=== PATIENT | female | born 1935 | race Caucasian/White ===

== ENCOUNTER 2017-01-07 20:46 | Inpatient (IN) | payer OTHER, MEDICARE ==
[2017-01-07] MEDS ORDERED: SODIUM CHLORIDE 0.9% 1000 ML INFUS.BAG IV ONE (21:14)
--- NOTE | 2017-01-07 21:14 | PDOC ---
History of Present Illness - General History Source: Patient Exam Limitations: No Limitations - History of Present Illness Initial Comments: 01/07/17 22:07 The patient is a 81 year old female, with a significant past medical history of Atrial fibrillation(on coumadin), hypertension hyperlipidemia, and TIA, who presents to the emergency department complaining of shortness of breath for approximately 4 days. The patient reports her SOB is exacerbated on exertion. The patient reports her symptoms today are similar to when her pacemaker was dysfunctional in the past. She reports recent travel history to [facility] for 4 weeks. The patients last INR was 2.1 several days before traveling. Prior to her onset of SOB, the patient states she developed travelers diarrhea approximately 2 weeks ago during her trip to [facility]. The patient reports taking imodium, with relief of symptoms, and no recurrent diarrheal symptoms. The patient reports no history of clots, DVTs, painful swelling of legs, or MIs. The patient denies any associated chest pain, diaphoresis, or palpitations. The patient denies nausea, vomiting, or constipation. The patient denies any fever, chills, cough, headache, dizziness, or paresthesias. The patient denies any dysuria, frequency, urgency, or hematuria. Allergies: None reported. Past Surgical History: Pacemaker Social History: Non-smoker. Denies alcohol or drug use. PCP: Dr. Avani Salas Digital Business Analyst: Cooper Hickey <Zeke Pryor - Last Filed: 01/08/17 01:10> - General History Source: Patient <GuprreetGerman leal - Last Filed: 01/08/17 01:17> - General Chief Complaint: Respiratory Stated Complaint: CHEST PAIN Time Seen by Provider: 01/07/17 21:14 Past History <Zeke Pryor - Last Filed: 01/08/17 01:10> - Past Medical History Cardiac Disorders: Yes (a-fib (on coumadin)) HTN: Yes Hypercholesterolemia: Yes Thyroid Disease: Yes - Surgical History Cardiac Surgery: Yes (PM) - Psycho/Social/Smoking Cessation Hx Suicidal Ideation: No Smoking History: Unknown if ever smoked Hx Alcohol Use: No Drug/Substance Use Hx: No <German Manuel - Last Filed: 01/08/17 01:17> - Past Medical History Allergies/Adverse Reactions: Allergies Allergy/AdvReac Type Severity Reaction Status Date / Time No Known Allergies Allergy Verified 01/07/17 20:54 Review of Systems - Review of Systems Able to Perform ROS?: Yes Comments:: 01/07/17 22:07 CONSTITUTIONAL: Absent: fever, no chills, no fatigue EYES: Absent: visual changes ENT: Absent: ear pain, no sore throat CARDIOVASCULAR: Absent: chest pain, no palpitations RESPIRATORY: Present: +dyspnea on exertion, +SOB Absent: cough GI: Present: +diarrhea Absent: abdominal pain, no nausea, no vomiting, no constipation GENITOURINARY: Absent: dysuria, no frequency, no hematuria MUSKULOSKELETAL: Absent: back pain, no arthralgia, no myalgia SKIN: Absent: rash NEURO: Absent: headache <Pryor,Giomilsy - Last Filed: 01/08/17 01:10> *Physical Exam - Vital Signs Last Vital Signs Temp Pulse Resp BP Pulse Ox 96.6 F L 78 18 101/74 100 01/07/17 21:23 01/07/17 21:22 01/07/17 21:22 01/07/17 21:22 01/07/17 21:22 - Physical Exam Comments: 01/07/17 22:08 GENERAL: Well developed, well nourished. Awake and alert. No acute distress. HEENT: Normocephalic, atraumatic. PERRLA, EOMI. No conjunctival pallor. Sclera are non- icteric. Moist mucous membranes. Oropharynx is clear. NECK: Supple. Full ROM. No JVD. Carotid pulses 2+ and symmetric, without bruits. No thyromegaly. No lymphadenopathy. CARDIOVASCULAR: Distant heart sounds. No murmurs, rubs, or gallops. Distal pulses are 2+ and symmetric. PULMONARY: No evidence of respiratory distress. Lungs clear to auscultation bilaterally. No wheezing, rales or rhonchi. ABDOMINAL: Soft. Non-tender. Non-distended. No rebound or guarding. No organomegaly. Normoactive bowel sounds. MUSCULOSKELETAL Normal range of motion at all joints. No bony deformities or tenderness. No CVA tenderness. EXTREMITIES: No cyanosis. No clubbing. No edema. No calf tenderness. SKIN: Warm and dry. Normal capillary refill. No rashes. No jaundice. NEUROLOGICAL: Alert, awake, appropriate. Cranial nerves 2-12 intact. No deficits to light touch and temperature in face, upper extremities and lower extremities. No motor deficits in the in face, upper extremities and lower extremities. Normoreflexic in the upper and lower extremities. Normal speech. Toes are down- going bilaterally. Gait is normal without ataxia. PSYCHIATRIC: Cooperative. Good eye contact. Appropriate mood and affect. <Zeke Pryor - Last Filed: 01/08/17 01:10> - Vital Signs Last Vital Signs Temp Pulse Resp BP Pulse Ox 73 18 88/54 96 01/07/17 20:54 01/07/17 20:54 01/07/17 20:54 01/07/17 20:54 <German Manuel - Last Filed: 01/08/17 01:17> Heart Score/ECG Review - ECG Impressions Comment:: 01/07/17 21:30 Vent. Rate: 78 bpm IMPRESSION: Atrial fibrillation with premature ventricular or aberrantly conducted complexes. Left axis deviation. Left bundle branch block. <Zeke Pryor - Last Filed: 01/08/17 01:10> ED Treatment Course - LABORATORY CBC & Chemistry Diagram: 01/07/17 21:16 01/07/17 21:16 - RADIOLOGY Radiograph Interpretation: 01/08/17 01:11 EXAM: Chest CT INTERPRETED BY: Dr. Nuno REVIEWED BY: Dr. Manuel IMPRESSION: Moderate to large pericardial effusion demonstrates soft tissue attenuation consistent with hemopericardium. Periportal lucency in the liver and gallbladder wall edema. These findings can be the result of central venous congestion. Consider evaluation for cardiac tamponade. <Zeke Pryor - Last Filed: 01/08/17 01:10> - LABORATORY CBC & Chemistry Diagram: 01/07/17 21:16 01/07/17 21:16 <German Manuel - Last Filed: 01/08/17 01:17> Medical Decision Making - Medical Decision Making 01/07/17 22:03 First call placed to Dr. Salas at 22:03. Dr. Gama is workers compensation coordinator. Awaiting call back. Case discussed with Dr. Gama at 22:30. First call placed to Dr. Hickey at 00:58. Awaiting call back. Spoke to patient's vinyl dipper Dr. Cooper Hickey at 01:02, he was made aware of the CT findings of a large pericardial effusion. He suggests stat echocardiogram in the morning and he will also see the patient in the morning. <Zeke Pryor - Last Filed: 01/08/17 01:10> - Medical Decision Making 01/08/17 00:59 Dr. Manuel: The scribe's documentation has been prepared under my direction and personally reviewed by me in its entirery. I confirm that the note above accurately reflects all work, treatment, procedures, and medical decision making performed by me. Pt found to have a large pericardial effusion as per radiology workers compensation coordinator. Radiologist concerned for pericardial tamponade. Spoke to pcp and pt vinyl dipper. Both eill see pt in the morning and pt will have a stat echocardiogram <German Manuel - Last Filed: 01/08/17 01:17> *DC/Admit/Observation/Transfer - Attestations Scribe Attestion: 01/07/17 22:09 Documentation prepared by Zeke Pryor, acting as medical engineer for German Manuel DO. <Zeke Pryor - Last Filed: 01/08/17 01:10> - Discharge Dispostion Admit: Yes <German Manuel - Last Filed: 01/08/17 01:17> Diagnosis at time of Disposition: Renal failure Sepsis Qualifiers: Sepsis type: sepsis during labor Qualified Code(s): O75.3 - Other infection during labor - Discharge Dispostion Condition at time of disposition: Stable
[2017-01-07 21:32] LABS: BASOPHIL 1.2 % (0-2.0); EOSINOPHIL 0.5 % (0-4.5); MCH 31.3 pg (25.7-33.7); MCHC 32.8 g/dl (32.0-36.0); MEAN CELL VOLUME 95.4 fl (80-96); NEUTROPHILS 70.4 % (42.8-82.8); PLATELET COUNT 376 K/MM3 (134-434); RDW 13.9 % (11.6-15.6); WHITE BLOOD COUNT 11.8 K/mm3 (4.0-10.0)
[2017-01-07 21:42] LABS: PROTHROMBIN TIME (PATIENT) 99.6 SEC (9.98-11.88)
[2017-01-07 21:44] LABS: ACTIVATED PTT 49.1 SECONDS (26.9-34.4)
[2017-01-07 21:52] LABS: INR 8.66 (0.82-1.09)
[2017-01-07 21:55] LABS: ALBUMIN 3.2 g/dl (3.4-5.0); ANION GAP 14 (8-16); BILIRUBIN,TOTAL 0.3 mg/dL (0.2-1.0); CALCIUM 7.8 mg/dL (8.5-10.1); CO2 16 mmol/L (21-32); CREATININE 4.9 mg/dL (0.55-1.02); GLUCOSE,RANDOM 151 mg/dL (74-106); SGOT/AST 26 U/L (15-37); SGPT/ALT 53 U/L (12-78); TOT PROT 6.2 g/dl (6.4-8.2)
[2017-01-07 21:57] LABS: ALK PHOS 124 U/L (45-117); TROPONIN I < 0.02 ng/ml (0.00-0.05)
[2017-01-07] MEDS ORDERED: SODIUM CHLORIDE 1,000 ML IV STA (22:06)
[2017-01-07 22:24] LABS: VENOUS BLOOD GAS HCO3 15.8 meq/L (22-29); VENOUS PH 7.17 (7.31-7.41)
[2017-01-07] MEDS ORDERED: PIPERACILLIN/TAZOB 3.375 GM 3.375 GM in DEXTROSE 5%-WATER - 50 ML IVPB ONE (22:29)
[2017-01-07] MEDS ORDERED: PIPERACILLIN/TAZOB 3.375 GM 50 ML IVPB ONE (22:44)
[2017-01-08] MEDS ORDERED: PHYTONADIONE 10 MG/1 ML AMP IVPB ONE ×3 (00:55→07:27)
[2017-01-08] MEDS ORDERED: PHYTONADIONE 10 MG/1 ML AMP ONE (01:31)
[2017-01-08 02:35] LABS: URINE APPEARANCE TURBID; URINE BILIRUBIN NEGATIVE (NEGATIVE); URINE COLOR YELLOW; URINE GLUCOSE (UA) 1+ (NEGATIVE); URINE KETONE TRACE (NEGATIVE); URINE LEUK ESTERASE NEGATIVE (NEGATIVE); URINE NITRITE NEGATIVE (NEGATIVE); URINE UROBILINOGEN NEGATIVE E.U./dl (0.2-1.0)
[2017-01-08 02:37] LABS: URINE BLOOD 2+ (NEGATIVE); URINE PROTEIN 3+ (NEGATIVE)
[2017-01-08 02:45] LABS: URINE BACTERIA MANY /hpf (NONE SEEN); URINE RBC 90 /hpf (0-3); URINE WBC 36 /hpf (3-5)
--- NOTE | 2017-01-08 03:33 | CONSULT ---
Consult Consult Specialty:: Pulm/CCM Reason for Consultation:: Pericardial Effusion - History of Present Illness Chief Complaint: Dyspnea History of Present Illness: 81 year old woman with PMHx Atrial fibrillation(on coumadin), hypertension hyperlipidemia, and TIA, who presents to the emergency department complaining of shortness of breath for approximately 4 days. On imaging she is noted to have a large pericardial effusion. She is transferred to ICU for monitoring In the ED her VS T 96, HR 73, irreg, BP 88/54, O2 sat 95% on 4L NC. She reported that her symptoms are similar to when her pacemaker was dysfunctional in the past. She reported recent travel history to [facility] for 4 weeks where she developed travelers diarrhea. After the diarrhea she developed the SOB that worsened with exertion. She denied chest pain , palpitaiton , syncope, lightheadedness, fever cough or any sick contacts. Her labs were notable for WBC 11, BUN/Creat 73/4.9, lact 3.3, INR 8.6( previously 2.1), VBG ph 7.17. Her CXR unremarkable. CT chest showed large pericaridial effusion with possible tamponade physiology. She was given NS 2L, Vit K 5mg, and Zosyn x1. Her fisheries inspector Dr Hickey was notified. Plan for ECHO in am. She was transferred to ICU for further management In ICU she was received A+O x3, HR 74, BP 103/83, O2 sat 99% on 4L NC. HR very irregular. ECG showed pacemaker failure with no capture. BP dropped to 60/40's . Dopamine drip started. Dr Hickey notified. Requested CXR read to assess for pacemaker lead placement and possible penetration. NS 500cc fluid bolus x2 given. Plan for transfer. - History Source History Provided By: Patient Limitations to Obtaining History: No Limitations - Past Medical History C++ PROFESSOR: Yes: TIA Cardio/Vascular: Yes: AFIB, HTN, Hyperlipdemia - Past Surgical History Past Surgical History: Yes: Cataract Removal, Permanent Pacemaker Additional Surgical History: Basal cell resection - Alcohol/Substance Use Hx Alcohol Use: No History of Substance Use: reports: None - Smoking History Smoking history: Unknown if ever smoked Home Medications - Allergies Allergies/Adverse Reactions: Allergies Allergy/AdvReac Type Severity Reaction Status Date / Time No Known Allergies Allergy Verified 01/07/17 20:54 - Home Medications Home Medications: Ambulatory Orders Amlodipine Bes/Olmesartan Med [Amlodipine-Olmesartan 10-20 mg] 1 each PO DAILY 01/08/17 Atorvastatin Ca [Lipitor] 10 mg PO HS 01/08/17 Levothyroxine [Synthroid -] 25 mcg PO DAILY 01/08/17 Metoprolol Tartrate [Lopressor -] 50 mg PO DAILY 01/08/17 Propafenone HCl [Propafenone HCl ER] 425 mg PO BID 01/08/17 Warfarin Na [Coumadin] 3 mg PO DAILY 01/08/17 Review of Systems - Review of Systems Constitutional: reports: Loss of Appetite, Other (Fatigue) Eyes: reports: No Symptoms HENT: reports: No Symptoms Neck: reports: No Symptoms Cardiovascular: reports: Shortness of Breath Respiratory: reports: No Symptoms Gastrointestinal: reports: Diarrhea Genitourinary: reports: No Symptoms Breasts: reports: No Symptoms Reported Musculoskeletal: reports: No Symptoms Integumentary: reports: No Symptoms Neurological: reports: No Symptoms Endocrine: reports: No Symptoms Hematology/Lymphatic: reports: No Symptoms Psychiatric: reports: No Symptoms Physical Exam Vital Signs: Vital Signs Temperature 97.1 F L 01/08/17 02:30 Pulse Rate 78 01/08/17 02:30 Respiratory Rate 22 01/08/17 02:30 Blood Pressure 83/54 01/08/17 02:30 O2 Sat by Pulse Oximetry (%) 96 01/08/17 02:30 Constitutional: Yes: Well Nourished, No Distress, Calm Eyes: Yes: WNL HENT: Yes: WNL Neck: Yes: WNL Cardiovascular: Yes: Pulse Irregular, Other (A-fib with pacemaker failure No JVD , no rub, murmur) Respiratory: Yes: WNL, On Nasal O2 Gastrointestinal: Yes: Normal Bowel Sounds, Soft, Abdomen, Obese, Hypoactive Bowel Sounds Extremities: Yes: Cool, Pallor Edema: No Integumentary: Yes: Other (dry flaky) Neurological: Yes: Alert, Oriented ...Motor Strength: WNL Psychiatric: Yes: WNL Labs: CBC,CMP WBC 11.8 K/mm3 (4.0-10.0) H 01/07/17 21:16 RBC 3.15 M/mm3 (3.60-5.2) L 01/07/17 21:16 Hgb 9.8 GM/dL (10.7-15.3) L 01/07/17 21:16 Hct 30.0 % (32.4-45.2) L 01/07/17 21:16 MCV 95.4 fl (80-96) 01/07/17 21:16 MCHC 32.8 g/dl (32.0-36.0) 01/07/17 21:16 RDW 13.9 % (11.6-15.6) 01/07/17 21:16 Plt Count 376 K/MM3 (134-434) 01/07/17 21:16 MPV 8.0 fl (7.5-11.1) 01/07/17 21:16 Neutrophils % 70.4 % (42.8-82.8) 01/07/17 21:16 Lymphocytes % 18.0 % (8-40) 01/07/17 21:16 Monocytes % 9.9 % (3.8-10.2) 01/07/17 21:16 Eosinophils % 0.5 % (0-4.5) 01/07/17 21:16 Basophils % 1.2 % (0-2.0) 01/07/17 21:16 Sodium 136 mmol/L (136-145) 01/07/17 21:16 Potassium 5.4 mmol/L (3.5-5.1) H 01/07/17 21:16 Chloride 106 mmol/L (98-107) 01/07/17 21:16 Carbon Dioxide 16 mmol/L (21-32) L 01/07/17 21:16 Anion Gap 14 (8-16) 01/07/17 21:16 BUN 73 mg/dL (7-18) H 01/07/17 21:16 Creatinine 4.9 mg/dL (0.55-1.02) H 01/07/17 21:16 Creat Clearance w eGFR 8.46 (>60) 01/07/17 21:16 Random Glucose 151 mg/dL (74-106) H 01/07/17 21:16 Lactic Acid 1.342 mmol/L (0.4-2.0) 01/07/17 23:55 Calcium 7.8 mg/dL (8.5-10.1) L 01/07/17 21:16 Total Bilirubin 0.3 mg/dL (0.2-1.0) 01/07/17 21:16 AST 26 U/L (15-37) 01/07/17 21:16 ALT 53 U/L (12-78) 01/07/17 21:16 Alkaline Phosphatase 124 U/L (45-117) H 01/07/17 21:16 Creatine Kinase 75 IU/L (26-192) 01/07/17 21:16 Troponin I < 0.02 ng/ml (0.00-0.05) 01/07/17 21:16 B-Natriuretic Peptide 1061.06 pg/ml (5-450) H 01/07/17 22:04 Total Protein 6.2 g/dl (6.4-8.2) L 01/07/17 21:16 Albumin 3.2 g/dl (3.4-5.0) L 01/07/17 21:16 Imaging - Results Chest X-ray: Report Reviewed (No consolidations or effusions) Cat Scan: Report Reviewed (CT Chest shows small right pleural effusion. A moderate to large complex pericardial effusion likely hemorrhagic. Venous congestion. Possible cardiac tamponade) Assessment/Plan 81yo woman with PMHx HTN, HLD, A-fib on coumadin s/p Pacemaker from 2006 with recent battery change last june presents with c/o 4 days of dyspnea after a bout of traveler diarrhea. Found to have a large pericardial effusion most likely hemorrhagic with tamponade physiology in the setting of supratherapeutic INR of 8.6. C/f inappropriate pacemaker lead placement resulting in hemorrhage. Course also complicated by acute renal failure and lactic acidosis m/l from poor forward flow +/- dehydration from diarrhea and decreased po intake. Also with leukocytosis c/f sepsis CV/Pulm: Hypotension m/l cardiogengic shock 2/2 pericardial tamponade +/- pacemaker failure requiring inotrope support -Gentle fluid bolus-- -Dopamine drip for inotropy -TTE -Cardiothoracic consult -Plan for pericardiocentesis or window -Interrogate pacemaker -NC O2 support -Monitor lactate -Keep NPO Heme: Supratherapeutic INR -FFP as needed -Cont Vit K -Monitor CBC and coags Renal: Acute renal failure -Monitor BMP and UOP -Fluid bolus as needed -Renal dose meds ID: Leukocytosis possible UTI -f/u cultures and flu swab -Cont zosyn -Monitor CBC and temps
[2017-01-08 03:36] VITALS: BMI 27.9
[2017-01-08] MEDS: DOPAMINE 400 MG/D5W - 250 ML IVPB SCH (04:20)
[2017-01-08] MEDS ORDERED: DEXTROSE 5%-NORMAL SALINE 1,000 ML IV SCH (04:30)
[2017-01-08] MEDS ORDERED: SODIUM CHLORIDE 500 ML IV STA (04:47)
[2017-01-08] MEDS ORDERED: SODIUM CHLORIDE 500 ML IV ONE (05:50)
[2017-01-08 05:58] LABS: BASOPHIL 0.6 % (0-2.0); EOSINOPHIL 0.1 % (0-4.5); MCH 31.1 pg (25.7-33.7); MCHC 32.8 g/dl (32.0-36.0); MEAN CELL VOLUME 94.8 fl (80-96); MEAN PLT VOLUME 7.8 fl (7.5-11.1); NEUTROPHILS 82.9 % (42.8-82.8); PLATELET COUNT 354 K/MM3 (134-434); RDW 13.8 % (11.6-15.6)
[2017-01-08 06:14] LABS: PROTHROMBIN TIME (PATIENT) 67.7 SEC (9.98-11.88)
[2017-01-08 06:39] LABS: CALCIUM 7.1 mg/dL (8.5-10.1)
[2017-01-08 06:40] LABS: BILIRUBIN,TOTAL 0.4 mg/dL (0.2-1.0); TOT PROT 5.7 g/dl (6.4-8.2)
--- NOTE | 2017-01-08 06:49 | CON.CARD ---
Consult Consult Specialty:: Cardiology Referred by:: Dr. 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 She was sick with diarrhea (likely travelers diarrhea) and then developed shortness of breath which cut her trip short. [place] and came into the hospital last night. Patient was found to have INR 8.6 with lactic acid level of 3.3 and BUN/Cr of 73/4.9 (she has not had any renal failure in the past). CXR showed possible enlarged heart, but without any infiltrates. CT of chest revealed possible moderate to large pericardial effusion and was reported possible tamponade. Also CT chest suggested possible hemopericardium. O2 saturation was 95% on 4L NC. She also has history of sick sinus syndrome with Medtronic pacemaker. Currently not clear whether it is appropriately capturing, but also it may be due to hyperkalemia as well as pericardial effusion. She became hypotensive and has been supported by fluids and also was started on Dopamine being titrated. She was given Vitamin K and was given empiric antibiotic. INR is being repeated with type and cross done and in addition to FFP on hold. Echocardiography is being done. She is awake and alert early this am. She denies chest pain or palpitation. She is breathing comfortable with oxygen. Denies headache of dizziness. She felt nausea early this am and no fever or chills. CT surgery has been contacted. 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 Cardio/Vascular: Yes: AFIB, HTN, Hyperlipdemia ...: No - Past Surgical History Past Surgical History: Yes: Cataract Removal, Permanent Pacemaker Additional Surgical History: Basal cell resection - Alcohol/Substance Use Hx Alcohol Use: No History of Substance Use: reports: None - Smoking History Smoking history: Unknown if ever smoked Have you smoked in the past 12 months: No Home Medications - Allergies Allergies/Adverse Reactions: Allergies Allergy/AdvReac Type Severity Reaction Status Date / Time No Known Allergies Allergy Verified 01/07/17 20:54 - Home Medications Home Medications: Ambulatory Orders Amlodipine Bes/Olmesartan Med [Amlodipine-Olmesartan 10-20 mg] 1 each PO DAILY 01/08/17 Atorvastatin Ca [Lipitor] 10 mg PO HS 01/08/17 Levothyroxine [Synthroid -] 25 mcg PO DAILY 01/08/17 Metoprolol Tartrate [Lopressor -] 50 mg PO DAILY 01/08/17 Propafenone HCl [Propafenone HCl ER] 425 mg PO BID 01/08/17 Warfarin Na [Coumadin] 3 mg PO DAILY 01/08/17 Review of Systems - Review of Systems Constitutional: denies: Chills, Fever Cardiovascular: reports: Shortness of Breath. denies: Chest Pain, Palpitations Respiratory: reports: SOB. denies: Cough, Hemoptysis, Orthopnea, PND Gastrointestinal: reports: Nausea. denies: Abdominal Pain, Constipation, Diarrhea, Melena, Rectal Bleeding, Vomiting Neurological: denies: Dizziness, Headache, Seizure, Syncope Vital Signs: Vital Signs Temperature 97.8 F 01/08/17 06:00 Pulse Rate 73 01/08/17 06:00 Respiratory Rate 22 01/08/17 06:00 Blood Pressure 87/41 01/08/17 06:00 O2 Sat by Pulse Oximetry (%) 100 01/08/17 03:30 Neck: Yes: Supple Respiratory: Yes: Diminished Gastrointestinal: Yes: Normal Bowel Sounds, Soft. No: Tenderness Cardiovascular: Yes: Regular Rate and Rhythm, Other (Distant heart sound) JVD: No Carotid Bruit: No Heart Sounds: Yes: S1, S2 Edema: No - Other Data Labs, Other Data: CBC, BMP 01/08/17 05:00 INR, PTT INR 8.66 (0.82-1.09) H* 01/07/17 21:16 Laboratory Results - last 24 hr 01/07/17 01/07/17 01/07/17 21:15 21:16 21:16 WBC 11.8 H RBC 3.15 L Hgb 9.8 L Hct 30.0 L MCV 95.4 MCHC 32.8 RDW 13.9 Plt Count 376 MPV 8.0 Neutrophils % 70.4 Lymphocytes % 18.0 Monocytes % 9.9 Eosinophils % 0.5 Basophils % 1.2 INR 8.66 H* PTT (Actin FS) 49.1 H D-Dimer VBG pH POC VBG pCO2 POC VBG pO2 Sodium Potassium Chloride Carbon Dioxide Anion Gap BUN Creatinine Creat Clearance w eGFR Random Glucose Lactic Acid Calcium Total Bilirubin AST ALT Alkaline Phosphatase Creatine Kinase Troponin I B-Natriuretic Peptide Total Protein Albumin Urine Color Urine Appearance Urine pH Ur Specific [place] Urine Protein Urine Glucose (UA) Urine Ketones Urine Blood Urine Nitrite Urine Bilirubin Urine Urobilinogen Ur Leukocyte Esterase Urine RBC Urine WBC Ur Epithelial Cells Urine Bacteria Blood Type O POSITIVE Antibody Screen Negative 01/07/17 01/07/17 01/07/17 21:16 21:16 22:04 WBC RBC Hgb Hct MCV MCHC RDW Plt Count MPV Neutrophils % Lymphocytes % Monocytes % Eosinophils % Basophils % INR PTT (Actin FS) D-Dimer 450 H VBG pH POC VBG pCO2 POC VBG pO2 Sodium 136 Potassium 5.4 H Chloride 106 Carbon Dioxide 16 L Anion Gap 14 BUN 73 H Creatinine 4.9 H Creat Clearance w eGFR 8.46 Random Glucose 151 H Lactic Acid 3.313 H* Calcium 7.8 L Total Bilirubin 0.3 AST 26 ALT 53 Alkaline Phosphatase 124 H Creatine Kinase 75 Troponin I < 0.02 B-Natriuretic Peptide Total Protein 6.2 L Albumin 3.2 L Urine Color Urine Appearance Urine pH Ur Specific [place] Urine Protein Urine Glucose (UA) Urine Ketones Urine Blood Urine Nitrite Urine Bilirubin Urine Urobilinogen Ur Leukocyte Esterase Urine RBC Urine WBC Ur Epithelial Cells Urine Bacteria Blood Type Antibody Screen 01/07/17 01/07/17 01/07/17 22:04 22:20 23:55 WBC RBC Hgb Hct MCV MCHC RDW Plt Count MPV Neutrophils % Lymphocytes % Monocytes % Eosinophils % Basophils % INR PTT (Actin FS) D-Dimer VBG pH 7.17 L* POC VBG pCO2 45.3 POC VBG pO2 34.5 Sodium Potassium Chloride Carbon Dioxide Anion Gap BUN Creatinine Creat Clearance w eGFR Random Glucose Lactic Acid 1.342 Calcium Total Bilirubin AST ALT Alkaline Phosphatase Creatine Kinase Troponin I B-Natriuretic Peptide 1061.06 H Total Protein Albumin Urine Color Urine Appearance Urine pH Ur Specific [place] Urine Protein Urine Glucose (UA) Urine Ketones Urine Blood Urine Nitrite Urine Bilirubin Urine Urobilinogen Ur Leukocyte Esterase Urine RBC Urine WBC Ur Epithelial Cells Urine Bacteria Blood Type Antibody Screen 01/08/17 01/08/17 01/08/17 02:20 05:00 05:00 WBC 12.0 H RBC 3.14 L Hgb 9.8 L Hct 29.8 L MCV 94.8 MCHC 32.8 RDW 13.8 Plt Count 354 MPV 7.8 Neutrophils % 82.9 H Lymphocytes % 9.0 D Monocytes % 7.4 Eosinophils % 0.1 Basophils % 0.6 INR PTT (Actin FS) D-Dimer VBG pH POC VBG pCO2 POC VBG pO2 Sodium 138 Potassium 5.6 H Chloride 110 H Carbon Dioxide 16 L Anion Gap 12 BUN 78 H Creatinine 5.0 H Creat Clearance w eGFR 8.27 Random Glucose 155 H Lactic Acid Calcium 7.1 L Total Bilirubin 0.4 D AST 39 H D ALT 64 D Alkaline Phosphatase 115 Creatine Kinase Troponin I B-Natriuretic Peptide Total Protein 5.7 L Albumin 3.0 L Urine Color Yellow Urine Appearance Turbid Urine pH 5.0 Ur Specific [place] 1.019 Urine Protein 3+ H Urine Glucose (UA) 1+ H Urine Ketones Trace H Urine Blood 2+ H Urine Nitrite Negative Urine Bilirubin Negative Urine Urobilinogen Negative Ur Leukocyte Esterase Negative Urine RBC 90 Urine WBC 36 Ur Epithelial Cells Rare Urine Bacteria Many Blood Type Antibody Screen 01/08/17 01/08/17 05:00 05:00 WBC RBC Hgb Hct MCV MCHC RDW Plt Count MPV Neutrophils % Lymphocytes % Monocytes % Eosinophils % Basophils % INR 5.93 H* D PTT (Actin FS) 39.0 H D-Dimer VBG pH POC VBG pCO2 POC VBG pO2 Sodium Potassium Chloride Carbon Dioxide Anion Gap BUN Creatinine Creat Clearance w eGFR Random Glucose Lactic Acid 1.245 Calcium Total Bilirubin AST ALT Alkaline Phosphatase Creatine Kinase Troponin I B-Natriuretic Peptide Total Protein Albumin Urine Color Urine Appearance Urine pH Ur Specific [place] Urine Protein Urine Glucose (UA) Urine Ketones Urine Blood Urine Nitrite Urine Bilirubin Urine Urobilinogen Ur Leukocyte Esterase Urine RBC Urine WBC Ur Epithelial Cells Urine Bacteria Blood Type Antibody Screen Underlying atrial fibrillation, presence of dual chamber pacemaker, underlying wide complex QRS with left bundle pattern Echo: Pending Imaging - Results Chest X-ray: Image Reviewed Cat Scan: Image Reviewed (Official report to follow - moderate to large eusebio) EKG: Report Reviewed Problem List - Problems (1) Renal failure Code(s): N19 - UNSPECIFIED KIDNEY FAILURE (2) Pericardial effusion with cardiac tamponade Code(s): I31.3 - PERICARDIAL EFFUSION (NONINFLAMMATORY) I31.4 - CARDIAC TAMPONADE (3) Atrial fibrillation Code(s): I48.91 - UNSPECIFIED ATRIAL FIBRILLATION Qualifiers: Atrial fibrillation type: paroxysmal Qualified Code(s): I48.0 - Paroxysmal atrial fibrillation (4) Hypertension Code(s): I10 - ESSENTIAL (PRIMARY) HYPERTENSION Qualifiers: Hypertension type: essential hypertension Qualified Code(s): I10 - Essential (primary) hypertension (5) Hypotension Code(s): I95.9 - HYPOTENSION, UNSPECIFIED Qualifiers: Hypotension type: other hypotension type Qualified Code(s): I95.89 - Other hypotension (6) Sick sinus syndrome Code(s): I49.5 - SICK SINUS SYNDROME (7) Presence of permanent cardiac pacemaker Code(s): Z95.0 - PRESENCE OF CARDIAC PACEMAKER (8) TIA (transient ischemic attack) Code(s): G45.9 - TRANSIENT CEREBRAL ISCHEMIC ATTACK, UNSPECIFIED Qualifiers: Transient cerebral ischemia type: unspecified Qualified Code(s): G45.9 - Transient cerebral ischemic attack, unspecified Assessment/Plan 1. Large pericardial effusion possibly hemopericardium with tamponade physiology 2. Acute renal failure with initial lactic acidosis and hyperkalemia 2. History of sick sinus syndrome S/P PPM 3. History of paroxysmal atrial fibrillation on Coumadin ([id number] score of 6 -7) 4. History of hypertension, but now hypotensive due to #1 5. History of TIA/stroke 6. Recent travelers diarrhea - resolved PLAN: 1. Transthoracic echocardiography revealed large pericardial effusion with component of diastolic collapse suggestive of cardiac tamponade physiology. LV function appears preserved. 2. Discussed case with Thoracic surgery (Dr. Yefri Cowna) for pericardial window vs. pericardial drain today. INR will need to be reversed with further Vitamin K and FFP. PPM lead probably is in position, but with intermittent capture due to above tamponade physiology. Lead does not appear to have perforated. Keep NPO 3. Correct hyperkalemia - may give D50, Insulin and Calcium and follow K level and renal function. Renal consultation to follow regarding BUN/cr and metabolic acidosis 4. Empiric antibiotic 5. Agree with Dopamine drip and fluid resuscitation and hold cardiac medications until further instruction. Critical Patient explained of current status and plan Cooper Hickey MD
[2017-01-08 06:50] LABS: INR 5.93 (0.82-1.09)
[2017-01-08] MEDS ORDERED: SODIUM CHLORIDE 1,000 ML IV ONE (06:55)
[2017-01-08] MEDS ORDERED: SODIUM CHLORIDE 1,000 ML IV SCH (08:30)
--- NOTE | 2017-01-08 09:26 | HP ---
Admitting History and Physical - Admission History of Present Illness: 81 year old female with underlying history of PAF (on Coumadin), HTN , hypercholesterolemia and TIA/stroke without residual deficit now presents after returning from [facility] on her routine trip with increase in shortness of breath. She was sick with diarrhea (likely travelers diarrhea) and then developed shortness of breath which cut her trip short. [place] on [place] and came into the hospital last night. Patient was found to have INR 8.6 with lactic acid level of 3.3 and BUN/Cr of 73/4.9 (she has not had any renal failure in the past). CXR showed possible enlarged heart, but without any infiltrates. CT of chest revealed possible moderate to large pericardial effusion and was reported possible tamponade. Also CT chest suggested possible hemopericardium. O2 saturation was 95% on 4L NC. She also has history of sick sinus syndrome with Medtronic pacemaker. She became hypotensive and has been supported by fluids and also was started on Dopamine being titrated. She was given Vitamin K and was given empiric antibiotic. INR is being repeated with type and cross done and in addition to FFP on hold. Echocardiography is being done. She is awake and alert early this am. She denies chest pain or palpitation. She is breathing comfortable with oxygen. Denies headache of dizziness. She felt nausea early this am and no fever or chills. 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 Cardiovascular: Yes: AFIB, HTN, Hyperlipdemia ...: No - Past Surgical History Past Surgical History: Yes: Cataract Removal, Permanent Pacemaker - Smoking History Smoking history: Unknown if ever smoked Have you smoked in the past 12 months: No - Alcohol/Substance Use Hx Alcohol Use: No History of Substance Use: reports: None Home Medications - Allergies Allergies/Adverse Reactions: Allergies Allergy/AdvReac Type Severity Reaction Status Date / Time No Known Allergies Allergy Verified 01/07/17 20:54 - Home Medications Home Medications: Ambulatory Orders Amlodipine Bes/Olmesartan Med [Amlodipine-Olmesartan 10-20 mg] 1 each PO DAILY 01/08/17 Atorvastatin Ca [Lipitor] 10 mg PO HS 01/08/17 Levothyroxine [Synthroid -] 25 mcg PO DAILY 01/08/17 Metoprolol Tartrate [Lopressor -] 50 mg PO DAILY 01/08/17 Propafenone HCl [Propafenone HCl ER] 425 mg PO BID 01/08/17 Warfarin Na [Coumadin] 3 mg PO DAILY 01/08/17 Physical Examination Vital Signs: Vital Signs Temperature 97.6 F 01/08/17 08:30 Pulse Rate 73 01/08/17 08:46 Respiratory Rate 22 01/08/17 08:30 Blood Pressure 128/69 01/08/17 08:46 O2 Sat by Pulse Oximetry (%) 100 01/08/17 03:30 Cardiovascular: Yes: S1, S2 Respiratory: Yes: Regular, CTA Bilaterally Gastrointestinal: Yes: Normal Bowel Sounds, Soft. No: Tenderness Neurological: Yes: Alert, Oriented Labs: CBC, BMP 01/08/17 05:00 01/08/17 05:00 Imaging - Results Chest X-ray: Report Reviewed Cat Scan: Report Reviewed Assessment/Plan Problems (1) Renal failure MONITOR RENAL FUNCTION MAYBE DUE TO HYPOTENSION OR INFECTION RENAL CONSULT IVF Code(s): N19 - UNSPECIFIED KIDNEY FAILURE (2) Pericardial effusion with cardiac tamponade D/W TS--WILL CORRECT INR THEN IR OR TS WILL DRAIN EFFUSION MONITOR BP AND FO SIGN OF TAMPONADE MAY BE FROM BLEEDING--HIGH INR Code(s): I31.3 - PERICARDIAL EFFUSION (NONINFLAMMATORY) I31.4 - CARDIAC TAMPONADE (3) Atrial fibrillation REVERSE INR MONITOR RATE Code(s): I48.91 - UNSPECIFIED ATRIAL FIBRILLATION Qualifiers: Atrial fibrillation type: paroxysmal Qualified Code(s): I48.0 - Paroxysmal atrial fibrillation (4) Hypertension Code(s): I10 - ESSENTIAL (PRIMARY) HYPERTENSION Qualifiers: Hypertension type: essential hypertension Qualified Code(s): I10 - Essential (primary) hypertension (5) Hypotension IVF DOPAMINE Code(s): I95.9 - HYPOTENSION, UNSPECIFIED Qualifiers: Hypotension type: other hypotension type Qualified Code(s): I95.89 - Other hypotension (6) Sick sinus syndrome Code(s): I49.5 - SICK SINUS SYNDROME (7) Presence of permanent cardiac pacemaker CARDIAC MONITORING Code(s): Z95.0 - PRESENCE OF CARDIAC PACEMAKER (8) TIA (transient ischemic attack) Code(s): G45.9 - TRANSIENT CEREBRAL ISCHEMIC ATTACK, UNSPECIFIED Qualifiers: Transient cerebral ischemia type: unspecified Qualified Code(s): G45.9 - Transient cerebral ischemic attack, unspecified (9) AGE--R/O E COLI HIGH LACTIC ACID ID CONSULT--D/W ID--WILL HOLD OFF ON ABX
--- NOTE | 2017-01-08 09:51 | CONSULT ---
Consult Consult Specialty:: Thoracic Surgery Referred by:: Dr. Cooper Hickey Reason for Consultation:: Pericardial effusion - History of Present Illness Chief Complaint: Weakness History of Present Illness: An 81-year-old female with history of PAF (on Coumadin), s/p pacemaker, HTN, and TIA/stroke, who presented to [facility] with complaints of worsening weakness. She reports that she was sick with diarrhea for few days in [facility] and developed mild SOB. Her workup including chest x-ray and CT chest showed pericardial effusion. Subsequently her echocardiogram confirmed above findings but no official reports available. She was also found to have elevated INR, lactic acidosis, hyperkalemia and acute renal insufficiency. She is breathing comfortably on supine position currently. She denies fever, chills, headache, dizziness, cough, sputum production and chest pain. 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 Cardio/Vascular: Yes: AFIB, HTN, Hyperlipdemia ...: No - Past Surgical History Past Surgical History: Yes: Cataract Removal, Permanent Pacemaker Additional Surgical History: Basal cell resection - Alcohol/Substance Use Hx Alcohol Use: No History of Substance Use: reports: None - Smoking History Smoking history: Unknown if ever smoked Have you smoked in the past 12 months: No Home Medications - Allergies Allergies/Adverse Reactions: Allergies Allergy/AdvReac Type Severity Reaction Status Date / Time No Known Allergies Allergy Verified 01/07/17 20:54 - Home Medications Home Medications: Ambulatory Orders Amlodipine Bes/Olmesartan Med [Amlodipine-Olmesartan 10-20 mg] 1 each PO DAILY 01/08/17 Atorvastatin Ca [Lipitor] 10 mg PO HS 01/08/17 Levothyroxine [Synthroid -] 25 mcg PO DAILY 01/08/17 Metoprolol Tartrate [Lopressor -] 50 mg PO DAILY 01/08/17 Propafenone HCl [Propafenone HCl ER] 425 mg PO BID 01/08/17 Warfarin Na [Coumadin] 3 mg PO DAILY 01/08/17 Review of Systems - Review of Systems Constitutional: reports: Malaise, Weakness Eyes: reports: No Symptoms HENT: reports: No Symptoms Neck: reports: No Symptoms Cardiovascular: reports: Shortness of Breath Respiratory: reports: SOB Gastrointestinal: reports: Diarrhea, Nausea Genitourinary: reports: No Symptoms Breasts: reports: No Symptoms Reported Musculoskeletal: reports: No Symptoms Integumentary: reports: No Symptoms Neurological: reports: No Symptoms Endocrine: reports: No Symptoms Hematology/Lymphatic: reports: No Symptoms Psychiatric: reports: No Symptoms Physical Exam Vital Signs: Vital Signs Temperature 97.6 F 01/08/17 08:30 Pulse Rate 73 01/08/17 08:46 Respiratory Rate 22 01/08/17 08:30 Blood Pressure 128/69 01/08/17 08:46 O2 Sat by Pulse Oximetry (%) 100 01/08/17 03:30 Constitutional: Yes: Well Nourished, Calm Eyes: Yes: WNL HENT: Yes: WNL Neck: Yes: WNL, Supple, Other (No JVD) Cardiovascular: Yes: Regular Rate and Rhythm Respiratory: Yes: WNL Gastrointestinal: Yes: WNL, Soft ...Rectal Exam: Yes: Deferred Renal/: Yes: WNL Breast(s): Yes: Other (deferred) Musculoskeletal: Yes: WNL Extremities: Yes: WNL Edema: No Peripheral Pulses WNL: Yes Integumentary: Yes: WNL Neurological: Yes: WNL, Oriented, Cran Nerves II-XII Intact ...Motor Strength: WNL Psychiatric: Yes: WNL Labs: CBC, BMP 01/08/17 05:00 01/08/17 05:00 Imaging - Results Chest X-ray: Report Reviewed, Image Reviewed Cat Scan: Report Reviewed, Image Reviewed Problem List - Problems (1) Pericardial effusion Code(s): I31.3 - PERICARDIAL EFFUSION (NONINFLAMMATORY) Assessment/Plan An 81-year-old female with history of PAF, on Coumadin, s/p pacemaker, HTN, who presented to [facility] with complaints of malaise for few days. Her radiographic studies and laboratory results were reviewed and discussed with the patient in extensive detail. She appears to have moderate pericardial effusion secondary to supratherapeutic INR level in the setting of anticoagulation regimen. She was given multiple options including percutaneous pericardial drain and surgical pericardial window. The risks, benefits, alternative plans and potential complications including but not limited to infection, bleeding, recurrence of disease, injury to other organs, reintervention, CVA/stroke, renal failure requiring hemodialysis, respiratory failure requiring ventilatory support, cardiogenic shock requiring vasopressors, and were discussed thoroughly and answered her questions in satisfactory manner. Considering her co-morbidities and currently issues with hyperkalemia, lactic acidosis, acute renal insufficiency, possible anesthetic and intraop/perioperative surgical complications, she wished to proceed with percutaneous pericardial drain per interventional radiology. I personally spoke with Dr. Abdirizak Mireles (IR) regarding patient's condition and management. She is aware and understood her medical issues and potential surgical treatment if her medical condition deteriorates. 1. Continue ICU supportive care 2. NPO, IVF, FFP, and vitamin K for goal of INR <1.5 3. Pericardial drain per IR 4. Repeat labs and PT/PTT 5. Follow up cardiology consult 6. Discussed with Drs. Cooper Hickey and Avani Salas 7. Thank you for the interesting consult. Will follow with you.
--- NOTE | 2017-01-08 10:34 | PN ---
Progress Note (short form) - Note Progress Note: ID consult dictated imp/reccd 81 year old female with PMH PAF on coumadin, afib, HPL, HTN, PPM went to [facility] mid November for a one month stay at their time share - last Wednesday she developed loose stools- nonbloody twice a day, small volume,no fevers or chills, on Wednesday she took Immodium and her diarrhea stopped she noted less urine output over the last several days also SOB and weak used a wheelchair to get to the airport, went home on Wednesday and came to ED last PM with continued SOB no fevers or chills no nausea or vomiting, has a dry cough and postnasal drip no further diarrhea 4 liters of fluid no recent hospitalizations PPM battery changed in the fall at [facility] hypotensive- on dopamine coagulopathy secondary to coumadin has a large pericardial effusion - cardiac tamponade suspected, hemopericardium suspected pyuria noted as well recent diarrhea- now resolved given zosyn in ed no thrombocytopenia noted suggest rocephin for UTI given hypotension, cultures pending for drainage of pericardial effusion once INR is corrected renal eval of J[facility]- may improve once pericardial fluid is drained influenza screen given cough- suspect cardiac as well renal/bladder sonogram d/w Dr Salas
[2017-01-08] MEDS ORDERED: cefTRIAXone 1 GM/50 ML BAG (PRE-DOCKED) IVPB SCH (11:00)
--- NOTE | 2017-01-08 11:00 | EKG ---
Test Reason : Blood Pressure : / mmHG Vent. Rate : 065 BPM Atrial Rate : 065 BPM P-R Int : 000 ms QRS Dur : 160 ms QT Int : 450 ms P-R-T Axes : 000 -49 109 degrees QTc Int : 468 ms Suspect unspecified pacemaker failure WIDE QRS RHYTHM LEFT AXIS DEVIATION LEFT BUNDLE BRANCH BLOCK ABNORMAL ECG WHEN COMPARED WITH ECG OF 08-JAN-2017 03:22, PREVIOUS ECG HAS UNDETERMINED RHYTHM, NEEDS REVIEW Confirmed by GARRETT PIERSON MD ([id number]) on 01/08/2017 11:00:29 AM Referred By: Confirmed By:GARRETT PIERSON MD
--- NOTE | 2017-01-08 11:02 | EKG ---
Test Reason : Blood Pressure : / mmHG Vent. Rate : 087 BPM Atrial Rate : 000 BPM P-R Int : 000 ms QRS Dur : 042 ms QT Int : 268 ms P-R-T Axes : 000 000 087 degrees QTc Int : 322 ms Suspect unspecified pacemaker failure UNDETERMINED RHYTHM INDETERMINATE AXIS PULMONARY DISEASE PATTERN ST ELEVATION CONSIDER ANTEROLATERAL INJURY OR ACUTE INFARCT ST ELEVATION CONSIDER INFERIOR INJURY OR ACUTE INFARCT Confirmed by GARRETT PIERSON MD ([id number]) on 01/08/2017 11:01:44 AM Referred By: Confirmed By:GARRETT PIERSON MD
--- NOTE | 2017-01-08 11:07 | EKG ---
Test Reason : Blood Pressure : / mmHG Vent. Rate : 078 BPM Atrial Rate : 028 BPM P-R Int : 000 ms QRS Dur : 150 ms QT Int : 420 ms P-R-T Axes : 000 -49 134 degrees QTc Int : 478 ms ATRIAL FIBRILLATION WITH PREMATURE VENTRICULAR OR ABERRANTLY CONDUCTED COMPLEXES DEMAND PACEMAKER; INTERPRETATION IS BASED ON INTRINSIC RHYTHM LEFT AXIS DEVIATION LEFT BUNDLE BRANCH BLOCK ABNORMAL ECG Confirmed by GARRETT PIERSON MD ([id number]) on 01/08/2017 11:06:42 AM Referred By: Confirmed By:GARRETT PIERSON MD
--- NOTE | 2017-01-08 11:15 | CONSULT ---
Consult - text type - Consultation Consultation Note: Renal Consult for JASVIR/Metabolic acidosis This is a 81 year old woman with PMhx of Hypertension, Afib on Coumadin who presented to the ED with complaints of SOB and Hx of diarrhea and found to be hypotensive, elevated INR, large pericardial effusion with JASVIR with BUN/Cr of 78 /5. Pt was recently in [place] and developed non-bloody diarrhea there that she had 2-3x daily. No Abd pain. No fever or chills. No Rash on the skin. No N/V. When she returned home she started to feel sob that prompted her ED visit. No flank pain, no kidney stones. Denies any NSAID use. No contrast exposure. In the ED pt received IVF. ECHO showed large pericardial effusion. Currently in the ICU. awake and alert. PMhx: as above Allergies: NKDA FAmily hx: NC Social Hx: No T/A/D ROS: as per HPI, all other pertinent ros negative Home Meds: Home Medications Medication Instructions Recorded Amlodipine Bes/Olmesartan Med 1 each PO DAILY 01/08/17 [Amlodipine-Olmesartan 10-20 mg] Atorvastatin Ca [Lipitor] 10 mg PO HS 01/08/17 Levothyroxine [Synthroid -] 25 mcg PO DAILY 01/08/17 Metoprolol Tartrate [Lopressor -] 50 mg PO DAILY 01/08/17 Propafenone HCl [Propafenone HCl 425 mg PO BID 01/08/17 ER] Warfarin Na [Coumadin] 3 mg PO DAILY 01/08/17 Vital Signs Temperature 97.6 F 01/08/17 08:30 Pulse Rate 85 01/08/17 10:02 Respiratory Rate 22 01/08/17 08:30 Blood Pressure 77/50 01/08/17 10:02 O2 Sat by Pulse Oximetry (%) 100 01/08/17 03:30 Intake & Output 01/05/17 01/06/17 01/07/17 01/08/17 23:59 23:59 23:59 23:59 Intake Total 3021 Output Total 0 Balance 3021 Weight 140 lb 148 lb Gen: NAD, awake and alert HEENT: NC/AT, Dry MM, No JVD CVS: RRR, NO M/R Lungs: CTA DEc BS at lung bases Abd: soft NT/ND Ext: No edema, clubing or cyanosis : NO Bladder distension Neuro: AAOX3, NO focal defects CBC, BMP 01/08/17 05:00 01/08/17 05:00 Laboratory Tests 01/07/17 01/07/17 01/08/17 22:04 22:20 02:20 MCV Neutrophils % INR PTT (Actin FS) VBG pH 7.17 L* POC VBG pCO2 45.3 POC VBG pO2 34.5 Calcium AST ALT Alkaline Phosphatase B-Natriuretic Peptide 1061.06 H Albumin Urine Protein 3+ H Urine Glucose (UA) 1+ H Urine Ketones Trace H Urine Blood 2+ H 01/08/17 01/08/17 01/08/17 05:00 05:00 05:00 MCV 94.8 Neutrophils % 82.9 H INR 5.93 H* D PTT (Actin FS) 39.0 H VBG pH POC VBG pCO2 POC VBG pO2 Calcium 7.1 L AST 39 H D ALT 64 D Alkaline Phosphatase 115 B-Natriuretic Peptide Albumin 3.0 L Urine Protein Urine Glucose (UA) Urine Ketones Urine Blood Current Medications Ceftriaxone Sodium (Rocephin 1gm Ivpb (Pre-Docked)) 1 gm IVPB DAILY MCKAYLA Dopamine HCl/Dextrose (Dopamine 400 Mg/D5w -) 250 mls @ 12.587 mls/hr IVPB TITR MCKAYLA; 5 MCG/KG/MIN PRN Reason: Protocol Last Titration: 01/08/17 10:02 Dose: 15 mcg/kg/min Sodium Chloride (Normal Saline -) 1,000 mls @ 150 mls/hr IV ASDIR MCKAYLA Last Admin: 01/08/17 08:31 Dose: 150 mls/hr A/P 81 year old woman with PMhx of Hypertension, Afib on Coumadin who presented to the ED with complaints of SOB and Hx of diarrhea and found to be hypotensive, elevated INR, large pericardial effusion with JASVIR with BUN/Cr of 78/5. #Oliguric Acute Renal Failure Differential includes HUS(diarrhea/Anemia/Acute Renal failure), ATN from hypotension, Pre-renal Azotemia, Obstruction Check FeNA, FeUrea (on diuretics), UPCR Renal US -> r/o obstruction, access kidney size and texture Check C3, C4, CH50, LDH, Haptoglobin Repeat BMP this evening Dose all meds for CrCl less then 10 No acute indication for dialysis at this time but may need HD this admission if renal function does not improve #Metabolic acidosis VBG done on admission showed ph of 7.17 (converted to abg equals 7.19-7.21) Check ABG today If ph < 7.2 start bicarb gtt #Hyperkalemia Continue IVF hydration Repeat BMP in the evening Low K diet #Pericardial effusion Cardiology following Window vs. Drain as per ICU/Cardiology #Sepsis/Hypotension IVF Hydration Keep MAP > 65 Empiric Abx ICU monitoring Thank you Will follow Calvin Noble DO
[2017-01-08 11:42] LABS: ARTERIAL BLD GAS O2 SATURATION 94.8 % (90-98.9); ARTERIAL BLOOD GAS BASE EXCESS -14.5 meq/l (-2-2); ARTERIAL BLOOD GAS HCO3 13.5 meq/L (22-26); ARTERIAL BLOOD GAS PO2 97.1 mmHg (68-100)
[2017-01-08 11:43] LABS: ALLENS TEST POSITIVE; ART PUNCT SITE RIGHT RADIAL; LPM/O2% 3L NASAL O2; PT. ON O2? YES
[2017-01-08 11:43] LABS: INR 1.93 (0.82-1.09); PROTHROMBIN TIME (PATIENT) 21.5 SEC (9.98-11.88)
[2017-01-08 11:44] LABS: ARTERIAL BLOOD GAS pH 7.14 (7.35-7.45)
--- NOTE | 2017-01-08 12:24 | CONS ---
DATE OF CONSULTATION: REQUESTING PHYSICIAN: Avani Salas MD HISTORY: This is an 81-year-old woman with a history of paroxysmal atrial fibrillation. She is on Coumadin. She has a history of hypertension, hypercholesterolemia, permanent pacemaker who presented from recent trip to [facility] with shortness of breath. She and her go every year. They have been going for 38 years to [facility] to their timeshare. They went mid-November, and last Wednesday she developed small volume diarrhea, 2 episodes a day, nonbloody. No abdominal cramping. No fever or chills. The loose stools persisted through the weekend. By Wednesday or Wednesday she treated noticing she was short of breath and feeling very weak. She was able to ambulate, but she was just exhausted. She also noted decreased urine output. They decided to cut their trip short and come back so she took some Imodium so she could get on the airplane. She went to the airport. She needed a wheelchair but she got to the airport and took the flight back [place] the [place] which time she promptly went home. They had a car drop them off at their house, and she went home. This was on Wednesday night. On night, she presented to the emergency room complaining of progressive shortness of breath. She also noted an intermittent dry cough and a postnasal drip. There have been no fever or chills at all. She did not take nylon antibiotics. There has been no nausea, vomiting, diarrhea, or dysuria. She is up to date on her vaccines. PAST MEDICAL HISTORY: Notable for TIA in the past without any residual deficit, atrial fibrillation paroxysmal, hypertension, hyperlipidemia, cataract removal. She has a permanent pacemaker. PAST SURGICAL HISTORY: She has had a basal cell carcinoma removed in the past. She recently had her pacemaker batteries changed at [facility] in the fall. She has the pacemaker for sick sinus syndrome. HOSPITAL COURSE: In the emergency room, she was noted to have no fever. She became hypotensive and was supported with fluids and started on dopamine. She had an INR of 8 and was given vitamin K and FFP. She had a chest x-ray that showed an enlarged cardiac silhouette. She subsequently had a CAT scan that revealed a moderate pericardial effusion that was felt to be blood. She was also noted to be in acute renal failure. She voided about 50 mL of urine and then had a straight catheter done that only revealed 10 mL of urine. She is currently awake and alert. She appears to be moderately dyspneic. She is on nasal oxygen. She was given a dose of Zosyn in the emergency room due to her hypotension and leukocytosis. White count was 12, 000. She has been seen by Thoracic Surgery this morning and Cardiology with plans to reverse her INR and for possible drainage versus window. ALLERGIES: She has no known drug allergies. MEDICATIONS: At home include warfarin, propafenone, metoprolol, levothyroxine, atorvastatin, amlodipine SOCIAL HISTORY: She is . She lives with her . There is no history of any cigarette or substance use. REVIEW OF SYSTEMS: There is no chest pain or abdominal pain. She had some mild nausea this morning, but she has not had any vomiting. She denies any further diarrhea, so she has not had any diarrhea now for 48 hours since Wednesday. She has no abdominal pain. PHYSICAL EXAMINATION: General: She is awake and alert. Vital Signs: Her temperature is 97.6, blood pressure 77/50, pulse 85, respiratory rate 22. HEENT: She is normocephalic. Her eyes are anicteric. Neck: Supple. Heart: She has distant heart sounds. Lungs: Clear. Abdomen: Soft and nontender. Extremities: Without edema. Skin: She has no rash. LABORATORY DATA: Her white count is 12, hemoglobin 9.8, platelets 354, INR 5.9 this morning. Her BUN 78, creatinine 5. Her urinalysis has 2+ blood with 36 white cells and 90 red cells and many bacteria. Blood cultures and urine cultures have been sent. Influenza screen is pending. Chest x-ray revealed an increased cardiac silhouette. CAT scan of the chest revealed moderate pericardial effusion that may represent hemopericardium. There is no evidence of pulmonary masses or acute consolidation. In summary, this is an 81-year-old woman with acute kidney injury, hypotension currently on dopamine, coagulopathy most likely secondary to Coumadin, large pericardial effusion, pyuria, recent diarrhea. She was given Zosyn in the emergency room, and her coagulopathy is being corrected. No thrombocytopenia is noted. I would suggest Rocephin for UTI given this degree of hypotension with the cultures pending. She is for drainage of pericardial effusion once the INR is corrected. Renal evaluation of JASVIR. Hopefully this will improve once her pericardial fluid is drained. Hopefully her blood pressure will improve as well. Influenza screen given her cough, but I suspect her cough is cardiac as well with renal bladder sonogram and LVH, which have all been ordered. This was all discussed with Dr. Salas. CARMELA DUVALL M.D. [id number] MTDD
[2017-01-08] MEDS ORDERED: DEXTROSE IV SCH (12:45)
[2017-01-08] MEDS ORDERED: SODIUM BICARBONATE IV SCH (12:45)
[2017-01-08] MEDS ORDERED: NORMAL SALINE IV SCH (12:45)
[2017-01-08] MEDS ORDERED: SODIUM BICARBONATE 8.4% - 150 MEQ in DEXTROSE 5%-NORMAL SALINE 1,000 ML IV SCH (13:15)
[2017-01-08] MEDS ORDERED: SODIUM BICARBONATE 8.4% 50 MEQ/50 ML VIAL ONE ×2 (13:23→20:29)
--- NOTE | 2017-01-08 13:47 | PN ---
Progress Note (short form) - Note Progress Note: Patient seen and examined in the ICU. Awake and alert. Breathing feels a little better. Discussed with IR and CTS. Plan is to further correct her INR and then place an IR directed drain due to multiple acute co-morbid conditions. Intake & Output 01/05/17 01/06/17 01/07/17 01/08/17 23:59 23:59 23:59 23:59 Intake Total 3081 Output Total 0 Balance 3081 Weight 140 lb 148 lb Last Vital Signs Temp Pulse Resp BP Pulse Ox 97.3 F L 83 29 H 97/65 100 01/08/17 10:00 01/08/17 11:00 01/08/17 11:00 01/08/17 11:00 01/08/17 09:00 Active Medications Ceftriaxone Sodium (Rocephin 1gm Ivpb (Pre-Docked)) 1 gm IVPB DAILY MCKAYLA Last Admin: 01/08/17 11:40 Dose: 1 gm Dopamine HCl/Dextrose (Dopamine 400 Mg/D5w -) 250 mls @ 12.587 mls/hr IVPB TITR MCKAYLA; 5 MCG/KG/MIN PRN Reason: Protocol Last Titration: 01/08/17 10:02 Dose: 15 mcg/kg/min Sodium Bicarbonate 150 meq/ (Dextrose) 1,150 mls @ 150 mls/hr IV Q7H MCKAYLA Constitutional: Yes: No Distress, Calm Eyes: Yes: WNL HENT: Yes: WNL Neck: Yes: WNL Cardiovascular: Yes: Pulse Irregular, Other (A-fib with pacemaker failure No JVD , no rub, murmur) Respiratory: Yes: WNL, On Nasal O2 Gastrointestinal: Yes: Normal Bowel Sounds, Soft, Abdomen, Obese, Hypoactive Bowel Sounds Extremities: Yes: Cool, Pallor Edema: No Integumentary: Yes: Other (dry flaky) Neurological: Yes: Alert, Oriented ...Motor Strength: WNL Psychiatric: Yes: WNL Labs: CBC,CMP Laboratory Results - last 24 hr 01/07/17 01/07/17 01/07/17 21:15 21:16 21:16 WBC 11.8 H RBC 3.15 L Hgb 9.8 L Hct 30.0 L MCV 95.4 MCHC 32.8 RDW 13.9 Plt Count 376 MPV 8.0 Neutrophils % 70.4 Lymphocytes % 18.0 Monocytes % 9.9 Eosinophils % 0.5 Basophils % 1.2 INR 8.66 H* PTT (Actin FS) 49.1 H D-Dimer Puncture Site ABG pH ABG pCO2 at Pt Temp ABG pO2 at Pt Temp ABG HCO3 ABG O2 Sat (Measured) ABG O2 Content ABG Base Excess Pedro Test VBG pH POC VBG pCO2 POC VBG pO2 Oxygen Flow Rate Sodium Potassium Chloride Carbon Dioxide Anion Gap BUN Creatinine Creat Clearance w eGFR Random Glucose Lactic Acid Calcium Total Bilirubin AST ALT Alkaline Phosphatase LD Total Creatine Kinase Troponin I B-Natriuretic Peptide Total Protein Albumin Urine Color Urine Appearance Urine pH Ur Specific [place] Urine Protein Urine Glucose (UA) Urine Ketones Urine Blood Urine Nitrite Urine Bilirubin Urine Urobilinogen Ur Leukocyte Esterase Urine RBC Urine WBC Ur Epithelial Cells Urine Bacteria Blood Type O POSITIVE Antibody Screen Negative 01/07/17 01/07/17 01/07/17 21:16 21:16 22:04 WBC RBC Hgb Hct MCV MCHC RDW Plt Count MPV Neutrophils % Lymphocytes % Monocytes % Eosinophils % Basophils % INR PTT (Actin FS) D-Dimer 450 H Puncture Site ABG pH ABG pCO2 at Pt Temp ABG pO2 at Pt Temp ABG HCO3 ABG O2 Sat (Measured) ABG O2 Content ABG Base Excess Pedro Test VBG pH POC VBG pCO2 POC VBG pO2 Oxygen Flow Rate Sodium 136 Potassium 5.4 H Chloride 106 Carbon Dioxide 16 L Anion Gap 14 BUN 73 H Creatinine 4.9 H Creat Clearance w eGFR 8.46 Random Glucose 151 H Lactic Acid 3.313 H* Calcium 7.8 L Total Bilirubin 0.3 AST 26 ALT 53 Alkaline Phosphatase 124 H LD Total Creatine Kinase 75 Troponin I < 0.02 B-Natriuretic Peptide Total Protein 6.2 L Albumin 3.2 L Urine Color Urine Appearance Urine pH Ur Specific [place] Urine Protein Urine Glucose (UA) Urine Ketones Urine Blood Urine Nitrite Urine Bilirubin Urine Urobilinogen Ur Leukocyte Esterase Urine RBC Urine WBC Ur Epithelial Cells Urine Bacteria Blood Type Antibody Screen 01/07/17 01/07/17 01/07/17 22:04 22:20 23:55 WBC RBC Hgb Hct MCV MCHC RDW Plt Count MPV Neutrophils % Lymphocytes % Monocytes % Eosinophils % Basophils % INR PTT (Actin FS) D-Dimer Puncture Site ABG pH ABG pCO2 at Pt Temp ABG pO2 at Pt Temp ABG HCO3 ABG O2 Sat (Measured) ABG O2 Content ABG Base Excess Pedro Test VBG pH 7.17 L* POC VBG pCO2 45.3 POC VBG pO2 34.5 Oxygen Flow Rate Sodium Potassium Chloride Carbon Dioxide Anion Gap BUN Creatinine Creat Clearance w eGFR Random Glucose Lactic Acid 1.342 Calcium Total Bilirubin AST ALT Alkaline Phosphatase LD Total Creatine Kinase Troponin I B-Natriuretic Peptide 1061.06 H Total Protein Albumin Urine Color Urine Appearance Urine pH Ur Specific [place] Urine Protein Urine Glucose (UA) Urine Ketones Urine Blood Urine Nitrite Urine Bilirubin Urine Urobilinogen Ur Leukocyte Esterase Urine RBC Urine WBC Ur Epithelial Cells Urine Bacteria Blood Type Antibody Screen 01/08/17 01/08/17 01/08/17 02:20 05:00 05:00 WBC 12.0 H RBC 3.14 L Hgb 9.8 L Hct 29.8 L MCV 94.8 MCHC 32.8 RDW 13.8 Plt Count 354 MPV 7.8 Neutrophils % 82.9 H Lymphocytes % 9.0 D Monocytes % 7.4 Eosinophils % 0.1 Basophils % 0.6 INR PTT (Actin FS) D-Dimer Puncture Site ABG pH ABG pCO2 at Pt Temp ABG pO2 at Pt Temp ABG HCO3 ABG O2 Sat (Measured) ABG O2 Content ABG Base Excess Pedro Test VBG pH POC VBG pCO2 POC VBG pO2 Oxygen Flow Rate Sodium 138 Potassium 5.6 H Chloride 110 H Carbon Dioxide 16 L Anion Gap 12 BUN 78 H Creatinine 5.0 H Creat Clearance w eGFR 8.27 Random Glucose 155 H Lactic Acid Calcium 7.1 L Total Bilirubin 0.4 D AST 39 H D ALT 64 D Alkaline Phosphatase 115 LD Total Creatine Kinase Troponin I B-Natriuretic Peptide Total Protein 5.7 L Albumin 3.0 L Urine Color Yellow Urine Appearance Turbid Urine pH 5.0 Ur Specific [place] 1.019 Urine Protein 3+ H Urine Glucose (UA) 1+ H Urine Ketones Trace H Urine Blood 2+ H Urine Nitrite Negative Urine Bilirubin Negative Urine Urobilinogen Negative Ur Leukocyte Esterase Negative Urine RBC 90 Urine WBC 36 Ur Epithelial Cells Rare Urine Bacteria Many Blood Type Antibody Screen 01/08/17 01/08/17 01/08/17 05:00 05:00 11:00 WBC RBC Hgb Hct MCV MCHC RDW Plt Count MPV Neutrophils % Lymphocytes % Monocytes % Eosinophils % Basophils % INR 5.93 H* D 1.93 H D PTT (Actin FS) 39.0 H D-Dimer Puncture Site ABG pH ABG pCO2 at Pt Temp ABG pO2 at Pt Temp ABG HCO3 ABG O2 Sat (Measured) ABG O2 Content ABG Base Excess Pedro Test VBG pH POC VBG pCO2 POC VBG pO2 Oxygen Flow Rate Sodium Potassium Chloride Carbon Dioxide Anion Gap BUN Creatinine Creat Clearance w eGFR Random Glucose Lactic Acid 1.245 Calcium Total Bilirubin AST ALT Alkaline Phosphatase LD Total Creatine Kinase Troponin I B-Natriuretic Peptide Total Protein Albumin Urine Color Urine Appearance Urine pH Ur Specific [place] Urine Protein Urine Glucose (UA) Urine Ketones Urine Blood Urine Nitrite Urine Bilirubin Urine Urobilinogen Ur Leukocyte Esterase Urine RBC Urine WBC Ur Epithelial Cells Urine Bacteria Blood Type Antibody Screen 01/08/17 01/08/17 11:00 11:35 WBC RBC Hgb Hct MCV MCHC RDW Plt Count MPV Neutrophils % Lymphocytes % Monocytes % Eosinophils % Basophils % INR PTT (Actin FS) D-Dimer Puncture Site Right radial ABG pH 7.14 L* ABG pCO2 at Pt Temp 41.5 ABG pO2 at Pt Temp 97.1 ABG HCO3 13.5 L* ABG O2 Sat (Measured) 94.8 ABG O2 Content 12.8 L ABG Base Excess -14.5 L* Pedro Test Positive VBG pH POC VBG pCO2 POC VBG pO2 Oxygen Flow Rate 3l nasal o2 Sodium Potassium Chloride Carbon Dioxide Anion Gap BUN Creatinine Creat Clearance w eGFR Random Glucose Lactic Acid Calcium Total Bilirubin AST ALT Alkaline Phosphatase LD Total 233 Creatine Kinase Troponin I B-Natriuretic Peptide Total Protein Albumin Urine Color Urine Appearance Urine pH Ur Specific [place] Urine Protein Urine Glucose (UA) Urine Ketones Urine Blood Urine Nitrite Urine Bilirubin Urine Urobilinogen Ur Leukocyte Esterase Urine RBC Urine WBC Ur Epithelial Cells Urine Bacteria Blood Type Antibody Screen Assessment/Plan Cardiac Tamponade due to hemopericardium (?) Pericarditis Resolving Viral Illness R/O Cardiogenic shock HTN HPL PPM AFib on Coumadin R/O Sepsis Hypotension FFP Follow INR IVF Bicarb drip Wean Dopamine CTS consult noted Strict I&O ABX per ID Dr Isaac CCTime 35"
[2017-01-08] MEDS: SODIUM BICARBONATE 8.4% - 150 MEQ in DEXTROSE 5%-WATER - 1,000 ML IV SCH ×2 (14:02→20:00)
[2017-01-08 16:35] LABS: INR 1.73 (0.82-1.09); PROTHROMBIN TIME (PATIENT) 19.2 SEC (9.98-11.88)
[2017-01-08] MEDS ORDERED: ONDANSETRON 4 MG/2 ML VIAL IVPUSH ONE (16:36)
[2017-01-08] MEDS ORDERED: guaiFENesin 200 MG/10 ML 10 ML UNIT-DOSE CUPS PO PRN (18:01)
--- NOTE | 2017-01-08 19:06 | CONSULT ---
Consult Consult Specialty:: Oncology-hematology Referred by:: Dr. Salas - History of Present Illness Chief Complaint: Hemopericardium. coagulopathy on coumadin. JASVIR with BUN-78 and Creatinine 5.0. Recent 4-5 days of diarrhea, non bloodywhile in [place] History of Present Illness: 4-5 days of diarrhi in [facility]. Presented to [facility] with hypotension, JASVIR, coagulopathy with INR > 8 , and hemopericardium with tamponade. 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 Cardio/Vascular: Yes: AFIB, HTN, Hyperlipdemia Gastrointestinal: Yes: Other (Diarrhea ) ...: No - Past Surgical History Past Surgical History: Yes: Cataract Removal, Permanent Pacemaker Additional Surgical History: Basal cell resection - Alcohol/Substance Use Hx Alcohol Use: No History of Substance Use: reports: None - Smoking History Smoking history: Unknown if ever smoked Have you smoked in the past 12 months: No - Social History Usual Living Arrangement: With Spouse Home Medications - Allergies Allergies/Adverse Reactions: Allergies Allergy/AdvReac Type Severity Reaction Status Date / Time No Known Allergies Allergy Verified 01/07/17 20:54 - Home Medications Home Medications: Ambulatory Orders Amlodipine Bes/Olmesartan Med [Amlodipine-Olmesartan 10-20 mg] 1 each PO DAILY 01/08/17 Atorvastatin Ca [Lipitor] 10 mg PO HS 01/08/17 Levothyroxine [Synthroid -] 25 mcg PO DAILY 01/08/17 Metoprolol Tartrate [Lopressor -] 50 mg PO DAILY 01/08/17 Propafenone HCl [Propafenone HCl ER] 425 mg PO BID 01/08/17 Warfarin Na [Coumadin] 3 mg PO DAILY 01/08/17 Family Disease History - Family Disease History Other Family History: No family history of bleeding diathesis Review of Systems - Review of Systems Constitutional: reports: Loss of Appetite, Weakness Eyes: denies: Blurred Vision, Double Vision HENT: reports: Epistaxis, Throat Pain Neck: reports: Lumps, Swollen Glands, Tenderness Cardiovascular: reports: Chest Pain, Shortness of Breath Respiratory: reports: Cough, SOB, SOB on Exertion Gastrointestinal: reports: Diarrhea Genitourinary: reports: Other (decrease output) Breasts: reports: No Symptoms Reported Musculoskeletal: denies: Back Pain, Extremity Pain Integumentary: denies: Erythema Neurological: denies: Confusion, Dizziness Endocrine: reports: No Symptoms Hematology/Lymphatic: denies: Excessive Bleeding, Swollen Glands Psychiatric: reports: No Symptoms Physical Exam Vital Signs: Vital Signs Temperature 97.4 F L 01/08/17 14:00 Pulse Rate 86 01/08/17 18:43 Respiratory Rate 25 H 01/08/17 18:30 Blood Pressure 77/43 01/08/17 18:43 O2 Sat by Pulse Oximetry (%) 99 01/08/17 17:38 Constitutional: Yes: Moderate Distress Eyes: Yes: PERRL. No: Diplopia, Ptosis HENT: Yes: Atraumatic, Normocephalic. No: Hoarseness, Tonsillar Exudate Neck: Yes: Trachea Midline. No: Lymphadenopathy, Thyromegaly Cardiovascular: Yes: Pulse Irregular Respiratory: Yes: Rales, Wheezes Gastrointestinal: Yes: Soft. No: Hepatomegaly, Splenomegaly Renal/: Yes: CVA Tenderness - Left, CVA Tenderness - Right Breast(s): Yes: WNL, Left, Right Musculoskeletal: Yes: Muscle Weakness Extremities: No: Calf Tenderness, Cold, Cyanosis Wound/Incision: Yes: Unapproximated ...Motor Strength: WNL Psychiatric: Yes: WNL Labs: CBC, BMP 01/08/17 05:00 01/08/17 05:00 Problem List - Problems (1) Pericardial effusion with cardiac tamponade Assessment/Plan: S/P pericardial drainage--> 500 cc removed Hemorrhagic pericardial fluid. Elevated INR > 8- on coumadin, and abnormal LFT's secondary to hypotension , and or sepsis Abnormal kidney function may be contributing to bleeding diathesis with creatinine 5.0 and BUN-78 Code(s): I31.3 - PERICARDIAL EFFUSION (NONINFLAMMATORY) I31.4 - CARDIAC TAMPONADE (2) Hypotension Assessment/Plan: Abnormal LFT's note on initial screening which may be secondary to hypotension associated with volume depletion and which may be contributing to coagulopathy. Code(s): I95.9 - HYPOTENSION, UNSPECIFIED Qualifiers: Hypotension type: other hypotension type Qualified Code(s): I95.89 - Other hypotension (3) Renal failure Assessment/Plan: JASVIR- ?? etiology ?? volume depletion,?? ATN from sepsis, BUN-78 and creatinine 5.0 . May have thrombocytopathy contributing to bleeding diathesis Code(s): N19 - UNSPECIFIED KIDNEY FAILURE (4) Coagulopathy Assessment/Plan: On Coumadin for A.F. INR> 8.0 Liver dysfunction may be contributing. Dysfunction may be secondary to sepsis, hypotension. Has received 3 units of FFP and 10 mg of Vitamin K x 2. INR still at 1.73. Will plan for 2 additional units of FFP, 1 unit of platelets_( possible thrombocytopathy of JASVIR) and 6 units of Cryoppt. Code(s): D68.9 - COAGULATION DEFECT, UNSPECIFIED
[2017-01-08] MEDS ORDERED: LIDOCAINE HCL 1%, 10 MG/ML (20ML VIAL) ONE (20:26)
--- NOTE | 2017-01-08 21:09 | PROC ---
Central Line Insertion Indication: Poor Venous Access, Vasopressor Risks and Benefits Explained: Yes Consent on Chart: Yes Central Line: Triple Lumen Catheter Anesthesia: 1% Lidocaine Sterile Technique: Yes Ultrasound Guided Assistance: Yes Position: Left Internal Jugular Post Insertion: Yes: Bilateral Breath Sounds, Bilateral Chest Expansion, Chest X-Ray Ordered Sterile Dressing Applied: Yes
[2017-01-08 21:18] LABS: URINE APPEARANCE TURBID; URINE BILIRUBIN NEGATIVE (NEGATIVE); URINE BLOOD 3+ (NEGATIVE); URINE COLOR AMBER; URINE GLUCOSE (UA) NEGATIVE (NEGATIVE); URINE KETONE NEGATIVE (NEGATIVE); URINE LEUK ESTERASE TRACE (NEGATIVE); URINE NITRITE NEGATIVE (NEGATIVE); URINE PROTEIN 2+ (NEGATIVE); URINE UROBILINOGEN NEGATIVE E.U./dl (0.2-1.0)
[2017-01-08 21:23] LABS: URINE BACTERIA FEW /hpf (NONE SEEN); URINE MUCUS RARE; URINE RBC 298 /hpf (0-3); URINE WBC 37 /hpf (3-5)
[2017-01-08 21:43] LABS: CALCIUM 7.1 mg/dL (8.5-10.1)
[2017-01-09] MEDS: DOPAMINE 400 MG/D5W - 250 ML IVPB SCH (03:55)
[2017-01-09 04:31] LABS: INR 1.43 (0.82-1.09); PROTHROMBIN TIME (PATIENT) 15.9 SEC (9.98-11.88)
[2017-01-09] MEDS ORDERED: FUROSEMIDE 100 MG/10 ML INJECTABLE VIAL ONE (05:10)
[2017-01-09] MEDS ORDERED: LIDOCAINE HCL 1%, 10 MG/ML (20ML VIAL) ONE (05:23)
--- NOTE | 2017-01-09 05:44 | PROC ---
Central Line Insertion Indication: Other (Hemodialysis) Risks and Benefits Explained: Yes Consent on Chart: Yes Central Line: Dialysis Cath, Dual Lumen Anesthesia: 1% Lidocaine Sterile Technique: Yes Ultrasound Guided Assistance: Yes Position: Right Femoral Sterile Dressing Applied: Yes (Biopatch applied) Remarks: R fem hemodialysis cath placed with incident, easy return of dark venous blood from both ports. OK TO USE FOR HD
[2017-01-09] MEDS ORDERED: FUROSEMIDE 100 MG/10 ML INJECTABLE VIAL IVPUSH ONE (05:45)
[2017-01-09 06:31] LABS: BASOPHIL 0.1 % (0-2.0); EOSINOPHIL 0.7 % (0-4.5); MCH 30.9 pg (25.7-33.7); MCHC 33.1 g/dl (32.0-36.0); MEAN CELL VOLUME 93.5 fl (80-96); MEAN PLT VOLUME 7.8 fl (7.5-11.1); NEUTROPHILS 85.3 % (42.8-82.8); PLATELET COUNT 326 K/MM3 (134-434); RDW 13.7 % (11.6-15.6); WHITE BLOOD COUNT 12.4 K/mm3 (4.0-10.0)
[2017-01-09 06:34] LABS: ALBUMIN 3.1 g/dl (3.4-5.0); ALK PHOS 105 U/L (45-117); ANION GAP 14 (8-16); BILIRUBIN,TOTAL 0.6 mg/dL (0.2-1.0); CO2 21 mmol/L (21-32); CREATININE 4.6 mg/dL (0.55-1.02); GLUCOSE,RANDOM 144 mg/dL (74-106); MAGNESIUM 1.6 mg/dL (1.8-2.4); SGOT/AST 27 U/L (15-37); SGPT/ALT 53 U/L (12-78); TOT PROT 6.1 g/dl (6.4-8.2)
--- NOTE | 2017-01-09 07:51 | PN ---
Progress Note, Physician Chief Complaint: ID 50 ml hemmoragic fluid aspirated per Dr Baron. Remains afebrile Notably dyspneic though still sats well 97% Ceftriaxone was given initially pending cultures No fevers chills couph - Current Medication List Current Medications: Active Medications Ceftriaxone Sodium (Rocephin 1gm Ivpb (Pre-Docked)) 1 gm IVPB DAILY MCKAYLA Last Admin: 01/08/17 11:40 Dose: 1 gm Guaifenesin (Robitussin -) 10 ml PO Q6H PRN PRN Reason: COUGH Dopamine HCl/Dextrose (Dopamine 400 Mg/D5w -) 250 mls @ 12.587 mls/hr IVPB TITR MCKAYLA; 5 MCG/KG/MIN PRN Reason: Protocol Last Titration: 01/09/17 07:05 Dose: 10 mcg/kg/min - Objective Vital Signs: Vital Signs Temperature 97.4 F L 01/09/17 06:00 Pulse Rate 101 H 01/09/17 07:05 Respiratory Rate 20 01/09/17 07:00 Blood Pressure 120/61 01/09/17 07:05 O2 Sat by Pulse Oximetry (%) 98 01/08/17 21:00 Constitutional: Yes: Mild Distress HENT: Yes: WNL, Atraumatic Cardiovascular: Yes: Regular Rate and Rhythm, S1, S2. No: Rub Respiratory: Yes: WNL, Regular, Rhonchi. No: Rales Gastrointestinal: Yes: WNL, Normal Bowel Sounds, Soft. No: Tenderness, Tenderness, Rebound Edema: No Labs: CBC, BMP 01/09/17 05:20 01/09/17 05:20 INR, PTT INR 1.43 (0.82-1.09) H 01/09/17 04:00 Problem List - Problems (1) Atrial fibrillation Code(s): I48.91 - UNSPECIFIED ATRIAL FIBRILLATION Qualifiers: Atrial fibrillation type: paroxysmal Qualified Code(s): I48.0 - Paroxysmal atrial fibrillation (2) Coagulopathy Code(s): D68.9 - COAGULATION DEFECT, UNSPECIFIED (3) Pericardial effusion Code(s): I31.3 - PERICARDIAL EFFUSION (NONINFLAMMATORY) (4) Pericardial effusion with cardiac tamponade Code(s): I31.3 - PERICARDIAL EFFUSION (NONINFLAMMATORY) I31.4 - CARDIAC TAMPONADE (5) Renal failure Code(s): N19 - UNSPECIFIED KIDNEY FAILURE Assessment/Plan Laboratory Tests 01/08/17 01/08/17 01/08/17 05:00 11:00 13:40 WBC Hgb Hct Plt Count INR 5.93 H* D BUN Creatinine Urine WBC 37 Complement C3 Pending 01/09/17 01/09/17 01/09/17 04:00 05:20 05:20 WBC 12.4 H Hgb 9.1 L Hct 27.6 L Plt Count 326 INR 1.43 H BUN 69 H Creatinine 4.6 H Urine WBC Complement C3 Assessment Pericardial effusion hemmoragic ? what might have precipitated this pericardial inflammation (pericarditis CA) Pacemaker Atrial fibrillation Coagulopathy Acute renal failure Plan Discussed with Dr Severino Will stop antibiotics Fluid culture sent Quant gold ESR and CRP Complement levels ? Cytology of pericardial fluid Marisa DELAROSA
[2017-01-09 08:06] LABS: HAPTOGLOBIN 215 mg/dL (34-200)
--- NOTE | 2017-01-09 08:07 | PN ---
Progress Note (short form) - Note Progress Note: Chief Complaint: Events noted, notes reviewed, dyspnea persists, denies orthopnea or PND, denies any chest pain History of Present Illness: Seen and examined in the ICU. Events noted, notes reviewed, dyspnea persists, denies orthopnea or PND, denies any chest pain Pericardial drain in situ. Remains on Dopamine drip for hypotension management Echocardiography revealed normal LV size and function mild MR, mild to moderate TR, mild to moderate degree of pulmonary HTN RVSP 40-50 mmHg, and large pericardial effusion Medications: Current Medications Guaifenesin (Robitussin -) 10 ml PO Q6H PRN PRN Reason: COUGH Dopamine HCl/Dextrose (Dopamine 400 Mg/D5w -) 250 mls @ 12.587 mls/hr IVPB TITR MCKAYLA; 5 MCG/KG/MIN PRN Reason: Protocol Last Titration: 01/09/17 07:05 Dose: 10 mcg/kg/min Review of Systems - Review of Systems Constitutional: denies: Chills, Fever Cardiovascular: as noted above Respiratory: reports: Persistent Dyspnea Gastrointestinal: denies: Nausea, Vomiting, Diarrhea, Constipation or Abdominal Pain Neurological: No symptoms reported Vital Signs: Last Vital Signs Temp Pulse Resp BP Pulse Ox 97.4 F L 101 H 20 120/61 98 01/09/17 06:00 01/09/17 07:05 01/09/17 07:00 01/09/17 07:05 01/08/17 21:00 Neck: Supple Negative JVD No Bruit Respiratory: Diminished Breath Sounds at the Bases Cardiovascular: S1 S2 Regular Rate and Rhythm Gastrointestinal: Soft Benign Normal Bowel Sounds Ext: Trace Edema Labs: ABG Results ABG pH 7.14 (7.35-7.45) L* 01/08/17 11:35 ABG pCO2 at Pt Temp 41.5 mmHg (35-45) 01/08/17 11:35 ABG pO2 at Pt Temp 97.1 mmHg (68-100) 01/08/17 11:35 ABG HCO3 13.5 meq/L (22-26) L* 01/08/17 11:35 ABG O2 Sat (Measured) 94.8 % (90-98.9) 01/08/17 11:35 ABG O2 Content 12.8 % vol (15-22) L 01/08/17 11:35 ABG Base Excess -14.5 meq/l (-2-2) L* 01/08/17 11:35 CBC, BMP 01/09/17 05:20 01/09/17 05:20 Hepatic Panel Total Bilirubin 0.6 mg/dL (0.2-1.0) D 01/09/17 05:20 AST 27 U/L (15-37) D 01/09/17 05:20 ALT 53 U/L (12-78) 01/09/17 05:20 Alkaline Phosphatase 105 U/L (45-117) 01/09/17 05:20 Albumin 3.1 g/dl (3.4-5.0) L 01/09/17 05:20 INR, PTT INR 1.43 (0.82-1.09) H 01/09/17 04:00 Assessment/Plan ASSESSMENT: 1. Large pericardial effusion with tamponade physiology, post drain insertion 2. History of paroxysmal atrial fibrillation on Coumadin ([id number] score of 6 ) 3. History of sick sinus syndrome post PPM 4. Acute renal failure 5. History of hypertension, hypotensive due to cardiac tamponade on pressors 6. History of TIA/stroke 7. Anemia PLAN: 1. Repeat Transthoracic echocardiography on Wednesday to assess residual pericardial effusion 2. Attempt to taper off Dopamine maintaining MAPs > 65 3. Resume A/C once hemostasis is achieved, Heparin/Coumadin 4. Monitor renal function and Hg closely 5. Await fluid cytology Edinson Duque MD
--- NOTE | 2017-01-09 09:17 | PN ---
Progress Note (short form) - Note Progress Note: Thoracic Surgery States she feels better than before drain placed HR 100s Afib, SBP 110-120 RR20 Minimal serosang drainage overnight. >200cc drained total Agree with need for repeat TTE Wednesday Hopefully avoid operative window Keep drain to gravity drainage over weekend.
--- NOTE | 2017-01-09 09:32 | PN ---
Progress Note, Physician Chief Complaint: Patient continues to be short of breath. BP in better range than before, on Dopamine. No chest pain, Received IV Lasix over night. Starting to diurese. Oral food intake suboptimal. Off Bicarb infusion - Current Medication List Current Medications: Active Medications Guaifenesin (Robitussin -) 10 ml PO Q6H PRN PRN Reason: COUGH Dopamine HCl/Dextrose (Dopamine 400 Mg/D5w -) 250 mls @ 12.587 mls/hr IVPB TITR MCKAYLA; 5 MCG/KG/MIN PRN Reason: Protocol Last Titration: 01/09/17 07:05 Dose: 10 mcg/kg/min - Objective Vital Signs: Vital Signs Temperature 97.4 F L 01/09/17 06:00 Pulse Rate 106 H 01/09/17 08:00 Respiratory Rate 25 H 01/09/17 08:00 Blood Pressure 113/61 01/09/17 08:00 O2 Sat by Pulse Oximetry (%) 94 L 01/09/17 08:00 Constitutional: Yes: Anxious, Mild Distress Eyes: Yes: Conjunctiva Clear Neck: Yes: Supple, Trachea Midline Cardiovascular: Yes: Tachycardia, S1, S2 Respiratory: Yes: Diminished, Dullness, Rhonchi, SOB Gastrointestinal: Yes: Normal Bowel Sounds, Soft Musculoskeletal: Yes: WNL Edema: Yes Edema: LLE: 1+, RLE: 1+ Integumentary: Yes: WNL Neurological: Yes: Alert, Oriented Psychiatric: Yes: Alert, Oriented Labs: CBC, BMP 01/09/17 05:20 01/09/17 05:20 INR, PTT INR 1.43 (0.82-1.09) H 01/09/17 04:00 Problem List - Problems (1) Atrial fibrillation Code(s): I48.91 - UNSPECIFIED ATRIAL FIBRILLATION Qualifiers: Atrial fibrillation type: paroxysmal Qualified Code(s): I48.0 - Paroxysmal atrial fibrillation (2) Hypertension Code(s): I10 - ESSENTIAL (PRIMARY) HYPERTENSION Qualifiers: Hypertension type: essential hypertension Qualified Code(s): I10 - Essential (primary) hypertension (3) Hypotension Code(s): I95.9 - HYPOTENSION, UNSPECIFIED Qualifiers: Hypotension type: other hypotension type Qualified Code(s): I95.89 - Other hypotension (4) Pericardial effusion Code(s): I31.3 - PERICARDIAL EFFUSION (NONINFLAMMATORY) (5) Pericardial effusion with cardiac tamponade Code(s): I31.3 - PERICARDIAL EFFUSION (NONINFLAMMATORY) I31.4 - CARDIAC TAMPONADE (6) Presence of permanent cardiac pacemaker Code(s): Z95.0 - PRESENCE OF CARDIAC PACEMAKER (7) Renal failure Code(s): N19 - UNSPECIFIED KIDNEY FAILURE (8) Sepsis Code(s): A41.9 - SEPSIS, UNSPECIFIED ORGANISM Qualifiers: Sepsis type: sepsis during labor Qualified Code(s): O75.3 - Other infection during labor (9) TIA (transient ischemic attack) Code(s): G45.9 - TRANSIENT CEREBRAL ISCHEMIC ATTACK, UNSPECIFIED Qualifiers: Transient cerebral ischemia type: unspecified Qualified Code(s): G45.9 - Transient cerebral ischemic attack, unspecified (10) Acute kidney failure Code(s): N17.9 - ACUTE KIDNEY FAILURE, UNSPECIFIED Assessment/Plan 81 y/o female in the ICU : 1. Acute Kidney failure, Oliguric. Received IV Lasix with minimal response. The patient remains short of breath, and with signs of fluid overload. Azotemia persists. A Femoral dialysis catheter was placed last night. Will give a slow dialysis to day, and attempt to remove 1-2 Kg fluid as tolerated. 2. Taper the Dopamine after dialysis, if Hemodynamic status remains stable. 3. Pericardia effusion, was drained last evening. F/u notes from CT surgeon noted. 4. Will monitor the Renal functions after today's dialysis. Florinda Barr MD
[2017-01-09 10:11] LABS: COMPLEMENT C3 110 mg/dL (82-167); COMPLEMENT C4 18 mg/dL (14-44)
--- NOTE | 2017-01-09 10:34 | PN ---
Progress Note, Physician Chief Complaint: THIS IS MY FIRST MEDICAL ENCOUNTER WITH THIS PATIENT EVENTS AND CHART REVIEWED AWAKE ALERT APPETITE IMPROVING + URINARY OUTPUT NO BM X 3 DAYS - Current Medication List Current Medications: Active Medications Guaifenesin (Robitussin -) 10 ml PO Q6H PRN PRN Reason: COUGH Dopamine HCl/Dextrose (Dopamine 400 Mg/D5w -) 250 mls @ 12.587 mls/hr IVPB TITR MCKAYLA; 5 MCG/KG/MIN PRN Reason: Protocol Last Titration: 01/09/17 09:40 Dose: 7 mcg/kg/min - Objective Vital Signs: Vital Signs Temperature 98.7 F 01/09/17 09:56 Pulse Rate 98 H 01/09/17 09:56 Respiratory Rate 26 H 01/09/17 09:56 Blood Pressure 90/57 01/09/17 09:56 O2 Sat by Pulse Oximetry (%) 94 L 01/09/17 09:55 Constitutional: Yes: No Distress, Mild Distress Eyes: Yes: WNL HENT: Yes: WNL Neck: Yes: WNL Cardiovascular: Yes: WNL Respiratory: Yes: On Nasal O2, SOB Gastrointestinal: Yes: WNL Genitourinary: Yes: WNL Musculoskeletal: Yes: Muscle Weakness Extremities: Yes: WNL Edema: Yes Edema: LLE: 2+, RLE: 2+ Peripheral Pulses WNL: Yes Integumentary: Yes: WNL Wound/Incision: Yes: Clean/Dry Neurological: Yes: WNL ...Motor Strength: WNL Psychiatric: Yes: WNL Labs: CBC, BMP 01/09/17 05:20 01/09/17 05:20 INR, PTT INR 1.43 (0.82-1.09) H 01/09/17 04:00 Problem List - Problems (1) Acute kidney failure Code(s): N17.9 - ACUTE KIDNEY FAILURE, UNSPECIFIED (2) Atrial fibrillation Code(s): I48.91 - UNSPECIFIED ATRIAL FIBRILLATION Qualifiers: Atrial fibrillation type: paroxysmal Qualified Code(s): I48.0 - Paroxysmal atrial fibrillation (3) Coagulopathy Code(s): D68.9 - COAGULATION DEFECT, UNSPECIFIED (4) Hypertension Code(s): I10 - ESSENTIAL (PRIMARY) HYPERTENSION Qualifiers: Hypertension type: essential hypertension Qualified Code(s): I10 - Essential (primary) hypertension (5) Pericardial effusion Code(s): I31.3 - PERICARDIAL EFFUSION (NONINFLAMMATORY) Assessment/Plan CTS FOLLOW UP, S/P CHEST TUBE DRAINAGE OF EFFUSION RENAL FAILURE , FOLLOW LEVELS IVF FFP FOR INR ELEVATION/BLEED DVT PROPHYLAXIS AFIB WILL NEED AC WHEN STABLE
--- NOTE | 2017-01-09 12:26 | PN ---
Progress Note (short form) - Note Progress Note: Doing better today Overnight as per CT surgery report minimal sero sanguineous fluid drained INR down to 1.43 After thsi correction may be difficult and hence would recommend for now to hold off FFP continue daily vitamin K though Review of Systems - Review of Systems Constitutional: reports: Loss of Appetite, Weakness Eyes: denies: Blurred Vision, Double Vision HENT: reports: Epistaxis, Throat Pain Neck: reports: Lumps, Swollen Glands, Tenderness Cardiovascular: reports: Chest Pain, Shortness of Breath Respiratory: reports: Cough, SOB, SOB on Exertion Gastrointestinal: reports: Diarrhea Genitourinary: reports: Other (decrease output) Breasts: reports: No Symptoms Reported Musculoskeletal: denies: Back Pain, Extremity Pain Integumentary: denies: Erythema Neurological: denies: Confusion, Dizziness Endocrine: reports: No Symptoms Hematology/Lymphatic: denies: Excessive Bleeding, Swollen Glands Psychiatric: reports: No Symptoms Physical Exam Vital Signs: Vital Signs Period Temp Pulse Resp BP Sys/Higgins Pulse Ox Last 24 Hr 97.3 F-98.8 F 79-106 19-26 77-120/43-77 23-99 Constitutional: Yes: Moderate Distress Eyes: Yes: PERRL. No: Diplopia, Ptosis HENT: Yes: Atraumatic, Normocephalic. No: Hoarseness, Tonsillar Exudate Neck: Yes: Trachea Midline. No: Lymphadenopathy, Thyromegaly Cardiovascular: Yes: Pulse Irregular Respiratory: Yes: Rales, Wheezes Gastrointestinal: Yes: Soft. No: Hepatomegaly, Splenomegaly Renal/: Yes: CVA Tenderness - Left, CVA Tenderness - Right Breast(s): Yes: WNL, Left, Right Musculoskeletal: Yes: Muscle Weakness Extremities: No: Calf Tenderness, Cold, Cyanosis Wound/Incision: Yes: Unapproximated ...Motor Strength: WNL Psychiatric: Yes: WNL Labs: CBC, BMP 01/09/17 05:20 01/09/17 05:20 Active Medications Generic Name Dose Route Start Last Admin Trade Name Freq PRN Reason Stop Dose Admin Guaifenesin 10 ml 01/08/17 18:01 Robitussin - PO Q6H PRN COUGH Dopamine HCl/Dextrose 250 mls @ 12.587 mls/hr 01/08/17 04:15 01/09/17 09:40 Dopamine 400 Mg/D5w - IVPB 7 mcg/kg/min TITR MCKAYLA Titration Protocol 5 MCG/KG/MIN Lactobacillus Acidophilus 1 tab 01/09/17 10:45 Bacid - PO DAILY MCKAYLA Assessment : Monitor PT/PTT twice a day If INR increasing or >1.75 then woudl transfuse 1 unit of FFP Closer the INR to normal more difficult it is to correct with FFP continue Vitamin K 10 mg po q day prn platelets if bleeding Problem List - Problems (1) Pericardial effusion with cardiac tamponade Code(s): I31.3 - PERICARDIAL EFFUSION (NONINFLAMMATORY) I31.4 - CARDIAC TAMPONADE (2) Hypotension Code(s): I95.9 - HYPOTENSION, UNSPECIFIED Qualifiers: Hypotension type: other hypotension type Qualified Code(s): I95.89 - Other hypotension (3) Renal failure Assessment/Plan: Code(s): N19 - UNSPECIFIED KIDNEY FAILURE (4) Coagulopathy Assessment/Plan: Code(s): D68.9 - COAGULATION DEFECT, UNSPECIFIED
--- NOTE | 2017-01-09 13:31 | PN ---
Progress Note (short form) - Note Progress Note: Addendum: The patient seen on Dialysis. ABF maintained at 250 ml/min. BP stable. UF goal set for 2000 ml. Orders for HD reviewed with the RN. Will get post dialysis labs. Will monitor closely to decide on the next dialysis. Florinda Barr MD Problem List - Problems (1) Atrial fibrillation Code(s): I48.91 - UNSPECIFIED ATRIAL FIBRILLATION Qualifiers: Atrial fibrillation type: paroxysmal Qualified Code(s): I48.0 - Paroxysmal atrial fibrillation (2) Hypertension Code(s): I10 - ESSENTIAL (PRIMARY) HYPERTENSION Qualifiers: Hypertension type: essential hypertension Qualified Code(s): I10 - Essential (primary) hypertension (3) Hypotension Code(s): I95.9 - HYPOTENSION, UNSPECIFIED Qualifiers: Hypotension type: other hypotension type Qualified Code(s): I95.89 - Other hypotension (4) Pericardial effusion Code(s): I31.3 - PERICARDIAL EFFUSION (NONINFLAMMATORY) (5) Pericardial effusion with cardiac tamponade Code(s): I31.3 - PERICARDIAL EFFUSION (NONINFLAMMATORY) I31.4 - CARDIAC TAMPONADE (6) Presence of permanent cardiac pacemaker Code(s): Z95.0 - PRESENCE OF CARDIAC PACEMAKER (7) Renal failure Code(s): N19 - UNSPECIFIED KIDNEY FAILURE (8) Sepsis Code(s): A41.9 - SEPSIS, UNSPECIFIED ORGANISM Qualifiers: Sepsis type: sepsis during labor Qualified Code(s): O75.3 - Other infection during labor (9) TIA (transient ischemic attack) Code(s): G45.9 - TRANSIENT CEREBRAL ISCHEMIC ATTACK, UNSPECIFIED Qualifiers: Transient cerebral ischemia type: unspecified Qualified Code(s): G45.9 - Transient cerebral ischemic attack, unspecified (10) Acute kidney failure Code(s): N17.9 - ACUTE KIDNEY FAILURE, UNSPECIFIED
--- NOTE | 2017-01-09 13:45 | PN ---
Progress Note (short form) - Note Progress Note: PULMONARY/CCM Pt seen and examined in the ICU. Feels better today. Currently being dialyzed, remains on dopamine gtt. No fevers recorded. Last Vital Signs Temp Pulse Resp BP Pulse Ox 98.8 F 104 H 24 107/52 94 L 01/09/17 11:00 01/09/17 12:00 01/09/17 12:00 01/09/17 12:00 01/09/17 09:55 Intake & Output 01/06/17 01/07/17 01/08/17 01/09/17 23:59 23:59 23:59 23:59 Intake Total 5649 853 Output Total 610 700 Balance 5039 153 Weight 140 lb 148 lb 158 lb 3 oz Gen: weak appearing, NAD Heart: tachycardic, regular Lung: decreased breath sounds at the bases Abd: soft, nontender Ext: no edema Chest tube: +serosanguinous drainage CBC, BMP 01/09/17 05:20 01/09/17 05:20 Active Medications Guaifenesin (Robitussin -) 10 ml PO Q6H PRN PRN Reason: COUGH Dopamine HCl/Dextrose (Dopamine 400 Mg/D5w -) 250 mls @ 12.587 mls/hr IVPB TITR MCKAYLA; 5 MCG/KG/MIN PRN Reason: Protocol Last Titration: 01/09/17 09:40 Dose: 7 mcg/kg/min Lactobacillus Acidophilus (Bacid -) 1 tab PO DAILY MCKAYLA A/P Pericardial Effusion with Cardiac Tamponade s/p chest tube placement Cardiogenic Shock Acute Kidney Injury requiring HD h/o TIA Anemia SSS s/p PPM - HD per renal - monitor chest tube output - f/u cytology - monitor urine output, creatinine - continue dopamine gtt - PO as tolerated - repeat echocardiogram 01/11 - DVT prophylaxis - ICU monitoring
[2017-01-09 13:51] LABS: BASOPHIL 0.5 % (0-2.0); MCH 31.5 pg (25.7-33.7); MCHC 33.8 g/dl (32.0-36.0); MEAN CELL VOLUME 93.2 fl (80-96); MEAN PLT VOLUME 7.4 fl (7.5-11.1); NEUTROPHILS 85.3 % (42.8-82.8); PLATELET COUNT 272 K/MM3 (134-434); RDW 13.1 % (11.6-15.6)
[2017-01-09 16:31] LABS: INR 1.42 (0.82-1.09); PROTHROMBIN TIME (PATIENT) 15.7 SEC (9.98-11.88)
[2017-01-09 16:32] LABS: CALCIUM 7.7 mg/dL (8.5-10.1); CREATININE 1.9 mg/dL (0.55-1.02)
[2017-01-09] MEDS: LACTOBACILLUS ACIDOPHILUS 1 EACH TAB (FP) PO SCH (16:37)
[2017-01-09] MEDS ORDERED: NOREPINEPHRINE BITARTRATE 4 MG/4 ML ML IV ONE (19:09)
[2017-01-09] MEDS ORDERED: POTASSIUM CHLORIDE TABS 20 MEQ TABLET.ER (FP) PO ONE (19:42)
[2017-01-09] MEDS ORDERED: ACETAMINOPHEN 325 MG TABLET (FP) PO PRN (20:12)
[2017-01-09] MEDS: NOREPINEPHRINE BITARTRATE 8,000 MCG in DEXTROSE 5%-WATER - 492 ML IV SCH (23:55)
[2017-01-10 06:46] LABS: BASOPHIL 0.3 % (0-2.0); EOSINOPHIL 1.2 % (0-4.5); MCH 31.5 pg (25.7-33.7); MCHC 33.6 g/dl (32.0-36.0); MEAN CELL VOLUME 93.9 fl (80-96); MEAN PLT VOLUME 7.7 fl (7.5-11.1); NEUTROPHILS 71.4 % (42.8-82.8); PLATELET COUNT 297 K/MM3 (134-434); RDW 13.4 % (11.6-15.6); WHITE BLOOD COUNT 7.9 K/mm3 (4.0-10.0)
[2017-01-10 07:08] LABS: ALBUMIN 2.7 g/dl (3.4-5.0); MAGNESIUM 1.4 mg/dL (1.8-2.4); PHOSPHOROUS 3.7 mg/dL (2.5-4.9)
[2017-01-10 07:10] LABS: BILIRUBIN,TOTAL 0.7 mg/dL (0.2-1.0); CREATININE 2.3 mg/dL (0.55-1.02); TOT PROT 5.5 g/dl (6.4-8.2)
[2017-01-10 07:14] LABS: INR 1.58 (0.82-1.09); PROTHROMBIN TIME (PATIENT) 17.5 SEC (9.98-11.88)
[2017-01-10 07:21] LABS: CALCIUM 6.9 mg/dL (8.5-10.1)
--- NOTE | 2017-01-10 08:07 | PN ---
Progress Note (short form) - Note Progress Note: Chief Complaint: Events noted, notes reviewed, dyspnea improved, denies orthopnea or PND, denies any chest pain, atrial fibrillation is noted History of Present Illness: Seen and examined in the ICU. Events noted, notes reviewed, dyspnea improved, denies orthopnea or PND, denies any chest pain, atrial fibrillation is noted Pericardial drain in situ. Remains on Norepinephrine drip for hypotension management (initiated in substitution for Dopamine) Patient had a HD session yesterday Echocardiography revealed normal LV size and function mild MR, mild to moderate TR, mild to moderate degree of pulmonary HTN RVSP 40-50 mmHg, and large pericardial effusion Medications: Current Medications Acetaminophen (Tylenol -) 650 mg PO Q6H PRN PRN Reason: FEVER OR PAIN Guaifenesin (Robitussin -) 10 ml PO Q6H PRN PRN Reason: COUGH Norepinephrine Bitartrate 8, (000 mcg/ Dextrose) 500 mls @ 18.75 mls/hr IV TITR MCKAYLA; 5 MCG/MIN PRN Reason: Protocol Lactobacillus Acidophilus (Bacid -) 1 tab PO DAILY MCKAYLA Last Admin: 01/09/17 16:37 Dose: 1 tab Review of Systems - Review of Systems Constitutional: denies: Chills, Fever Cardiovascular: as noted above Respiratory: reports: Persistent Dyspnea but improved Gastrointestinal: denies: Nausea, Vomiting, Diarrhea, Constipation or Abdominal Pain Neurological: No symptoms reported Vital Signs: Last Vital Signs Temp Pulse Resp BP Pulse Ox 98.0 F 105 H 22 92/64 96 01/10/17 06:00 01/10/17 07:00 01/10/17 07:00 01/10/17 07:00 01/09/17 21:00 Intake & Output 01/07/17 01/08/17 01/09/17 01/10/17 23:59 23:59 23:59 23:59 Intake Total 5649 1991 126 Output Total 610 6062 700 Balance 0169 -619 -574 Weight 140 lb 148 lb 158 lb 3 oz Neck: Supple Negative JVD No Bruit Respiratory: Diminished Breath Sounds at the Bases Cardiovascular: S1 S2 Irregularly Irregular Gastrointestinal: Soft Benign Normal Bowel Sounds Ext: Trace Edema Labs: CBC, BMP 01/10/17 05:20 01/10/17 05:20 Assessment/Plan ASSESSMENT: 1. Large pericardial effusion with tamponade physiology, post drain insertion 2. History of paroxysmal atrial fibrillation on Coumadin ([id number] score of 6 ), recurrent arrhythmia 3. History of sick sinus syndrome post PPM 4. Acute renal failure 5. History of hypertension, hypotensive due to cardiac tamponade on pressors 6. History of TIA/stroke 7. Anemia PLAN: 1. Repeat Transthoracic echocardiography on Wednesday to assess residual pericardial effusion 2. Attempt to taper off Norepinephrine maintaining MAPs > 65 3. Resume A/C once hemostasis is achieved, Heparin/Coumadin, to be discussed with thoracic surgery today 4. Resume Propafenone ER today 5. Monitor renal function and urine output, probably defer any additional HD at this point 6. Monitor Hg and may need to transfuse maintaining Hg > 8.0 7. Await fluid cytology Above management was reviewed in detail with patient Edinson Duque MD
[2017-01-10] MEDS: LACTOBACILLUS ACIDOPHILUS 1 EACH TAB (FP) PO SCH (09:31)
--- NOTE | 2017-01-10 09:44 | PN ---
Progress Note (short form) - Note Progress Note: Yesterday's events reviewed Pericardial drain > 600cc total since insertion AM CXR seen Agree with repeat TTE for tomorrow Rec holding off on on systemic AC until after ECHO given hemorrhagic nature of pericardial effusion, unless deemed necessary for Afib
[2017-01-10] MEDS ORDERED: PROPAFENONE HCL 150 MG TABLET PO SCH (10:00)
--- NOTE | 2017-01-10 10:50 | PN ---
Progress Note, Physician Chief Complaint: AWAKE ALERT FEELS GOOD BEDSIDE - Current Medication List Current Medications: Active Medications Acetaminophen (Tylenol -) 650 mg PO Q6H PRN PRN Reason: FEVER OR PAIN Guaifenesin (Robitussin -) 10 ml PO Q6H PRN PRN Reason: COUGH Norepinephrine Bitartrate 8, (000 mcg/ Dextrose) 500 mls @ 18.75 mls/hr IV TITR MCKAYLA; 5 MCG/MIN PRN Reason: Protocol Lactobacillus Acidophilus (Bacid -) 1 tab PO DAILY MCKAYLA Last Admin: 01/10/17 09:31 Dose: 1 tab Propafenone *Er* 425 (Mg Capsule) 1 each PO BID MCKAYLA - Objective Vital Signs: Vital Signs Temperature 98.0 F 01/10/17 06:00 Pulse Rate 91 H 01/10/17 08:49 Respiratory Rate 27 H 01/10/17 09:00 Blood Pressure 112/68 01/10/17 08:49 O2 Sat by Pulse Oximetry (%) 96 01/09/17 21:00 Constitutional: Yes: No Distress Eyes: Yes: WNL HENT: Yes: WNL Neck: Yes: WNL Cardiovascular: Yes: Pulse Irregular, Other Respiratory: Yes: WNL Gastrointestinal: Yes: WNL Genitourinary: Yes: WNL Musculoskeletal: Yes: WNL Extremities: Yes: WNL Edema: No Peripheral Pulses WNL: Yes Integumentary: Yes: WNL Wound/Incision: Yes: Clean/Dry Neurological: Yes: WNL ...Motor Strength: WNL Psychiatric: Yes: WNL Labs: CBC, BMP 01/10/17 05:20 01/10/17 05:20 INR, PTT INR 1.58 (0.82-1.09) H 01/10/17 05:20 Problem List - Problems (1) Acute kidney failure Code(s): N17.9 - ACUTE KIDNEY FAILURE, UNSPECIFIED (2) Atrial fibrillation Code(s): I48.91 - UNSPECIFIED ATRIAL FIBRILLATION Qualifiers: Atrial fibrillation type: paroxysmal Qualified Code(s): I48.0 - Paroxysmal atrial fibrillation (3) Coagulopathy Code(s): D68.9 - COAGULATION DEFECT, UNSPECIFIED (4) Hypertension Code(s): I10 - ESSENTIAL (PRIMARY) HYPERTENSION Qualifiers: Hypertension type: essential hypertension Qualified Code(s): I10 - Essential (primary) hypertension (5) Pericardial effusion Code(s): I31.3 - PERICARDIAL EFFUSION (NONINFLAMMATORY) Assessment/Plan CTS FOLLOW UP, S/P CHEST TUBE DRAINAGE OF EFFUSION RENAL FAILURE , FOLLOW LEVELS IVF FFP FOR INR ELEVATION/BLEED DVT PROPHYLAXIS AFIB WILL NEED AC WHEN STABLE ANEMIA START FERROUS SULFATE BID OOB TO CHAIR JOSIAH TOMORROW WITH CARDIOLOGY
[2017-01-10] MEDS: FERROUS SO4 325 MG TABLET (FP) PO SCH ×2 (11:36→21:48)
--- NOTE | 2017-01-10 12:03 | PN ---
Progress Note (short form) - Note Progress Note: PULMONARY/CCM Pt seen and examined in the ICU. Feels better today. Dopamine gtt changed to levophed gtt. No fevers recorded. Good urine output. Last Vital Signs Temp Pulse Resp BP Pulse Ox 97.9 F 97 H 24 94/57 96 01/10/17 10:00 01/10/17 10:00 01/10/17 10:00 01/10/17 10:00 01/09/17 21:00 Intake & Output 01/07/17 01/08/17 01/09/17 01/10/17 23:59 23:59 23:59 23:59 Intake Total 5649 1990 126 Output Total 610 2610 700 Balance 5039 -619 -574 Weight 140 lb 148 lb 158 lb 3 oz 151 lb 11.2 oz Gen: more alert, awake Heart: tachycardic, regular Lung: decreased breath sounds at the bases Abd: soft, nontender Ext: no edema Chest tube: +serosanguinous drainage CBC, BMP 01/10/17 05:20 01/10/17 05:20 Active Medications Acetaminophen (Tylenol -) 650 mg PO Q6H PRN PRN Reason: FEVER OR PAIN Ferrous Sulfate (Feosol -) 325 mg PO BID [facility] Last Admin: 01/10/17 11:36 Dose: 325 mg Guaifenesin (Robitussin -) 10 ml PO Q6H PRN PRN Reason: COUGH Norepinephrine Bitartrate 8, (000 mcg/ Dextrose) 500 mls @ 18.75 mls/hr IV TITR [facility]; 5 MCG/MIN PRN Reason: Protocol Lactobacillus Acidophilus (Bacid -) 1 tab PO DAILY [facility] Last Admin: 01/10/17 09:31 Dose: 1 tab Propafenone *Er* 425 (Mg Capsule) 1 each PO BID [facility] Polyethylene Glycol (Miralax (For Daily Use) -) 17 gm PO DAILY [facility] A/P Pericardial Effusion with Cardiac Tamponade s/p chest tube placement Cardiogenic Shock Acute Kidney Injury requiring HD h/o TIA Anemia SSS s/p PPM - HD per renal, d/c femoral catheter if no further dialysis planned - monitor chest tube output - f/u cytology - monitor urine output, creatinine - continue levophed support - PO as tolerated - repeat echocardiogram 01/11 - DVT prophylaxis - continue ICU monitoring
--- NOTE | 2017-01-10 12:21 | PN ---
Progress Note, Physician Chief Complaint: Patient feeling much better. The respiratory status has improved. Received HD yesterday. Removed 2 Kg. Maintains excellent urine output. BP >110 systolic...on 2 Mcg o0f Levophed. Appetite improved, eating better. - Current Medication List Current Medications: Active Medications Acetaminophen (Tylenol -) 650 mg PO Q6H PRN PRN Reason: FEVER OR PAIN Ferrous Sulfate (Feosol -) 325 mg PO BID [facility] Last Admin: 01/10/17 11:36 Dose: 325 mg Guaifenesin (Robitussin -) 10 ml PO Q6H PRN PRN Reason: COUGH Norepinephrine Bitartrate 8, (000 mcg/ Dextrose) 500 mls @ 18.75 mls/hr IV TITR [facility]; 5 MCG/MIN PRN Reason: Protocol Lactobacillus Acidophilus (Bacid -) 1 tab PO DAILY [facility] Last Admin: 01/10/17 09:31 Dose: 1 tab Propafenone *Er* 425 (Mg Capsule) 1 each PO BID [facility] Polyethylene Glycol (Miralax (For Daily Use) -) 17 gm PO DAILY [facility] - Objective Vital Signs: Vital Signs Temperature 97.9 F 01/10/17 10:00 Pulse Rate 97 H 01/10/17 10:00 Respiratory Rate 24 01/10/17 10:00 Blood Pressure 94/57 01/10/17 10:00 O2 Sat by Pulse Oximetry (%) 96 01/09/17 21:00 Constitutional: Yes: No Distress, Calm Eyes: Yes: WNL HENT: Yes: WNL, Atraumatic Neck: Yes: Supple Cardiovascular: Yes: Regular Rate and Rhythm, Tachycardia, S1, S2 Respiratory: Yes: Regular, Poor Air Entry Gastrointestinal: Yes: Normal Bowel Sounds, Soft Edema: No Neurological: Yes: Alert, Oriented Labs: CBC, BMP 01/10/17 05:20 01/10/17 05:20 INR, PTT INR 1.58 (0.82-1.09) H 01/10/17 05:20 Problem List - Problems (1) Atrial fibrillation Code(s): I48.91 - UNSPECIFIED ATRIAL FIBRILLATION Qualifiers: Atrial fibrillation type: paroxysmal Qualified Code(s): I48.0 - Paroxysmal atrial fibrillation (2) Hypertension Code(s): I10 - ESSENTIAL (PRIMARY) HYPERTENSION Qualifiers: Hypertension type: essential hypertension Qualified Code(s): I10 - Essential (primary) hypertension (3) Hypotension Code(s): I95.9 - HYPOTENSION, UNSPECIFIED Qualifiers: Hypotension type: other hypotension type Qualified Code(s): I95.89 - Other hypotension (4) Pericardial effusion Code(s): I31.3 - PERICARDIAL EFFUSION (NONINFLAMMATORY) (5) Pericardial effusion with cardiac tamponade Code(s): I31.3 - PERICARDIAL EFFUSION (NONINFLAMMATORY) I31.4 - CARDIAC TAMPONADE (6) Presence of permanent cardiac pacemaker Code(s): Z95.0 - PRESENCE OF CARDIAC PACEMAKER (7) Renal failure Code(s): N19 - UNSPECIFIED KIDNEY FAILURE (8) Sepsis Code(s): A41.9 - SEPSIS, UNSPECIFIED ORGANISM Qualifiers: Sepsis type: sepsis during labor Qualified Code(s): O75.3 - Other infection during labor (9) TIA (transient ischemic attack) Code(s): G45.9 - TRANSIENT CEREBRAL ISCHEMIC ATTACK, UNSPECIFIED Qualifiers: Transient cerebral ischemia type: unspecified Qualified Code(s): G45.9 - Transient cerebral ischemic attack, unspecified (10) Acute kidney failure Code(s): N17.9 - ACUTE KIDNEY FAILURE, UNSPECIFIED Assessment/Plan 81 y/o female in the ICU : 1. Acute Kidney failure. Urine out put has started to improved. 2. Respiratory symptoms have improved. 3. hemodynamci status improving. Should be able to taper off Levophed. Discussed with the RN. 4. Id the azotemia continues to improve, will remove the femoral catheter tomorrow. Will keep on bed rest till the catheter is removed. 5. Will monitor the renal functions with you. Florinda Barr MD
--- NOTE | 2017-01-10 13:50 | PN ---
Progress Note (short form) - Note Progress Note: Doing better today - wanting to go home INR at 1.58 continue daily vitamin K Review of Systems - Review of Systems Constitutional: reports: Loss of Appetite, Weakness Eyes: denies: Blurred Vision, Double Vision HENT: reports: Epistaxis, Throat Pain Neck: reports: Lumps, Swollen Glands, Tenderness Cardiovascular: reports: Chest Pain, Shortness of Breath Respiratory: reports: Cough, SOB, SOB on Exertion Gastrointestinal: reports: Diarrhea Genitourinary: reports: Other (decrease output) Breasts: reports: No Symptoms Reported Musculoskeletal: denies: Back Pain, Extremity Pain Integumentary: denies: Erythema Neurological: denies: Confusion, Dizziness Endocrine: reports: No Symptoms Hematology/Lymphatic: denies: Excessive Bleeding, Swollen Glands Psychiatric: reports: No Symptoms Physical Exam Vital Signs: Vital Signs Period Temp Pulse Resp BP Sys/Higgins Pulse Ox Last 24 Hr 97.9 F-98.5 F 91-124 18-27 69-121/42-80 96-97 Constitutional: Yes: Moderate Distress Eyes: Yes: PERRL. No: Diplopia, Ptosis HENT: Yes: Atraumatic, Normocephalic. No: Hoarseness, Tonsillar Exudate Neck: Yes: Trachea Midline. No: Lymphadenopathy, Thyromegaly Cardiovascular: Yes: Pulse Irregular Respiratory: Yes: Rales, Wheezes Gastrointestinal: Yes: Soft. No: Hepatomegaly, Splenomegaly Renal/: Yes: CVA Tenderness - Left, CVA Tenderness - Right Breast(s): Yes: WNL, Left, Right Musculoskeletal: Yes: Muscle Weakness Extremities: No: Calf Tenderness, Cold, Cyanosis Wound/Incision: Yes: Unapproximated ...Motor Strength: WNL Psychiatric: Yes: WNL Labs: Active Medications Generic Name Dose Route Start Last Admin Trade Name Freq PRN Reason Stop Dose Admin Acetaminophen 650 mg 01/09/17 20:12 Tylenol - PO Q6H PRN FEVER OR PAIN Ferrous Sulfate 325 mg 01/10/17 11:00 01/10/17 11:36 Feosol - PO 325 mg BID [facility] Administration Guaifenesin 10 ml 01/08/17 18:01 Robitussin - PO Q6H PRN COUGH Norepinephrine Bitartrate 8, 500 mls @ 18.75 mls/hr 01/09/17 20:15 000 mcg/ Dextrose IV TITR [facility] Protocol 5 MCG/MIN Lactobacillus Acidophilus 1 tab 01/09/17 10:45 01/10/17 09:31 Bacid - PO 1 tab DAILY [facility] Administration Propafenone *Er* 425 1 each 01/10/17 10:00 Mg Capsule PO BID [facility] Polyethylene Glycol 17 gm 01/11/17 10:00 Miralax (For Daily Use) - PO DAILY [facility] Assessment : Monitor PT/PTT twice a day If INR increasing or >1.75 then would transfuse 1 unit of FFP Closer the INR to normal more difficult it is to correct with FFP continue Vitamin K 10 mg po q day for today prn platelets if bleeding Problem List - Problems (1) Pericardial effusion with cardiac tamponade Code(s): I31.3 - PERICARDIAL EFFUSION (NONINFLAMMATORY) I31.4 - CARDIAC TAMPONADE (2) Hypotension Code(s): I95.9 - HYPOTENSION, UNSPECIFIED Qualifiers: Hypotension type: other hypotension type Qualified Code(s): I95.89 - Other hypotension (3) Renal failure Assessment/Plan: Code(s): N19 - UNSPECIFIED KIDNEY FAILURE (4) Coagulopathy Assessment/Plan: Code(s): D68.9 - COAGULATION DEFECT, UNSPECIFIED
[2017-01-10] MEDS ORDERED: PHYTONADIONE 5 MG TABLET PO ONE (13:53)
[2017-01-10] MEDS ORDERED: PHYTONADIONE 10 MG/1 ML AMP ONE (14:54)
[2017-01-11] MEDS: NOREPINEPHRINE BITARTRATE 8,000 MCG in DEXTROSE 5%-WATER - 492 ML IV SCH ×2 (01:02→20:53)
[2017-01-11] MEDS: CALCIUM GLUCONATE 10% - 1,000 MG/10 ML VIAL IVPB ONE ×2 (01:31→04:27)
[2017-01-11] MEDS ORDERED: MAGNESIUM SULF 50% (8.12 MEQ/2 ML-1 GM VIAL) IVPB ONE ×2 (02:31→13:06)
[2017-01-11 06:14] LABS: BASOPHIL 0.5 % (0-2.0); EOSINOPHIL 1.8 % (0-4.5); MCH 30.8 pg (25.7-33.7); MCHC 32.5 g/dl (32.0-36.0); MEAN CELL VOLUME 94.9 fl (80-96); MEAN PLT VOLUME 7.4 fl (7.5-11.1); NEUTROPHILS 72.7 % (42.8-82.8); PLATELET COUNT 279 K/MM3 (134-434); RDW 13.6 % (11.6-15.6); WHITE BLOOD COUNT 8.8 K/mm3 (4.0-10.0)
[2017-01-11 06:37] LABS: INR 1.43 (0.82-1.09); PROTHROMBIN TIME (PATIENT) 15.8 SEC (9.98-11.88)
[2017-01-11 06:41] LABS: CALCIUM 7.3 mg/dL (8.5-10.1); CREATININE 1.7 mg/dL (0.55-1.02); MAGNESIUM 1.5 mg/dL (1.8-2.4); PHOSPHOROUS 2.8 mg/dL (2.5-4.9)
[2017-01-11] MEDS ORDERED: PT OWN MED DRAWER 7, Y5N ONE (07:44)
--- NOTE | 2017-01-11 07:54 | PN ---
Progress Note, Physician - Current Medication List Current Medications: Active Medications Acetaminophen (Tylenol -) 650 mg PO Q6H PRN PRN Reason: FEVER OR PAIN Ferrous Sulfate (Feosol -) 325 mg PO BID [facility] Last Admin: 01/10/17 21:48 Dose: 325 mg Guaifenesin (Robitussin -) 10 ml PO Q6H PRN PRN Reason: COUGH Norepinephrine Bitartrate 8, (000 mcg/ Dextrose) 500 mls @ 18.75 mls/hr IV TITR [facility]; 5 MCG/MIN PRN Reason: Protocol Last Admin: 01/11/17 01:02 Dose: Not Given Lactobacillus Acidophilus (Bacid -) 1 tab PO DAILY [facility] Last Admin: 01/10/17 09:31 Dose: 1 tab Propafenone *Er* 425 (Mg Capsule) 1 each PO BID [facility] Polyethylene Glycol (Miralax (For Daily Use) -) 17 gm PO DAILY [facility] - Objective Vital Signs: Vital Signs Temperature 98.9 F 01/11/17 06:00 Pulse Rate 100 H 01/11/17 07:00 Respiratory Rate 17 01/11/17 07:00 Blood Pressure 97/67 01/11/17 07:00 O2 Sat by Pulse Oximetry (%) 99 01/10/17 21:00 Cardiovascular: Yes: Tachycardia, S1, S2 Respiratory: Yes: Rales (at the bases) Gastrointestinal: Yes: Normal Bowel Sounds, Soft Labs: CBC, BMP 01/11/17 05:40 01/11/17 05:40 INR, PTT INR 1.43 (0.82-1.09) H 01/11/17 05:40 Problem List - Problems (1) Acute kidney failure Assessment/Plan: S/P HD CR IMPROVING MONITOR RENAL ON BOARD Code(s): N17.9 - ACUTE KIDNEY FAILURE, UNSPECIFIED (2) Atrial fibrillation Assessment/Plan: HOLD OFF ON AC MEDS PER CARDIO Code(s): I48.91 - UNSPECIFIED ATRIAL FIBRILLATION Qualifiers: Atrial fibrillation type: paroxysmal Qualified Code(s): I48.0 - Paroxysmal atrial fibrillation (3) Coagulopathy Assessment/Plan: INR 1.4 Code(s): D68.9 - COAGULATION DEFECT, UNSPECIFIED (4) Hypotension Assessment/Plan: ON LEVO MONITOR--TAPER TOLERATED Code(s): I95.9 - HYPOTENSION, UNSPECIFIED Qualifiers: Hypotension type: other hypotension type Qualified Code(s): I95.89 - Other hypotension (5) Pericardial effusion with cardiac tamponade Assessment/Plan: S/P DRAINAGE--APROX 600 ECHO TODAY Code(s): I31.3 - PERICARDIAL EFFUSION (NONINFLAMMATORY) I31.4 - CARDIAC TAMPONADE (6) Anemia Assessment/Plan: MONITOR MAY NEED PRBC IF FURTHER DROP Code(s): D64.9 - ANEMIA, UNSPECIFIED
--- NOTE | 2017-01-11 08:32 | PN ---
Progress Note, Physician Chief Complaint: ID Feeling better Had dialysis over the weekend No fever and I stopped antibiotic previously Less dyspneic - Current Medication List Current Medications: Active Medications Acetaminophen (Tylenol -) 650 mg PO Q6H PRN PRN Reason: FEVER OR PAIN Ferrous Sulfate (Feosol -) 325 mg PO BID [facility] Last Admin: 01/10/17 21:48 Dose: 325 mg Guaifenesin (Robitussin -) 10 ml PO Q6H PRN PRN Reason: COUGH Norepinephrine Bitartrate 8, (000 mcg/ Dextrose) 500 mls @ 18.75 mls/hr IV TITR [facility]; 5 MCG/MIN PRN Reason: Protocol Last Admin: 01/11/17 01:02 Dose: Not Given Lactobacillus Acidophilus (Bacid -) 1 tab PO DAILY [facility] Last Admin: 01/10/17 09:31 Dose: 1 tab Propafenone *Er* 425 (Mg Capsule) 1 each PO BID [facility] Polyethylene Glycol (Miralax (For Daily Use) -) 17 gm PO DAILY [facility] - Objective Vital Signs: Vital Signs Temperature 98.9 F 01/11/17 06:00 Pulse Rate 100 H 01/11/17 07:00 Respiratory Rate 17 01/11/17 07:00 Blood Pressure 97/67 01/11/17 07:00 O2 Sat by Pulse Oximetry (%) 99 01/10/17 21:00 HENT: Yes: WNL, Atraumatic Neck: Yes: WNL, Supple Cardiovascular: Yes: S1, S2 Respiratory: Yes: Rales Gastrointestinal: Yes: WNL, Normal Bowel Sounds, Soft. No: Tenderness, Tenderness, Rebound Edema: No Labs: CBC, BMP 01/11/17 05:40 01/11/17 05:40 INR, PTT INR 1.43 (0.82-1.09) H 01/11/17 05:40 Problem List - Problems (1) Atrial fibrillation Code(s): I48.91 - UNSPECIFIED ATRIAL FIBRILLATION Qualifiers: Atrial fibrillation type: paroxysmal Qualified Code(s): I48.0 - Paroxysmal atrial fibrillation (2) Coagulopathy Code(s): D68.9 - COAGULATION DEFECT, UNSPECIFIED (3) Pericardial effusion Code(s): I31.3 - PERICARDIAL EFFUSION (NONINFLAMMATORY) (4) Pericardial effusion with cardiac tamponade Code(s): I31.3 - PERICARDIAL EFFUSION (NONINFLAMMATORY) I31.4 - CARDIAC TAMPONADE (5) Renal failure Code(s): N19 - UNSPECIFIED KIDNEY FAILURE Assessment/Plan Microbiology 01/08/17 17:35 Pericardial Fluid Gram Stain - Final 01/08/17 00:30 Urine - Urine Clean Catch Urine Culture - Final NO GROWTH OBTAINED 01/07/17 22:45 Nasopharyngeal Swab Influenza Types A,B Antigen ([place]) - Final 01/07/17 22:45 Nasopharyngeal Swab - Final 01/09/17 09:00 Serum Mycoplasma Antibody - Preliminary 01/09/17 09:00 Serum Mycoplasma Antibody - Preliminary 01/09/17 09:00 Blood - Peripheral Venous TB Test (QFT) ([place]) - Preliminary 01/09/17 08:55 Pericardial Fluid CHRISTIE Preparation - Preliminary 01/08/17 17:35 Pericardial Fluid Body Fluid Culture - Preliminary NO AEROBIC GROWTH, 24 HRS 01/07/17 21:16 Blood - Peripheral Venous Blood Culture - Preliminary NO GROWTH OBTAINED AFTER 72 HOURS, INCUBATION TO CONTINUE FOR 2 DAYS. 01/07/17 21:16 Blood - Peripheral Venous Blood Culture - Preliminary NO GROWTH OBTAINED AFTER 72 HOURS, INCUBATION TO CONTINUE FOR 2 DAYS. Laboratory Tests 01/10/17 01/11/17 01/11/17 05:20 05:40 05:40 WBC 8.8 Hgb 8.1 L Hct 24.9 L Plt Count 279 ESR 55 H BUN 29 H Creatinine 1.7 H D Assessment Pericardial effusion hemmoragic Acute renal failure better with dialysis Original diarrheal illness ? Underlyng viral disease with original diarrhea and ? pericarditis Coagulaopathy on coumadin Atrial fibrillation Plan Off antibiotics Will likely not identifying cause of what may have been viral infection precipitating all of that occured Marisa DELAROSA
[2017-01-11] MEDS: LACTOBACILLUS ACIDOPHILUS 1 EACH TAB (FP) PO SCH (09:09)
[2017-01-11] MEDS: FERROUS SO4 325 MG TABLET (FP) PO SCH ×2 (09:09→21:05)
[2017-01-11] MEDS: POLYETHYLENE GLYCOL 3350 119 GM BTL PO SCH (09:11)
--- NOTE | 2017-01-11 10:29 | PN ---
Progress Note, Physician Chief Complaint: Events noted Currently in AF with periods of rapid ventricular response Pericardial drain in place and one trial of HD on Wednesday Feels better History of Present Illness: Patient was seen and examined. Awake and alert. Chart was reviewed Denies chest pain. Breathing better and feels comfortable. AF with periods of rapid ventricular response Norepinephrine stopped - Current Medication List Current Medications: Active Medications Acetaminophen (Tylenol -) 650 mg PO Q6H PRN PRN Reason: FEVER OR PAIN Ferrous Sulfate (Feosol -) 325 mg PO BID [facility] Last Admin: 01/11/17 09:09 Dose: 325 mg Guaifenesin (Robitussin -) 10 ml PO Q6H PRN PRN Reason: COUGH Norepinephrine Bitartrate 8, (000 mcg/ Dextrose) 500 mls @ 18.75 mls/hr IV TITR [facility]; 5 MCG/MIN PRN Reason: Protocol Last Admin: 01/11/17 01:02 Dose: Not Given Lactobacillus Acidophilus (Bacid -) 1 tab PO DAILY [facility] Last Admin: 01/11/17 09:09 Dose: 1 tab Propafenone *Er* 425 (Mg Capsule) 1 each PO BID [facility] Polyethylene Glycol (Miralax (For Daily Use) -) 17 gm PO DAILY [facility] Last Admin: 01/11/17 09:11 Dose: 17 grams - Objective Vital Signs: Vital Signs Temperature 98.9 F 01/11/17 06:00 Pulse Rate 100 H 01/11/17 07:00 Respiratory Rate 17 01/11/17 07:00 Blood Pressure 97/67 01/11/17 07:00 O2 Sat by Pulse Oximetry (%) 99 01/10/17 21:00 Neck: Yes: Supple Cardiovascular: Yes: Tachycardia, Pulse Irregular, S1, S2 Respiratory: Yes: Diminished Gastrointestinal: Yes: Normal Bowel Sounds, Soft. No: Tenderness Edema: No Additional Findings/Remarks: - Review of Systems Constitutional: denies: Chills, Fever Cardiovascular: (+) Shortness of Breath - improved. denies: Chest Pain, Palpitations Respiratory: (+) SOB. denies: Cough, Hemoptysis, Orthopnea, PND Gastrointestinal: denies: Nausea. denies: Abdominal Pain, Constipation, (+) Diarrhea, denies: Melena, Rectal Bleeding, Vomiting Neurological: denies: Dizziness, Headache, Seizure, Syncope Labs: CBC, BMP 01/11/17 05:40 01/11/17 05:40 INR, PTT INR 1.43 (0.82-1.09) H 01/11/17 05:40 Problem List - Problems (1) Renal failure Code(s): N19 - UNSPECIFIED KIDNEY FAILURE (2) Pericardial effusion with cardiac tamponade Code(s): I31.3 - PERICARDIAL EFFUSION (NONINFLAMMATORY) I31.4 - CARDIAC TAMPONADE (3) Atrial fibrillation Code(s): I48.91 - UNSPECIFIED ATRIAL FIBRILLATION Qualifiers: Atrial fibrillation type: paroxysmal Qualified Code(s): I48.0 - Paroxysmal atrial fibrillation (4) Hypertension Code(s): I10 - ESSENTIAL (PRIMARY) HYPERTENSION Qualifiers: Hypertension type: essential hypertension Qualified Code(s): I10 - Essential (primary) hypertension (5) Hypotension Code(s): I95.9 - HYPOTENSION, UNSPECIFIED Qualifiers: Hypotension type: other hypotension type Qualified Code(s): I95.89 - Other hypotension (6) Sick sinus syndrome Code(s): I49.5 - SICK SINUS SYNDROME (7) Presence of permanent cardiac pacemaker Code(s): Z95.0 - PRESENCE OF CARDIAC PACEMAKER (8) TIA (transient ischemic attack) Code(s): G45.9 - TRANSIENT CEREBRAL ISCHEMIC ATTACK, UNSPECIFIED Qualifiers: Transient cerebral ischemia type: unspecified Qualified Code(s): G45.9 - Transient cerebral ischemic attack, unspecified Assessment/Plan 1. Large pericardial effusion - hemopericardium post tamponade s/p pericardial drain 2. Acute renal failure with initial lactic acidosis s/p HD over the weekend - improved creatinine 2. History of sick sinus syndrome S/P PPM 3. History of paroxysmal atrial fibrillation on Coumadin ([id number] score of 6 -7) - persistent AF with rapid ventricular response 4. History of hypertension 5. History of TIA/stroke 6. Recent diarrheal disease - resolved - resulting in possible pericarditis with supratherpeutic INR PLAN: 1. Repeat transthoracic echocardiography to assess pericardial effusion today 2. Monitor urine output and renal function and electrolytes 3. Add beta perla as tolerated for rate control. Continue Propafanone as tolerated. 4. Thoracic surgical input noted and follow drain output. 5. Resume anticoagulation once hemostasis is achieved and cleared Guarded Clinically improved Cooper Hickey MD
--- NOTE | 2017-01-11 10:57 | PN ---
Progress Note (short form) - Note Progress Note: seen and examined. no major complaints this am. jax po diet. denies f/c, n/v, sob, herrera, cough. chest pain. afeb. a.fib. min decreased breath sound b/l. no wheezing, rhonchi, rales. pericard drain intact (serosang). +bs, soft, nt, nd. no c/c/e. a&o x3. CBC, BMP 01/11/17 05:40 01/11/17 05:40 Vital Signs (72 hours) 01/08/17 01/08/17 01/08/17 11:00 12:00 13:00 Temperature 97.4 F L Pulse Rate 83 79 79 Pulse Rate [ Left Upper Arm] Respiratory 29 H 24 21 Rate Respiratory Rate [Left Upper Arm] Blood Pressure 97/65 98/67 102/60 Blood Pressure [Left Upper Arm ] O2 Sat by Pulse Oximetry (%) O2 Sat by Pulse Oximetry (%) [ Left Upper Arm] 01/08/17 01/08/17 01/08/17 14:00 15:00 16:00 Temperature 97.4 F L Pulse Rate 82 93 H 97 H Pulse Rate [ Left Upper Arm] Respiratory 19 25 H 24 Rate Respiratory Rate [Left Upper Arm] Blood Pressure 96/65 82/61 88/57 Blood Pressure [Left Upper Arm ] O2 Sat by Pulse Oximetry (%) O2 Sat by Pulse Oximetry (%) [ Left Upper Arm] 01/08/17 01/08/17 01/08/17 17:00 17:10 17:23 Temperature Pulse Rate 99 H 105 H Pulse Rate [ 101 H Left Upper Arm] Respiratory 19 23 Rate Respiratory 23 Rate [Left Upper Arm] Blood Pressure 109/74 109/74 Blood Pressure 103/71 [Left Upper Arm ] O2 Sat by Pulse 97 Oximetry (%) O2 Sat by Pulse 23 L Oximetry (%) [ Left Upper Arm] 01/08/17 01/08/17 01/08/17 17:28 17:38 17:45 Temperature Pulse Rate 87 88 Pulse Rate [ 96 H Left Upper Arm] Respiratory 21 22 Rate Respiratory 24 Rate [Left Upper Arm] Blood Pressure 108/65 97/52 Blood Pressure 102/77 [Left Upper Arm ] O2 Sat by Pulse 99 Oximetry (%) O2 Sat by Pulse 24 L Oximetry (%) [ Left Upper Arm] 01/08/17 01/08/17 01/08/17 18:00 18:15 18:30 Temperature 97.3 F L Pulse Rate 89 89 86 Pulse Rate [ Left Upper Arm] Respiratory 20 24 25 H Rate Respiratory Rate [Left Upper Arm] Blood Pressure 89/56 95/49 77/43 Blood Pressure [Left Upper Arm ] O2 Sat by Pulse Oximetry (%) O2 Sat by Pulse Oximetry (%) [ Left Upper Arm] 01/08/17 01/08/17 01/08/17 18:43 19:00 19:26 Temperature Pulse Rate 86 87 92 H Pulse Rate [ Left Upper Arm] Respiratory 22 22 Rate Respiratory Rate [Left Upper Arm] Blood Pressure 77/43 90/77 107/60 Blood Pressure [Left Upper Arm ] O2 Sat by Pulse Oximetry (%) O2 Sat by Pulse Oximetry (%) [ Left Upper Arm] 01/08/17 01/08/17 01/08/17 20:00 21:00 22:00 Temperature 97.9 F Pulse Rate 87 92 H 91 H Pulse Rate [ Left Upper Arm] Respiratory 22 24 22 Rate Respiratory Rate [Left Upper Arm] Blood Pressure 115/59 113/57 92/60 Blood Pressure [Left Upper Arm ] O2 Sat by Pulse 98 Oximetry (%) O2 Sat by Pulse Oximetry (%) [ Left Upper Arm] 01/08/17 01/09/17 01/09/17 23:00 00:00 01:00 Temperature 97.6 F Pulse Rate 99 H 100 H 98 H Pulse Rate [ Left Upper Arm] Respiratory 24 22 22 Rate Respiratory Rate [Left Upper Arm] Blood Pressure 100/54 96/56 94/44 Blood Pressure [Left Upper Arm ] O2 Sat by Pulse Oximetry (%) O2 Sat by Pulse Oximetry (%) [ Left Upper Arm] 01/09/17 01/09/17 01/09/17 02:00 03:00 04:00 Temperature Pulse Rate 104 H 104 H 99 H Pulse Rate [ Left Upper Arm] Respiratory 22 24 24 Rate Respiratory Rate [Left Upper Arm] Blood Pressure 118/70 112/66 101/62 Blood Pressure [Left Upper Arm ] O2 Sat by Pulse Oximetry (%) O2 Sat by Pulse Oximetry (%) [ Left Upper Arm] 01/09/17 01/09/17 01/09/17 05:00 06:00 07:00 Temperature 97.4 F L Pulse Rate 95 H 100 H 101 H Pulse Rate [ Left Upper Arm] Respiratory 26 H 24 20 Rate Respiratory Rate [Left Upper Arm] Blood Pressure 108/64 112/63 120/61 Blood Pressure [Left Upper Arm ] O2 Sat by Pulse Oximetry (%) O2 Sat by Pulse Oximetry (%) [ Left Upper Arm] 01/09/17 01/09/17 01/09/17 07:05 08:00 09:00 Temperature Pulse Rate 101 H 106 H 97 H Pulse Rate [ Left Upper Arm] Respiratory 25 H 26 H Rate Respiratory Rate [Left Upper Arm] Blood Pressure 120/61 113/61 107/55 Blood Pressure [Left Upper Arm ] O2 Sat by Pulse 94 L 95 Oximetry (%) O2 Sat by Pulse Oximetry (%) [ Left Upper Arm] 01/09/17 01/09/17 01/09/17 09:40 09:55 09:56 Temperature 98.7 F Pulse Rate 104 H 97 H 98 H Pulse Rate [ Left Upper Arm] Respiratory 26 H Rate Respiratory Rate [Left Upper Arm] Blood Pressure 107/55 90/57 Blood Pressure [Left Upper Arm ] O2 Sat by Pulse 94 L Oximetry (%) O2 Sat by Pulse Oximetry (%) [ Left Upper Arm] 01/09/17 01/09/17 01/09/17 11:00 12:00 12:05 Temperature 98.8 F 97.7 F Pulse Rate 104 H 104 H 109 H Pulse Rate [ Left Upper Arm] Respiratory 24 24 20 Rate Respiratory Rate [Left Upper Arm] Blood Pressure 94/58 107/52 103/58 Blood Pressure [Left Upper Arm ] O2 Sat by Pulse Oximetry (%) O2 Sat by Pulse Oximetry (%) [ Left Upper Arm] 01/09/17 01/09/17 01/09/17 12:10 12:40 13:00 Temperature Pulse Rate 106 H 111 H 120 H Pulse Rate [ Left Upper Arm] Respiratory 25 H 28 H 24 Rate Respiratory Rate [Left Upper Arm] Blood Pressure 107/63 109/63 105/61 Blood Pressure [Left Upper Arm ] O2 Sat by Pulse Oximetry (%) O2 Sat by Pulse Oximetry (%) [ Left Upper Arm] 01/09/17 01/09/17 01/09/17 13:10 13:40 13:51 Temperature Pulse Rate 118 H 110 H 123 H Pulse Rate [ Left Upper Arm] Respiratory 16 20 24 Rate Respiratory Rate [Left Upper Arm] Blood Pressure 100/63 105/61 105/61 Blood Pressure [Left Upper Arm ] O2 Sat by Pulse Oximetry (%) O2 Sat by Pulse Oximetry (%) [ Left Upper Arm] 01/09/17 01/09/17 01/09/17 14:10 14:32 14:40 Temperature 98.3 F Pulse Rate 116 H 115 H 118 H Pulse Rate [ Left Upper Arm] Respiratory 24 18 20 Rate Respiratory Rate [Left Upper Arm] Blood Pressure 111/69 111/59 121/78 Blood Pressure [Left Upper Arm ] O2 Sat by Pulse Oximetry (%) O2 Sat by Pulse Oximetry (%) [ Left Upper Arm] 01/09/17 01/09/17 01/09/17 15:00 15:10 15:20 Temperature 98.5 F Pulse Rate 124 H 114 H 106 H Pulse Rate [ Left Upper Arm] Respiratory 20 22 Rate Respiratory Rate [Left Upper Arm] Blood Pressure 121/78 90/52 103/54 Blood Pressure [Left Upper Arm ] O2 Sat by Pulse Oximetry (%) O2 Sat by Pulse Oximetry (%) [ Left Upper Arm] 01/09/17 01/09/17 01/09/17 15:35 15:52 16:31 Temperature 98.5 F Pulse Rate 112 H 104 H Pulse Rate [ Left Upper Arm] Respiratory 23 24 Rate Respiratory Rate [Left Upper Arm] Blood Pressure 97/65 104/80 Blood Pressure [Left Upper Arm ] O2 Sat by Pulse 97 Oximetry (%) O2 Sat by Pulse Oximetry (%) [ Left Upper Arm] 01/09/17 01/09/17 01/09/17 16:32 17:13 18:00 Temperature Pulse Rate 104 H 103 H 106 H Pulse Rate [ Left Upper Arm] Respiratory 25 H 24 Rate Respiratory Rate [Left Upper Arm] Blood Pressure 104/80 84/56 97/68 Blood Pressure [Left Upper Arm ] O2 Sat by Pulse Oximetry (%) O2 Sat by Pulse Oximetry (%) [ Left Upper Arm] 01/09/17 01/09/17 01/09/17 19:00 20:00 21:00 Temperature Pulse Rate 104 H 100 H 106 H Pulse Rate [ Left Upper Arm] Respiratory 22 22 22 Rate Respiratory Rate [Left Upper Arm] Blood Pressure 69/56 86/42 112/59 Blood Pressure [Left Upper Arm ] O2 Sat by Pulse 96 Oximetry (%) O2 Sat by Pulse Oximetry (%) [ Left Upper Arm] 01/09/17 01/09/17 01/09/17 22:00 23:00 23:55 Temperature 98.0 F Pulse Rate 106 H 107 H 113 H Pulse Rate [ Left Upper Arm] Respiratory 22 20 Rate Respiratory Rate [Left Upper Arm] Blood Pressure 110/69 106/67 86/42 Blood Pressure [Left Upper Arm ] O2 Sat by Pulse Oximetry (%) O2 Sat by Pulse Oximetry (%) [ Left Upper Arm] 01/10/17 01/10/17 01/10/17 00:00 01:00 02:00 Temperature 98.4 F Pulse Rate 107 H 106 H 101 H Pulse Rate [ Left Upper Arm] Respiratory 22 22 22 Rate Respiratory Rate [Left Upper Arm] Blood Pressure 96/62 95/62 97/64 Blood Pressure [Left Upper Arm ] O2 Sat by Pulse Oximetry (%) O2 Sat by Pulse Oximetry (%) [ Left Upper Arm] 01/10/17 01/10/17 01/10/17 03:00 04:00 05:00 Temperature Pulse Rate 100 H 106 H 111 H Pulse Rate [ Left Upper Arm] Respiratory 22 20 20 Rate Respiratory Rate [Left Upper Arm] Blood Pressure 103/65 87/62 100/71 Blood Pressure [Left Upper Arm ] O2 Sat by Pulse Oximetry (%) O2 Sat by Pulse Oximetry (%) [ Left Upper Arm] 01/10/17 01/10/17 01/10/17 06:00 07:00 08:00 Temperature 98.0 F Pulse Rate 104 H 105 H 91 H Pulse Rate [ Left Upper Arm] Respiratory 20 22 27 H Rate Respiratory Rate [Left Upper Arm] Blood Pressure 97/61 92/64 112/68 Blood Pressure [Left Upper Arm ] O2 Sat by Pulse Oximetry (%) O2 Sat by Pulse Oximetry (%) [ Left Upper Arm] 01/10/17 01/10/17 01/10/17 09:00 10:00 11:00 Temperature 97.9 F Pulse Rate 97 H 98 H Pulse Rate [ Left Upper Arm] Respiratory 27 H 24 Rate Respiratory Rate [Left Upper Arm] Blood Pressure 94/57 94/57 Blood Pressure [Left Upper Arm ] O2 Sat by Pulse Oximetry (%) O2 Sat by Pulse Oximetry (%) [ Left Upper Arm] 01/10/17 01/10/17 01/10/17 12:00 14:00 15:10 Temperature 98.5 F Pulse Rate 98 H 93 H 97 H Pulse Rate [ Left Upper Arm] Respiratory 26 H 26 H Rate Respiratory Rate [Left Upper Arm] Blood Pressure 103/66 85/58 92/58 Blood Pressure [Left Upper Arm ] O2 Sat by Pulse Oximetry (%) O2 Sat by Pulse Oximetry (%) [ Left Upper Arm] 01/10/17 01/10/17 01/10/17 16:00 17:42 18:00 Temperature Pulse Rate 103 H 101 H 105 H Pulse Rate [ Left Upper Arm] Respiratory 30 H 28 H Rate Respiratory Rate [Left Upper Arm] Blood Pressure 97/70 94/62 98/62 Blood Pressure [Left Upper Arm ] O2 Sat by Pulse Oximetry (%) O2 Sat by Pulse Oximetry (%) [ Left Upper Arm] 01/10/17 01/10/17 01/10/17 19:00 20:00 21:00 Temperature Pulse Rate 101 H 102 H 99 H Pulse Rate [ Left Upper Arm] Respiratory 17 25 H 18 Rate Respiratory Rate [Left Upper Arm] Blood Pressure 96/64 110/73 100/66 Blood Pressure [Left Upper Arm ] O2 Sat by Pulse 99 Oximetry (%) O2 Sat by Pulse Oximetry (%) [ Left Upper Arm] 01/10/17 01/11/17 01/11/17 22:00 00:00 01:00 Temperature 99.7 F H Pulse Rate 100 H 107 H 103 H Pulse Rate [ Left Upper Arm] Respiratory 23 18 21 Rate Respiratory Rate [Left Upper Arm] Blood Pressure 102/64 95/57 101/66 Blood Pressure [Left Upper Arm ] O2 Sat by Pulse Oximetry (%) O2 Sat by Pulse Oximetry (%) [ Left Upper Arm] 01/11/17 01/11/17 01/11/17 02:00 03:00 04:00 Temperature 99.2 F Pulse Rate 101 H 104 H 110 H Pulse Rate [ Left Upper Arm] Respiratory 20 23 18 Rate Respiratory Rate [Left Upper Arm] Blood Pressure 100/63 101/65 98/58 Blood Pressure [Left Upper Arm ] O2 Sat by Pulse Oximetry (%) O2 Sat by Pulse Oximetry (%) [ Left Upper Arm] 01/11/17 01/11/17 01/11/17 05:00 06:00 07:00 Temperature 98.9 F Pulse Rate 102 H 104 H 100 H Pulse Rate [ Left Upper Arm] Respiratory 18 17 17 Rate Respiratory Rate [Left Upper Arm] Blood Pressure 97/63 105/69 97/67 Blood Pressure [Left Upper Arm ] O2 Sat by Pulse Oximetry (%) O2 Sat by Pulse Oximetry (%) [ Left Upper Arm] 01/11/17 01/11/17 01/11/17 08:00 09:00 10:00 Temperature 98.7 F Pulse Rate 104 H 103 H Pulse Rate [ Left Upper Arm] Respiratory 19 22 22 Rate Respiratory Rate [Left Upper Arm] Blood Pressure 114/68 104/66 Blood Pressure [Left Upper Arm ] O2 Sat by Pulse 99 Oximetry (%) O2 Sat by Pulse Oximetry (%) [ Left Upper Arm] a/p 81 yo, f, a.fib, peircard eff, s/p pericard drain, arf, s/p hd x1. improving clinically. min drainage from pericard. 1. cont icu supp care 2. tte today 3. f/u card and renal consult 4. will follow with you Problem List - Problems (1) Pericardial effusion Code(s): I31.3 - PERICARDIAL EFFUSION (NONINFLAMMATORY)
[2017-01-11] MEDS: METOPROLOL TARTRATE 25 MG TABLET (FP) PO SCH ×2 (11:04→21:05)
--- NOTE | 2017-01-11 11:19 | PN ---
Progress Note (short form) - Note Progress Note: Renal Follow up for Acute Renal Failure Pt seen and examined at the bedside no acute complaints good urine output BP still marginal off presers s/p dialysis on Wednesday Vital Signs Temperature 98.7 F 01/11/17 08:00 Pulse Rate 103 H 01/11/17 10:00 Respiratory Rate 22 01/11/17 10:00 Blood Pressure 104/66 01/11/17 10:00 O2 Sat by Pulse Oximetry (%) 99 01/11/17 09:00 Intake & Output 01/08/17 01/09/17 01/10/17 01/11/17 23:59 23:59 23:59 23:59 Intake Total 5649 1991 657 300 Output Total 610 2610 1700 335 Balance 5039 -619 -1043 -35 Weight 148 lb 158 lb 3 oz 151 lb 11.2 oz 153 lb 8 oz Gen: NAD, awake and alert on NC CVS: RRR, No M/R Lungs: Dec BS at b/l lung bases Abd: Soft NT/ND Ext: No edema, clubbing or cyanosis : No bladder distension CBC, BMP 01/11/17 05:40 01/11/17 05:40 Laboratory Tests 01/11/17 05:40 Calcium 7.3 L Phosphorus 2.8 D Magnesium 1.5 L Current Medications Acetaminophen (Tylenol -) 650 mg PO Q6H PRN PRN Reason: FEVER OR PAIN Ferrous Sulfate (Feosol -) 325 mg PO BID [facility] Last Admin: 01/11/17 09:09 Dose: 325 mg Guaifenesin (Robitussin -) 10 ml PO Q6H PRN PRN Reason: COUGH Norepinephrine Bitartrate 8, (000 mcg/ Dextrose) 500 mls @ 18.75 mls/hr IV TITR MCKAYLA; 5 MCG/MIN PRN Reason: Protocol Last Admin: 01/11/17 01:02 Dose: Not Given Lactobacillus Acidophilus (Bacid -) 1 tab PO DAILY [facility] Last Admin: 01/11/17 09:09 Dose: 1 tab Metoprolol Tartrate (Lopressor -) 25 mg PO BID [facility] Last Admin: 01/11/17 11:04 Dose: 25 mg Propafenone *Er* 425 (Mg Capsule) 1 each PO BID [facility] Polyethylene Glycol (Miralax (For Daily Use) -) 17 gm PO DAILY [facility] Last Admin: 01/11/17 09:11 Dose: 17 grams A/P 81 year old woman with PMhx of Hypertension, Afib on Coumadin who presented to the ED with complaints of SOB and Hx of diarrhea and found to be hypotensive, elevated INR, large pericardial effusion with JASVIR with BUN/Cr of 78/5. #Oliguric Acute Renal Failure JASVIR secondary to volume depletion No evidence of TMA (LDH/Hapto ok) Renal function improving s/p HD x 1 no further dialysis is indicated keep MAP> 65, PRN IVF can d/c HD catheter avoid nephrotoxins, contrast for now Dose all meds for Cr cl less then 30 Calvin Noble DO
[2017-01-11] MEDS ORDERED: MAGNESIUM OXIDE 400 MG TABLET (FP) PO ONE ×2 (13:06→14:45)
--- NOTE | 2017-01-11 13:19 | PN ---
Physical Exam: SUBJECTIVE: Patient seen and examined at bedside in ICU. States breathing is much better than on admission. Minimal output from chest tube, serosanguinous. Appetite has been good, afebrile overnight. OBJECTIVE: Vital Signs Period Temp Pulse Resp BP Sys/Higgins Pulse Ox Last 24 Hr 98.5 F-99.7 F 93-110 17-30 85-114/57-73 99-99 GENERAL: The patient is awake, alert, and fully oriented, in no acute distress. HEENT: Atraumatic, EOMI, PERRLA, No lymphadenopathy LUNGS: CTA bilaterally except mildly diminished breath sounds at LLL base HEART: Irregular, S1S2, no chest pain ABDOMEN: Soft, nontender, nondistended NEUROLOGICAL: Cranial nerves II through XII grossly intact. Normal speech, gait not observed. PSYCH: Normal mood, normal affect. SKIN: Warm, dry, normal turgor, no rashes or lesions noted Laboratory Results - last 24 hr 01/11/17 01/11/17 01/11/17 05:40 05:40 05:40 WBC 8.8 RBC 2.63 L Hgb 8.1 L Hct 24.9 L MCV 94.9 MCHC 32.5 RDW 13.6 Plt Count 279 MPV 7.4 L Neutrophils % 72.7 Lymphocytes % 13.1 Monocytes % 11.9 H Eosinophils % 1.8 Basophils % 0.5 INR 1.43 H Sodium 140 Potassium 3.9 Chloride 101 Carbon Dioxide 31 Anion Gap 8 BUN 29 H Creatinine 1.7 H D Random Glucose 102 Calcium 7.3 L Phosphorus 2.8 D Magnesium 1.5 L Active Medications Generic Name Dose Route Start Last Admin Trade Name Freq PRN Reason Stop Dose Admin Acetaminophen 650 mg 01/09/17 20:12 Tylenol - PO Q6H PRN FEVER OR PAIN Ferrous Sulfate 325 mg 01/10/17 11:00 01/11/17 09:09 Feosol - PO 325 mg BID [facility] Administration Guaifenesin 10 ml 01/08/17 18:01 Robitussin - PO Q6H PRN COUGH Norepinephrine Bitartrate 8, 500 mls @ 18.75 mls/hr 01/09/17 20:15 01/11/17 01: 02 000 mcg/ Dextrose IV Not Given TITR MCKAYLA Protocol 5 MCG/MIN Lactobacillus Acidophilus 1 tab 01/09/17 10:45 01/11/17 09:09 Bacid - PO 1 tab DAILY [facility] Administration Magnesium Oxide 800 mg 01/11/17 13:06 Mag-Ox - PO 01/11/17 13:07 ONCE ONE Magnesium Sulfate 2 gm 01/11/17 13:06 Magnesium Sulfate IVPB 01/11/17 13:07 ONCE ONE Metoprolol Tartrate 25 mg 01/11/17 10:45 01/11/17 11:04 Lopressor - PO 25 mg BID [facility] Administration Propafenone *Er* 425 1 each 01/10/17 10:00 Mg Capsule PO BID [facility] Polyethylene Glycol 17 gm 01/11/17 10:00 01/11/17 09:11 Miralax (For Daily Use) - PO 17 grams DAILY [facility] Administration ASSESSMENT/PLAN: 81 year old female with PMH of AF (on Coumadin), HTN/HLD, CVA who presents after 2 weeks in [facility]. Had GI symptoms 2 weeks ago, likely viral with subsequent development of viral pericarditis. Presnted to ED with SOB & found to have pericardial effusion w/ cardiac tamponade. S/p IR-guided drainage and chest tube placement on Monday 01/08. #Pericardial Effusion with Cardiac Tamponade, POD #3 s/p IR drainage and chest tube placement -ECHO pending to reassess cxardiac function and effusion status -chest tube draining minimal amount of serosanguinous fluid, unsure if blockage in tubing of if output is minimal -awaiting cytology results #Cardiogenic shock -Levophed drip discontinued today -cardiology & CT surgery following #JASVIR -renal function improving -will not require further hemodialysis -avoid nephrotoxic meds -Nephrology following #A-fib -holding anticoagulation at present -continue Lopressor 25mg BID #Normocytic Anemia -Feosol ongoing -does not require transfusion at present Prophylaxis/FEN -SCD's -PO intake, no IVF, repleted Magnesium, Lactobacillus Visit type - Emergency Visit Emergency Visit: Yes ED Registration Date: 01/07/17 Care time: The patient presented to the Emergency Department on the above date and was hospitalized for further evaluation of their emergent condition. - New Patient This patient is new to me today: Yes Date on this admission: 01/11/17 - Critical Care Critical Care patient: Yes Total Critical Care Time (in minutes): 45 Critical Care Statement: The care of this patient involved high complexity decision making to prevent further life threatening deterioration of the patient 's condition and/or to evalute & treat vital organ system(s) failure or risk of failure.
[2017-01-11] MEDS ORDERED: ALBUTEROL SO4 2.5/IPRATROPIUM 0.5 INH SOL 3 ML VIAL.NEB. NEB PRN (13:58)
--- NOTE | 2017-01-11 14:02 | PN ---
Teaching Attending Note Name of Resident: Carlos Mcconnell ATTENDING PHYSICIAN STATEMENT I saw and evaluated the patient. I reviewed the resident's note and discussed the case with the resident. I agree with the resident's findings and plan as documented. SUBJECTIVE: Pt seen and examined in the ICU. Breathing continues to improve. No chest discomfort. No fevers or chills. Levophed gtt stopped this AM. OBJECTIVE: Last Vital Signs Temp Pulse Resp BP Pulse Ox 98.7 F 104 H 20 97/63 99 01/11/17 08:00 01/11/17 12:00 01/11/17 12:00 01/11/17 12:00 01/11/17 09:00 Intake & Output 01/08/17 01/09/17 01/10/17 01/11/17 23:59 23:59 23:59 23:59 Intake Total 5649 1991 657 300 Output Total 610 2610 1700 335 Balance 5039 -619 -1043 -35 Weight 148 lb 158 lb 3 oz 151 lb 11.2 oz 153 lb 8 oz Gen: NAD at rest Heart: tachycardic, regular Lung: decreased breath sounds at the bases Abd: soft, nontender Ext: no edema CBC, BMP 01/11/17 05:40 01/11/17 05:40 Active Medications Acetaminophen (Tylenol -) 650 mg PO Q6H PRN PRN Reason: FEVER OR PAIN Albuterol/Ipratropium (Duoneb -) 1 amp NEB Q6H PRN PRN Reason: SHORTNESS OF BREATH Ferrous Sulfate (Feosol -) 325 mg PO BID [facility] Last Admin: 01/11/17 09:09 Dose: 325 mg Guaifenesin (Robitussin -) 10 ml PO Q6H PRN PRN Reason: COUGH Norepinephrine Bitartrate 8, (000 mcg/ Dextrose) 500 mls @ 18.75 mls/hr IV TITR MCKAYLA; 5 MCG/MIN PRN Reason: Protocol Last Admin: 01/11/17 01:02 Dose: Not Given Lactobacillus Acidophilus (Bacid -) 1 tab PO DAILY [facility] Last Admin: 01/11/17 09:09 Dose: 1 tab Metoprolol Tartrate (Lopressor -) 25 mg PO BID [facility] Last Admin: 01/11/17 11:04 Dose: 25 mg Propafenone *Er* 425 (Mg Capsule) 1 each PO BID [facility] Polyethylene Glycol (Miralax (For Daily Use) -) 17 gm PO DAILY [facility] Last Admin: 01/11/17 09:11 Dose: 17 grams ASSESSMENT AND PLAN: Pericardial Effusion with Cardiac Tamponade s/p chest tube placement Cardiogenic Shock Acute Kidney Injury requiring HD h/o TIA Anemia SSS s/p PPM - d/c femoral catheter as no further dialysis planned - monitor chest tube output - f/u cytology - for repeat echocardiogram today - monitor urine output, creatinine - PO as tolerated - OOB to chair - DVT prophylaxis - continue ICU monitoring
--- NOTE | 2017-01-11 17:03 | PN ---
Progress Note (short form) - Note Progress Note: Patient seen and examined feels well Last Vital Signs Temp Pulse Resp BP Pulse Ox 98.9 F 99 H 26 H 95/64 99 01/11/17 14:00 01/11/17 14:00 01/11/17 14:00 01/11/17 14:00 01/11/17 09:00 HEENT: COREEN, EOM Intact Oropharynx: No thrush, No mucositis Cor: RSR, No murmurs, No gallops Lungs: Clear to P&A Abd: Soft, Normal bowel sounds, No organomegaly Ext:No significant edema pericardial drain + Abnormal Lab Results 01/11/17 01/11/17 01/11/17 05:40 05:40 05:40 RBC 2.63 L Hgb 8.1 L Hct 24.9 L MPV 7.4 L Monocytes % 11.9 H INR 1.43 H BUN 29 H Creatinine 1.7 H D Calcium 7.3 L Magnesium 1.5 L Current Medications Acetaminophen (Tylenol -) 650 mg PO Q6H PRN PRN Reason: FEVER OR PAIN Albuterol/Ipratropium (Duoneb -) 1 amp NEB Q6H PRN PRN Reason: SHORTNESS OF BREATH Ferrous Sulfate (Feosol -) 325 mg PO BID [facility] Last Admin: 01/11/17 09:09 Dose: 325 mg Guaifenesin (Robitussin -) 10 ml PO Q6H PRN PRN Reason: COUGH Norepinephrine Bitartrate 8, (000 mcg/ Dextrose) 500 mls @ 18.75 mls/hr IV TITR MCKAYLA; 5 MCG/MIN PRN Reason: Protocol Last Admin: 01/11/17 01:02 Dose: Not Given Lactobacillus Acidophilus (Bacid -) 1 tab PO DAILY [facility] Last Admin: 01/11/17 09:09 Dose: 1 tab Metoprolol Tartrate (Lopressor -) 25 mg PO BID [facility] Last Admin: 01/11/17 11:04 Dose: 25 mg Propafenone *Er* 425 (Mg Capsule) 1 each PO BID [facility] Polyethylene Glycol (Miralax (For Daily Use) -) 17 gm PO DAILY [facility] Last Admin: 01/11/17 09:11 Dose: 17 grams A/P Pericardial Effusion with Cardiac Tamponade s/p chest tube placement Cardiogenic Shock Acute Kidney Injury requiring HD h/o TIA Anemia SSS s/p PPM s/p Vit. K 01/08 and 01/10 Monitor CBC/PT/PTT f/u fluid studies
[2017-01-12 06:10] LABS: BASOPHIL 0.5 % (0-2.0); EOSINOPHIL 2.9 % (0-4.5); MCH 31.2 pg (25.7-33.7); MCHC 32.8 g/dl (32.0-36.0); MEAN CELL VOLUME 94.9 fl (80-96); MEAN PLT VOLUME 7.3 fl (7.5-11.1); NEUTROPHILS 70.7 % (42.8-82.8); PLATELET COUNT 263 K/MM3 (134-434); RDW 13.5 % (11.6-15.6); WHITE BLOOD COUNT 7.6 K/mm3 (4.0-10.0)
[2017-01-12 06:24] LABS: INR 1.37 (0.82-1.09); PROTHROMBIN TIME (PATIENT) 15.2 SEC (9.98-11.88)
--- NOTE | 2017-01-12 06:40 | PN ---
Progress Note (short form) - Note Progress Note: Chief Complaint: Events noted, notes reviewed, dyspnea continues to improve, denies orthopnea or PND, denies any chest pain, atrial fibrillation is persistent History of Present Illness: Seen and examined in the ICU. Events noted, notes reviewed, dyspnea continues to improve, denies orthopnea or PND, denies any chest pain, atrial fibrillation is persistent Pericardial drain in situ, off of pressors Echocardiography repeat from yesterday revealed small amount of residual pericardial effusion, normal LV size and function Echocardiography revealed normal LV size and function mild MR, mild to moderate TR, mild to moderate degree of pulmonary HTN RVSP 40-50 mmHg, and large pericardial effusion Medications: Current Medications Acetaminophen (Tylenol -) 650 mg PO Q6H PRN PRN Reason: FEVER OR PAIN Albuterol/Ipratropium (Duoneb -) 1 amp NEB Q6H PRN PRN Reason: SHORTNESS OF BREATH Ferrous Sulfate (Feosol -) 325 mg PO BID [facility] Last Admin: 01/11/17 21:05 Dose: 325 mg Guaifenesin (Robitussin -) 10 ml PO Q6H PRN PRN Reason: COUGH Norepinephrine Bitartrate 8, (000 mcg/ Dextrose) 500 mls @ 18.75 mls/hr IV TITR MCKAYLA; 5 MCG/MIN PRN Reason: Protocol Last Admin: 01/11/17 20:53 Dose: Not Given Lactobacillus Acidophilus (Bacid -) 1 tab PO DAILY [facility] Last Admin: 01/11/17 09:09 Dose: 1 tab Metoprolol Tartrate (Lopressor -) 25 mg PO BID [facility] Last Admin: 01/11/17 21:05 Dose: 25 mg Propafenone *Er* 425 (Mg Capsule) 1 each PO BID [facility] Polyethylene Glycol (Miralax (For Daily Use) -) 17 gm PO DAILY [facility] Last Admin: 01/11/17 09:11 Dose: 17 grams Review of Systems - Review of Systems Constitutional: denies: Chills, Fever Cardiovascular: as noted above Respiratory: reports: Persistent Dyspnea but improving Gastrointestinal: denies: Nausea, Vomiting, Diarrhea, Constipation or Abdominal Pain Neurological: No symptoms reported Vital Signs: Last Vital Signs Temp Pulse Resp BP Pulse Ox 99.2 F 100 H 22 123/67 99 01/12/17 06:00 01/12/17 06:00 01/12/17 06:00 01/12/17 06:00 01/11/17 20:19 Intake & Output 01/09/17 01/10/17 01/11/17 01/12/17 23:59 23:59 23:59 23:59 Intake Total 6000 783 4054 150 Output Total 2609 1700 1145 400 Balance -619 -2499 595 -250 Weight 158 lb 3 oz 151 lb 11.2 oz 153 lb 8 oz 154 lb Neck: Supple Negative JVD No Bruit Respiratory: Diminished Breath Sounds at the Bases Cardiovascular: S1 S2 Irregularly Irregular Gastrointestinal: Soft Benign Normal Bowel Sounds Ext: Trace Edema Labs: CBC, BMP 01/12/17 05:00 BMP from this AM pending Assessment/Plan ASSESSMENT: 1. Large pericardial effusion with tamponade physiology, post drain insertion, resolved 2. History of paroxysmal atrial fibrillation on Coumadin ([id number] score of 6 ), persistent arrhythmia 3. History of sick sinus syndrome post PPM 4. Acute renal failure, resolved 5. History of hypertension, hypotension due to cardiac tamponade resolved 6. History of TIA/stroke 7. Anemia PLAN: 1. Recommend resumption of A/C unless it is contraindicated, Heparin/Coumadin, to be discussed with thoracic surgery 2. Continue Propafenone ER 3. Continue Lopressor and titrate dosage 4. Follow BMP from this AM 5. Monitor Hg and may need to transfuse maintaining Hg > 8.0 6. Await fluid cytology Edinson Duque MD
[2017-01-12] MEDS ORDERED: HEPARIN NA (PORCINE) 5,000 UNITS/ML 1ML VIAL IVPUSH PRN ×2 (06:46)
[2017-01-12 06:47] LABS: ACTIVATED PTT 28.7 SECONDS (26.9-34.4)
[2017-01-12 06:52] LABS: ALBUMIN 2.7 g/dl (3.4-5.0); BILIRUBIN,TOTAL 0.5 mg/dL (0.2-1.0); CALCIUM 7.4 mg/dL (8.5-10.1); CREATININE 1.2 mg/dL (0.55-1.02); MAGNESIUM 1.9 mg/dL (1.8-2.4); PHOSPHOROUS 2.1 mg/dL (2.5-4.9); TOT PROT 5.6 g/dl (6.4-8.2)
[2017-01-12] MEDS ORDERED: HEPARIN INFUSION - 500 ML IVPB SCH (07:00)
--- NOTE | 2017-01-12 07:54 | PN ---
Progress Note, Physician History of Present Illness: FEELS BETTER CARDIO F/U NOTED--TO RESUME AC - Current Medication List Current Medications: Active Medications Acetaminophen (Tylenol -) 650 mg PO Q6H PRN PRN Reason: FEVER OR PAIN Albuterol/Ipratropium (Duoneb -) 1 amp NEB Q6H PRN PRN Reason: SHORTNESS OF BREATH Ferrous Sulfate (Feosol -) 325 mg PO BID [facility] Last Admin: 01/11/17 21:05 Dose: 325 mg Guaifenesin (Robitussin -) 10 ml PO Q6H PRN PRN Reason: COUGH Heparin Sodium (Porcine) (Heparin -) 1,000 unit IVPUSH PRN PRN PRN Reason: Heparin Heparin Sodium (Porcine) (Heparin -) 5,000 unit IVPUSH PRN PRN PRN Reason: Heparin Heparin Sodium/Dextrose (Heparin Infusion -) 500 mls @ 16 mls/hr IVPB TITR MCKAYLA ; 800 UNITS/HR PRN Reason: Protocol Lactobacillus Acidophilus (Bacid -) 1 tab PO DAILY [facility] Last Admin: 01/11/17 09:09 Dose: 1 tab Metoprolol Tartrate (Lopressor -) 50 mg PO BID [facility] Propafenone *Er* 425 (Mg Capsule) 1 each PO BID [facility] Polyethylene Glycol (Miralax (For Daily Use) -) 17 gm PO DAILY [facility] Last Admin: 01/11/17 09:11 Dose: 17 grams Warfarin Sodium (Coumadin -) 3 mg PO DAILY@1800 [facility] - Objective Vital Signs: Vital Signs Temperature 99.2 F 01/12/17 06:00 Pulse Rate 100 H 01/12/17 06:00 Respiratory Rate 22 01/12/17 06:00 Blood Pressure 123/67 01/12/17 06:00 O2 Sat by Pulse Oximetry (%) 99 01/11/17 20:19 Cardiovascular: Yes: Tachycardia, S1, S2 Respiratory: Yes: Regular, CTA Bilaterally Gastrointestinal: Yes: Normal Bowel Sounds, Soft Edema: No Neurological: Yes: Alert, Oriented Labs: CBC, BMP 01/12/17 05:00 01/12/17 05:00 INR, PTT INR 1.37 (0.82-1.09) H 01/12/17 05:00 Fibrinogen 462.0 mg/dL (238-498) 01/12/17 05:00 Problem List - Problems (1) Acute kidney failure Assessment/Plan: S/P HD CR IMPROVING MONITOR RENAL ON BOARD Code(s): N17.9 - ACUTE KIDNEY FAILURE, UNSPECIFIED (2) Atrial fibrillation Assessment/Plan: RESUME AC--HEPARIN AND COUMADIN MEDS PER CARDIO Code(s): I48.91 - UNSPECIFIED ATRIAL FIBRILLATION Qualifiers: Atrial fibrillation type: paroxysmal Qualified Code(s): I48.0 - Paroxysmal atrial fibrillation (3) Coagulopathy Code(s): D68.9 - COAGULATION DEFECT, UNSPECIFIED (4) Hypotension Assessment/Plan: OFF LEVO MONITOR-- Code(s): I95.9 - HYPOTENSION, UNSPECIFIED Qualifiers: Hypotension type: other hypotension type Qualified Code(s): I95.89 - Other hypotension (5) Pericardial effusion with cardiac tamponade Assessment/Plan: S/P DRAINAGE--APROX 600 ECHO SMALL EFFUSION DRAIN REMOVAL PER T/S Code(s): I31.3 - PERICARDIAL EFFUSION (NONINFLAMMATORY) I31.4 - CARDIAC TAMPONADE (6) Anemia Assessment/Plan: MONITOR MAY NEED PRBC IF FURTHER DROP Code(s): D64.9 - ANEMIA, UNSPECIFIED (7) JR positive Assessment/Plan: RHEUMOTOLOGY CONSULT Code(s): R76.8 - OTHER SPECIFIED ABNORMAL IMMUNOLOGICAL FINDINGS IN SERUM
--- NOTE | 2017-01-12 09:43 | PN ---
Progress Note (short form) - Note Progress Note: seen and examined. no major issues overnight. feels better this am. no f/c/n/ v, cough, chest pain. afeb. CBC, BMP 01/12/17 05:00 01/12/17 05:00 Vital Signs (72 hours) 01/09/17 01/09/17 01/09/17 09:55 09:56 11:00 Temperature 98.7 F 98.8 F Pulse Rate 97 H 98 H 104 H Respiratory 26 H 24 Rate Blood Pressure 90/57 94/58 O2 Sat by Pulse 94 L Oximetry (%) 01/09/17 01/09/17 01/09/17 12:00 12:05 12:10 Temperature 97.7 F Pulse Rate 104 H 109 H 106 H Respiratory 24 20 25 H Rate Blood Pressure 107/52 103/58 107/63 O2 Sat by Pulse Oximetry (%) 01/09/17 01/09/17 01/09/17 12:40 13:00 13:10 Temperature Pulse Rate 111 H 120 H 118 H Respiratory 28 H 24 16 Rate Blood Pressure 109/63 105/61 100/63 O2 Sat by Pulse Oximetry (%) 01/09/17 01/09/17 01/09/17 13:40 13:51 14:10 Temperature Pulse Rate 110 H 123 H 116 H Respiratory 20 24 24 Rate Blood Pressure 105/61 105/61 111/69 O2 Sat by Pulse Oximetry (%) 01/09/17 01/09/17 01/09/17 14:32 14:40 15:00 Temperature 98.3 F Pulse Rate 115 H 118 H 124 H Respiratory 18 20 Rate Blood Pressure 111/59 121/78 121/78 O2 Sat by Pulse Oximetry (%) 01/09/17 01/09/17 01/09/17 15:10 15:20 15:35 Temperature 98.5 F Pulse Rate 114 H 106 H 112 H Respiratory 20 22 23 Rate Blood Pressure 90/52 103/54 97/65 O2 Sat by Pulse Oximetry (%) 01/09/17 01/09/17 01/09/17 15:52 16:31 16:32 Temperature 98.5 F Pulse Rate 104 H 104 H Respiratory 24 Rate Blood Pressure 104/80 104/80 O2 Sat by Pulse 97 Oximetry (%) 01/09/17 01/09/17 01/09/17 17:13 18:00 19:00 Temperature Pulse Rate 103 H 106 H 104 H Respiratory 25 H 24 22 Rate Blood Pressure 84/56 97/68 69/56 O2 Sat by Pulse Oximetry (%) 01/09/17 01/09/17 01/09/17 20:00 21:00 22:00 Temperature 98.0 F Pulse Rate 100 H 106 H 106 H Respiratory 22 22 22 Rate Blood Pressure 86/42 112/59 110/69 O2 Sat by Pulse 96 Oximetry (%) 01/09/17 01/09/17 01/10/17 23:00 23:55 00:00 Temperature Pulse Rate 107 H 113 H 107 H Respiratory 20 22 Rate Blood Pressure 106/67 86/42 96/62 O2 Sat by Pulse Oximetry (%) 01/10/17 01/10/17 01/10/17 01:00 02:00 03:00 Temperature 98.4 F Pulse Rate 106 H 101 H 100 H Respiratory 22 22 22 Rate Blood Pressure 95/62 97/64 103/65 O2 Sat by Pulse Oximetry (%) 01/10/17 01/10/17 01/10/17 04:00 05:00 06:00 Temperature 98.0 F Pulse Rate 106 H 111 H 104 H Respiratory 20 20 20 Rate Blood Pressure 87/62 100/71 97/61 O2 Sat by Pulse Oximetry (%) 01/10/17 01/10/17 01/10/17 07:00 08:00 09:00 Temperature Pulse Rate 105 H 91 H Respiratory 22 27 H 27 H Rate Blood Pressure 92/64 112/68 O2 Sat by Pulse Oximetry (%) 01/10/17 01/10/17 01/10/17 10:00 11:00 12:00 Temperature 97.9 F Pulse Rate 97 H 98 H 98 H Respiratory 24 26 H Rate Blood Pressure 94/57 94/57 103/66 O2 Sat by Pulse Oximetry (%) 01/10/17 01/10/17 01/10/17 14:00 15:10 16:00 Temperature 98.5 F Pulse Rate 93 H 97 H 103 H Respiratory 26 H 30 H Rate Blood Pressure 85/58 92/58 97/70 O2 Sat by Pulse Oximetry (%) 01/10/17 01/10/17 01/10/17 17:42 18:00 19:00 Temperature Pulse Rate 101 H 105 H 101 H Respiratory 28 H 17 Rate Blood Pressure 94/62 98/62 96/64 O2 Sat by Pulse Oximetry (%) 01/10/17 01/10/17 01/10/17 20:00 21:00 22:00 Temperature 99.7 F H Pulse Rate 102 H 99 H 100 H Respiratory 25 H 18 23 Rate Blood Pressure 110/73 100/66 102/64 O2 Sat by Pulse 99 Oximetry (%) 01/11/17 01/11/17 01/11/17 00:00 01:00 02:00 Temperature 99.2 F Pulse Rate 107 H 103 H 101 H Respiratory 18 21 20 Rate Blood Pressure 95/57 101/66 100/63 O2 Sat by Pulse Oximetry (%) 01/11/17 01/11/17 01/11/17 03:00 04:00 05:00 Temperature Pulse Rate 104 H 110 H 102 H Respiratory 23 18 18 Rate Blood Pressure 101/65 98/58 97/63 O2 Sat by Pulse Oximetry (%) 01/11/17 01/11/17 01/11/17 06:00 07:00 08:00 Temperature 98.9 F 98.7 F Pulse Rate 104 H 100 H 104 H Respiratory 17 17 19 Rate Blood Pressure 105/69 97/67 114/68 O2 Sat by Pulse Oximetry (%) 01/11/17 01/11/17 01/11/17 09:00 10:00 12:00 Temperature Pulse Rate 103 H 104 H Respiratory 22 22 20 Rate Blood Pressure 104/66 97/63 O2 Sat by Pulse 99 Oximetry (%) 01/11/17 01/11/17 01/11/17 14:00 18:00 20:00 Temperature 98.9 F 98.1 F Pulse Rate 99 H 83 101 H Respiratory 26 H 24 22 Rate Blood Pressure 95/64 100/74 103/63 O2 Sat by Pulse Oximetry (%) 01/11/17 01/11/17 01/12/17 20:19 22:00 00:00 Temperature 98 F Pulse Rate 85 91 H Respiratory 22 19 14 Rate Blood Pressure 107/76 106/67 O2 Sat by Pulse 99 Oximetry (%) 01/12/17 01/12/17 01/12/17 02:00 04:00 06:00 Temperature 99.2 F Pulse Rate 80 93 H 100 H Respiratory 13 20 22 Rate Blood Pressure 101/75 126/75 123/67 O2 Sat by Pulse Oximetry (%) a/p 81 yo, f, a.fib, pericard eff, s/p pericard drain. reviewed echocard. clinically stable. 1. cont icu supp care 2. may dc pericard drain 3. f/u renal and card 4. will follow Problem List - Problems (1) Pericardial effusion Code(s): I31.3 - PERICARDIAL EFFUSION (NONINFLAMMATORY)
--- NOTE | 2017-01-12 09:53 | PN ---
Progress Note (short form) - Note Progress Note: Renal Follow up for Acute Renal Failure Pt seen and examined in the ICU awake and alert no acute complaints Femoral HD catheter removed denies any sob, chest pain, abd pain appetite is improved Vital Signs Temperature 99.2 F 01/12/17 06:00 Pulse Rate 100 H 01/12/17 06:00 Respiratory Rate 22 01/12/17 06:00 Blood Pressure 123/67 01/12/17 06:00 O2 Sat by Pulse Oximetry (%) 99 01/11/17 20:19 Intake & Output 01/09/17 01/10/17 01/11/17 01/12/17 23:59 23:59 23:59 23:59 Intake Total 1878 345 4429 150 Output Total 2609 1700 1145 400 Balance -619 -1043 595 -250 Weight 158 lb 3 oz 151 lb 11.2 oz 153 lb 8 oz 154 lb Gen: NAD, awake and alert on NC CVS: RRR, No M/R Lungs: Dec BS at b/l lung bases Abd: Soft NT/ND Ext: No edema, clubbing or cyanosis : No bladder distension CBC, BMP 01/12/17 05:00 01/12/17 05:00 Current Medications Acetaminophen (Tylenol -) 650 mg PO Q6H PRN PRN Reason: FEVER OR PAIN Albuterol/Ipratropium (Duoneb -) 1 amp NEB Q6H PRN PRN Reason: SHORTNESS OF BREATH Ferrous Sulfate (Feosol -) 325 mg PO BID [facility] Last Admin: 01/11/17 21:05 Dose: 325 mg Guaifenesin (Robitussin -) 10 ml PO Q6H PRN PRN Reason: COUGH Lactobacillus Acidophilus (Bacid -) 1 tab PO DAILY [facility] Last Admin: 01/11/17 09:09 Dose: 1 tab Metoprolol Tartrate (Lopressor -) 50 mg PO BID [facility] Propafenone *Er* 425 (Mg Capsule) 1 each PO BID [facility] Polyethylene Glycol (Miralax (For Daily Use) -) 17 gm PO DAILY [facility] Last Admin: 01/11/17 09:11 Dose: 17 grams Warfarin Sodium (Coumadin -) 3 mg PO DAILY@1800 [facility] A/P 81 year old woman with PMhx of Hypertension, Afib on Coumadin who presented to the ED with complaints of SOB and Hx of diarrhea and found to be hypotensive, elevated INR, large pericardial effusion with JASVIR with BUN/Cr of 78/5. #Oliguric Acute Renal Failure JASVIR secondary to volume depletion No evidence of TMA (LDH/Hapto ok) Renal function continues to improve and pt with good urine output no indication for any further dialysis can remove greenwood catheter continue to trend BUN/Cr continue to hold DANA/ARB for now avoid NSAIDs, Nephrotoxins Calvin Noble DO
[2017-01-12] MEDS: POLYETHYLENE GLYCOL 3350 119 GM BTL PO SCH (09:56)
[2017-01-12] MEDS: LACTOBACILLUS ACIDOPHILUS 1 EACH TAB (FP) PO SCH (09:56)
[2017-01-12] MEDS: FERROUS SO4 325 MG TABLET (FP) PO SCH ×2 (09:56→21:14)
[2017-01-12] MEDS: METOPROLOL TARTRATE 25 MG TABLET (FP) PO SCH ×2 (09:56→21:14)
--- NOTE | 2017-01-12 11:41 | PN ---
Progress Note, Physician History of Present Illness: Awake, alert No complaints Denies chest pain/ dyspnea/ cough No fever/ chills WBC WNL Blood, pericardial fluid c/s no growth - Current Medication List Current Medications: Active Medications Acetaminophen (Tylenol -) 650 mg PO Q6H PRN PRN Reason: FEVER OR PAIN Albuterol/Ipratropium (Duoneb -) 1 amp NEB Q6H PRN PRN Reason: SHORTNESS OF BREATH Ferrous Sulfate (Feosol -) 325 mg PO BID [facility] Last Admin: 01/12/17 09:56 Dose: 325 mg Guaifenesin (Robitussin -) 10 ml PO Q6H PRN PRN Reason: COUGH Lactobacillus Acidophilus (Bacid -) 1 tab PO DAILY [facility] Last Admin: 01/12/17 09:56 Dose: 1 tab Metoprolol Tartrate (Lopressor -) 50 mg PO BID [facility] Last Admin: 01/12/17 09:56 Dose: 50 mg Propafenone *Er* 425 (Mg Capsule) 1 each PO BID [facility] Polyethylene Glycol (Miralax (For Daily Use) -) 17 gm PO DAILY [facility] Last Admin: 01/12/17 09:56 Dose: 17 grams Potassium Phos/Sodium Phos (Phos-Nak Packet -) 1 packet PO TID [facility] Stop: 01/12/17 22:01 Warfarin Sodium (Coumadin -) 3 mg PO DAILY@1800 [facility] - Objective Vital Signs: Vital Signs Temperature 98.1 F 01/12/17 10:00 Pulse Rate 98 H 01/12/17 10:00 Respiratory Rate 20 01/12/17 10:00 Blood Pressure 111/67 01/12/17 10:00 O2 Sat by Pulse Oximetry (%) 99 01/11/17 20:19 Constitutional: Yes: No Distress Eyes: Yes: Conjunctiva Clear Cardiovascular: Yes: Regular Rate and Rhythm, S1, S2, Other (NAILA drain serosanguinous fluid) Respiratory: Yes: Diminished Gastrointestinal: Yes: Normal Bowel Sounds, Soft. No: Tenderness Edema: No Labs: CBC, BMP 01/12/17 05:00 01/12/17 05:00 INR, PTT INR 1.37 (0.82-1.09) H 01/12/17 05:00 Fibrinogen 462.0 mg/dL (238-498) 01/12/17 05:00 Assessment/Plan Pericardial effusion s/p drainage Renal failure- improved Coagulopathy- improved Cultures negative Observe off antibiotics
--- NOTE | 2017-01-12 14:16 | PN ---
Teaching Attending Note Name of Resident: Carlos Mcconnell ATTENDING PHYSICIAN STATEMENT I saw and evaluated the patient. I reviewed the resident's note and discussed the case with the resident. I agree with the resident's findings and plan as documented. SUBJECTIVE: Pt seen and examined in the ICU. Denies shortness of breath or chest pain. Repeat echocardiogram showing minimal effusion. No fevers. OBJECTIVE: Last Vital Signs Temp Pulse Resp BP Pulse Ox 98.1 F 98 H 20 111/67 99 01/12/17 10:00 01/12/17 10:00 01/12/17 10:00 01/12/17 10:00 01/11/17 20:19 Intake & Output 01/09/17 01/10/17 01/11/17 01/12/17 23:59 23:59 23:59 23:59 Intake Total 4178 005 1232 350 Output Total 2609 1700 1145 800 Balance -619 -4095 595 -450 Weight 158 lb 3 oz 151 lb 11.2 oz 153 lb 8 oz 154 lb Gen: more comfortable Heart: RRR Lung: scattered basilar rales Abd: soft, nontender Ext: no edema Chest tube: minimal drainage CBC, BMP 01/12/17 05:00 01/12/17 05:00 Active Medications Acetaminophen (Tylenol -) 650 mg PO Q6H PRN PRN Reason: FEVER OR PAIN Albuterol/Ipratropium (Duoneb -) 1 amp NEB Q6H PRN PRN Reason: SHORTNESS OF BREATH Ferrous Sulfate (Feosol -) 325 mg PO BID [facility] Last Admin: 01/12/17 09:56 Dose: 325 mg Guaifenesin (Robitussin -) 10 ml PO Q6H PRN PRN Reason: COUGH Lactobacillus Acidophilus (Bacid -) 1 tab PO DAILY [facility] Last Admin: 01/12/17 09:56 Dose: 1 tab Metoprolol Tartrate (Lopressor -) 50 mg PO BID [facility] Last Admin: 01/12/17 09:56 Dose: 50 mg Propafenone *Er* 425 (Mg Capsule) 1 each PO BID [facility] Polyethylene Glycol (Miralax (For Daily Use) -) 17 gm PO DAILY [facility] Last Admin: 01/12/17 09:56 Dose: 17 grams Potassium Phos/Sodium Phos (Phos-Nak Packet -) 1 packet PO TID [facility] Stop: 01/12/17 22:01 Warfarin Sodium (Coumadin -) 3 mg PO DAILY@1800 [facility] ASSESSMENT AND PLAN: Pericardial Effusion with Cardiac Tamponade s/p chest tube placement Cardiogenic Shock Acute Kidney Injury requiring HD h/o TIA Anemia SSS s/p PPM - IR to d/c chest tube - f/u cytology - monitor urine output, creatinine - PO as tolerated - OOB to chair - establish peripheral access and d/c central line - resume anticoagulation when ok with surgery - DVT prophylaxis - continue ICU monitoring
[2017-01-12] MEDS: NAPH,MB-DB/K PH,MBDB POWDER PACKET PO SCH ×3 (14:18→21:14)
--- NOTE | 2017-01-12 14:49 | PN ---
Physical Exam: SUBJECTIVE: Patient seen and examined at bedside this AM. AAO and in a pleasant mood. States breathing is comfortable and denies any chest pain. Afebrile overnight with good blood pressure not on pressors. Pericardial drain to be removed later today and anticoagulation to be restarted. Coumadin with heparin bridge, as per cardiology. OBJECTIVE: Vital Signs Period Temp Pulse Resp BP Sys/Higgins Pulse Ox Last 24 Hr 98 F-99.2 F 80-101 13-24 100-126/63-78 99 GENERAL: The patient is awake, alert, and fully oriented, in no acute distress. HEENT: Atraumatic, EOMI, PERRLA, No lymphadenopathy LUNGS: CTA bilaterally, mildly diminished breath soudns at bilateral lung bases HEART: Irregular, S1S2, no chest pain ABDOMEN: Soft, nontender, nondistended NEUROLOGICAL: Cranial nerves II through XII grossly intact. Normal speech, gait not observed. PSYCH: Normal mood, normal affect. SKIN: Warm, dry, normal turgor, no rashes or lesions noted Laboratory Results - last 24 hr 01/08/17 01/09/17 01/10/17 11:00 09:00 05:20 WBC RBC Hgb Hct MCV MCHC RDW Plt Count MPV Neutrophils % Lymphocytes % Monocytes % Eosinophils % Basophils % INR PTT (Actin FS) Fibrinogen Sodium Potassium Chloride Carbon Dioxide Anion Gap BUN Creatinine Creat Clearance w eGFR Random Glucose Calcium Phosphorus Magnesium Total Bilirubin AST ALT Alkaline Phosphatase Total Protein Albumin Cold Agglutinins Negative JR Screen Positive H JR Homogeneous Pattern 1:320 H JR Nucleolar Pattern TNP JR Speckled Pattern TNP JR Centromere Pattern TNP Tot Complement (CH50) > 63 H 01/12/17 01/12/17 01/12/17 05:00 05:00 05:00 WBC 7.6 RBC 2.62 L Hgb 8.2 L Hct 24.9 L MCV 94.9 MCHC 32.8 RDW 13.5 Plt Count 263 MPV 7.3 L Neutrophils % 70.7 Lymphocytes % 13.9 Monocytes % 12.0 H Eosinophils % 2.9 Basophils % 0.5 INR 1.37 H PTT (Actin FS) Fibrinogen Sodium 140 Potassium 4.2 Chloride 100 Carbon Dioxide 34 H Anion Gap 6 L BUN 28 H Creatinine 1.2 H D Creat Clearance w eGFR 42.90 Random Glucose 99 Calcium 7.4 L Phosphorus 2.1 L D Magnesium 1.9 D Total Bilirubin 0.5 D AST 15 D ALT 33 D Alkaline Phosphatase 85 Total Protein 5.6 L Albumin 2.7 L Cold Agglutinins JR Screen JR Homogeneous Pattern JR Nucleolar Pattern JR Speckled Pattern JR Centromere Pattern Tot Complement (CH50) 01/12/17 05:00 WBC RBC Hgb Hct MCV MCHC RDW Plt Count MPV Neutrophils % Lymphocytes % Monocytes % Eosinophils % Basophils % INR PTT (Actin FS) 28.7 Fibrinogen 462.0 Sodium Potassium Chloride Carbon Dioxide Anion Gap BUN Creatinine Creat Clearance w eGFR Random Glucose Calcium Phosphorus Magnesium Total Bilirubin AST ALT Alkaline Phosphatase Total Protein Albumin Cold Agglutinins JR Screen JR Homogeneous Pattern JR Nucleolar Pattern JR Speckled Pattern JR Centromere Pattern Tot Complement (CH50) Active Medications Generic Name Dose Route Start Last Admin Trade Name Freq PRN Reason Stop Dose Admin Acetaminophen 650 mg 01/09/17 20:12 Tylenol - PO Q6H PRN FEVER OR PAIN Albuterol/Ipratropium 1 amp 01/11/17 13:58 Duoneb - NEB Q6H PRN SHORTNESS OF BREATH Ferrous Sulfate 325 mg 01/10/17 11:00 01/12/17 09:56 Feosol - PO 325 mg BID [facility] Administration Guaifenesin 10 ml 01/08/17 18:01 Robitussin - PO Q6H PRN COUGH Lactobacillus Acidophilus 1 tab 01/09/17 10:45 01/12/17 09:56 Bacid - PO 1 tab DAILY [facility] Administration Metoprolol Tartrate 50 mg 01/12/17 06:48 01/12/17 09:56 Lopressor - PO 50 mg BID [facility] Administration Propafenone *Er* 425 1 each 01/10/17 10:00 Mg Capsule PO BID [facility] Polyethylene Glycol 17 gm 01/11/17 10:00 01/12/17 09:56 Miralax (For Daily Use) - PO 17 grams DAILY [facility] Administration Potassium Phos/Sodium Phos 1 packet 01/12/17 12:00 01/12/17 14:20 Phos-Nak Packet - PO 01/12/17 22:01 Not Given TID [facility] Warfarin Sodium 3 mg 01/12/17 18:00 Coumadin - PO DAILY@1800 [facility] ASSESSMENT/PLAN: 81 year old female with PMH of AF (on Coumadin), HTN/HLD, CVA who presents after 2 weeks in [place]. Had GI symptoms 2 weeks ago, likely viral with subsequent development of viral pericarditis. Presnted to ED with SOB & found to have pericardial effusion w/ cardiac tamponade. S/p IR-guided drainage and chest tube placement on Monday 01/08. #Pericardial Effusion with Cardiac Tamponade, POD #3 s/p IR drainage and chest tube placement -ECHO confirms resolution of large pericardial effusion -chest tube draining minimal amount of serosanguinous fluid, will be removed later today by IR -awaiting cytology results -given incentive spirometer to help increase lung function #Cardiogenic shock -stable BP without pressors -cardiology & CT surgery following, discussed case with both today #JASVIR -renal function improving -will not require further hemodialysis -avoid nephrotoxic meds -Nephrology following #A-fib -restarting Coumadin tonight, will restart heparin tomorrow 24 hours after removal of pericardial drain (as per Thoracic surgery's recommendation) -continue Lopressor 50mg BID #Normocytic Anemia -Feosol ongoing -does not require transfusion at present Prophylaxis/FEN -SCD's, Warfarin to be restarted tonight -PO intake, no IVF, repleted phosphorus today, Lactobacillus Visit type - Emergency Visit Emergency Visit: Yes ED Registration Date: 01/07/17 Care time: The patient presented to the Emergency Department on the above date and was hospitalized for further evaluation of their emergent condition. - New Patient This patient is new to me today: No - Critical Care Critical Care patient: Yes Total Critical Care Time (in minutes): 40 Critical Care Statement: The care of this patient involved high complexity decision making to prevent further life threatening deterioration of the patient 's condition and/or to evalute & treat vital organ system(s) failure or risk of failure.
--- NOTE | 2017-01-12 14:53 | PN ---
Progress Note (short form) - Note Progress Note: Patient seen and examined Clinically improved. Generalized weakness Last Vital Signs Temp Pulse Resp BP Pulse Ox 98.4 F 95 H 20 93/70 99 01/12/17 14:00 01/12/17 14:00 01/12/17 14:00 01/12/17 14:00 01/11/17 20:19 HEENT: COREEN, EOM Intact Oropharynx: No thrush, No mucositis Neck: Supple Cor: RSR, systolic murmur Lungs: diminished brath sounds bilaterally Abd: Soft, Normal bowel sounds, No organomegaly Ext:No significant edema, negative Homans Skin: No rashes, Integument intact CBC, BMP 01/12/17 05:00 01/12/17 05:00 Current Medications Generic Name Dose Route Start Last Admin Trade Name Freq PRN Reason Stop Dose Admin Acetaminophen 650 mg 01/09/17 20:12 Tylenol - PO Q6H PRN FEVER OR PAIN Albuterol/Ipratropium 1 amp 01/11/17 13:58 Duoneb - NEB Q6H PRN SHORTNESS OF BREATH Ferrous Sulfate 325 mg 01/10/17 11:00 01/12/17 09:56 Feosol - PO 325 mg BID MCKAYLA Administration Guaifenesin 10 ml 01/08/17 18:01 Robitussin - PO Q6H PRN COUGH Lactobacillus Acidophilus 1 tab 01/09/17 10:45 01/12/17 09:56 Bacid - PO 1 tab DAILY MCKAYLA Administration Metoprolol Tartrate 50 mg 01/12/17 06:48 01/12/17 09:56 Lopressor - PO 50 mg BID MCKAYLA Administration Propafenone *Er* 425 1 each 01/10/17 10:00 Mg Capsule PO BID MCKAYLA Polyethylene Glycol 17 gm 01/11/17 10:00 01/12/17 09:56 Miralax (For Daily Use) - PO 17 grams DAILY MCKAYLA Administration Potassium Phos/Sodium Phos 1 packet 01/12/17 12:00 01/12/17 14:20 Phos-Nak Packet - PO 01/12/17 22:01 Not Given TID MCKAYLA Warfarin Sodium 3 mg 01/12/17 18:00 Coumadin - PO DAILY@1800 [facility] Impression: Hemopericardium- s/p pericardial drain Resumption of a/c post removal of drain per cardiology and I.R. Problem List - Problems (1) Pericardial effusion with cardiac tamponade Code(s): I31.3 - PERICARDIAL EFFUSION (NONINFLAMMATORY) I31.4 - CARDIAC TAMPONADE (2) Hypotension Code(s): I95.9 - HYPOTENSION, UNSPECIFIED Qualifiers: Qualified Code(s): I95.89 - Other hypotension (3) Renal failure Code(s): N19 - UNSPECIFIED KIDNEY FAILURE (4) Coagulopathy Code(s): D68.9 - COAGULATION DEFECT, UNSPECIFIED
--- NOTE | 2017-01-12 15:06 | CONSULT ---
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 Cardio/Vascular: Yes: AFIB, HTN, Hyperlipdemia Gastrointestinal: Yes: Other (Diarrhea ) ...: No - Past Surgical History Past Surgical History: Yes: Cataract Removal, Permanent Pacemaker Additional Surgical History: Basal cell resection - Alcohol/Substance Use Hx Alcohol Use: No History of Substance Use: reports: None - Smoking History Smoking history: Unknown if ever smoked Have you smoked in the past 12 months: No - Social History Usual Living Arrangement: With Spouse Home Medications - Allergies Allergies/Adverse Reactions: Allergies Allergy/AdvReac Type Severity Reaction Status Date / Time No Known Allergies Allergy Verified 01/07/17 20:54 - Home Medications Home Medications: Ambulatory Orders Amlodipine Bes/Olmesartan Med [Amlodipine-Olmesartan 10-20 mg] 1 each PO DAILY 01/08/17 Atorvastatin Ca [Lipitor] 10 mg PO HS 01/08/17 Levothyroxine [Synthroid -] 25 mcg PO DAILY 01/08/17 Metoprolol Tartrate [Lopressor -] 50 mg PO DAILY 01/08/17 Propafenone HCl [Propafenone HCl ER] 425 mg PO BID 01/08/17 Warfarin Na [Coumadin] 3 mg PO DAILY 01/08/17 Family Disease History - Family Disease History Other Family History: No family history of bleeding diathesis Physical Exam Vital Signs: Vital Signs Temperature 98.4 F 01/12/17 14:00 Pulse Rate 95 H 01/12/17 14:00 Respiratory Rate 20 01/12/17 14:00 Blood Pressure 93/70 01/12/17 14:00 O2 Sat by Pulse Oximetry (%) 99 01/11/17 20:19 Labs: CBC, BMP 01/12/17 05:00 01/12/17 05:00 Problem List - Problems (1) Pericardial effusion Code(s): I31.3 - PERICARDIAL EFFUSION (NONINFLAMMATORY)
--- NOTE | 2017-01-12 16:14 | PATH ---
Cytology Non-Gynecological Report Patient Name: BRIA CARRILLO Med. Rec. 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 Specimen(s) Received PERICARDIAL FLUID Clinical History Bloody pericardial fluid Final Diagnosis PERICARDIAL FLUID: SATISFACTORY FOR EVALUATION. FEW AYPICAL CELLS PRESENT, FAVOR REACTIVE MESOTHELIAL CELLS. BACKGROUND REACTIVE MESOTHELIAL CELLS, HISTIOCYTES, LYMPHOCYTES AND ABUNDANT RED BLOOD CELLS. Electronically Signed Maximo Howell M.D. Gross Description Received is 50cc of bloody fluid fresh. One cytofunnel slide and one cell block are made.
[2017-01-12] MEDS ORDERED: WARFARIN NA 3 MG TABLET PO SCH (18:00)
--- NOTE | 2017-01-12 20:36 | CONS ---
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 The patient, per Dr. Salas's admitting note, likely had traveler's diarrhea but developed shortness of breath and returned to the [facility] where she presented to the emergency room was found to have elevation of BUN 73, creatinine 4.9, as well as an INR of 8.66. Her WBCs were slightly elevated at 11.8, hemoglobin 9.8, platelet count 376, CO2 low at 16. Her BNP was over 1,000. Albumin 3.2. Patient underwent a CT of the chest, which showed moderate to large pericardial effusion, possible tamponade. She also has a history of sick sinus syndrome with a pacemaker. She became hypotensive and was given IV fluid as well as well as Dopamine, vitamin K for reversal of elevated INR and her INR has resolved. Her BUN has fallen to 28, creatinine 1.2 as of today's blood work. Her INR of 1.7. WBC is improved to 7.6. Hemoglobin slightly decreased to 8.2 and platelet count 263. The patient states that her Polk catheter was just removed but she is yet to urinate. She did move her bowels slightly yesterday. No further diarrhea. Overall, the patient is feeling much improved. She has a little bit of residual swelling in her hands but has no complaints of dizziness, lightheadedness, shortness of breath at rest, or chest pain. No joint arthralgias. PAST MEDICAL AND SURGICAL HISTORY: Atrial fibrillation, hypertension , hyperlipidemia, cataract removal, sick sinus syndrome, status post permanent pacemaker. SOCIAL HISTORY: Lives with her in a private house. There were are 3 large steps that enter with a rail and she does have a bedroom on the first level, although her bedroom is located on the second level. Usually she ambulates without assistive device. Current function: She has been at bedrest. REVIEW OF SYSTEMS: No headache, no blurry vision, double vision. No nausea and vomiting, difficulty swallowing, difficulty chewing. No chest pain or shortness of breath at rest. No abdominal discomfort. Again, she moved her bowels yesterday, just had a Polk catheter removed, and again, some residual swelling in the upper extremities but no joint arthralgias. No swelling in the lower extremities. No numbness or tingling. No weight loss, weight gain, fever, or chills. PHYSICAL EXAMINATION: General: Petite elderly woman. She is lying in bed. She is awake, alert, cooperative, seems to have good insight into her medical conditions. Neurologic: Cranial nerves II-XII appear grossly intact. Musculoskeletal: She has some mild arthritic changes in the hands, which are not limiting. There is some mild swelling also noted. Good range of motion in both her shoulders and elbows with at least 4+/5 upper extremity strength. In lower extremities, mild hip girdle weakness, 3+/5 in a supine position, but good knee flexion/extension, good dorsiflexion and plantar flexion, all 5/5. She has some arthritic changes in the knees but no significant medial or lateral joint line tenderness. Normal sensation to pin in the upper and lower extremities. Symmetric reflexes, downgoing toes. OVERALL IMPRESSION: 1. Deficits: Mobility, Activities of daily living. 2. Probable deconditioning. 3. Acute kidney injury, resolving. 4. Supratherapeutic INR. 5. Pericardial effusion. 6. Status post diarrhea. 7. Anemia. 8. History of atrial fibrillation. 9. Transient ischemic attack/cerebrovascular accident without any hemiparesis or residual deficit. 10. Elevated risk for deep venous thrombosis due to immobility. PLAN/SUGGESTION: 1. The patient will be seen beside for physical therapy including bed mobility, transfers, gait once out of the ICU. 2. Patient is anticoagulated on Coumadin, which has been restarted. No further DVT prophylaxis needed. 3. Patient currently has SCDs. 4. Skin precaution. 5. The patient is moving her bowels. 6. Polk just removed. Monitor urine. 7. Monitor BUN and creatinine. 8. Monitor INR. 9. Probable home with home care once medically stable, but this will depend on how she responds to getting out of bed to therapy, whether she develops any further hypotension and her length of hospitalization. Will follow. Thank you for this referral. LOLY LUO M.D. [id number]
[2017-01-12] MEDS ORDERED: PT OWN MED DRAWER 7, Y5N ONE (21:11)
[2017-01-12] MEDS: PROPAFENONE 425 MG PO SCH (21:14)
[2017-01-13 00:15] LABS: HEP B SURFACE AB Reactive (.)
[2017-01-13 05:45] LABS: BASOPHIL 0.8 % (0-2.0); EOSINOPHIL 3.3 % (0-4.5); MCHC 33.6 g/dl (32.0-36.0); MEAN CELL VOLUME 95.1 fl (80-96); MEAN PLT VOLUME 7.3 fl (7.5-11.1); NEUTROPHILS 70.9 % (42.8-82.8); PLATELET COUNT 270 K/MM3 (134-434); RDW 13.6 % (11.6-15.6); WHITE BLOOD COUNT 7.8 K/mm3 (4.0-10.0)
[2017-01-13 05:55] LABS: INR 1.36 (0.82-1.09); PROTHROMBIN TIME (PATIENT) 15.1 SEC (9.98-11.88)
[2017-01-13 05:58] LABS: ACTIVATED PTT 28.5 SECONDS (26.9-34.4)
[2017-01-13 06:09] LABS: ALBUMIN 2.6 g/dl (3.4-5.0); CALCIUM 7.9 mg/dL (8.5-10.1); MAGNESIUM 1.5 mg/dL (1.8-2.4); PHOSPHOROUS 2.3 mg/dL (2.5-4.9)
[2017-01-13 06:12] LABS: BILIRUBIN,TOTAL 0.3 mg/dL (0.2-1.0); CREATININE 1.1 mg/dL (0.55-1.02); TOT PROT 5.6 g/dl (6.4-8.2)
--- NOTE | 2017-01-13 07:08 | PN ---
Progress Note, Physician Chief Complaint: ID Asymptomatic Afebrile NO SOB - Current Medication List Current Medications: Active Medications Acetaminophen (Tylenol -) 650 mg PO Q6H PRN PRN Reason: FEVER OR PAIN Albuterol/Ipratropium (Duoneb -) 1 amp NEB Q6H PRN PRN Reason: SHORTNESS OF BREATH Ferrous Sulfate (Feosol -) 325 mg PO BID [facility] Last Admin: 01/12/17 21:14 Dose: 325 mg Guaifenesin (Robitussin -) 10 ml PO Q6H PRN PRN Reason: COUGH Lactobacillus Acidophilus (Bacid -) 1 tab PO DAILY [facility] Last Admin: 01/12/17 09:56 Dose: 1 tab Metoprolol Tartrate (Lopressor -) 50 mg PO BID [facility] Last Admin: 01/12/17 21:14 Dose: 50 mg Propafenone *Er* 425 (Mg Capsule) 1 each PO BID [facility] Last Admin: 01/12/17 21:14 Dose: 1 each Polyethylene Glycol (Miralax (For Daily Use) -) 17 gm PO DAILY [facility] Last Admin: 01/12/17 09:56 Dose: 17 grams Warfarin Sodium (Coumadin -) 3 mg PO DAILY@1800 [facility] Last Admin: 01/12/17 18:20 Dose: 3 mg - Objective Vital Signs: Vital Signs Temperature 98.2 F 01/13/17 02:00 Pulse Rate 80 01/13/17 02:00 Respiratory Rate 223 H 01/13/17 02:00 Blood Pressure 121/75 01/13/17 02:00 O2 Sat by Pulse Oximetry (%) 98 01/12/17 21:00 Constitutional: Yes: Well Nourished, No Distress HENT: Yes: WNL, Atraumatic Cardiovascular: Yes: Regular Rate and Rhythm, S1, S2 Respiratory: Yes: WNL, Regular, CTA Bilaterally, Other (Few Rhonchi and rales) Gastrointestinal: Yes: WNL, Normal Bowel Sounds, Soft. No: Tenderness, Tenderness, Rebound Edema: No Labs: CBC, BMP 01/13/17 05:15 01/13/17 05:15 INR, PTT INR 1.36 (0.82-1.09) H 01/13/17 05:15 Fibrinogen 462.0 mg/dL (238-498) 01/12/17 05:00 Problem List - Problems (1) Atrial fibrillation Code(s): I48.91 - UNSPECIFIED ATRIAL FIBRILLATION Qualifiers: Atrial fibrillation type: paroxysmal Qualified Code(s): I48.0 - Paroxysmal atrial fibrillation (2) Coagulopathy Code(s): D68.9 - COAGULATION DEFECT, UNSPECIFIED (3) Pericardial effusion Code(s): I31.3 - PERICARDIAL EFFUSION (NONINFLAMMATORY) (4) Pericardial effusion with cardiac tamponade Code(s): I31.3 - PERICARDIAL EFFUSION (NONINFLAMMATORY) I31.4 - CARDIAC TAMPONADE (5) Renal failure Code(s): N19 - UNSPECIFIED KIDNEY FAILURE Assessment/Plan Microbiology 01/09/17 08:56 Pericardial Fluid AFB Smear Concentration - Final 01/08/17 17:35 Pericardial Fluid Gram Stain - Final 01/08/17 17:35 Pericardial Fluid Anaerobic Culture - Final NO GROWTH OF AEROBIC ORGANISMS AFTER 48 HOURS INCUBATION NO ANAEROBES WERE ISOLATED 01/09/17 09:00 Serum Mycoplasma Antibody - Preliminary 01/09/17 09:00 Serum Mycoplasma Antibody - Preliminary 01/09/17 09:00 Blood - Peripheral Venous TB Test (QFT) ([place]) - Preliminary 01/09/17 08:56 Pericardial Fluid Viral Culture - Preliminary 01/09/17 08:56 Pericardial Fluid Mycobacterial Culture - Preliminary 01/09/17 08:55 Pericardial Fluid CHRISTIE Preparation - Preliminary Laboratory Tests 01/08/17 01/10/17 01/10/17 11:00 05:20 05:20 WBC Hgb Plt Count ESR 55 H BUN Creatinine Creat Clearance w eGFR JR Screen Positive H JR Homogeneous Pattern 1:320 H Complement C3 110 Complement C4 18 01/13/17 01/13/17 05:15 05:15 WBC 7.8 Hgb 8.5 L Plt Count 270 ESR BUN 23 H Creatinine 1.1 H Creat Clearance w eGFR 47.43 JR Screen JR Homogeneous Pattern Complement C3 Complement C4 Assessment Hemmoragic pericardial effusion Coagulaopathy Atrial fibrillation Permanent pacemaker SSS Positive JR 1:320 homogenous pattern ? significance in light of pericardial effusion/ renal failure though latter more likely related to volume depletion Plan Fluid sent for viral cultures pending Off antibiotic
[2017-01-13] MEDS: METOPROLOL TARTRATE 25 MG TABLET (FP) PO SCH (09:25)
[2017-01-13] MEDS: FERROUS SO4 325 MG TABLET (FP) PO SCH ×3 (09:25→22:14)
[2017-01-13] MEDS: LACTOBACILLUS ACIDOPHILUS 1 EACH TAB (FP) PO SCH ×2 (09:25→10:52)
[2017-01-13] MEDS: PROPAFENONE 425 MG PO SCH (09:26)
[2017-01-13] MEDS: POLYETHYLENE GLYCOL 3350 119 GM BTL PO SCH (09:26)
--- NOTE | 2017-01-13 09:34 | PN ---
Progress Note, Physician History of Present Illness: FEELS BETTER TUBE REMOVED - Current Medication List Current Medications: Active Medications Acetaminophen (Tylenol -) 650 mg PO Q6H PRN PRN Reason: FEVER OR PAIN Albuterol/Ipratropium (Duoneb -) 1 amp NEB Q6H PRN PRN Reason: SHORTNESS OF BREATH Ferrous Sulfate (Feosol -) 325 mg PO BID [facility] Last Admin: 01/13/17 09:25 Dose: 325 mg Guaifenesin (Robitussin -) 10 ml PO Q6H PRN PRN Reason: COUGH Heparin Sodium (Porcine) (Heparin -) 5,000 unit SQ BID [facility] Lactobacillus Acidophilus (Bacid -) 1 tab PO DAILY [facility] Last Admin: 01/13/17 09:25 Dose: 1 tab Metoprolol Tartrate (Lopressor -) 50 mg PO BID [facility] Last Admin: 01/13/17 09:25 Dose: 50 mg Propafenone *Er* 425 (Mg Capsule) 1 each PO BID [facility] Last Admin: 01/13/17 09:26 Dose: 1 each Polyethylene Glycol (Miralax (For Daily Use) -) 17 gm PO DAILY [facility] Last Admin: 01/13/17 09:26 Dose: 17 grams Warfarin Sodium (Coumadin -) 3 mg PO DAILY@1800 [facility] Last Admin: 01/12/17 18:20 Dose: 3 mg Warfarin Sodium (Coumadin -) 7.5 mg PO ONCE@1800 ONE Stop: 01/13/17 18:01 - Objective Vital Signs: Vital Signs Temperature 98.2 F 01/13/17 02:00 Pulse Rate 102 H 01/13/17 07:00 Respiratory Rate 22 01/13/17 07:00 Blood Pressure 126/85 01/13/17 07:00 O2 Sat by Pulse Oximetry (%) 100 01/13/17 08:00 Neck: Yes: Supple Cardiovascular: Yes: Tachycardia, S1, S2 Respiratory: Yes: Regular, CTA Bilaterally Gastrointestinal: Yes: Normal Bowel Sounds, Soft Labs: CBC, BMP 01/13/17 05:15 01/13/17 05:15 INR, PTT INR 1.36 (0.82-1.09) H 01/13/17 05:15 Fibrinogen 462.0 mg/dL (238-498) 01/12/17 05:00 Problem List - Problems (1) Acute kidney failure Assessment/Plan: RESOLVING S/P HD CR IMPROVING--1.1 MONITOR RENAL ON BOARD Code(s): N17.9 - ACUTE KIDNEY FAILURE, UNSPECIFIED (2) Atrial fibrillation Assessment/Plan: RESUME AC--ON COUMADIN--7.5 TODAY MEDS PER CARDIO Code(s): I48.91 - UNSPECIFIED ATRIAL FIBRILLATION Qualifiers: Atrial fibrillation type: paroxysmal Qualified Code(s): I48.0 - Paroxysmal atrial fibrillation (3) Coagulopathy Assessment/Plan: INR 1.3 Code(s): D68.9 - COAGULATION DEFECT, UNSPECIFIED (4) Hypotension Assessment/Plan: OFF LEVO MONITOR--STABLE NOW Code(s): I95.9 - HYPOTENSION, UNSPECIFIED Qualifiers: Hypotension type: other hypotension type Qualified Code(s): I95.89 - Other hypotension (5) Pericardial effusion with cardiac tamponade Assessment/Plan: S/P DRAINAGE--APROX 600 ECHO SMALL EFFUSION DRAIN REMOVED-- Code(s): I31.3 - PERICARDIAL EFFUSION (NONINFLAMMATORY) I31.4 - CARDIAC TAMPONADE (6) Anemia Assessment/Plan: ON IRON MONITOR Code(s): D64.9 - ANEMIA, UNSPECIFIED (7) JR positive Assessment/Plan: ? SIGNIFICANCE RHEUMOTOLOGY CONSULT Code(s): R76.8 - OTHER SPECIFIED ABNORMAL IMMUNOLOGICAL FINDINGS IN SERUM
[2017-01-13] MEDS ORDERED: ACETAMINOPHEN 325 MG TABLET (FP) PO PRN (09:47)
[2017-01-13] MEDS ORDERED: ALBUTEROL SO4 2.5/IPRATROPIUM 0.5 INH SOL 3 ML VIAL.NEB. NEB PRN (09:47)
[2017-01-13] MEDS ORDERED: guaiFENesin 200 MG/10 ML 10 ML UNIT-DOSE CUPS PO PRN (09:47)
[2017-01-13] MEDS ORDERED: HEPARIN NA (PORCINE) 5,000 UNITS/ML 1ML VIAL SQ SCH (10:00)
--- NOTE | 2017-01-13 10:06 | PN ---
Progress Note, Physician History of Present Illness: Pericardial drain removed, denies chest pain or dyspnea. - Current Medication List Current Medications: Active Medications Acetaminophen (Tylenol -) 650 mg PO Q6H PRN PRN Reason: FEVER OR PAIN Albuterol/Ipratropium (Duoneb -) 1 amp NEB Q6H PRN PRN Reason: SHORTNESS OF BREATH Ferrous Sulfate (Feosol -) 325 mg PO BID [facility] Guaifenesin (Robitussin -) 10 ml PO Q6H PRN PRN Reason: COUGH Heparin Sodium (Porcine) (Heparin -) 5,000 unit SQ BID [facility] Lactobacillus Acidophilus (Bacid -) 1 tab PO DAILY [facility] Metoprolol Tartrate (Lopressor -) 50 mg PO BID [facility] Non-Formulary Medication (Non-Formulary Med) 1 each PO BID [facility] Polyethylene Glycol (Miralax (For Daily Use) -) 17 gm PO DAILY [facility] Warfarin Sodium (Coumadin -) 7.5 mg PO ONCE@1800 ONE Stop: 01/13/17 18:01 Warfarin Sodium (Coumadin -) 3 mg PO DAILY@1800 [facility] - Objective Vital Signs: Vital Signs Temperature 98.2 F 01/13/17 02:00 Pulse Rate 102 H 01/13/17 07:00 Respiratory Rate 22 01/13/17 07:00 Blood Pressure 126/85 01/13/17 07:00 O2 Sat by Pulse Oximetry (%) 100 01/13/17 08:00 Constitutional: Yes: No Distress, Calm Neck: Yes: Supple Cardiovascular: Yes: Regular Rate and Rhythm Respiratory: Yes: Regular, Diminished, On Nasal O2 Gastrointestinal: Yes: Normal Bowel Sounds, Soft Edema: No Labs: CBC, BMP 01/13/17 05:15 01/13/17 05:15 INR, PTT INR 1.36 (0.82-1.09) H 01/13/17 05:15 Fibrinogen 462.0 mg/dL (238-498) 01/12/17 05:00 - ....Imaging Chest X-ray: Report Reviewed (LLL consolidation) Problem List - Problems (1) Atrial fibrillation Code(s): I48.91 - UNSPECIFIED ATRIAL FIBRILLATION Qualifiers: Atrial fibrillation type: paroxysmal Qualified Code(s): I48.0 - Paroxysmal atrial fibrillation (2) Hypertension Code(s): I10 - ESSENTIAL (PRIMARY) HYPERTENSION Qualifiers: Hypertension type: essential hypertension Qualified Code(s): I10 - Essential (primary) hypertension (3) Pericardial effusion Code(s): I31.3 - PERICARDIAL EFFUSION (NONINFLAMMATORY) (4) Presence of permanent cardiac pacemaker Code(s): Z95.0 - PRESENCE OF CARDIAC PACEMAKER (5) Sick sinus syndrome Code(s): I49.5 - SICK SINUS SYNDROME (6) TIA (transient ischemic attack) Code(s): G45.9 - TRANSIENT CEREBRAL ISCHEMIC ATTACK, UNSPECIFIED Qualifiers: Transient cerebral ischemia type: unspecified Qualified Code(s): G45.9 - Transient cerebral ischemic attack, unspecified (7) Anemia Code(s): D64.9 - ANEMIA, UNSPECIFIED Assessment/Plan Echocardiography repeat from yesterday revealed small amount of residual pericardial effusion, normal LV size and function Echocardiography revealed normal LV size and function mild MR, mild to moderate TR, mild to moderate degree of pulmonary HTN RVSP 40-50 mmHg, and large pericardial effusion 1. Large pericardial effusion with tamponade physiology, post drain insertion, resolved 2. History of paroxysmal atrial fibrillation on Coumadin ([id number] score of 6 ) 3. History of sick sinus syndrome post PPM 4. Acute renal failure, resolved 5. History of hypertension, hypotension due to cardiac tamponade resolved 6. History of TIA/stroke 7. Anemia PLAN: 1. Resumption of A/C with Heparin/Coumadin timing per thoracic surgery 2. Continue Propafenone ER 425 bid (home dose) 3. Continue Lopressor 50 bid and titrate dosage 4. Await fluid cytology, transfer to floor
--- NOTE | 2017-01-13 10:48 | PN ---
[id number] well and states she does not have any chest pain. No acute events overnight, afebrile. OBJECTIVE: Vital Signs Period Temp Pulse Resp BP Sys/Higgins Pulse Ox Last 24 Hr 98.2 F-99 F 80-104 18-223 93-126/54-85 98-100 GENERAL: The patient is awake, alert, and fully oriented, in no acute distress. HEENT: Atraumatic, EOMI, PERRLA, No lymphadenopathy LUNGS: CTA bilaterally HEART: Irregular, S1S2, no chest pain ABDOMEN: Soft, nontender, nondistended NEUROLOGICAL: Cranial nerves II through XII grossly intact. Normal speech, gait not observed. PSYCH: Normal mood, normal affect. SKIN: Warm, dry, normal turgor, no rashes or lesions noted Laboratory Results - last 24 hr 01/09/17 01/09/17 01/13/17 09:00 12:30 05:15 WBC 7.8 RBC 2.67 L Hgb 8.5 L Hct 25.4 L MCV 95.1 MCHC 33.6 RDW 13.6 Plt Count 270 MPV 7.3 L Neutrophils % 70.9 Lymphocytes % 12.6 Monocytes % 12.4 H Eosinophils % 3.3 Basophils % 0.8 INR PTT (Actin FS) Sodium Potassium Chloride Carbon Dioxide Anion Gap BUN Creatinine Creat Clearance w eGFR Random Glucose Calcium Phosphorus Magnesium Total Bilirubin AST ALT Alkaline Phosphatase Total Protein Albumin Cold Agglutinins Negative Hep A IgM Ab Confirm Negative Hepatitis A Ab Total Positive H Hep Bs Antigen Negative Hep Bs Antibody Reactive Hep B Core Total Ab Negative 01/13/17 01/13/17 05:15 05:15 WBC RBC Hgb Hct MCV MCHC RDW Plt Count MPV Neutrophils % Lymphocytes % Monocytes % Eosinophils % Basophils % INR 1.36 H PTT (Actin FS) 28.5 Sodium 141 Potassium 4.4 Chloride 101 Carbon Dioxide 35 H Anion Gap 5 L BUN 23 H Creatinine 1.1 H Creat Clearance w eGFR 47.43 Random Glucose 100 Calcium 7.9 L Phosphorus 2.3 L Magnesium 1.5 L D Total Bilirubin 0.3 D AST 13 L ALT 30 Alkaline Phosphatase 91 Total Protein 5.6 L Albumin 2.6 L Cold Agglutinins Hep A IgM Ab Confirm Hepatitis A Ab Total Hep Bs Antigen Hep Bs Antibody Hep B Core Total Ab Active Medications Generic Name Dose Route Start Last Admin Trade Name Freq PRN Reason Stop Dose Admin Acetaminophen 650 mg 02/15/17 09:47 Tylenol - PO Q6H PRN FEVER OR PAIN Albuterol/Ipratropium 1 amp 01/13/17 09:47 Duoneb - NEB Q6H PRN SHORTNESS OF BREATH Ferrous Sulfate 325 mg 01/13/17 10:00 Feosol - PO BID [facility] Guaifenesin 10 ml 01/13/17 09:47 Robitussin - PO Q6H PRN COUGH Heparin Sodium (Porcine) 5,000 unit 01/14/17 10:00 Heparin - SQ BID [facility] Lactobacillus Acidophilus 1 tab 01/13/17 10:00 Bacid - PO DAILY [facility] Magnesium Sulfate 2 gm 01/13/17 10:47 Magnesium Sulfate IVPB 01/13/17 10:48 ONCE ONE Metoprolol Tartrate 50 mg 01/13/17 10:00 Lopressor - PO BID [facility] Non-Formulary Med 1 each 01/13/17 20:00 Rythmol Sr ( PO Propafenone *Er*) Q12H [facility] 425 Mg Capsule Polyethylene Glycol 17 gm 01/13/17 10:00 Miralax (For Daily Use) - PO DAILY [facility] Potassium Phos/Sodium Phos 1 packet 01/13/17 14:00 Phos-Nak Packet - PO 01/14/17 06:01 TID [facility] Warfarin Sodium 7.5 mg 01/13/17 18:00 Coumadin - PO 01/13/17 18:01 ONCE@1800 ONE Warfarin Sodium 3 mg 01/13/17 18:00 Coumadin - PO DAILY@1800 [facility] ASSESSMENT/PLAN: 81 year old female with PMH of AF (on Coumadin), HTN/HLD, CVA who presents after 2 weeks in [facility]. Had GI symptoms 2 weeks ago, likely viral with subsequent development of viral pericarditis. Presnted to ED with SOB & found to have pericardial effusion w/ cardiac tamponade. S/p IR-guided drainage and chest tube placement on Monday 01/08. #Pericardial Effusion with Cardiac Tamponade, POD #3 s/p IR drainage and chest tube placement -ECHO confirmed resolution of pleural effusion -chest tube removed by IR yesterday evening -given incentive spirometer to help increase lung function #Cardiogenic shock -stable BP without pressors -cardiology & CT surgery following, discussed case with both #JASVIR -renal function improving, almost at baseline -will not require further hemodialysis -avoid nephrotoxic meds -Nephrology following #A-fib -restarted Coumadin yesterday -will start Heparin drip tomorrow morning, as per cardiology & CT Surgery advice -continue Lopressor 50mg BID #Normocytic Anemia -Feosol ongoing -does not require transfusion at present Prophylaxis/FEN -SCD's, Warfarin -PO intake, no IVF, repleted phosphorus & magnesium today, Lactobacillus Visit type - Emergency Visit Emergency Visit: Yes ED Registration Date: 01/07/17 Care time: The patient presented to the Emergency Department on the above date and was hospitalized for further evaluation of their emergent condition. - New Patient This patient is new to me today: No - Critical Care Critical Care patient: Yes Total Critical Care Time (in minutes): 45 Critical Care Statement: The care of this patient involved high complexity decision making to prevent further life threatening deterioration of the patient 's condition and/or to evalute & treat vital organ system(s) failure or risk of failure.
[2017-01-13] MEDS ORDERED: MAGNESIUM SULF 50% (8.12 MEQ/2 ML-1 GM VIAL) IVPB ONE (11:00)
--- NOTE | 2017-01-13 11:31 | PN ---
Teaching Attending Note Name of Resident: Carlos Mcconnell ATTENDING PHYSICIAN STATEMENT I saw and evaluated the patient. I reviewed the resident's note and discussed the case with the resident. I agree with the resident's findings and plan as documented. SUBJECTIVE: Pt seen and examined in the ICU. chest tube, central line removed. Denies shortness of breath or chest pain. OBJECTIVE: Last Vital Signs Temp Pulse Resp BP Pulse Ox 98.2 F 102 H 22 126/85 100 01/13/17 02:00 01/13/17 07:00 01/13/17 07:00 01/13/17 07:00 01/13/17 08:00 Intake & Output 01/10/17 01/11/17 01/12/17 01/13/17 23:59 23:59 23:59 23:59 Intake Total 657 1740 850 300 Output Total 1700 1145 1000 900 Balance -1043 595 -150 -600 Weight 151 lb 11.2 oz 153 lb 8 oz 154 lb 156 lb Gen: NAD in chair Heart: tachycardic, regular Lung: decreased breath sounds at the bases Abd: soft, nontender Ext: no edema CBC, BMP 01/13/17 05:15 01/13/17 05:15 Active Medications Acetaminophen (Tylenol -) 650 mg PO Q6H PRN PRN Reason: FEVER OR PAIN Albuterol/Ipratropium (Duoneb -) 1 amp NEB Q6H PRN PRN Reason: SHORTNESS OF BREATH Ferrous Sulfate (Feosol -) 325 mg PO BID [facility] Last Admin: 01/13/17 10:52 Dose: 325 mg Guaifenesin (Robitussin -) 10 ml PO Q6H PRN PRN Reason: COUGH Heparin Sodium (Porcine) (Heparin -) 1,000 unit IVPUSH PRN PRN PRN Reason: Heparin Heparin Sodium (Porcine) (Heparin -) 5,000 unit IVPUSH PRN PRN PRN Reason: Heparin Heparin Sodium (Porcine) 25, (000 unit/ Sodium Chloride) 500 mls @ 16 mls/hr IV TITR [facility]CKAY[facility]; 800 UNIT/HR PRN Reason: Protocol Lactobacillus Acidophilus (Bacid -) 1 tab PO DAILY [facility] Last Admin: 01/13/17 10:52 Dose: 1 tab Metoprolol Tartrate (Lopressor -) 50 mg PO BID [facility] Non-Formulary Med Rythmol Sr ( Propafenone *Er*) 425 Mg Capsule 1 each PO Q12H [facility] Polyethylene Glycol (Miralax (For Daily Use) -) 17 gm PO DAILY [facility] Potassium Phos/Sodium Phos (Phos-Nak Packet -) 1 packet PO TID [facility] Stop: 01/14/17 06:01 Warfarin Sodium (Coumadin -) 7.5 mg PO ONCE@1800 ONE Stop: 01/13/17 18:01 Warfarin Sodium (Coumadin -) 3 mg PO DAILY@1800 [facility] ASSESSMENT AND PLAN: Pericardial Effusion with Cardiac Tamponade s/p chest tube placement Cardiogenic Shock Acute Kidney Injury requiring HD h/o TIA Anemia SSS s/p PPM - resume anticoagulation when ok with surgery - PO as tolerated - OOB to chair - DVT prophylaxis - rehab/PT - can monitor on telemetry
[2017-01-13] MEDS: NAPH,MB-DB/K PH,MBDB POWDER PACKET PO SCH ×2 (11:35→22:15)
--- NOTE | 2017-01-13 13:09 | CONSULT ---
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 HPI. The patient had been asymptomatic and active, and while traveling abroad she developed gastroenteritis followed by shortness of breath. On admission she was found to have a creatinine of 4.9, lactic acid of 3.3 and INR of 8.6. She became hypotensive and required management with Dopamine and fluids. A CT of chest revealed possible moderate to large pericardial effusion (possible hemopericardium) and possible tamponade. On 01/08/17 she had pericardiocentesis - 50 ml of hemorrhagic fluid was obtained. The patient was started on hemodialysis and she improved significantly. Creatinine was 1.1 and she is asymptomatic. Further laboratory work-up revealed JR 1:320 with homogeneous pattern. Complement was normal (C3: 110, C4:18 and CH50 >63 (probably related to the presence of acute phase reactant). Rheumatoid factor and cold agglutinins were negative. Urinlaysis on admission had protein 3+ and blood 2+ and repeat analysis had protein 2+ and blood 3+. The patient denies history of skin rash, oral ulcers, Raynaud's phenomenon, dry eyes, dry mouth or fever. 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 Cardio/Vascular: Yes: AFIB, HTN, Hyperlipdemia Gastrointestinal: Yes: Other (Diarrhea ) ...: No - Past Surgical History Past Surgical History: Yes: Cataract Removal, Permanent Pacemaker Additional Surgical History: Basal cell resection - Alcohol/Substance Use Hx Alcohol Use: No History of Substance Use: reports: None - Smoking History Smoking history: Unknown if ever smoked Have you smoked in the past 12 months: No - Social History Usual Living Arrangement: With Spouse Home Medications - Allergies Allergies/Adverse Reactions: Allergies Allergy/AdvReac Type Severity Reaction Status Date / Time No Known Allergies Allergy Verified 01/07/17 20:54 - Home Medications Home Medications: Ambulatory Orders Amlodipine Bes/Olmesartan Med [Amlodipine-Olmesartan 10-20 mg] 1 each PO DAILY 01/08/17 Atorvastatin Ca [Lipitor] 10 mg PO HS 01/08/17 Levothyroxine [Synthroid -] 25 mcg PO DAILY 01/08/17 Metoprolol Tartrate [Lopressor -] 50 mg PO DAILY 01/08/17 Propafenone HCl [Propafenone HCl ER] 425 mg PO BID 01/08/17 Warfarin Na [Coumadin] 3 mg PO DAILY 01/08/17 Family Disease History - Family Disease History Other Family History: No family history of bleeding diathesis Review of Systems - Review of Systems Constitutional: reports: Malaise Eyes: reports: No Symptoms HENT: reports: No Symptoms Neck: reports: No Symptoms Cardiovascular: reports: No Symptoms Respiratory: reports: No Symptoms Gastrointestinal: reports: No Symptoms Genitourinary: reports: No Symptoms Musculoskeletal: reports: No Symptoms Neurological: reports: No Symptoms Physical Exam Vital Signs: Vital Signs Temperature 98.2 F 01/13/17 02:00 Pulse Rate 102 H 01/13/17 07:00 Respiratory Rate 22 01/13/17 07:00 Blood Pressure 126/85 01/13/17 07:00 O2 Sat by Pulse Oximetry (%) 100 01/13/17 08:00 Constitutional: Yes: No Distress Eyes: Yes: WNL HENT: Yes: WNL Neck: Yes: WNL Cardiovascular: Yes: WNL Respiratory: Yes: WNL Gastrointestinal: Yes: WNL Musculoskeletal: Yes: Other (No active joints.) Labs: CBC, BMP 01/13/17 05:15 01/13/17 05:15 Laboratory Tests 01/08/17 01/08/17 01/08/17 11:00 11:00 13:34 ESR Calcium Phosphorus Magnesium Total Bilirubin AST ALT Alkaline Phosphatase Total Protein Albumin Urine Color Urine Appearance Urine pH Ur Specific Adena Urine Protein Urine Glucose (UA) Urine Ketones Urine Blood Urine Nitrite Urine Bilirubin Urine Urobilinogen Ur Leukocyte Esterase Urine RBC Urine WBC U Random Total Protein 803 H Rheumatoid Factor Cold Agglutinins JR Screen JR Homogeneous Pattern Complement C3 110 Complement C4 18 Tot Complement (CH50) > 63 H Hepatitis C Antibody 01/08/17 01/09/17 01/09/17 13:40 05:20 09:00 ESR Calcium Phosphorus Magnesium Total Bilirubin AST ALT Alkaline Phosphatase Total Protein Albumin Urine Color Luzma Urine Appearance Turbid Urine pH 5.0 Ur Specific Adena 1.017 Urine Protein 2+ H Urine Glucose (UA) Negative Urine Ketones Negative Urine Blood 3+ H Urine Nitrite Negative Urine Bilirubin Negative Urine Urobilinogen Negative Ur Leukocyte Esterase Trace H Urine RBC 298 Urine WBC 37 U Random Total Protein Rheumatoid Factor < 10.0 Cold Agglutinins Negative JR Screen JR Homogeneous Pattern Complement C3 Complement C4 Tot Complement (CH50) Hepatitis C Antibody 01/09/17 01/10/17 01/10/17 12:30 05:20 05:20 ESR 55 H Calcium Phosphorus Magnesium Total Bilirubin AST ALT Alkaline Phosphatase Total Protein Albumin Urine Color Urine Appearance Urine pH Ur Specific Adena Urine Protein Urine Glucose (UA) Urine Ketones Urine Blood Urine Nitrite Urine Bilirubin Urine Urobilinogen Ur Leukocyte Esterase Urine RBC Urine WBC U Random Total Protein Rheumatoid Factor Cold Agglutinins JR Screen Positive H JR Homogeneous Pattern 1:320 H Complement C3 Complement C4 Tot Complement (CH50) Hepatitis C Antibody 0.1 01/13/17 05:15 ESR Calcium 7.9 L Phosphorus 2.3 L Magnesium 1.5 L D Total Bilirubin 0.3 D AST 13 L ALT 30 Alkaline Phosphatase 91 Total Protein 5.6 L Albumin 2.6 L Urine Color Urine Appearance Urine pH Ur Specific Ad[place] Urine Protein Urine Glucose (UA) Urine Ketones Urine Blood Urine Nitrite Urine Bilirubin Urine Urobilinogen Ur Leukocyte Esterase Urine RBC Urine WBC U Random Total Protein Rheumatoid Factor Cold Agglutinins JR Screen JR Homogeneous Pattern Complement C3 Complement C4 Tot Complement (CH50) Hepatitis C Antibody Problem List - Problems (1) JR positive Assessment/Plan: The patient was admitted with elevated PT, hemorragic pericardial effusion, cardiogenic shock and acute renal insufficiency, now improving. She is stable and denies clinical changes suggestive of lupus or other connective tissue disease. She has a positive JR and normal complement. It is likely that she has a false positive test. 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 As she improved significantly I suggest to follow-her up clinically. I requested anti-DNAds and I did not prescribe medications Code(s): R76.8 - OTHER SPECIFIED ABNORMAL IMMUNOLOGICAL FINDINGS IN SERUM
--- NOTE | 2017-01-13 13:46 | PN ---
Progress Note (short form) - Note Progress Note: Renal Follow up for Acute Renal Failure Pt seen and examined in the ICU no acute complaints good urine output w/o greenwood catheter Vital Signs Temperature 98.2 F 01/13/17 02:00 Pulse Rate 102 H 01/13/17 07:00 Respiratory Rate 22 01/13/17 07:00 Blood Pressure 126/85 01/13/17 07:00 O2 Sat by Pulse Oximetry (%) 100 01/13/17 08:00 Intake & Output 01/10/17 01/11/17 01/12/17 01/13/17 23:59 23:59 23:59 23:59 Intake Total 657 1740 850 300 Output Total 1700 1145 1000 900 Balance -1043 595 -150 -600 Weight 151 lb 11.2 oz 153 lb 8 oz 154 lb 156 lb Gen: NAD, awake and alert on NC CVS: RRR, No M/R Lungs: Dec BS at b/l lung bases Abd: Soft NT/ND Ext: No edema, clubbing or cyanosis : No bladder distension CBC, BMP 01/13/17 05:15 01/13/17 05:15 Laboratory Tests 01/13/17 05:15 Calcium 7.9 L Phosphorus 2.3 L Magnesium 1.5 L D Current Medications Acetaminophen (Tylenol -) 650 mg PO Q6H PRN PRN Reason: FEVER OR PAIN Albuterol/Ipratropium (Duoneb -) 1 amp NEB Q6H PRN PRN Reason: SHORTNESS OF BREATH Ferrous Sulfate (Feosol -) 325 mg PO BID [facility] Last Admin: 01/13/17 10:52 Dose: 325 mg Guaifenesin (Robitussin -) 10 ml PO Q6H PRN PRN Reason: COUGH Heparin Sodium (Porcine) (Heparin -) 1,000 unit IVPUSH PRN PRN PRN Reason: Heparin Heparin Sodium (Porcine) (Heparin -) 5,000 unit IVPUSH PRN PRN PRN Reason: Heparin Heparin Sodium (Porcine) 25, (000 unit/ Sodium Chloride) 500 mls @ 16 mls/hr IV TITR [facility]CKAYLA; 800 UNIT/HR PRN Reason: Protocol Lactobacillus Acidophilus (Bacid -) 1 tab PO DAILY [facility] Last Admin: 01/13/17 10:52 Dose: 1 tab Metoprolol Tartrate (Lopressor -) 50 mg PO BID [facility] Non-Formulary Med Rythmol Sr ( Propafenone *Er*) 425 Mg Capsule 1 each PO Q12H [facility] Polyethylene Glycol (Miralax (For Daily Use) -) 17 gm PO DAILY [facility] Potassium Phos/Sodium Phos (Phos-Nak Packet -) 1 packet PO TID [facility] Stop: 01/14/17 06:01 Warfarin Sodium (Coumadin -) 7.5 mg PO ONCE@1800 ONE Stop: 01/13/17 18:01 Warfarin Sodium (Coumadin -) 3 mg PO DAILY@1800 [facility] A/P 81 year old woman with PMhx of Hypertension, Afib on Coumadin who presented to the ED with complaints of SOB and Hx of diarrhea and found to be hypotensive, elevated INR, large pericardial effusion with JASVIR with BUN/Cr of 78/5. #Oliguric Acute Renal Failure JASVIR secondary to volume depletion No evidence of TMA (LDH/Hapto ok) Renal function continues to improve and pt with good urine output #Hypomagnesemia/Hypophosphatemia continue Neutraphos TID s/o IV mag sulfate Trend electrolytes daily Calvin Noble DO
--- NOTE | 2017-01-13 16:33 | PN ---
Progress Note (short form) - Note Progress Note: PULMONARY AWAKE/ALERT/AFEBRILE FAMILY PRESENT WANTS TO GO HOME VSS ANICTERIC DIMINISHED BREATH SOUNDS BASES S1S2 BS+ LESS EDEMA LABS/MEDS/NOTES IMAGING/MICRO REVIEWED Pericardial Effusion with Cardiac Tamponade s/p chest tube placement now removed Cardiogenic Shock resolved Acute Kidney Injury requiring HD now normal h/o TIA Anemia SSS s/p PPM - resume anticoagulation when ok with surgery - PO as tolerated - OOB to chair - DVT prophylaxis - rehab/PT - can monitor on telemetry Gunner RANDHAWA MD
[2017-01-13] MEDS ORDERED: WARFARIN NA 7.5 MG TABLET (FP) PO ONE (18:00)
[2017-01-13] MEDS ORDERED: WARFARIN NA 3 MG TABLET PO SCH (18:00)
[2017-01-13] MEDS: METOPROLOL TARTRATE 50 MG TABLET (FP) PO SCH (22:15)
[2017-01-13] MEDS: RYTHMOL PO SCH (22:19)
[2017-01-14] MEDS: NAPH,MB-DB/K PH,MBDB POWDER PACKET PO SCH (06:38)
[2017-01-14 06:56] LABS: MCH 31.3 pg (25.7-33.7); MEAN CELL VOLUME 94.8 fl (80-96); MEAN PLT VOLUME 7.2 fl (7.5-11.1); PLATELET COUNT 262 K/MM3 (134-434); RDW 13.5 % (11.6-15.6); WHITE BLOOD COUNT 7.3 K/mm3 (4.0-10.0)
[2017-01-14 07:23] LABS: ALBUMIN 2.7 g/dl (3.4-5.0); BILIRUBIN,TOTAL 0.4 mg/dL (0.2-1.0); CALCIUM 7.7 mg/dL (8.5-10.1); CREATININE 1.1 mg/dL (0.55-1.02); TOT PROT 5.7 g/dl (6.4-8.2)
--- NOTE | 2017-01-14 07:52 | DS ---
Physical Examination Vital Signs: Vital Signs Temperature 98.2 F 01/14/17 02:00 Pulse Rate 96 H 01/14/17 06:00 Respiratory Rate 20 01/14/17 06:00 Blood Pressure 120/90 01/14/17 06:00 O2 Sat by Pulse Oximetry (%) 97 01/13/17 21:00 Cardiovascular: Yes: Regular Rate and Rhythm Respiratory: Yes: Regular, CTA Bilaterally Gastrointestinal: Yes: Normal Bowel Sounds, Soft Labs: CBC, BMP 01/14/17 05:35 01/14/17 05:35 Discharge Summary Reason For Visit: SEPSIS Current Active Problems JR positive (Acute) Acute kidney failure (Acute) Anemia (Acute) Atrial fibrillation (Acute) Coagulopathy (Acute) Hypertension (Acute) Hypotension (Acute) Pericardial effusion (Acute) Pericardial effusion with cardiac tamponade (Acute) Presence of permanent cardiac pacemaker (Acute) Renal failure (Acute) Sepsis (Acute) Sick sinus syndrome (Acute) TIA (transient ischemic attack) (Acute) Hospital Course: 81 year old female with underlying history of PAF (on Coumadin), HTN , hypercholesterolemia and TIA/stroke without residual deficit now presents after returning from [facility] on her routine trip with increase in shortness of breath. She was sick with diarrhea (likely travelers diarrhea) and then developed shortness of breath which cut her trip short. [place] returned to [place] on Wednesday and came into the hospital last night. Patient was found to have INR 8.6 with lactic acid level of 3.3 and BUN/Cr of 73/4.9 (she has not had any renal failure in the past). CXR showed possible enlarged heart, but without any infiltrates. CT of chest revealed possible moderate to large pericardial effusion and was reported possible tamponade. Also CT chest suggested possible hemopericardium. O2 saturation was 95% on 4L NC. She also has history of sick sinus syndrome with Medtronic pacemaker. She became hypotensive and has been supported by fluids and also was started on Dopamine being titrated. She was given Vitamin K and was given empiric antibiotic. INR is being repeated with type and cross done and in addition to FFP on hold. Echocardiography is being done. She is awake and alert early this am. She denies chest pain or palpitation. She is breathing comfortable with oxygen. Denies headache of dizziness. She felt nausea early this am and no fever or chills. 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 Cardiovascular: Yes: AFIB, HTN, Hyperlipdemia ...: No - Past Surgical History Past Surgical History: Yes: Cataract Removal, Permanent Pacemaker - Problems (1) Acute kidney failure Assessment/Plan: RESOLVING S/P HD CR IMPROVING--1.1 MONITOR RENAL ON BOARD Code(s): N17.9 - ACUTE KIDNEY FAILURE, UNSPECIFIED (2) Atrial fibrillation Assessment/Plan: RESUME AC--ON COUMADIN--7.5 TODAY MEDS PER CARDIO Code(s): I48.91 - UNSPECIFIED ATRIAL FIBRILLATION Qualifiers: Atrial fibrillation type: paroxysmal Qualified Code(s): I48.0 - Paroxysmal atrial fibrillation (3) Coagulopathy Assessment/Plan: INR 1.3 Code(s): D68.9 - COAGULATION DEFECT, UNSPECIFIED (4) Hypotension Assessment/Plan: OFF LEVO MONITOR--STABLE NOW Code(s): I95.9 - HYPOTENSION, UNSPECIFIED Qualifiers: Hypotension type: other hypotension type Qualified Code(s): I95.89 - Other hypotension (5) Pericardial effusion with cardiac tamponade Assessment/Plan: S/P DRAINAGE--APROX 600 ECHO SMALL EFFUSION DRAIN REMOVED-- Code(s): I31.3 - PERICARDIAL EFFUSION (NONINFLAMMATORY) I31.4 - CARDIAC TAMPONADE (6) Anemia Assessment/Plan: ON IRON MONITOR Code(s): D64.9 - ANEMIA, UNSPECIFIED (7) JR positive Assessment/Plan: ? SIGNIFICANCE RHEUMOTOLOGY CONSULT Code(s): R76.8 - OTHER SPECIFIED ABNORMAL IMMUNOLOGICAL FINDINGS IN SERUM Condition: Stable - Home Medications Comprehensive Discharge Medication List: Ambulatory Orders Amlodipine Bes/Olmesartan Med [Amlodipine-Olmesartan 10-20 mg] 1 each PO DAILY 01/08/17 Atorvastatin Ca [Lipitor] 10 mg PO HS 01/08/17 Levothyroxine [Synthroid -] 25 mcg PO DAILY 01/08/17 Metoprolol Tartrate [Lopressor -] 50 mg PO DAILY 01/08/17 Propafenone HCl [Propafenone HCl ER] 425 mg PO BID 01/08/17 Warfarin Na [Coumadin] 3 mg PO DAILY 01/08/17
[2017-01-14] MEDS: HEPARIN - 25,000 UNIT in SODIUM CHLORIDE 495 ML IV SCH (08:00)
[2017-01-14] MEDS ORDERED: HEPARIN NA (PORCINE) 5,000 UNITS/ML 1ML VIAL IVPUSH PRN ×2 (08:00)
[2017-01-14 08:26] LABS: INR 1.44 (0.82-1.09)
[2017-01-14] MEDS: LACTOBACILLUS ACIDOPHILUS 1 EACH TAB (FP) PO SCH (09:16)
[2017-01-14] MEDS: FERROUS SO4 325 MG TABLET (FP) PO SCH ×2 (09:16→22:31)
[2017-01-14] MEDS: METOPROLOL TARTRATE 50 MG TABLET (FP) PO SCH ×2 (09:16→22:31)
[2017-01-14] MEDS: POLYETHYLENE GLYCOL 3350 119 GM BTL PO SCH (09:21)
[2017-01-14] MEDS: RYTHMOL PO SCH ×2 (09:21→20:00)
[2017-01-14] MEDS ORDERED: HEPARIN NA (PORCINE) 5,000 UNITS/ML 1ML VIAL SQ SCH (10:00)
--- NOTE | 2017-01-14 11:02 | PN ---
Progress Note, Physician History of Present Illness: PULMONARY ALERT,COMFORTABLE, -RESP DISTRESS,-CP. +MONTEMAYOR - Current Medication List Current Medications: Active Medications Acetaminophen (Tylenol -) 650 mg PO Q6H PRN PRN Reason: FEVER OR PAIN Albuterol/Ipratropium (Duoneb -) 1 amp NEB Q6H PRN PRN Reason: SHORTNESS OF BREATH Ferrous Sulfate (Feosol -) 325 mg PO BID [facility] Last Admin: 01/14/17 09:16 Dose: 325 mg Guaifenesin (Robitussin -) 10 ml PO Q6H PRN PRN Reason: COUGH Heparin Sodium (Porcine) (Heparin -) 1,000 unit IVPUSH PRN PRN PRN Reason: Heparin Heparin Sodium (Porcine) (Heparin -) 5,000 unit IVPUSH PRN PRN PRN Reason: Heparin Heparin Sodium (Porcine) 25, (000 unit/ Sodium Chloride) 500 mls @ 16 mls/hr IV TITR MCKAYLA; 800 UNIT/HR PRN Reason: Protocol Last Admin: 01/14/17 08:00 Dose: 16 mls/hr Lactobacillus Acidophilus (Bacid -) 1 tab PO DAILY [facility] Last Admin: 01/14/17 09:16 Dose: 1 tab Metoprolol Tartrate (Lopressor -) 50 mg PO BID [facility] Last Admin: 01/14/17 09:16 Dose: 50 mg Non-Formulary Med Rythmol Sr ( Propafenone *Er*) 425 Mg Capsule 1 each PO Q12H [facility] Last Admin: 01/14/17 09:21 Dose: Not Given Polyethylene Glycol (Miralax (For Daily Use) -) 17 gm PO DAILY [facility] Last Admin: 01/14/17 09:21 Dose: Not Given Warfarin Sodium (Coumadin -) 3 mg PO DAILY@1800 [facility] - Objective Vital Signs: Vital Signs Temperature 98.2 F 01/14/17 02:00 Pulse Rate 96 H 01/14/17 06:00 Respiratory Rate 20 01/14/17 06:00 Blood Pressure 120/90 01/14/17 06:00 O2 Sat by Pulse Oximetry (%) 97 01/13/17 21:00 Constitutional: Yes: Well Nourished, Calm Eyes: Yes: WNL HENT: Yes: WNL Neck: Yes: Supple Cardiovascular: Yes: Pulse Irregular, S1, S2 Respiratory: Yes: CTA Bilaterally Gastrointestinal: Yes: WNL Extremities: Yes: WNL Edema: No Labs: CBC, BMP 01/14/17 05:35 01/14/17 05:35 INR, PTT INR 1.44 (0.82-1.09) H 01/14/17 05:35 Fibrinogen 462.0 mg/dL (238-498) 01/12/17 05:00 Assessment/Plan Problem List - Problems (1) Atrial fibrillation Code(s): I48.91 - UNSPECIFIED ATRIAL FIBRILLATION Qualifiers: Atrial fibrillation type: paroxysmal Qualified Code(s): I48.0 - Paroxysmal atrial fibrillation (2) Hypertension Code(s): I10 - ESSENTIAL (PRIMARY) HYPERTENSION Qualifiers: Hypertension type: essential hypertension Qualified Code(s): I10 - Essential (primary) hypertension (3) Pericardial effusion Code(s): I31.3 - PERICARDIAL EFFUSION (NONINFLAMMATORY) (4) Presence of permanent cardiac pacemaker Code(s): Z95.0 - PRESENCE OF CARDIAC PACEMAKER (5) Sick sinus syndrome Code(s): I49.5 - SICK SINUS SYNDROME (6) TIA (transient ischemic attack) Code(s): G45.9 - TRANSIENT CEREBRAL ISCHEMIC ATTACK, UNSPECIFIED Qualifiers: Transient cerebral ischemia type: unspecified Qualified Code(s): G45.9 - Transient cerebral ischemic attack, unspecified (7) Anemia Code(s): D64.9 - ANEMIA, UNSPECIFIED IMP 1. Large pericardial effusion s/p drainage 2. History of paroxysmal atrial fibrillation 3. History of sick sinus syndrome s/p post PPM 4. Acute renal failure, 5. History of hypertension 6. History of TIA/stroke 7. Anemia PLAN: 1.A/C with Heparin/Coumadin timing per thoracic surgery 2. Check cytology 3 PT 4 O2 prn [address] GREEN
--- NOTE | 2017-01-14 11:59 | PN ---
Progress Note (short form) - Note Progress Note: Renal Follow up for Acute Renal Failure Pt seen and examined at the bedside no acute complaints good urine output good oral intake Vital Signs Temperature 98.2 F 01/14/17 02:00 Pulse Rate 96 H 01/14/17 06:00 Respiratory Rate 20 01/14/17 06:00 Blood Pressure 120/90 01/14/17 06:00 O2 Sat by Pulse Oximetry (%) 97 01/13/17 21:00 Intake & Output 01/11/17 01/12/17 01/13/17 01/14/17 23:59 23:59 23:59 23:59 Intake Total 1740 850 310 240 Output Total 1145 1000 900 Balance 595 -150 -590 240 Weight 153 lb 8 oz 154 lb 156 lb Gen: NAD, awake and alert on NC CVS: RRR, No M/R Lungs: Dec BS at b/l lung bases Abd: Soft NT/ND Ext: No edema, clubbing or cyanosis : No bladder distension CBC, BMP 01/14/17 05:35 01/14/17 05:35 Laboratory Tests 01/14/17 05:35 Calcium 7.7 L Albumin 2.7 L Current Medications Acetaminophen (Tylenol -) 650 mg PO Q6H PRN PRN Reason: FEVER OR PAIN Albuterol/Ipratropium (Duoneb -) 1 amp NEB Q6H PRN PRN Reason: SHORTNESS OF BREATH Ferrous Sulfate (Feosol -) 325 mg PO BID [facility] Last Admin: 01/14/17 09:16 Dose: 325 mg Guaifenesin (Robitussin -) 10 ml PO Q6H PRN PRN Reason: COUGH Heparin Sodium (Porcine) (Heparin -) 1,000 unit IVPUSH PRN PRN PRN Reason: Heparin Heparin Sodium (Porcine) (Heparin -) 5,000 unit IVPUSH PRN PRN PRN Reason: Heparin Heparin Sodium (Porcine) 25, (000 unit/ Sodium Chloride) 500 mls @ 16 mls/hr IV TITR MCKAYLA; 800 UNIT/HR PRN Reason: Protocol Last Admin: 01/14/17 08:00 Dose: 16 mls/hr Lactobacillus Acidophilus (Bacid -) 1 tab PO DAILY [facility] Last Admin: 01/14/17 09:16 Dose: 1 tab Metoprolol Tartrate (Lopressor -) 50 mg PO BID [facility] Last Admin: 02/16/17 09:16 Dose: 50 mg Non-Formulary Med Rythmol Sr ( Propafenone *Er*) 425 Mg Capsule 1 each PO Q12H [facility] Last Admin: 01/14/17 09:21 Dose: Not Given Polyethylene Glycol (Miralax (For Daily Use) -) 17 gm PO DAILY [facility] Last Admin: 01/14/17 09:21 Dose: Not Given Warfarin Sodium (Coumadin -) 3 mg PO DAILY@1800 [facility] A/P 81 year old woman with PMhx of Hypertension, Afib on Coumadin who presented to the ED with complaints of SOB and Hx of diarrhea and found to be hypotensive, elevated INR, large pericardial effusion with JASVIR with BUN/Cr of 78/5. #Oliguric Acute Renal Failure JASVIR secondary to volume depletion No evidence of TMA (LDH/Hapto ok) Renal function improving continue oral intake of fluids as tolerated Repeat labs in 2-3 days as outpatient #Hypomagnesemia/Hypophosphatemia s/p Neutraphos Oral intake as tolerated ok for discharge from Renal POV, will need repeat labs and outpatient follow up Calvin Noble DO
--- NOTE | 2017-01-14 12:37 | PN ---
Progress Note, Physician History of Present Illness: Denies chest pain or dyspnea. - Current Medication List Current Medications: Active Medications Acetaminophen (Tylenol -) 650 mg PO Q6H PRN PRN Reason: FEVER OR PAIN Albuterol/Ipratropium (Duoneb -) 1 amp NEB Q6H PRN PRN Reason: SHORTNESS OF BREATH Ferrous Sulfate (Feosol -) 325 mg PO BID [facility] Last Admin: 01/14/17 09:16 Dose: 325 mg Guaifenesin (Robitussin -) 10 ml PO Q6H PRN PRN Reason: COUGH Heparin Sodium (Porcine) (Heparin -) 1,000 unit IVPUSH PRN PRN PRN Reason: Heparin Heparin Sodium (Porcine) (Heparin -) 5,000 unit IVPUSH PRN PRN PRN Reason: Heparin Heparin Sodium (Porcine) 25, (000 unit/ Sodium Chloride) 500 mls @ 16 mls/hr IV TITR MCKAYLA; 800 UNIT/HR PRN Reason: Protocol Last Admin: 01/14/17 08:00 Dose: 16 mls/hr Lactobacillus Acidophilus (Bacid -) 1 tab PO DAILY [facility] Last Admin: 01/14/17 09:16 Dose: 1 tab Metoprolol Tartrate (Lopressor -) 50 mg PO BID [facility] Last Admin: 01/14/17 09:16 Dose: 50 mg Non-Formulary Med Rythmol Sr ( Propafenone *Er*) 425 Mg Capsule 1 each PO Q12H [facility] Last Admin: 01/14/17 09:21 Dose: Not Given Polyethylene Glycol (Miralax (For Daily Use) -) 17 gm PO DAILY [facility] Last Admin: 01/14/17 09:21 Dose: Not Given Warfarin Sodium (Coumadin -) 3 mg PO DAILY@1800 [facility] - Objective Vital Signs: Vital Signs Temperature 98.2 F 01/14/17 02:00 Pulse Rate 96 H 01/14/17 06:00 Respiratory Rate 20 01/14/17 06:00 Blood Pressure 120/90 01/14/17 06:00 O2 Sat by Pulse Oximetry (%) 97 01/13/17 21:00 Constitutional: Yes: No Distress, Calm Neck: Yes: Supple Cardiovascular: Yes: Regular Rate and Rhythm Respiratory: Yes: Regular, Diminished Gastrointestinal: Yes: Normal Bowel Sounds, Soft Edema: No Labs: CBC, BMP 01/14/17 05:35 01/14/17 05:35 INR, PTT INR 1.44 (0.82-1.09) H 01/14/17 05:35 Fibrinogen 462.0 mg/dL (238-498) 01/12/17 05:00 - ....Imaging EKG: Report Reviewed (Tele: [facility]) Problem List - Problems (1) Atrial fibrillation Code(s): I48.91 - UNSPECIFIED ATRIAL FIBRILLATION Qualifiers: Atrial fibrillation type: paroxysmal Qualified Code(s): I48.0 - Paroxysmal atrial fibrillation (2) Hypertension Code(s): I10 - ESSENTIAL (PRIMARY) HYPERTENSION Qualifiers: Hypertension type: essential hypertension Qualified Code(s): I10 - Essential (primary) hypertension (3) Pericardial effusion Code(s): I31.3 - PERICARDIAL EFFUSION (NONINFLAMMATORY) (4) Presence of permanent cardiac pacemaker Code(s): Z95.0 - PRESENCE OF CARDIAC PACEMAKER (5) Sick sinus syndrome Code(s): I49.5 - SICK SINUS SYNDROME (6) TIA (transient ischemic attack) Code(s): G45.9 - TRANSIENT CEREBRAL ISCHEMIC ATTACK, UNSPECIFIED Qualifiers: Transient cerebral ischemia type: unspecified Qualified Code(s): G45.9 - Transient cerebral ischemic attack, unspecified (7) Anemia Code(s): D64.9 - ANEMIA, UNSPECIFIED Assessment/Plan Echocardiography repeat from yesterday revealed small amount of residual pericardial effusion, normal LV size and function Echocardiography revealed normal LV size and function mild MR, mild to moderate TR, mild to moderate degree of pulmonary HTN RVSP 40-50 mmHg, and large pericardial effusion 1. Large pericardial effusion with tamponade physiology, post drain insertion, resolved 2. History of paroxysmal atrial fibrillation on Coumadin ([id number] score of 6 ) subtherapeutic INR 3. History of sick sinus syndrome post PPM 4. Acute renal failure, resolved 5. History of hypertension, hypotension due to cardiac tamponade resolved 6. History of TIA/stroke 7. Anemia PLAN: 1. A/C with Heparin/Coumadin 2. Continue Propafenone ER 425 bid (home dose) 3. Continue Lopressor 50 bid and titrate dosage 4. Await fluid cytology
[2017-01-14] MEDS: WARFARIN NA 3 MG TABLET PO SCH (17:24)
[2017-01-15 08:21] LABS: MCH 31.6 pg (25.7-33.7); MCHC 33.5 g/dl (32.0-36.0); MEAN CELL VOLUME 94.3 fl (80-96); MEAN PLT VOLUME 7.4 fl (7.5-11.1); PLATELET COUNT 281 K/MM3 (134-434); RDW 13.5 % (11.6-15.6); WHITE BLOOD COUNT 7.5 K/mm3 (4.0-10.0)
[2017-01-15 08:29] LABS: INR 1.69 (0.82-1.09); PROTHROMBIN TIME (PATIENT) 18.8 SEC (9.98-11.88)
--- NOTE | 2017-01-15 08:44 | PN ---
Progress Note, Physician History of Present Illness: SOB TUBE REMOVED - Current Medication List Current Medications: Active Medications Acetaminophen (Tylenol -) 650 mg PO Q6H PRN PRN Reason: FEVER OR PAIN Albuterol/Ipratropium (Duoneb -) 1 amp NEB Q6H PRN PRN Reason: SHORTNESS OF BREATH Ferrous Sulfate (Feosol -) 325 mg PO BID [facility] Last Admin: 01/14/17 22:31 Dose: 325 mg Guaifenesin (Robitussin -) 10 ml PO Q6H PRN PRN Reason: COUGH Heparin Sodium (Porcine) (Heparin -) 1,000 unit IVPUSH PRN PRN PRN Reason: Heparin Heparin Sodium (Porcine) (Heparin -) 5,000 unit IVPUSH PRN PRN PRN Reason: Heparin Heparin Sodium (Porcine) 25, (000 unit/ Sodium Chloride) 500 mls @ 16 mls/hr IV TITR MCKAYLA; 800 UNIT/HR PRN Reason: Protocol Last Titration: 01/15/17 01:00 Dose: 1,050 unit/hr Lactobacillus Acidophilus (Bacid -) 1 tab PO DAILY [facility] Last Admin: 01/14/17 09:16 Dose: 1 tab Metoprolol Tartrate (Lopressor -) 50 mg PO BID [facility] Last Admin: 01/14/17 22:31 Dose: 50 mg Non-Formulary Med Rythmol Sr ( Propafenone *Er*) 425 Mg Capsule 1 each PO Q12H [facility] Last Admin: 01/14/17 20:00 Dose: 1 each Polyethylene Glycol (Miralax (For Daily Use) -) 17 gm PO DAILY [facility] Last Admin: 01/14/17 09:21 Dose: Not Given Warfarin Sodium (Coumadin -) 3 mg PO DAILY@1800 [facility] Last Admin: 01/14/17 17:24 Dose: 3 mg - Objective Vital Signs: Vital Signs Temperature 97.9 F 01/15/17 08:03 Pulse Rate 100 H 01/15/17 08:03 Respiratory Rate 18 01/15/17 08:03 Blood Pressure 123/74 01/15/17 08:03 O2 Sat by Pulse Oximetry (%) 95 01/15/17 06:00 Cardiovascular: Yes: S1, S2 Respiratory: Yes: Diminished, Rhonchi Gastrointestinal: Yes: Normal Bowel Sounds, Soft Labs: CBC, BMP 01/15/17 06:10 01/14/17 05:35 INR, PTT INR 1.69 (0.82-1.09) H 01/15/17 06:10 Fibrinogen 462.0 mg/dL (238-498) 01/12/17 05:00 Problem List - Problems (1) Acute kidney failure Assessment/Plan: RESOLVING S/P HD CR IMPROVING--1.1 MONITOR RENAL ON BOARD Code(s): N17.9 - ACUTE KIDNEY FAILURE, UNSPECIFIED (2) Atrial fibrillation Assessment/Plan: RESUME AC--ON COUMADIN--7.5 TODAY MEDS PER CARDIO Code(s): I48.91 - UNSPECIFIED ATRIAL FIBRILLATION Qualifiers: Atrial fibrillation type: paroxysmal Qualified Code(s): I48.0 - Paroxysmal atrial fibrillation (3) Coagulopathy Assessment/Plan: INR 1.3 Code(s): D68.9 - COAGULATION DEFECT, UNSPECIFIED (4) Hypotension Assessment/Plan: OFF LEVO MONITOR--STABLE NOW Code(s): I95.9 - HYPOTENSION, UNSPECIFIED Qualifiers: Hypotension type: other hypotension type Qualified Code(s): I95.89 - Other hypotension (5) Pericardial effusion with cardiac tamponade Assessment/Plan: S/P DRAINAGE--APROX 600 ECHO SMALL EFFUSION DRAIN REMOVED-- Code(s): I31.3 - PERICARDIAL EFFUSION (NONINFLAMMATORY) I31.4 - CARDIAC TAMPONADE (6) Anemia Assessment/Plan: ON IRON MONITOR Code(s): D64.9 - ANEMIA, UNSPECIFIED (7) JR positive Assessment/Plan: ? SIGNIFICANCE RHEUMOTOLOGY CONSULT Code(s): R76.8 - OTHER SPECIFIED ABNORMAL IMMUNOLOGICAL FINDINGS IN SERUM (8) SOB (shortness of breath) Assessment/Plan: CXR Code(s): R06.02 - SHORTNESS OF BREATH
[2017-01-15 08:50] LABS: URINE APPEARANCE CLEAR; URINE BILIRUBIN NEGATIVE (NEGATIVE); URINE BLOOD NEGATIVE (NEGATIVE); URINE COLOR STRAW; URINE GLUCOSE (UA) NEGATIVE (NEGATIVE); URINE KETONE NEGATIVE (NEGATIVE); URINE LEUK ESTERASE NEGATIVE (NEGATIVE); URINE NITRITE NEGATIVE (NEGATIVE); URINE PROTEIN NEGATIVE (NEGATIVE); URINE UROBILINOGEN NEGATIVE E.U./dl (0.2-1.0)
[2017-01-15] MEDS: HEPARIN - 25,000 UNIT in SODIUM CHLORIDE 495 ML IV SCH (10:04)
[2017-01-15] MEDS: METOPROLOL TARTRATE 50 MG TABLET (FP) PO SCH ×2 (10:04→21:09)
[2017-01-15] MEDS: FERROUS SO4 325 MG TABLET (FP) PO SCH ×2 (10:04→21:09)
[2017-01-15] MEDS: LACTOBACILLUS ACIDOPHILUS 1 EACH TAB (FP) PO SCH (10:04)
[2017-01-15] MEDS: RYTHMOL PO SCH ×2 (10:05→20:05)
[2017-01-15] MEDS: POLYETHYLENE GLYCOL 3350 119 GM BTL PO SCH (10:08)
--- NOTE | 2017-01-15 11:12 | PN ---
Progress Note (short form) - Note Progress Note: PULMONARY AWAKE/ALERT/AFEBRILE WANTS TO GO HOME VSS ANICTERIC DIMINISHED BREATH SOUNDS BASES S1S2 BS+ LESS EDEMA LABS/MEDS/NOTES IMAGING/MICRO REVIEWED INR 1.6 Pericardial Effusion with Cardiac Tamponade s/p chest tube placement now removed Cardiogenic Shock resolved Acute Kidney Injury requiring HD now normal h/o TIA Anemia SSS s/p PPM - anticoagulation/target 2.5 - PO as tolerated - OOB to chair - DVT prophylaxis - rehab/PT - can monitor on telemetry Gunner RANDHAWA MD
--- NOTE | 2017-01-15 12:32 | PN ---
Progress Note (short form) - Note Progress Note: Renal Follow up for Acute Renal Failure Pt seen and examined at the bedside no acute complaints nurse reported some my MONTEMAYOR this am, will check pre and post O2 sat denies any CP or sob. No N/V/D Vital Signs Temperature 97.9 F 01/15/17 08:03 Pulse Rate 89 01/15/17 11:31 Respiratory Rate 18 01/15/17 08:03 Blood Pressure 123/74 01/15/17 08:03 O2 Sat by Pulse Oximetry (%) 93 L 01/15/17 11:31 Intake & Output 01/12/17 01/13/17 01/14/17 01/15/17 23:59 23:59 23:59 23:59 Intake Total 850 310 540 480 Output Total 1000 900 0 Balance -150 -590 540 480 Weight 154 lb 156 lb 148 lb 12.8 oz Gen: NAD, awake and alert on NC CVS: RRR, No M/R Lungs: Dec BS at b/l lung bases Abd: Soft NT/ND Ext: No edema, clubbing or cyanosis : No bladder distension CBC, BMP 01/15/17 06:10 01/14/17 05:35 Current Medications Acetaminophen (Tylenol -) 650 mg PO Q6H PRN PRN Reason: FEVER OR PAIN Albuterol/Ipratropium (Duoneb -) 1 amp NEB Q6H PRN PRN Reason: SHORTNESS OF BREATH Ferrous Sulfate (Feosol -) 325 mg PO BID [facility] Last Admin: 01/15/17 10:04 Dose: 325 mg Guaifenesin (Robitussin -) 10 ml PO Q6H PRN PRN Reason: COUGH Heparin Sodium (Porcine) (Heparin -) 1,000 unit IVPUSH PRN PRN PRN Reason: Heparin Heparin Sodium (Porcine) (Heparin -) 5,000 unit IVPUSH PRN PRN PRN Reason: Heparin Heparin Sodium (Porcine) 25, (000 unit/ Sodium Chloride) 500 mls @ 16 mls/hr IV TITR MCKAYLA; 800 UNIT/HR PRN Reason: Protocol Last Admin: 01/15/17 10:04 Dose: 21 mls/hr Lactobacillus Acidophilus (Bacid -) 1 tab PO DAILY [facility] Last Admin: 01/15/17 10:04 Dose: 1 tab Metoprolol Tartrate (Lopressor -) 50 mg PO BID [facility] Last Admin: 01/15/17 10:04 Dose: 50 mg Non-Formulary Med Rythmol Sr ( Propafenone *Er*) 425 Mg Capsule 1 each PO Q12H [facility] Last Admin: 01/15/17 10:05 Dose: Not Given Polyethylene Glycol (Miralax (For Daily Use) -) 17 gm PO DAILY [facility] Last Admin: 01/15/17 10:08 Dose: Not Given Warfarin Sodium (Coumadin -) 3 mg PO DAILY@1800 [facility] Last Admin: 01/14/17 17:24 Dose: 3 mg A/P 81 year old woman with PMhx of Hypertension, Afib on Coumadin who presented to the ED with complaints of SOB and Hx of diarrhea and found to be hypotensive, elevated INR, large pericardial effusion with JASVIR with BUN/Cr of 78/5. #Oliguric Acute Renal Failure JASVIR secondary to volume depletion Renal function improving and stable Repeat BMP as an outpaient on discharge #Hypomagnesemia/Hypophosphatemia no PHos level recorded today, will add it on #Afib on Heparin A/C while coumadin < 2 ok for discharge from Renal POV, will need repeat labs and outpatient follow up Calvin Noble DO
--- NOTE | 2017-01-15 15:00 | PN ---
Progress Note, Physician History of Present Illness: Denies chest pain or dyspnea. - Current Medication List Current Medications: Active Medications Acetaminophen (Tylenol -) 650 mg PO Q6H PRN PRN Reason: FEVER OR PAIN Albuterol/Ipratropium (Duoneb -) 1 amp NEB Q6H PRN PRN Reason: SHORTNESS OF BREATH Ferrous Sulfate (Feosol -) 325 mg PO BID [facility] Last Admin: 01/15/17 10:04 Dose: 325 mg Guaifenesin (Robitussin -) 10 ml PO Q6H PRN PRN Reason: COUGH Heparin Sodium (Porcine) (Heparin -) 1,000 unit IVPUSH PRN PRN PRN Reason: Heparin Heparin Sodium (Porcine) (Heparin -) 5,000 unit IVPUSH PRN PRN PRN Reason: Heparin Heparin Sodium (Porcine) 25, (000 unit/ Sodium Chloride) 500 mls @ 16 mls/hr IV TITR MCKAYLA; 800 UNIT/HR PRN Reason: Protocol Last Admin: 01/15/17 10:04 Dose: 21 mls/hr Lactobacillus Acidophilus (Bacid -) 1 tab PO DAILY [facility] Last Admin: 01/15/17 10:04 Dose: 1 tab Metoprolol Tartrate (Lopressor -) 50 mg PO BID [facility] Last Admin: 01/15/17 10:04 Dose: 50 mg Non-Formulary Med Rythmol Sr ( Propafenone *Er*) 425 Mg Capsule 1 each PO Q12H [facility] Last Admin: 01/15/17 10:05 Dose: Not Given Polyethylene Glycol (Miralax (For Daily Use) -) 17 gm PO DAILY [facility] Last Admin: 01/15/17 10:08 Dose: Not Given Warfarin Sodium (Coumadin -) 3 mg PO DAILY@1800 [facility] Last Admin: 01/14/17 17:24 Dose: 3 mg - Objective Vital Signs: Vital Signs Temperature 97.9 F 01/15/17 08:03 Pulse Rate 89 01/15/17 11:31 Respiratory Rate 18 01/15/17 08:03 Blood Pressure 123/74 01/15/17 08:03 O2 Sat by Pulse Oximetry (%) 93 L 01/15/17 11:31 Constitutional: Yes: No Distress, Calm Neck: Yes: Supple Cardiovascular: Yes: Pulse Irregular Respiratory: Yes: Regular, Diminished Gastrointestinal: Yes: Normal Bowel Sounds, Soft Edema: No Labs: CBC, BMP 01/15/17 06:10 01/14/17 05:35 INR, PTT INR 1.69 (0.82-1.09) H 01/15/17 06:10 Fibrinogen 462.0 mg/dL (238-498) 01/12/17 05:00 - ....Imaging EKG: Report Reviewed (Afib) Problem List - Problems (1) Atrial fibrillation Code(s): I48.91 - UNSPECIFIED ATRIAL FIBRILLATION Qualifiers: Atrial fibrillation type: paroxysmal Qualified Code(s): I48.0 - Paroxysmal atrial fibrillation (2) Hypertension Code(s): I10 - ESSENTIAL (PRIMARY) HYPERTENSION Qualifiers: Hypertension type: essential hypertension Qualified Code(s): I10 - Essential (primary) hypertension (3) Pericardial effusion Code(s): I31.3 - PERICARDIAL EFFUSION (NONINFLAMMATORY) (4) Presence of permanent cardiac pacemaker Code(s): Z95.0 - PRESENCE OF CARDIAC PACEMAKER (5) Sick sinus syndrome Code(s): I49.5 - SICK SINUS SYNDROME (6) TIA (transient ischemic attack) Code(s): G45.9 - TRANSIENT CEREBRAL ISCHEMIC ATTACK, UNSPECIFIED Qualifiers: Transient cerebral ischemia type: unspecified Qualified Code(s): G45.9 - Transient cerebral ischemic attack, unspecified (7) Anemia Code(s): D64.9 - ANEMIA, UNSPECIFIED Assessment/Plan Echocardiography repeat from yesterday revealed small amount of residual pericardial effusion, normal LV size and function Echocardiography revealed normal LV size and function mild MR, mild to moderate TR, mild to moderate degree of pulmonary HTN RVSP 40-50 mmHg, and large pericardial effusion 1. Large pericardial effusion with tamponade physiology, post drain insertion, resolved 2. History of paroxysmal atrial fibrillation on Coumadin ([id number] score of 6 ) subtherapeutic INR 3. History of sick sinus syndrome post PPM 4. Acute renal failure, resolved 5. History of hypertension, hypotension due to cardiac tamponade resolved 6. History of TIA/stroke 7. Anemia PLAN: 1. A/C with Heparin/Coumadin 2. Continue Propafenone ER 425 bid (home dose) 3. Continue Lopressor 50 bid and titrate dosage 4. Await fluid cytology
[2017-01-15] MEDS: WARFARIN NA 3 MG TABLET PO SCH (17:34)
[2017-01-16 08:09] LABS: MCH 31.5 pg (25.7-33.7); MEAN CELL VOLUME 95.3 fl (80-96); MEAN PLT VOLUME 7.4 fl (7.5-11.1); PLATELET COUNT 270 K/MM3 (134-434); RDW 13.4 % (11.6-15.6); WHITE BLOOD COUNT 7.4 K/mm3 (4.0-10.0)
[2017-01-16 08:31] LABS: INR 1.85 (0.82-1.09); PROTHROMBIN TIME (PATIENT) 20.6 SEC (9.98-11.88)
[2017-01-16] MEDS: LACTOBACILLUS ACIDOPHILUS 1 EACH TAB (FP) PO SCH (09:08)
[2017-01-16] MEDS: FERROUS SO4 325 MG TABLET (FP) PO SCH ×2 (09:08→22:53)
[2017-01-16] MEDS: POLYETHYLENE GLYCOL 3350 119 GM BTL PO SCH (09:08)
[2017-01-16] MEDS: METOPROLOL TARTRATE 50 MG TABLET (FP) PO SCH ×2 (09:08→22:53)
[2017-01-16] MEDS: RYTHMOL PO SCH ×2 (09:09→22:53)
[2017-01-16] MEDS: HEPARIN - 25,000 UNIT in SODIUM CHLORIDE 495 ML IV SCH ×2 (09:36→17:03)
--- NOTE | 2017-01-16 10:43 | PN ---
Progress Note, Physician - Current Medication List Current Medications: Active Medications Acetaminophen (Tylenol -) 650 mg PO Q6H PRN PRN Reason: FEVER OR PAIN Albuterol/Ipratropium (Duoneb -) 1 amp NEB Q6H PRN PRN Reason: SHORTNESS OF BREATH Ferrous Sulfate (Feosol -) 325 mg PO BID [facility] Last Admin: 01/16/17 09:08 Dose: 325 mg Guaifenesin (Robitussin -) 10 ml PO Q6H PRN PRN Reason: COUGH Heparin Sodium (Porcine) (Heparin -) 1,000 unit IVPUSH PRN PRN PRN Reason: Heparin Heparin Sodium (Porcine) (Heparin -) 5,000 unit IVPUSH PRN PRN PRN Reason: Heparin Heparin Sodium (Porcine) 25, (000 unit/ Sodium Chloride) 500 mls @ 16 mls/hr IV TITR MCKAYLA; 800 UNIT/HR PRN Reason: Protocol Last Admin: 01/16/17 09:36 Dose: 21 mls/hr Lactobacillus Acidophilus (Bacid -) 1 tab PO DAILY [facility] Last Admin: 01/16/17 09:08 Dose: 1 tab Metoprolol Tartrate (Lopressor -) 50 mg PO BID [facility] Last Admin: 01/16/17 09:08 Dose: 50 mg Non-Formulary Med Rythmol Sr ( Propafenone *Er*) 425 Mg Capsule 1 each PO Q12H [facility] Last Admin: 01/16/17 09:09 Dose: Not Given Polyethylene Glycol (Miralax (For Daily Use) -) 17 gm PO DAILY [facility] Last Admin: 01/16/17 09:08 Dose: Not Given Warfarin Sodium (Coumadin -) 3 mg PO DAILY@1800 [facility] Last Admin: 01/15/17 17:34 Dose: 3 mg - Objective Vital Signs: Vital Signs Temperature 97.5 F L 01/16/17 06:00 Pulse Rate 104 H 01/16/17 06:00 Respiratory Rate 20 01/16/17 08:00 Blood Pressure 132/89 01/16/17 06:00 O2 Sat by Pulse Oximetry (%) 92 L 01/16/17 08:00 Cardiovascular: Yes: WNL Respiratory: Yes: WNL Gastrointestinal: Yes: WNL Labs: CBC, BMP 01/16/17 05:45 01/14/17 05:35 INR, PTT INR 1.85 (0.82-1.09) H 01/16/17 05:45 Fibrinogen 462.0 mg/dL (238-498) 01/12/17 05:00 Problem List - Problems (1) Acute kidney failure Code(s): N17.9 - ACUTE KIDNEY FAILURE, UNSPECIFIED (2) Atrial fibrillation Code(s): I48.91 - UNSPECIFIED ATRIAL FIBRILLATION Qualifiers: Atrial fibrillation type: paroxysmal Qualified Code(s): I48.0 - Paroxysmal atrial fibrillation (3) Coagulopathy Code(s): D68.9 - COAGULATION DEFECT, UNSPECIFIED (4) Hypertension Code(s): I10 - ESSENTIAL (PRIMARY) HYPERTENSION Qualifiers: Hypertension type: essential hypertension Qualified Code(s): I10 - Essential (primary) hypertension (5) Pericardial effusion Code(s): I31.3 - PERICARDIAL EFFUSION (NONINFLAMMATORY) Assessment/Plan (1) Acute kidney failure Assessment/Plan: RESOLVING S/P HD CR IMPROVING--1.1 MONITOR RENAL ON BOARD Code(s): N17.9 - ACUTE KIDNEY FAILURE, UNSPECIFIED (2) Atrial fibrillation Assessment/Plan: RESUME AC--ON COUMADIN--7.5 TODAY MEDS PER CARDIO Code(s): I48.91 - UNSPECIFIED ATRIAL FIBRILLATION Qualifiers: Atrial fibrillation type: paroxysmal Qualified Code(s): I48.0 - Paroxysmal atrial fibrillation (3) Coagulopathy Assessment/Plan: INR 1.3 Code(s): D68.9 - COAGULATION DEFECT, UNSPECIFIED (4) Hypotension Assessment/Plan: OFF LEVO MONITOR--STABLE NOW Code(s): I95.9 - HYPOTENSION, UNSPECIFIED Qualifiers: Hypotension type: other hypotension type Qualified Code(s): I95.89 - Other hypotension (5) Pericardial effusion with cardiac tamponade Assessment/Plan: S/P DRAINAGE--APROX 600 ECHO SMALL EFFUSION DRAIN REMOVED-- Code(s): I31.3 - PERICARDIAL EFFUSION (NONINFLAMMATORY) I31.4 - CARDIAC TAMPONADE (6) Anemia Assessment/Plan: ON IRON MONITOR Code(s): D64.9 - ANEMIA, UNSPECIFIED (7) JR positive Assessment/Plan: ? SIGNIFICANCE RHEUMOTOLOGY CONSULT Code(s): R76.8 - OTHER SPECIFIED ABNORMAL IMMUNOLOGICAL FINDINGS IN SERUM (8) SOB (shortness of breath) Assessment/Plan: CXR Code(s): R06.02 - SHORTNESS OF BREATH PASTOR BRYAN
--- NOTE | 2017-01-16 11:26 | PN ---
Progress Note (short form) - Note Progress Note: PULMONARY AWAKE/ALERT/AFEBRILE WANTS TO GO HOME VSS ANICTERIC DIMINISHED BREATH SOUNDS BASES S1S2 BS+ LESS EDEMA LABS/MEDS/NOTES IMAGING/MICRO REVIEWED INR 1.8 Pericardial Effusion with Cardiac Tamponade s/p chest tube placement now removed Cardiogenic Shock resolved Acute Kidney Injury requiring HD now normal h/o TIA Anemia SSS s/p PPM - anticoagulation/target 2.5 - PO as tolerated - OOB to chair - DVT prophylaxis - rehab/PT - can monitor on telemetry Gunner RANDHAWA MD
--- NOTE | 2017-01-16 12:28 | PN ---
Progress Note (short form) - Note Progress Note: Renal Follow up for Acute Renal Failure Pt seen and examined at the bedside no acute complaints Vital Signs Temperature 97.5 F L 01/16/17 06:00 Pulse Rate 104 H 01/16/17 06:00 Respiratory Rate 20 01/16/17 08:00 Blood Pressure 132/89 01/16/17 06:00 O2 Sat by Pulse Oximetry (%) 92 L 01/16/17 08:00 Intake & Output 01/13/17 01/14/17 01/15/17 01/16/17 23:59 23:59 23:59 23:59 Intake Total 310 540 720 791 Output Total 900 0 0 Balance -590 540 720 791 Weight 156 lb 148 lb 12.8 oz 158 lb 8 oz Gen: NAD, awake and alert on NC CVS: RRR, No M/R Lungs: Dec BS at b/l lung bases Abd: Soft NT/ND Ext: No edema, clubbing or cyanosis : No bladder distension CBC, BMP 01/16/17 05:45 01/14/17 05:35 Laboratory Tests 01/14/17 05:35 Calcium 7.7 L Albumin 2.7 L Current Medications Acetaminophen (Tylenol -) 650 mg PO Q6H PRN PRN Reason: FEVER OR PAIN Albuterol/Ipratropium (Duoneb -) 1 amp NEB Q6H PRN PRN Reason: SHORTNESS OF BREATH Ferrous Sulfate (Feosol -) 325 mg PO BID [facility] Last Admin: 01/16/17 09:08 Dose: 325 mg Guaifenesin (Robitussin -) 10 ml PO Q6H PRN PRN Reason: COUGH Heparin Sodium (Porcine) (Heparin -) 1,000 unit IVPUSH PRN PRN PRN Reason: Heparin Heparin Sodium (Porcine) (Heparin -) 5,000 unit IVPUSH PRN PRN PRN Reason: Heparin Heparin Sodium (Porcine) 25, (000 unit/ Sodium Chloride) 500 mls @ 16 mls/hr IV TITR MCKAYLA; 800 UNIT/HR PRN Reason: Protocol Last Admin: 01/16/17 09:36 Dose: 21 mls/hr Lactobacillus Acidophilus (Bacid -) 1 tab PO DAILY [facility] Last Admin: 01/16/17 09:08 Dose: 1 tab Metoprolol Tartrate (Lopressor -) 50 mg PO BID [facility] Last Admin: 01/16/17 09:08 Dose: 50 mg Non-Formulary Med Rythmol Sr ( Propafenone *Er*) 425 Mg Capsule 1 each PO Q12H [facility] Last Admin: 01/16/17 09:09 Dose: Not Given Polyethylene Glycol (Miralax (For Daily Use) -) 17 gm PO DAILY [facility] Last Admin: 01/16/17 09:08 Dose: Not Given Warfarin Sodium (Coumadin -) 3 mg PO DAILY@1800 [facility] Last Admin: 01/15/17 17:34 Dose: 3 mg A/P 81 year old woman with PMhx of Hypertension, Afib on Coumadin who presented to the ED with complaints of SOB and Hx of diarrhea and found to be hypotensive, elevated INR, large pericardial effusion with JASVIR with BUN/Cr of 78/5. #Oliguric Acute Renal Failure JASVIR secondary to volume depletion Renal function improving and stable advised to maintain good oral fluid intake and to avoid nsaid and other nephrotoxins on discharge pending repeat blood work #Hypomagnesemia/Hypophosphatemia no PHos level recorded today, will add it on #Afib on Heparin A/C while coumadin < 2 ok for discharge from Renal POV, will need repeat labs and outpatient follow up Calvin Noble DO
--- NOTE | 2017-01-16 14:17 | PN ---
Progress Note, Physician Chief Complaint: Events noted Not in distress History of Present Illness: Patient was seen and examined. Awake and alert. Chart was reviewed Denies chest pain, SOB or papitations and feels comfortable. - Current Medication List Current Medications: Active Medications Acetaminophen (Tylenol -) 650 mg PO Q6H PRN PRN Reason: FEVER OR PAIN Albuterol/Ipratropium (Duoneb -) 1 amp NEB Q6H PRN PRN Reason: SHORTNESS OF BREATH Ferrous Sulfate (Feosol -) 325 mg PO BID [facility] Last Admin: 01/16/17 09:08 Dose: 325 mg Guaifenesin (Robitussin -) 10 ml PO Q6H PRN PRN Reason: COUGH Heparin Sodium (Porcine) (Heparin -) 1,000 unit IVPUSH PRN PRN PRN Reason: Heparin Heparin Sodium (Porcine) (Heparin -) 5,000 unit IVPUSH PRN PRN PRN Reason: Heparin Heparin Sodium (Porcine) 25, (000 unit/ Sodium Chloride) 500 mls @ 16 mls/hr IV TITR MCKAYLA; 800 UNIT/HR PRN Reason: Protocol Last Admin: 01/16/17 09:36 Dose: 21 mls/hr Lactobacillus Acidophilus (Bacid -) 1 tab PO DAILY [facility] Last Admin: 01/16/17 09:08 Dose: 1 tab Metoprolol Tartrate (Lopressor -) 50 mg PO BID [facility] Last Admin: 01/16/17 09:08 Dose: 50 mg Non-Formulary Med Rythmol Sr ( Propafenone *Er*) 425 Mg Capsule 1 each PO Q12H [facility] Last Admin: 01/16/17 09:09 Dose: Not Given Polyethylene Glycol (Miralax (For Daily Use) -) 17 gm PO DAILY [facility] Last Admin: 01/16/17 09:08 Dose: Not Given Warfarin Sodium (Coumadin -) 3 mg PO DAILY@1800 [facility] Last Admin: 01/15/17 17:34 Dose: 3 mg - Objective Vital Signs: Vital Signs Temperature 97.5 F L 01/16/17 06:00 Pulse Rate 104 H 01/16/17 06:00 Respiratory Rate 20 01/16/17 08:00 Blood Pressure 132/89 01/16/17 06:00 O2 Sat by Pulse Oximetry (%) 92 L 01/16/17 08:00 Neck: Yes: Supple Cardiovascular: Yes: Pulse Irregular, S1, S2 Respiratory: Yes: Diminished Gastrointestinal: Yes: Normal Bowel Sounds, Soft. No: Tenderness Edema: No Additional Findings/Remarks: - Review of Systems Constitutional: denies: Chills, Fever Cardiovascular: (+) Shortness of Breath - improved. denies: Chest Pain, Palpitations Respiratory: (+) SOB. denies: Cough, Hemoptysis, Orthopnea, PND Gastrointestinal: denies: Nausea. denies: Abdominal Pain, Constipation, (+) Diarrhea, denies: Melena, Rectal Bleeding, Vomiting Neurological: denies: Dizziness, Headache, Seizure, Syncope Labs: CBC, BMP 01/16/17 05:45 01/14/17 05:35 INR, PTT INR 1.85 (0.82-1.09) H 01/16/17 05:45 Fibrinogen 462.0 mg/dL (238-498) 01/12/17 05:00 Problem List - Problems (1) Renal failure Code(s): N19 - UNSPECIFIED KIDNEY FAILURE (2) Pericardial effusion with cardiac tamponade Code(s): I31.3 - PERICARDIAL EFFUSION (NONINFLAMMATORY) I31.4 - CARDIAC TAMPONADE (3) Atrial fibrillation Code(s): I48.91 - UNSPECIFIED ATRIAL FIBRILLATION Qualifiers: Atrial fibrillation type: paroxysmal Qualified Code(s): I48.0 - Paroxysmal atrial fibrillation (4) Hypertension Code(s): I10 - ESSENTIAL (PRIMARY) HYPERTENSION Qualifiers: Hypertension type: essential hypertension Qualified Code(s): I10 - Essential (primary) hypertension (5) Hypotension Code(s): I95.9 - HYPOTENSION, UNSPECIFIED Qualifiers: Hypotension type: other hypotension type Qualified Code(s): I95.89 - Other hypotension (6) Sick sinus syndrome Code(s): I49.5 - SICK SINUS SYNDROME (7) Presence of permanent cardiac pacemaker Code(s): Z95.0 - PRESENCE OF CARDIAC PACEMAKER (8) TIA (transient ischemic attack) Code(s): G45.9 - TRANSIENT CEREBRAL ISCHEMIC ATTACK, UNSPECIFIED Qualifiers: Transient cerebral ischemia type: unspecified Qualified Code(s): G45.9 - Transient cerebral ischemic attack, unspecified Assessment/Plan 1. Large pericardial effusion - hemopericardium post tamponade s/p pericardial drain now removed - pericardial effusion resolved 2. Post acute renal failure with initial lactic acidosis HD one time - now improved creatinine 2. History of sick sinus syndrome S/P PPM 3. History of paroxysmal atrial fibrillation on Coumadin ([id number] score of 6 -7) - persistent AF with variable ventricular response 4. History of hypertension 5. History of TIA/stroke 6. Recent diarrheal disease - resolved - resulting in possible pericarditis with supratherpeutic INR PLAN: 1. Repeat transthoracic echocardiography to assess pericardial effusion - can be done again as outpatient 2. Continue Metoprolol. Continue Propafanone as tolerated. 3. Heparin protocol. Coumadin as per INR Clinically improved. Further plans are to follow Cooper Hickey MD
[2017-01-16] MEDS: WARFARIN NA 3 MG TABLET PO SCH (17:03)
[2017-01-17 08:34] LABS: MCH 31.6 pg (25.7-33.7); MCHC 33.5 g/dl (32.0-36.0); MEAN CELL VOLUME 94.3 fl (80-96); MEAN PLT VOLUME 7.6 fl (7.5-11.1); PLATELET COUNT 274 K/MM3 (134-434); RDW 13.3 % (11.6-15.6); WHITE BLOOD COUNT 7.6 K/mm3 (4.0-10.0)
[2017-01-17 08:49] LABS: INR 1.88 (0.82-1.09)
[2017-01-17] MEDS ORDERED: WARFARIN NA 3 MG TABLET PO SCH (08:58)
[2017-01-17 08:59] LABS: ALBUMIN 2.9 g/dl (3.4-5.0)
--- NOTE | 2017-01-17 09:00 | PN ---
Progress Note, Physician - Current Medication List Current Medications: Active Medications Acetaminophen (Tylenol -) 650 mg PO Q6H PRN PRN Reason: FEVER OR PAIN Last Admin: 01/16/17 17:02 Dose: 650 mg Albuterol/Ipratropium (Duoneb -) 1 amp NEB Q6H PRN PRN Reason: SHORTNESS OF BREATH Ferrous Sulfate (Feosol -) 325 mg PO BID [facility] Last Admin: 01/16/17 22:53 Dose: 325 mg Guaifenesin (Robitussin -) 10 ml PO Q6H PRN PRN Reason: COUGH Heparin Sodium (Porcine) (Heparin -) 1,000 unit IVPUSH PRN PRN PRN Reason: Heparin Heparin Sodium (Porcine) (Heparin -) 5,000 unit IVPUSH PRN PRN PRN Reason: Heparin Heparin Sodium (Porcine) 25, (000 unit/ Sodium Chloride) 500 mls @ 16 mls/hr IV TITR MCKAYLA; 800 UNIT/HR PRN Reason: Protocol Last Admin: 01/16/17 17:03 Dose: 21 mls/hr Lactobacillus Acidophilus (Bacid -) 1 tab PO DAILY [facility] Last Admin: 01/16/17 09:08 Dose: 1 tab Metoprolol Tartrate (Lopressor -) 50 mg PO BID [facility] Last Admin: 01/16/17 22:53 Dose: 50 mg Non-Formulary Med Rythmol Sr ( Propafenone *Er*) 425 Mg Capsule 1 each PO Q12H [facility] Last Admin: 01/16/17 22:53 Dose: 1 each Polyethylene Glycol (Miralax (For Daily Use) -) 17 gm PO DAILY [facility] Last Admin: 01/16/17 09:08 Dose: Not Given Warfarin Sodium (Coumadin -) 3 mg PO DAILY@1800 [facility] Last Admin: 01/16/17 17:03 Dose: 3 mg - Objective Vital Signs: Vital Signs Temperature 98.1 F 01/17/17 02:01 Pulse Rate 120 H 01/17/17 08:23 Respiratory Rate 20 01/17/17 08:23 Blood Pressure 140/84 01/17/17 08:23 O2 Sat by Pulse Oximetry (%) 96 01/16/17 20:34 Cardiovascular: Yes: WNL Respiratory: Yes: WNL Gastrointestinal: Yes: WNL Edema: No Labs: CBC, BMP 01/17/17 05:45 INR, PTT INR 1.88 (0.82-1.09) H 01/17/17 05:45 Fibrinogen 462.0 mg/dL (238-498) 01/12/17 05:00 Problem List - Problems (1) Acute kidney failure Code(s): N17.9 - ACUTE KIDNEY FAILURE, UNSPECIFIED (2) Atrial fibrillation Code(s): I48.91 - UNSPECIFIED ATRIAL FIBRILLATION Qualifiers: Atrial fibrillation type: paroxysmal Qualified Code(s): I48.0 - Paroxysmal atrial fibrillation (3) Coagulopathy Code(s): D68.9 - COAGULATION DEFECT, UNSPECIFIED (4) Hypertension Code(s): I10 - ESSENTIAL (PRIMARY) HYPERTENSION Qualifiers: Hypertension type: essential hypertension Qualified Code(s): I10 - Essential (primary) hypertension (5) Pericardial effusion Code(s): I31.3 - PERICARDIAL EFFUSION (NONINFLAMMATORY) Assessment/Plan (1) Acute kidney failure Assessment/Plan: RESOLVING S/P HD CR IMPROVING -> F/U MONITOR RENAL ON BOARD Code(s): N17.9 - ACUTE KIDNEY FAILURE, UNSPECIFIED (2) Atrial fibrillation Assessment/Plan: RESUME AC--ON COUMADIN -> INCed TO 3.5mg MEDS PER CARDIO Code(s): I48.91 - UNSPECIFIED ATRIAL FIBRILLATION Qualifiers: Atrial fibrillation type: paroxysmal Qualified Code(s): I48.0 - Paroxysmal atrial fibrillation (3) Coagulopathy Assessment/Plan: INR Code(s): D68.9 - COAGULATION DEFECT, UNSPECIFIED (4) Hypotension Assessment/Plan: OFF LEVO MONITOR--STABLE NOW Code(s): I95.9 - HYPOTENSION, UNSPECIFIED Qualifiers: Hypotension type: other hypotension type Qualified Code(s): I95.89 - Other hypotension (5) Pericardial effusion with cardiac tamponade Assessment/Plan: S/P DRAINAGE--APROX 600 ECHO SMALL EFFUSION DRAIN REMOVED REPEAT ECHO DO BE DONE OUTPT Code(s): I31.3 - PERICARDIAL EFFUSION (NONINFLAMMATORY) I31.4 - CARDIAC TAMPONADE (6) Anemia Assessment/Plan: ON IRON MONITOR Code(s): D64.9 - ANEMIA, UNSPECIFIED (7) JR positive Assessment/Plan: ? 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
[2017-01-17 09:03] LABS: BILIRUBIN,TOTAL 0.3 mg/dL (0.2-1.0); TOT PROT 6.3 g/dl (6.4-8.2)
[2017-01-17] MEDS: LACTOBACILLUS ACIDOPHILUS 1 EACH TAB (FP) PO SCH (09:25)
[2017-01-17] MEDS: FERROUS SO4 325 MG TABLET (FP) PO SCH ×2 (09:26→21:05)
[2017-01-17] MEDS: METOPROLOL TARTRATE 50 MG TABLET (FP) PO SCH ×3 (09:26→21:06)
--- NOTE | 2017-01-17 09:51 | PN ---
Progress Note, Physician Chief Complaint: Events noted Not in distress History of Present Illness: Patient was seen and examined. Awake and alert. Chart was reviewed Denies chest pain, SOB or papitations - Current Medication List Current Medications: Active Medications Acetaminophen (Tylenol -) 650 mg PO Q6H PRN PRN Reason: FEVER OR PAIN Last Admin: 01/16/17 17:02 Dose: 650 mg Albuterol/Ipratropium (Duoneb -) 1 amp NEB Q6H PRN PRN Reason: SHORTNESS OF BREATH Ferrous Sulfate (Feosol -) 325 mg PO BID [facility] Last Admin: 01/17/17 09:26 Dose: 325 mg Guaifenesin (Robitussin -) 10 ml PO Q6H PRN PRN Reason: COUGH Heparin Sodium (Porcine) (Heparin -) 1,000 unit IVPUSH PRN PRN PRN Reason: Heparin Heparin Sodium (Porcine) (Heparin -) 5,000 unit IVPUSH PRN PRN PRN Reason: Heparin Heparin Sodium (Porcine) 25, (000 unit/ Sodium Chloride) 500 mls @ 16 mls/hr IV TITR MCKAYLA; 800 UNIT/HR PRN Reason: Protocol Last Admin: 01/16/17 17:03 Dose: 21 mls/hr Lactobacillus Acidophilus (Bacid -) 1 tab PO DAILY [facility] Last Admin: 01/17/17 09:25 Dose: 1 tab Metoprolol Tartrate (Lopressor -) 50 mg PO BID [facility] Last Admin: 01/17/17 09:26 Dose: 50 mg Non-Formulary Med Rythmol Sr ( Propafenone *Er*) 425 Mg Capsule 1 each PO Q12H [facility] Last Admin: 01/16/17 22:53 Dose: 1 each Polyethylene Glycol (Miralax (For Daily Use) -) 17 gm PO DAILY [facility] Last Admin: 01/16/17 09:08 Dose: Not Given Warfarin Sodium 2.5 mg/ (Warfarin Sodium 1 mg) 3.5 mg PO DAILY@1800 [facility] - Objective Vital Signs: Vital Signs Temperature 98.1 F 01/17/17 02:01 Pulse Rate 120 H 01/17/17 08:23 Respiratory Rate 20 01/17/17 08:23 Blood Pressure 140/84 01/17/17 08:23 O2 Sat by Pulse Oximetry (%) 96 01/16/17 20:34 Neck: Yes: Supple Cardiovascular: Yes: Pulse Irregular, S1, S2 Respiratory: Yes: Diminished Gastrointestinal: Yes: Normal Bowel Sounds, Soft. No: Tenderness Edema: No Additional Findings/Remarks: - Review of Systems Constitutional: denies: Chills, Fever Cardiovascular: (+) Shortness of Breath - improved. denies: Chest Pain, Palpitations Respiratory: (+) SOB - improved. denies: Cough, Hemoptysis, Orthopnea, PND Gastrointestinal: denies: Nausea. denies: Abdominal Pain, Constipation, Diarrhea, denies: Melena, Rectal Bleeding, Vomiting Neurological: denies: Dizziness, Headache, Seizure, Syncope Labs: CBC, BMP 01/17/17 05:45 01/17/17 05:45 INR, PTT INR 1.88 (0.82-1.09) H 01/17/17 05:45 Fibrinogen 462.0 mg/dL (238-498) 01/12/17 05:00 Problem List - Problems (1) Renal failure Code(s): N19 - UNSPECIFIED KIDNEY FAILURE (2) Pericardial effusion with cardiac tamponade Code(s): I31.3 - PERICARDIAL EFFUSION (NONINFLAMMATORY) I31.4 - CARDIAC TAMPONADE (3) Atrial fibrillation Code(s): I48.91 - UNSPECIFIED ATRIAL FIBRILLATION Qualifiers: Atrial fibrillation type: paroxysmal Qualified Code(s): I48.0 - Paroxysmal atrial fibrillation (4) Hypertension Code(s): I10 - ESSENTIAL (PRIMARY) HYPERTENSION Qualifiers: Hypertension type: essential hypertension Qualified Code(s): I10 - Essential (primary) hypertension (5) Hypotension Code(s): I95.9 - HYPOTENSION, UNSPECIFIED Qualifiers: Hypotension type: other hypotension type Qualified Code(s): I95.89 - Other hypotension (6) Sick sinus syndrome Code(s): I49.5 - SICK SINUS SYNDROME (7) Presence of permanent cardiac pacemaker Code(s): Z95.0 - PRESENCE OF CARDIAC PACEMAKER (8) TIA (transient ischemic attack) Code(s): G45.9 - TRANSIENT CEREBRAL ISCHEMIC ATTACK, UNSPECIFIED Qualifiers: Transient cerebral ischemia type: unspecified Qualified Code(s): G45.9 - Transient cerebral ischemic attack, unspecified Assessment/Plan 1. Large pericardial effusion - hemopericardium post tamponade s/p pericardial drain now removed - pericardial effusion resolved 2. Post acute renal failure with initial lactic acidosis HD one time - now improved creatinine 2. History of sick sinus syndrome S/P PPM 3. History of paroxysmal atrial fibrillation on Coumadin ([id number] score of 6 -7) - persistent AF with variable ventricular response 4. History of hypertension 5. History of TIA/stroke 6. Recent diarrheal disease - resolved - resulting in possible pericarditis with supratherpeutic INR PLAN: 1. Repeat transthoracic echocardiography to assess pericardial effusion - can be done again as outpatient 2. Continue Metoprolol - titrated dose. Continue Propafanone as tolerated. 3. Heparin protocol. Coumadin as per INR Clinically improved. Further plans are to follow Cooper Hickey MD
[2017-01-17] MEDS: POLYETHYLENE GLYCOL 3350 119 GM BTL PO SCH (11:25)
[2017-01-17] MEDS: RYTHMOL PO SCH ×2 (12:18→21:06)
[2017-01-17] MEDS ORDERED: WARFARIN NA 2.5 MG, WARFARIN NA 1 MG PO SCH (18:00)
[2017-01-17] MEDS ORDERED: WARFARIN NA 2 MG TABLET (UD) PO ONE (18:00)
[2017-01-17] MEDS ORDERED: PT OWN MED DRAWER 7, Y5N ONE (18:33)
[2017-01-17] MEDS: HEPARIN - 25,000 UNIT in SODIUM CHLORIDE 495 ML IV SCH (18:35)
[2017-01-17] MEDS ORDERED: METOPROLOL TARTRATE 25 MG TABLET (FP) PO SCH (22:47)
[2017-01-18 07:19] LABS: EOSINOPHIL 0.7 % (0-4.5); MCH 31.6 pg (25.7-33.7); MCHC 33.3 g/dl (32.0-36.0); MEAN PLT VOLUME 7.7 fl (7.5-11.1); NEUTROPHILS 74.2 % (42.8-82.8); PLATELET COUNT 274 K/MM3 (134-434); RDW 13.6 % (11.6-15.6); WHITE BLOOD COUNT 9.3 K/mm3 (4.0-10.0)
[2017-01-18 07:27] LABS: INR 2.09 (0.82-1.09); PROTHROMBIN TIME (PATIENT) 23.3 SEC (9.98-11.88)
[2017-01-18 07:41] LABS: ALBUMIN 3.3 g/dl (3.4-5.0); ANION GAP 10 (8-16); CALCIUM 8.2 mg/dL (8.5-10.1); CO2 27 mmol/L (21-32); GLUCOSE,RANDOM 114 mg/dL (74-106)
[2017-01-18 07:45] LABS: ALK PHOS 100 U/L (45-117); BILIRUBIN,TOTAL 0.4 mg/dL (0.2-1.0); SGOT/AST 27 U/L (15-37); SGPT/ALT 40 U/L (12-78); TOT PROT 6.6 g/dl (6.4-8.2)
[2017-01-18] MEDS: RYTHMOL PO SCH (08:26)
--- NOTE | 2017-01-18 08:30 | DS ---
Physical Examination Vital Signs: Vital Signs Temperature 97.8 F 01/18/17 04:57 Pulse Rate 110 H 01/18/17 04:57 Respiratory Rate 18 01/18/17 04:57 Blood Pressure 128/88 01/18/17 04:57 O2 Sat by Pulse Oximetry (%) 97 01/17/17 22:00 Labs: CBC, BMP 01/18/17 05:35 01/18/17 05:35 Discharge Summary Reason For Visit: SEPSIS Current Active Problems JR positive (Acute) Acute kidney failure (Acute) Anemia (Acute) Atrial fibrillation (Acute) Coagulopathy (Acute) Hypertension (Acute) Hypotension (Acute) Pericardial effusion (Acute) Pericardial effusion with cardiac tamponade (Acute) Presence of permanent cardiac pacemaker (Acute) Renal failure (Acute) SOB (shortness of breath) (Acute) Sepsis (Acute) Sick sinus syndrome (Acute) TIA (transient ischemic attack) (Acute) Hospital Course: 81 year old female with underlying history of PAF (on Coumadin), HTN , hypercholesterolemia and TIA/stroke without residual deficit now presents after returning from [facility] on her routine trip with increase in shortness of breath. She was sick with diarrhea (likely travelers diarrhea) and then developed shortness of breath which cut her trip short. She returned to [place] on Wednesday and came into the hospital last night. Patient was found to have INR 8.6 with lactic acid level of 3.3 and BUN/Cr of 73/4.9 (she has not had any renal failure in the past). CXR showed possible enlarged heart, but without any infiltrates. CT of chest revealed possible moderate to large pericardial effusion and was reported possible tamponade. Also CT chest suggested possible hemopericardium. O2 saturation was 95% on 4L NC. She also has history of sick sinus syndrome with [employer] pacemaker. She became hypotensive and has been supported by fluids and also was started on Dopamine being titrated. She was given Vitamin K and was given empiric antibiotic. INR is being repeated with type and cross done and in addition to FFP on hold. Echocardiography is being done. She is awake and alert early this am. She denies chest pain or palpitation. She is breathing comfortable with oxygen. Denies headache of dizziness. She felt nausea early this am and no fever or chills. d/w thoracic surgery--to reverse inr then window vs drainage by ir - Past Medical History BILINGUAL HR GENERALIST: Yes: TIA Cardiovascular: Yes: AFIB, HTN, Hyperlipdemia ...: No - Past Surgical History Past Surgical History: Yes: Cataract Removal, Permanent Pacemaker (1) Acute kidney failure Assessment/Plan: RESOLVED S/P HD CR IMPROVING -> F/U MONITOR RENAL ON BOARD Code(s): N17.9 - ACUTE KIDNEY FAILURE, UNSPECIFIED (2) Atrial fibrillation Assessment/Plan: RESUME AC--ON COUMADIN -> INCed TO 3.5mg--INR 2.09 DC HEPARIN MEDS PER CARDIO Code(s): I48.91 - UNSPECIFIED ATRIAL FIBRILLATION Qualifiers: Atrial fibrillation type: paroxysmal Qualified Code(s): I48.0 - Paroxysmal atrial fibrillation (3) Coagulopathy Assessment/Plan: INR Code(s): D68.9 - COAGULATION DEFECT, UNSPECIFIED (4) Hypotension Assessment/Plan: OFF LEVO MONITOR--STABLE NOW Code(s): I95.9 - HYPOTENSION, UNSPECIFIED Qualifiers: Hypotension type: other hypotension type Qualified Code(s): I95.89 - Other hypotension (5) Pericardial effusion with cardiac tamponade Assessment/Plan: S/P DRAINAGE--APROX 600 ECHO SMALL EFFUSION DRAIN REMOVED REPEAT ECHO DO BE DONE OUTPT Code(s): I31.3 - PERICARDIAL EFFUSION (NONINFLAMMATORY) I31.4 - CARDIAC TAMPONADE (6) Anemia Assessment/Plan: ON IRON MONITOR Code(s): D64.9 - ANEMIA, UNSPECIFIED (7) JR positive Assessment/Plan: ? SIGNIFICANCE RHEUMOTOLOGY CONSULT Code(s): R76.8 - OTHER SPECIFIED ABNORMAL IMMUNOLOGICAL FINDINGS IN SERUM (8) SOB (shortness of breath) Assessment/Plan: CXR -> IF STABLE THEN DC Code(s): R06.02 - SHORTNESS OF BREATH DISCHARGE PLANNING Condition: Stable - Home Medications Comprehensive Discharge Medication List: Ambulatory Orders Amlodipine Bes/Olmesartan Med [Amlodipine-Olmesartan 10-20 mg] 1 each PO DAILY 01/08/17 Atorvastatin Ca [Lipitor] 10 mg PO HS 01/08/17 Levothyroxine [Synthroid -] 25 mcg PO DAILY 01/08/17 Metoprolol Tartrate [Lopressor -] 50 mg PO DAILY 01/08/17 Propafenone HCl [Propafenone HCl ER] 425 mg PO BID 01/08/17 Warfarin Na [Coumadin] 3 mg PO DAILY 01/08/17
[2017-01-18] MEDS: FERROUS SO4 325 MG TABLET (FP) PO SCH (09:15)
[2017-01-18] MEDS: POLYETHYLENE GLYCOL 3350 119 GM BTL PO SCH (09:15)
[2017-01-18] MEDS: LACTOBACILLUS ACIDOPHILUS 1 EACH TAB (FP) PO SCH (09:15)
--- NOTE | 2017-01-18 09:41 | PN ---
Progress Note, Physician Chief Complaint: Events noted Not in distress, but anxious AF with rapid ventricular response History of Present Illness: Patient was seen and examined. Awake and alert. Chart was reviewed Denies chest pain, SOB or palpitations Anxious AF variable HR now tachycardic - Current Medication List Current Medications: Active Medications Acetaminophen (Tylenol -) 650 mg PO Q6H PRN PRN Reason: FEVER OR PAIN Last Admin: 01/16/17 17:02 Dose: 650 mg Albuterol/Ipratropium (Duoneb -) 1 amp NEB Q6H PRN PRN Reason: SHORTNESS OF BREATH Ferrous Sulfate (Feosol -) 325 mg PO BID [facility] Last Admin: 01/18/17 09:15 Dose: 325 mg Guaifenesin (Robitussin -) 10 ml PO Q6H PRN PRN Reason: COUGH Lactobacillus Acidophilus (Bacid -) 1 tab PO DAILY [facility] Last Admin: 01/18/17 09:15 Dose: 1 tab Metoprolol Tartrate (Lopressor -) 75 mg PO BID [facility] Last Admin: 01/18/17 09:15 Dose: 75 mg Non-Formulary Med Rythmol Sr ( Propafenone *Er*) 425 Mg Capsule 1 each PO Q12H [facility] Last Admin: 01/18/17 08:26 Dose: 1 each Polyethylene Glycol (Miralax (For Daily Use) -) 17 gm PO DAILY [facility] Last Admin: 01/18/17 09:15 Dose: 17 g Warfarin Sodium 2.5 mg/ (Warfarin Sodium 1 mg) 3.5 mg PO DAILY@1800 [facility] Last Admin: 01/17/17 18:23 Dose: Not Given - Objective Vital Signs: Vital Signs Temperature 97.8 F 01/18/17 04:57 Pulse Rate 110 H 01/18/17 04:57 Respiratory Rate 18 01/18/17 04:57 Blood Pressure 128/88 01/18/17 04:57 O2 Sat by Pulse Oximetry (%) 97 01/17/17 22:00 Neck: Yes: Supple Cardiovascular: Yes: Pulse Irregular, S1, S2 Respiratory: Yes: Diminished Gastrointestinal: Yes: Normal Bowel Sounds, Soft. No: Tenderness Edema: No Additional Findings/Remarks: - Review of Systems Constitutional: denies: Chills, Fever Cardiovascular: (+) Shortness of Breath - improved. denies: Chest Pain, Palpitations Respiratory: (+) SOB - improved. denies: Cough, Hemoptysis, Orthopnea, PND Gastrointestinal: denies: Nausea. denies: Abdominal Pain, Constipation, Diarrhea, denies: Melena, Rectal Bleeding, Vomiting Neurological: denies: Dizziness, Headache, Seizure, Syncope Labs: CBC, BMP 01/18/17 05:35 01/18/17 05:35 INR, PTT INR 2.09 (0.82-1.09) H 01/18/17 05:35 Fibrinogen 462.0 mg/dL (238-498) 01/12/17 05:00 Problem List - Problems (1) Renal failure Code(s): N19 - UNSPECIFIED KIDNEY FAILURE (2) Pericardial effusion with cardiac tamponade Code(s): I31.3 - PERICARDIAL EFFUSION (NONINFLAMMATORY) I31.4 - CARDIAC TAMPONADE (3) Atrial fibrillation Code(s): I48.91 - UNSPECIFIED ATRIAL FIBRILLATION Qualifiers: Atrial fibrillation type: paroxysmal Qualified Code(s): I48.0 - Paroxysmal atrial fibrillation (4) Hypertension Code(s): I10 - ESSENTIAL (PRIMARY) HYPERTENSION Qualifiers: Hypertension type: essential hypertension Qualified Code(s): I10 - Essential (primary) hypertension (5) Hypotension Code(s): I95.9 - HYPOTENSION, UNSPECIFIED Qualifiers: Hypotension type: other hypotension type Qualified Code(s): I95.89 - Other hypotension (6) Sick sinus syndrome Code(s): I49.5 - SICK SINUS SYNDROME (7) Presence of permanent cardiac pacemaker Code(s): Z95.0 - PRESENCE OF CARDIAC PACEMAKER (8) TIA (transient ischemic attack) Code(s): G45.9 - TRANSIENT CEREBRAL ISCHEMIC ATTACK, UNSPECIFIED Qualifiers: Transient cerebral ischemia type: unspecified Qualified Code(s): G45.9 - Transient cerebral ischemic attack, unspecified Assessment/Plan 1. Large pericardial effusion - hemopericardium post tamponade s/p pericardial drain now removed - pericardial effusion resolved 2. Post acute renal failure with initial lactic acidosis HD one time - now improved creatinine 2. History of sick sinus syndrome S/P PPM 3. History of paroxysmal atrial fibrillation on Coumadin ([id number] score of 6 -7) - persistent AF with rapid ventricular response 4. History of hypertension 5. History of TIA/stroke 6. Recent diarrheal disease - resolved - resulting in possible pericarditis with supratherpeutic INR PLAN: 1. Repeat transthoracic echocardiography to assess pericardial effusion - can be done again as outpatient 2. Continue Metoprolol - consider using extended release regimen (Toprol XL) but at 50 mg BID. Continue Propafanone as tolerated. If HR remains rapid, may consider using Digoxin, but can be initiated as outpatient. 3. Heparin protocol discontinued. Coumadin as per INR (perhaps 3mg-4 mg alternating) INR can be checked this week as outpatient Patient may be discharged home. Cooper Hickey MD
[2017-01-18 10:45] VITALS: BP 145/85; TEMP 98.2
[2017-01-18] MEDS ORDERED: FUROSEMIDE 20 MG TABLET (FP) PO SCH (11:00)
[2017-01-18] MEDS ORDERED: METOPROLOL TARTRATE 50 MG TABLET (FP) PO SCH (11:01)
[2017-01-18 11:26] LABS: TROPONIN I < 0.02 ng/ml (0.00-0.05)
[2017-01-18 12:24] VITALS: PULSE 107
--- NOTE | 2017-01-18 14:55 | PN ---
Progress Note, Physician Chief Complaint: Patient feeling much better. The respiratory status has improved. Renal functions have improved. - Objective Vital Signs: Vital Signs Temperature 98.2 F 01/18/17 08:00 Pulse Rate 107 H 01/18/17 10:25 Respiratory Rate 20 01/18/17 08:00 Blood Pressure 145/85 01/18/17 08:00 O2 Sat by Pulse Oximetry (%) 93 L 01/18/17 10:25 Constitutional: Yes: Well Nourished, No Distress, Calm HENT: Yes: Atraumatic, Normocephalic Cardiovascular: Yes: S1, S2 Respiratory: Yes: CTA Bilaterally, Diminished Edema: No Labs: CBC, BMP 01/18/17 05:35 01/18/17 05:35 INR, PTT INR 2.09 (0.82-1.09) H 01/18/17 05:35 Fibrinogen 462.0 mg/dL (238-498) 01/12/17 05:00 Problem List - Problems (1) Atrial fibrillation Code(s): I48.91 - UNSPECIFIED ATRIAL FIBRILLATION Qualifiers: Atrial fibrillation type: paroxysmal Qualified Code(s): I48.0 - Paroxysmal atrial fibrillation (2) Hypertension Code(s): I10 - ESSENTIAL (PRIMARY) HYPERTENSION Qualifiers: Hypertension type: essential hypertension Qualified Code(s): I10 - Essential (primary) hypertension (3) Hypotension Code(s): I95.9 - HYPOTENSION, UNSPECIFIED Qualifiers: Hypotension type: other hypotension type Qualified Code(s): I95.89 - Other hypotension (4) Pericardial effusion Code(s): I31.3 - PERICARDIAL EFFUSION (NONINFLAMMATORY) (5) Pericardial effusion with cardiac tamponade Code(s): I31.3 - PERICARDIAL EFFUSION (NONINFLAMMATORY) I31.4 - CARDIAC TAMPONADE (6) Presence of permanent cardiac pacemaker Code(s): Z95.0 - PRESENCE OF CARDIAC PACEMAKER (7) Renal failure Code(s): N19 - UNSPECIFIED KIDNEY FAILURE (8) Sepsis Code(s): A41.9 - SEPSIS, UNSPECIFIED ORGANISM Qualifiers: Sepsis type: sepsis during labor Qualified Code(s): O75.3 - Other infection during labor (9) TIA (transient ischemic attack) Code(s): G45.9 - TRANSIENT CEREBRAL ISCHEMIC ATTACK, UNSPECIFIED Qualifiers: Transient cerebral ischemia type: unspecified Qualified Code(s): G45.9 - Transient cerebral ischemic attack, unspecified (10) Acute kidney failure Code(s): N17.9 - ACUTE KIDNEY FAILURE, UNSPECIFIED Assessment/Plan 81 y/o female with S/p Acute kidney failure, requiring Acute HD. Renal functions have improved. Clinical status improved. Agree with D/c plans. Thanks again Florinda Barr MD
--- NOTE | 2017-01-18 16:12 | EKG ---
Test Reason : Blood Pressure : / mmHG Vent. Rate : 103 BPM Atrial Rate : 271 BPM P-R Int : 000 ms QRS Dur : 096 ms QT Int : 306 ms P-R-T Axes : 000 -44 -07 degrees QTc Int : 400 ms PROBABLE ATRIAL FIBRILLATON WITH PREMATURE VENTRICULAR OR ABERRANTLY CONDUCTED COMPLEXES LEFT AXIS DEVIATION NONSPECIFIC T WAVE ABNORMALITY ABNORMAL ECG WHEN COMPARED WITH ECG OF 08-JAN-2017 06:21, VENT. RATE HAS INCREASED BY 38 BPM VENTRICULAR ECTOPIES ARE SEEN Confirmed by ELISA MCPHERSON MD ([id number]) on 01/18/2017 4:12:03 PM Referred By: MICHAELA SAMUEL Confirmed By:ELISA MCPHERSON MD
== END 2017-01-18 14:17 | disposition home health service (06) | DRG 314 ==
LOC: JER 20:46 → JERBED 22:38 → JICU 01-08 03:10 → J4W 01-13 14:10
PROVIDERS: ADMIT Family Medicine; ATTEND Family Medicine
PROC: 05HN33Z Insertion of Infusion Device into Left Internal Jugular Vein, Percutaneous Approach (ICD-10-PCS; principal; 2017-01-08)
PROC: 0W9D30Z Drainage of Pericardial Cavity with Drainage Device, Percutaneous Approach (ICD-10-PCS; 2017-01-08)
PROC: 30233L1 Transfusion of Nonautologous Fresh Plasma into Peripheral Vein, Percutaneous Approach (ICD-10-PCS; 2017-01-08)
PROC: 06HM33Z Insertion of Infusion Device into Right Femoral Vein, Percutaneous Approach (ICD-10-PCS; 2017-01-09)
PROC: 30233R1 Transfusion of Nonautologous Platelets into Peripheral Vein, Percutaneous Approach (ICD-10-PCS; 2017-01-09)
DX: I31.2 Hemopericardium, not elsewhere classified (principal); R57.0 Cardiogenic shock; N17.9 Acute kidney failure, unspecified; E87.2 Acidosis; D68.32 Hemorrhagic disorder due to extrinsic circulating anticoagulants; I31.4 Cardiac tamponade; D68.9 Coagulation defect, unspecified; I48.0 Paroxysmal atrial fibrillation; T45.515A Adverse effect of anticoagulants, initial encounter; E78.5 Hyperlipidemia, unspecified; R76.8 Other specified abnormal immunological findings in serum; I27.2 Other secondary pulmonary hypertension; E87.5 Hyperkalemia; D64.9 Anemia, unspecified; E83.42 Hypomagnesemia; E83.39 Other disorders of phosphorus metabolism; Z95.0 Presence of cardiac pacemaker; Z79.01 Long term (current) use of anticoagulants; Z86.73 Personal history of transient ischemic attack (TIA), and cerebral infarction without residual deficits
CPT/HCPCS: 36415; 36430; 36600; 71010-TC; 71250-TC; 76098-TC; 76775-TC; 76930; 80048; 80053; 81003; 81015; 82436; 82550; 82570; 82803; 83010; 83605; 83615; 83735; 83880; 84100; 84133; 84156; 84300; 84484; 84540; 85025; 85027; 85379; 85384; 85610; 85651; 85730; 86038; 86140; 86157; 86160; 86162; 86225; 86431; 86480; 86704; 86706; 86708; 86738; 86850; 86900; 86901; 87040; 87070; 87075; 87086; 87102; 87116; 87205; 87206; 87210; 87252; 87254; 87340; 87804; 87899; 88108; 88305-TC; 93005; 93010; 93306-TC; 97116-GP; 97161-GP; 99285-25; A4358; C1729; C1769; J1644; P9012; P9017; P9034

== ENCOUNTER 2017-02-15 10:26 | Day surgery (SDC) | payer OTHER, MEDICARE ==
[2017-02-12 13:32] VITALS: BMI 25.1
[2017-02-15] MEDS ORDERED: LIDOCAINE VISCOUS 2% ORAL/TOP 20 ML UNIT-DOSE CUP MM ONE (12:01)
[2017-02-15 12:28] VITALS: TEMP 97.6
[2017-02-15 13:02] VITALS: PULSE 76
[2017-02-15 13:11] VITALS: BP 112/67
--- NOTE | 2017-02-16 17:06 | EKG ---
Test Reason : Blood Pressure : / mmHG Vent. Rate : 075 BPM Atrial Rate : 075 BPM P-R Int : 310 ms QRS Dur : 102 ms QT Int : 404 ms P-R-T Axes : 067 -64 -66 degrees QTc Int : 451 ms SINUS RHYTHM WITH 1ST DEGREE A-V BLOCK LEFT ANTERIOR FASCICULAR BLOCK ABNORMAL ECG WHEN COMPARED WITH ECG OF 18-JAN-2017 08:16, SINUS RHYTHM HAS REPLACED ATRIAL FLUTTER T WAVE INVERSION NOW EVIDENT IN ANTEROLATERAL LEADS Confirmed by ELISA MCPHERSON MD ([id number]) on 02/16/2017 5:05:53 PM Referred By: ELISA MCPHERSON Confirmed By:ELISA MCPHERSON MD
== END 2017-02-15 13:14 | disposition home or self-care (01) ==
LOC: JASU-ENDO 10:26
PROVIDERS: ATTEND Internal Medicine Cardiovascular Disease
PROC: 5A2204Z Restoration of Cardiac Rhythm, Single (ICD-10-PCS; 2017-02-15)
PROC: B246ZZ4 Ultrasonography of Right and Left Heart, Transesophageal (ICD-10-PCS; principal; 2017-02-15 12:00)
DX: I48.91 Unspecified atrial fibrillation (principal)
CPT/HCPCS: 93005; 93010; 93312; 93325

== ENCOUNTER 2017-02-16 10:13 | Emergency (ER) | payer OTHER, MEDICARE ==
[2017-02-16 10:19] VITALS: BP 157/96; PULSE 72; TEMP 98.2; BMI 25.1
--- NOTE | 2017-02-16 10:40 | PDOC ---
History of Present Illness <Ham Brown - Last Filed: 02/16/17 13:29> - General History Source: Patient, Old Records Exam Limitations: No Limitations - History of Present Illness Initial Comments: 02/16/17 10:52 The patient is a 81 year old female presenting with her , with a significant past medical history of AFIB, CVA (2005), CHF, HTN, HLD, PPM and thyroid disease, who presents to the emergency department with a head injury after fall last night. She notes that she is on Coumadin. The patient was in the hospital yesterday for a cardioversion and went she went home she still wasn t feeling herself. She attempted to get up and go to the bathroom when she fell and hit the bookcase with the right side of her head. She denies any loss of consciousness. She denies neck pain or back pain. She notes that she was able to ambulate immediately afterwards. The patient denies any other injuries. She denies chest pain, shortness of breath, headache and dizziness. Allergies: None Past surgical history: [employer] pacemaker Social history: No alcohol, tobacco or drug use reported <German Arthur - Last Filed: 02/16/17 13:34> - General Chief Complaint: Injury Stated Complaint: LACERATION TO RT FOREHEAD Time Seen by Provider: 02/16/17 10:39 Past History - Past Medical History Anemia: No Asthma: No Cancer: No Cardiac Disorders: Yes (a-fib (on coumadin)) CVA: Yes (2005- MILD STROKE. NO RESIDUAL) COPD: No CHF: Yes Dementia: No Diabetes: No GI Disorders: No Disorders: No HTN: Yes Hypercholesterolemia: Yes Liver Disease: No Seizures: No Thyroid Disease: Yes Other medical history: PPM - Surgical History Abdominal Surgery: No Appendectomy: No Cardiac Surgery: Yes ([employer] PACEMAKER-DOUBLE CHAMBER) Cholecystectomy: No Lung Surgery: No Neurologic Surgery: No Orthopedic Surgery: No - Psycho/Social/Smoking Cessation Hx Anxiety: No Suicidal Ideation: No Smoking History: Never smoked Have you smoked in the past 12 months: No Information on smoking cessation initiated: No Hx Alcohol Use: No Drug/Substance Use Hx: No Substance Use Type: None Hx Substance Use Treatment: No <Ham Brown - Last Filed: 02/16/17 13:29> <German Arthur - Last Filed: 02/16/17 13:34> - Past Medical History Allergies/Adverse Reactions: Allergies Allergy/AdvReac Type Severity Reaction Status Date / Time No Known Allergies Allergy Verified 02/16/17 10:15 Home Medications: Ambulatory Orders Atorvastatin Ca [Lipitor] 10 mg PO HS 01/08/17 Levothyroxine [Synthroid -] 25 mcg PO HS 01/08/17 Propafenone HCl [Propafenone HCl ER] 425 mg PO BID 01/08/17 Ferrous Sulfate [Feosol] 325 mg PO BID #60 ud 01/18/17 Furosemide [Lasix -] 20 mg PO DAILY #30 tablet 01/18/17 Lactobacillus Acidophilus [Bacid -] 1 tab PO DAILY tab 01/18/17 Glucosa Zheng 2Kcl/Chondroitin Zheng [Glucosamine & Chondroitin Cap] 1 each PO DAILY 02/12/17 Polyethylene Glycol 3350 [Miralax 119 gm Btl -] 17 gm PO PRN 02/12/17 Warfarin Na [Coumadin -] 2 mg PO ASDIR 02/12/17 Warfarin Na [Coumadin -] 3 mg PO DAILY 02/12/17 Metoprolol Tartrate [Lopressor -] 50 mg PO BID #120 tablet 02/15/17 Review of Systems - Review of Systems Able to Perform ROS?: Yes Comments:: 02/16/17 10:52 GENERAL/CONSTITUTIONAL: No fever or chills. No weakness. HEAD, EYES, EARS, NOSE AND THROAT: +Right eyebrow laceration. No change in vision. No ear pain or discharge. No sore throat. CARDIOVASCULAR: No chest pain or shortness of breath RESPIRATORY: No cough, wheezing, or hemoptysis. GASTROINTESTINAL: No nausea, vomiting, diarrhea or constipation. GENITOURINARY: No dysuria, frequency, or change in urination. MUSCULOSKELETAL: No joint or muscle swelling or pain. No neck or back pain. SKIN: No rash NEUROLOGIC: No headache, vertigo, loss of consciousness, or change in strength/ sensation. ENDOCRINE: No increased thirst. No abnormal weight change HEMATOLOGIC/LYMPHATIC: No anemia, easy bleeding, or history of blood clots. ALLERGIC/IMMUNOLOGIC: No hives or skin allergy. <German Arthur - Last Filed: 02/16/17 13:34> *Physical Exam - Vital Signs Last Vital Signs Temp Pulse Resp BP Pulse Ox 98.2 F 72 18 157/96 100 02/16/17 10:15 02/16/17 10:15 02/16/17 10:15 02/16/17 10:15 02/16/17 10:15 <Ham Brown - Last Filed: 02/16/17 13:29> - Vital Signs Last Vital Signs Temp Pulse Resp BP Pulse Ox 98.2 F 72 18 157/96 100 02/16/17 10:15 02/16/17 10:15 02/16/17 10:15 02/16/17 10:15 02/16/17 10:15 - Physical Exam Comments: 02/16/17 10:52 GENERAL: Awake, alert, and fully oriented, in no acute distress HEAD: +1 cm laceration above the right eyebrow. EYES: PERRLA, EOMI, sclera anicteric, conjunctiva clear ENT: Auricles normal inspection, hearing grossly normal, nares patent, oropharynx clear without exudates. Moist mucosa NECK: Normal ROM, supple, no lymphadenopathy, JVD, or masses LUNGS: No distress, speaks full sentences, clear to auscultation bilaterally HEART: Regular rate and rhythm, normal S1 and S2, no murmurs, rubs or gallops, peripheral pulses normal and equal bilaterally. ABDOMEN: Soft, nontender, normoactive bowel sounds. No guarding, no rebound. No masses EXTREMITIES: Normal inspection, Normal range of motion, no edema. No clubbing or cyanosis. NEUROLOGICAL: Cranial nerves II through XII grossly intact. Normal speech, normal gait, no focal sensorimotor deficits SKIN: Warm, Dry, normal turgor, no rashes or lesions noted. <German Arthur - Last Filed: 02/16/17 13:34> ED Treatment Course - LABORATORY CBC & Chemistry Diagram: 02/16/17 11:15 02/16/17 11:20 <Ham Brown - Last Filed: 02/16/17 13:29> - LABORATORY CBC & Chemistry Diagram: 02/16/17 11:15 02/16/17 11:20 - RADIOLOGY Radiograph Interpretation: 02/16/17 12:[address] Reviewed by: Dr. Hamilton Loyd Impression: Normal noncontrast CT of the brain except for involutional and periventricular white matter changes. <LilyTiffanie felixan Juana - Last Filed: 02/16/17 13:34> Medical Decision Making - Medical Decision Making 02/16/17 13:33 Upon presentation the laceration was more than 12 hours old and we could not suture it under those circumstances. <Tiffanie Arthuran Juana - Last Filed: 02/16/17 13:34> *DC/Admit/Observation/Transfer - Discharge Dispostion Admit: No - Attestations Physician Attestion: 02/16/17 10:40 I, Dr. Ham Brown, attest that this document has been prepared under my direction and personally reviewed by me in its entirety. I further attest, that it accurately reflects all work, treatment, procedures and medical decision -making performed by me. <Ham Brown - Last Filed: 02/16/17 13:29> - Attestations Scribe Attestion: 02/16/17 10:52 Documentation prepared by German Arthur, acting as medical billing representative for Ham Brown MD <MiroslavapreetiTiffanieGerman Juana - Last Filed: 02/16/17 13:34> Diagnosis at time of Disposition: Laceration Forehead contusion Qualifiers: Encounter type: initial encounter Qualified Code(s): S00.83XA - Contusion of other part of head, initial encounter - Discharge Dispostion Disposition: HOME Condition at time of disposition: Good - Referrals Referrals: Avani Salas MD [Primary Care Provider] - - Patient Instructions Printed Discharge Instructions: DI for Avulsion Laceration (Not Requiring Sutures) Additional Instructions: Mrs Alex- I am sorry that you fell. Your CT is fine. Your INR is 3 so hold your coumadin for two days. Follow up with your doctor next week. Return to us if worse or new symptoms occur. Leave this bandage on for 48 hours. Then keep the wound clean and covered with an antibiotic ointment and a bandage. Best- Dr. Ham Brown
[2017-02-16 11:35] LABS: BASOPHIL 0.5 % (0-2.0); EOSINOPHIL 2.3 % (0-4.5); MCH 31.7 pg (25.7-33.7); MCHC 33.3 g/dl (32.0-36.0); MEAN CELL VOLUME 95.2 fl (80-96); MEAN PLT VOLUME 7.2 fl (7.5-11.1); NEUTROPHILS 64.6 % (42.8-82.8); PLATELET COUNT 202 K/MM3 (134-434); RDW 14.5 % (11.6-15.6); WHITE BLOOD COUNT 6.8 K/mm3 (4.0-10.0)
[2017-02-16 11:48] LABS: INR 3.18 (0.82-1.09); PROTHROMBIN TIME (PATIENT) 35.8 SEC (9.98-11.88)
[2017-02-16 12:18] LABS: ALBUMIN 3.8 g/dl (3.4-5.0); BILIRUBIN,TOTAL 0.5 mg/dL (0.2-1.0); CALCIUM 8.5 mg/dL (8.5-10.1); CREATININE 1.1 mg/dL (0.55-1.02); TOT PROT 7.1 g/dl (6.4-8.2)
== END 2017-02-16 13:41 | disposition home or self-care (01) ==
LOC: JER 10:13
DX: S01.81XA Laceration without foreign body of other part of head, initial encounter (principal); W18.09XA Striking against other object with subsequent fall, initial encounter; Y93.01 Activity, walking, marching and hiking; Y92.012 Bathroom of single-family (private) house as the place of occurrence of the external cause; Y99.9 Unspecified external cause status; I25.10 Atherosclerotic heart disease of native coronary artery without angina pectoris; I10 Essential (primary) hypertension; I48.91 Unspecified atrial fibrillation; Z79.01 Long term (current) use of anticoagulants; E78.00 Pure hypercholesterolemia, unspecified; I50.9 Heart failure, unspecified; Z95.0 Presence of cardiac pacemaker; Z86.13 Personal history of malaria
CPT/HCPCS: 36415; 70450-TC; 80053; 85025; 85610; 99283-25

== ENCOUNTER 2018-02-15 13:44 | Emergency (ER) | payer OTHER, MEDICARE ==
[2018-02-15 13:49] VITALS: TEMP 97.7; BMI 29.2
--- NOTE | 2018-02-15 15:44 | PDOC ---
Attending Attestation - HPI HPI: 02/15/18 16:30 82 F with a significant past medical history of CVA (2004), a-fib (on coumadin) , CHF, HTN, HLD, PPM, and hypothyroidism, who presents to the emergency department with back pain s/p mechanical fall today. Pt states she was on a two- step ladder. She stumbled while trying to open the refrigerator door and fell onto her back side. She complains of pain at the middle of her back. She was able to ambulate afterwards. She denies head trauma or LOC. Pt denies CP, SOB, JONES, neck pain, and dizziness. Pt denies F/C, n/v/d. Pt denies dysuria, frequency, urgency and hematuria. <Jhoana Dominguez - Last Filed: 02/15/18 17:45> - Resident Resident Name: Nancy Roldan - ED Attending Attestation I have performed the following: I have examined & evaluated the patient, The case was reviewed & discussed with the resident, I agree w/resident's findings & plan, Exceptions are as noted - Physicial Exam PE: GENERAL: Awake, alert, and fully oriented, in no acute distress HEAD: No signs of trauma EYES: PERRLA, EOMI, sclera anicteric, conjunctiva clear ENT: Auricles normal inspection, hearing grossly normal, nares patent, oropharynx clear without exudates. Moist mucosa NECK: Normal ROM, supple, no lymphadenopathy, JVD, or masses LUNGS: Breath sounds equal, clear to auscultation bilaterally. No wheezes, and no crackles HEART: Regular rate and rhythm, normal S1 and S2, no murmurs, rubs or gallops ABDOMEN: Soft, nontender, normoactive bowel sounds. No guarding, no rebound. No masses EXTREMITIES: Normal range of motion, no edema. No clubbing or cyanosis. No cords, erythema, or tenderness NEUROLOGICAL: Cranial nerves II through XII grossly intact. Normal speech, normal gait SKIN: Warm, Dry, normal turgor, no rashes or lesions noted. SPINE: +Minimal midline tenderness T12. No signs of trauma, no ecchymosis, no step-offs. - Medical Decision Making Pt with no signs of trauma, no ecchymosis. She has minimal midline tenderness to lower thoracic spine. Will obtain XR, likely DC home. <Roxanne Flowers - Last Filed: 02/17/18 09:45>
--- NOTE | 2018-02-15 15:48 | PDOC ---
History of Present Illness - General Chief Complaint: Injury Stated Complaint: FALL/ BACK PAIN/ON COUMADIN Time Seen by Provider: 02/15/18 15:42 - History of Present Illness Initial Comments: 82 year old female with PMH of hypothyroidism, afib (s/p pacemaker, replaced in 2015), and HTN presenting s/p mechanical fall without LOC or head trauma. States that she was on a two step ladder that she slipped off of after a refrigerator door opened on her by accident. Afterward, she stumbled backward down the step ladder and fell onto her back without LOC or head trauma. She was immediately able to get up and ambulate but was concerned about her back aching especially in the setting of Warfarin usage because 02/15/18 16:03 Past History - Past Medical History Allergies/Adverse Reactions: Allergies Allergy/AdvReac Type Severity Reaction Status Date / Time No Known Allergies Allergy Verified 02/15/18 13:49 Home Medications: Ambulatory Orders Atorvastatin Ca [Lipitor] 10 mg PO HS 01/08/17 Levothyroxine [Synthroid -] 25 mcg PO HS 01/08/17 Propafenone HCl [Propafenone HCl ER] 425 mg PO BID 01/08/17 Ferrous Sulfate [Feosol] 325 mg PO BID #60 ud 01/18/17 Furosemide [Lasix -] 20 mg PO DAILY #30 tablet 01/18/17 Lactobacillus Acidophilus [Bacid -] 1 tab PO DAILY tab 01/18/17 Glucosa Zheng 2Kcl/Chondroitin Zheng [Glucosamine & Chondroitin Cap] 1 each PO DAILY 02/12/17 Polyethylene Glycol 3350 [Miralax 119 gm Btl -] 17 gm PO PRN 02/12/17 Warfarin Na [Coumadin -] 2 mg PO ASDIR 02/12/17 Warfarin Na [Coumadin -] 3 mg PO DAILY 02/12/17 Metoprolol Tartrate [Lopressor -] 50 mg PO BID #120 tablet 02/15/17 Anemia: No Asthma: No Cancer: No Cardiac Disorders: Yes (a-fib (on coumadin) PACEMAKER) CVA: Yes (2005- MILD STROKE. NO RESIDUAL) COPD: No CHF: Yes Dementia: No Diabetes: No GI Disorders: No Disorders: No HTN: Yes Hypercholesterolemia: Yes Liver Disease: No Seizures: No Thyroid Disease: Yes - Surgical History Abdominal Surgery: No Appendectomy: No Cardiac Surgery: Yes ([employer] PACEMAKER-DOUBLE CHAMBER) Cholecystectomy: No Lung Surgery: No Neurologic Surgery: No Orthopedic Surgery: No - Suicide/Smoking/Psychosocial Hx Smoking History: Never smoked Have you smoked in the past 12 months: No Information on smoking cessation initiated: No Hx Alcohol Use: No Drug/Substance Use Hx: No Substance Use Type: None Hx Substance Use Treatment: No Review of Systems - Review of Systems Constitutional: No: Chills, Diaphoresis, Fever, Loss of Appetite HEENTM: No: Eye Pain, Blurred Vision, Tearing, Recent change in vision Respiratory: No: Cough, Shortness of Breath Cardiac (ROS): No: Chest Pain, Palpitations ABD/GI: No: Diarrhea, Difficulty Swallowing, Nausea, Vomiting : No: Dysuria, Discharge, Frequency Integumentary: No: Bruising, Lesions, Lumps, Pallor Neurological: No: Headache, Numbness, Paresthesia Psychiatric: No: Change in Appetite Endocrine: No: Flushing *Physical Exam - Vital Signs Last Vital Signs Temp Pulse Resp BP Pulse Ox 97.7 F 70 18 142/70 98 02/15/18 13:47 02/15/18 13:47 02/15/18 13:47 02/15/18 13:47 02/15/18 13:47 - Physical Exam General Appearance: Yes: Nourished, Appropriately Dressed. No: Apparent Distress HEENT: positive: EOMI, YINKA, Normal ENT Inspection, Normal Voice Neck: positive: Trachea midline, Normal Thyroid, Supple. negative: Tender, Rigid Respiratory/Chest: positive: Chest Tender, Lungs Clear, Normal Breath Sounds. negative: Respiratory Distress, Accessory Muscle Use Cardiovascular: positive: Regular Rhythm, Regular Rate Gastrointestinal/Abdominal: positive: Normal Bowel Sounds, Flat, Soft. negative : Tender Musculoskeletal: positive: Normal Inspection. negative: Vertebral Tenderness Extremity: positive: Normal Capillary Refill, Normal Inspection, Normal Range of Motion. negative: Tender Integumentary: positive: Normal Color, Dry, Warm Neurologic: positive: geophysical prospector II-XII NML intact, Fully Oriented, Alert, Normal Mood/ Affect, Normal Response, Motor Strength 5/5, Respond to painful stimul, Responsive, Finger to Nose. negative: Abnormal Cranial NS, EOM Palsy, Facial Droop, Numbness, Confused, Disoriented Medical Decision Making - Medical Decision Making 82 year old Coumadin for afib with fall onto back without LOC or head trauma. Able to ambulate without difficulty and physical exam including detailed neuro exam were completely normal. Throcalumbar plain film without fracture or other concerning pathology. Will discharge with return precautions. 02/15/18 16:47 *DC/Admit/Observation/Transfer Diagnosis at time of Disposition: Fall (on) (from) other stairs and steps, initial encounter - Discharge Dispostion Disposition: HOME Condition at time of disposition: Improved Admit: No - Referrals Referrals: Avani Salas MD [Primary Care Provider] - - Patient Instructions Additional Instructions: You did not break anything in your back. Please use Tylenol and ice for any aches and pains. Please return to the ED if you have any problems with your balance, pain in your abdomen, nausea, vomiting, headaches, or other concerning symptoms. - Post Discharge Activity
[2018-02-15 17:07] VITALS: BP 138/78; PULSE 72
== END 2018-02-15 17:07 | disposition home or self-care (01) ==
LOC: JER 13:44
DX: M54.5 Low back pain (principal); W11.XXXA Fall on and from ladder, initial encounter; Y93.89 Activity, other specified; Y92.010 Kitchen of single-family (private) house as the place of occurrence of the external cause; Y99.8 Other external cause status; I48.91 Unspecified atrial fibrillation; Z79.01 Long term (current) use of anticoagulants; I10 Essential (primary) hypertension; E03.9 Hypothyroidism, unspecified; E78.00 Pure hypercholesterolemia, unspecified; Z95.0 Presence of cardiac pacemaker
CPT/HCPCS: 72070-TC-FY; 99282-25

== ENCOUNTER 2018-02-23 14:40 | Inpatient (IN) | payer OTHER, MEDICARE ==
--- NOTE | 2018-02-23 14:48 | PDOC ---
Rapid Medical Evaluation Chief Complaint: Rectal Bleed Medical Evaluation: Allergies Allergy/AdvReac Type Severity Reaction Status Date / Time No Known Allergies Allergy Verified 02/15/18 13:49 02/23/18 14:48 I have performed a brief in-person evaluation of this patient. The patient presents with a chief complaint of: constipation and rectal bleeding x 3 days. H/o afib on coumadin, HTN. PMD is Dr Salas Pertinent physical exam findings:Stable and well shona I have ordered the following:labs The patient will proceed to the ED for further evaluation. Discharge Disposition - Referrals Referrals: Avani Salas MD [Primary Care Provider] - - Patient Instructions - Post Discharge Activity
[2018-02-23 15:02] LABS: BASO % 1.1 % (0-2.0); EOS % 0.9 % (0-4.5); HEMATOCRIT 39.6 % (32.4-45.2); HEMOGLOBIN 13.4 GM/dL (10.7-15.3); LYMPH % 24.6 % (8-40); MCH 31.6 pg (25.7-33.7); MCHC 33.9 g/dl (32.0-36.0); MEAN CELL VOLUME 93.3 fl (80-96); MEAN PLT VOLUME 7.1 fl (7.5-11.1); MONO % 9.4 % (3.8-10.2); PLATELET COUNT 301 K/MM3 (134-434); RBC 4.24 M/mm3 (3.60-5.2); RDW 13.6 % (11.6-15.6); WHITE BLOOD COUNT 9.4 K/mm3 (4.0-10.0)
[2018-02-23 15:14] LABS: PROTHROMBIN TIME (PATIENT) 22.6 SEC (9.98-11.88)
[2018-02-23 15:34] LABS: ALBUMIN 3.9 g/dl (3.4-5.0); ALK PHOS 143 U/L (45-117); ANION GAP 13 (8-16); BILIRUBIN,TOTAL 0.4 mg/dL (0.2-1.0); BLOOD UREA NITROGEN 27 mg/dL (7-18); CALCIUM 9.1 mg/dL (8.5-10.1); CHLORIDE 103 mmol/L (98-107); CO2 23 mmol/L (21-32); CREATININE 1.3 mg/dL (0.55-1.02); GLUCOSE,RANDOM 151 mg/dL (74-106); POTASSIUM 4.2 mmol/L (3.5-5.1); SGOT/AST 18 U/L (15-37); SGPT/ALT 21 U/L (12-78); SODIUM 139 mmol/L (136-145); TOT PROT 7.5 g/dl (6.4-8.2)
--- NOTE | 2018-02-23 16:03 | PDOC ---
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 She notes that she was been taking Miralax and Prune juice as a remedy, had a bowel movement and saw red blood. She had 3 more bowel movemenrs with no blood seen. She saw her PMD Dr. Salas who referred her to Dr. Huffman, who performed a rectal exam that was positive hemoccult test. She is currently set to have a colonoscopy on 02/25/[address] Gracia. The patient denies chest pain, shortness of breath, headache or dizziness. Denies fever, chills, nausea, vomiting, diarrhea. Denies dysuria, frequency, urgency and hematuria. Allergies: No allergies Past surgical history: MEDTRONIC PACEMAKER-DOUBLE CHAMBER Social History: No alcohol, tobacco or drug reported PMD: Dr. Salas <German Arthur - Last Filed: 02/23/18 17:02> <Zenaida Buchanan - Last Filed: 02/23/18 17:39> - General Chief Complaint: Rectal Bleed Stated Complaint: RECTAL BLEED Time Seen by Provider: 02/23/18 14:51 Past History <German Arthur - Last Filed: 02/23/18 17:02> - Past Medical History Anemia: No Asthma: No Cancer: No Cardiac Disorders: Yes (a-fib (on coumadin) PACEMAKER) CVA: Yes (2005- MILD STROKE. NO RESIDUAL) COPD: No CHF: Yes DVT: No Dementia: No Diabetes: No GI Disorders: No Disorders: No HTN: Yes Hypercholesterolemia: Yes Liver Disease: No Seizures: No Thyroid Disease: Yes - Surgical History Abdominal Surgery: No Appendectomy: No Cardiac Surgery: Yes (MEDTRONIC PACEMAKER-DOUBLE CHAMBER) Cholecystectomy: No Lung Surgery: No Neurologic Surgery: No Orthopedic Surgery: No - Suicide/Smoking/Psychosocial Hx Smoking History: Never smoked Have you smoked in the past 12 months: No Information on smoking cessation initiated: No Hx Alcohol Use: No Drug/Substance Use Hx: No Substance Use Type: None Hx Substance Use Treatment: No <Zenaida Buchanan - Last Filed: 02/23/18 17:39> - Past Medical History Allergies/Adverse Reactions: Allergies Allergy/AdvReac Type Severity Reaction Status Date / Time No Known Allergies Allergy Verified 02/23/18 14:49 Home Medications: Ambulatory Orders Atorvastatin Ca [Lipitor] 10 mg PO HS 01/08/17 Levothyroxine [Synthroid -] 25 mcg PO HS 01/08/17 Propafenone HCl [Propafenone HCl ER] 425 mg PO BID 01/08/17 Ferrous Sulfate [Feosol] 325 mg PO BID #60 ud 01/18/17 Furosemide [Lasix -] 20 mg PO DAILY #30 tablet 01/18/17 Lactobacillus Acidophilus [Bacid -] 1 tab PO DAILY tab 01/18/17 Glucosa Zheng 2Kcl/Chondroitin Zheng [Glucosamine & Chondroitin Cap] 1 each PO DAILY 02/12/17 Polyethylene Glycol 3350 [Miralax 119 gm Btl -] 17 gm PO PRN 02/12/17 Warfarin Na [Coumadin -] 2 mg PO ASDIR 02/12/17 Warfarin Na [Coumadin -] 3 mg PO DAILY 02/12/17 Metoprolol Tartrate [Lopressor -] 50 mg PO BID #120 tablet 02/15/17 Review of Systems - Review of Systems Able to Perform ROS?: Yes Comments:: 02/23/18 17:04 GENERAL/CONSTITUTIONAL: No fever or chills. No weakness. HEAD, EYES, EARS, NOSE AND THROAT: No change in vision. No ear pain or discharge. No sore throat. CARDIOVASCULAR: No chest pain or shortness of breath RESPIRATORY: No cough, wheezing, or hemoptysis. GASTROINTESTINAL: (+) Constipation. No nausea, vomiting, diarrhea. GENITOURINARY: No dysuria, frequency, or change in urination. MUSCULOSKELETAL: No joint or muscle swelling or pain. No neck or back pain. SKIN: No rash NEUROLOGIC: No headache, vertigo, loss of consciousness, or change in strength/ sensation. ENDOCRINE: No increased thirst. No abnormal weight change HEMATOLOGIC/LYMPHATIC: No anemia, easy bleeding, or history of blood clots. ALLERGIC/IMMUNOLOGIC: No hives or skin allergy. <German Arthur - Last Filed: 02/23/18 17:02> *Physical Exam - Vital Signs Last Vital Signs Temp Pulse Resp BP Pulse Ox 97.8 F 91 H 18 128/63 100 02/23/18 14:47 02/23/18 14:47 02/23/18 14:47 02/23/18 14:47 02/23/18 14:47 - Physical Exam Comments: 02/23/18 17:08 GENERAL: Awake, alert, and fully oriented, in no acute distress HEAD: No signs of trauma, normocephalic, atraumatic EYES: PERRLA, EOMI, sclera anicteric, conjunctiva clear ENT: Auricles normal inspection, hearing grossly normal, nares patent, oropharynx clear without exudates. Moist mucosa NECK: Normal ROM, supple, no lymphadenopathy, JVD, or masses LUNGS: No distress, speaks full sentences, clear to auscultation bilaterally HEART: (+) Pacemaker on the right. Regular rate and rhythm, normal S1 and S2, no murmurs, rubs or gallops, peripheral pulses normal and equal bilaterally. ABDOMEN: Soft, nontender, normoactive bowel sounds. No guarding, no rebound. No masses EXTREMITIES: (+) Chronic trace edema bilaterally, Normal range of motion. No clubbing or cyanosis. NEUROLOGICAL: Cranial nerves II through XII grossly intact. Normal speech, normal, no focal sensorimotor deficits SKIN: Warm, Dry, normal turgor, no rashes or lesions noted <German Arthur Juana - Last Filed: 02/23/18 17:02> - Vital Signs Last Vital Signs Temp Pulse Resp BP Pulse Ox 97.8 F 91 H 18 128/63 100 02/23/18 14:47 02/23/18 14:47 02/23/18 14:47 02/23/18 14:47 02/23/18 14:47 <Zenaida Buchanan - Last Filed: 02/23/18 17:39> Heart Score/ECG Review - ECG Intrepretation Comment:: 02/23/18 17:38 paced at 65, no acute changes <Zenaida Buchanan - Last Filed: 02/23/18 17:39> ED Treatment Course - LABORATORY CBC & Chemistry Diagram: 02/23/18 14:56 02/23/18 14:56 - ADDITIONAL ORDERS Additional order review: Laboratory Results 02/23/18 02/23/18 14:56 14:56 PT with INR 22.60 H INR 2.00 H D Sodium 139 Potassium 4.2 Chloride 103 Carbon Dioxide 23 Anion Gap 13 BUN 27 H Creatinine 1.3 H Creat Clearance w eGFR 39.02 Random Glucose 151 H Calcium 9.1 Total Bilirubin 0.4 AST 18 ALT 21 Alkaline Phosphatase 143 H Total Protein 7.5 Albumin 3.9 02/23/18 14:56 RBC 4.24 MCV 93.3 MCHC 33.9 RDW 13.6 MPV 7.1 L Neutrophils % 64.0 Lymphocytes % 24.6 Monocytes % 9.4 Eosinophils % 0.9 Basophils % 1.1 <Geramn Arthur - Last Filed: 02/23/18 17:02> - LABORATORY CBC & Chemistry Diagram: 02/23/18 14:56 02/23/18 14:56 - ADDITIONAL ORDERS Additional order review: Laboratory Results 02/23/18 02/23/18 14:56 14:56 PT with INR 22.60 H INR 2.00 H D Sodium 139 Potassium 4.2 Chloride 103 Carbon Dioxide 23 Anion Gap 13 BUN 27 H Creatinine 1.3 H Creat Clearance w eGFR 39.02 Random Glucose 151 H Calcium 9.1 Total Bilirubin 0.4 AST 18 ALT 21 Alkaline Phosphatase 143 H Total Protein 7.5 Albumin 3.9 02/23/18 14:56 RBC 4.24 MCV 93.3 MCHC 33.9 RDW 13.6 MPV 7.1 L Neutrophils % 64.0 Lymphocytes % 24.6 Monocytes % 9.4 Eosinophils % 0.9 Basophils % 1.1 <Zenaida Buchanan - Last Filed: 02/23/18 17:39> Medical Decision Making - Medical Decision Making 02/23/18 16:15 a/p: 82yo with rectal bleeding over the weekend -sent by Dr. Fowler after having +rectal exam in the office to be admitted for GI bleed on coumadin - plan for colonoscopy on wednesday with Dr. Gracia -labs -ekg -cxr -PMD dr. Salas -GI: Dr. Gracia -will call -Heart: Dr. Hickey -no cp/sob -hx of afib on coumadin -will need coumadin management to perform colonoscopy 02/23/18 16:[address] Salas - accepts pt to service 02/23/18 16:18 hgb stable inr 2 02/23/18 17:[address] Gracia - agrees with plan <Zenaida Buchanan - Last Filed: 02/23/18 17:39> *DC/Admit/Observation/Transfer - Attestations Scribe Attestion: 02/23/18 17:13 Documentation prepared by German Arthur, acting as certified ophthalmic medical technician for Zenaida Buchanan DO, MD <German Arthur - Last Filed: 02/23/18 17:02> - Discharge Dispostion Admit: Yes - Attestations Physician Attestion: 02/23/18 16:19 I, Dr. Zenaida Buchanan DO, attest that this document has been prepared under my direction and personally reviewed by me in its entirety. I further attest, that it accurately reflects all work, treatment, procedures and medical decision -making performed by me. <Zenaida Buchanan - Last Filed: 02/23/18 17:39> Diagnosis at time of Disposition: Rectal bleed - Discharge Dispostion Condition at time of disposition: Fair
--- NOTE | 2018-02-23 21:41 | CON.GI ---
Consult Consult Specialty:: Gastroenterology Referred by:: Dr. Salas Reason for Consultation:: Rectal bleeding - History of Present Illness Chief Complaint: Rectal bleeding History of Present Illness: 82F developed rectal bleeding after suffering a fall from a ladder onto her back last week. She became constipated following the fall and had to resort to Miralax. While straining to defecate she developed hematochezia. She had two spells of hematochezia over two weeks and oozing of blood after urinating. She is on coumadin for atrial fibrillation. She last had a colonoscopy with me in 2008 which revealed universally diverticulosis which was severe in the sigmoid colon causing elizabeth course to be tortuous. She had a rectal polyp removed. She had been moving her bowels normally before the fall. IN 01/15 she presented hypotensive with renal failure and acidotic due to a cardiac tamponade. She required temporary dialysis and responded to pericardiocentesis. She does have a PPM and a JOSIAH suggested a patent foramen ovale. 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) Cardio/Vascular: Yes: AFIB, HTN, Hyperlipdemia, Mitral Insufficiency Gastrointestinal: Yes: Diverticulosis, Other (rectal polyp excised 2008 ) Renal/: Yes: Renal Failure (transient in 01/15 with cardiax tamponade, required dialysis) - Past Surgical History Past Surgical History: Yes: Cataract Removal, Colonoscopy, Permanent Pacemaker Additional Surgical History: Forehead basal cell cancer excision - Alcohol/Substance Use Hx Alcohol Use: No History of Substance Use: reports: None - Smoking History Smoking history: Never smoked Have you smoked in the past 12 months: No - Social History Usual Living Arrangement: With Spouse ADL: Independent 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 Place of : [facility] History of Recent Travel: No Home Medications - Allergies Allergies/Adverse Reactions: Allergies Allergy/AdvReac Type Severity Reaction Status Date / Time No Known Allergies Allergy Verified 02/23/18 14:49 - Home Medications Home Medications: Ambulatory Orders Atorvastatin Ca [Lipitor] 10 mg PO HS 01/08/17 Levothyroxine [Synthroid -] 25 mcg PO HS 01/08/17 Propafenone HCl [Propafenone HCl ER] 425 mg PO BID 01/08/17 Ferrous Sulfate [Feosol] 325 mg PO BID #60 ud 01/18/17 Furosemide [Lasix -] 20 mg PO DAILY #30 tablet 01/18/17 Lactobacillus Acidophilus [Bacid -] 1 tab PO DAILY tab 01/18/17 Glucosa Zheng 2Kcl/Chondroitin Zheng [Glucosamine & Chondroitin Cap] 1 each PO DAILY 02/12/17 Polyethylene Glycol 3350 [Miralax 119 gm Btl -] 17 gm PO PRN 02/12/17 Warfarin Na [Coumadin -] 2 mg PO ASDIR 02/12/17 Warfarin Na [Coumadin -] 3 mg PO DAILY 02/12/17 Metoprolol Tartrate [Lopressor -] 50 mg PO BID #120 tablet 02/15/17 Family Disease History - Family Disease History Family Disease History: Heart Disease: Father ( [place] 77), Brother, Other: Mother ( 88 OMS) Review of Systems - Review of Systems Constitutional: reports: No Symptoms Eyes: reports: No Symptoms HENT: reports: No Symptoms Neck: reports: No Symptoms Cardiovascular: reports: No Symptoms Respiratory: reports: No Symptoms Gastrointestinal: reports: Constipation, Rectal Bleeding Genitourinary: reports: No Symptoms Neurological: reports: No Symptoms Physical Exam-GI Vital Signs: Vital Signs Temperature 97.8 F 02/23/18 14:47 Pulse Rate 91 H 02/23/18 14:47 Respiratory Rate 18 02/23/18 14:47 Blood Pressure 128/63 02/23/18 14:47 O2 Sat by Pulse Oximetry (%) 99 02/23/18 17:53 CBC,CMP WBC 9.4 K/mm3 (4.0-10.0) D 02/23/18 14:56 RBC 4.24 M/mm3 (3.60-5.2) 02/23/18 14:56 Hgb 13.4 GM/dL (10.7-15.3) 02/23/18 14:56 Hct 39.6 % (32.4-45.2) 02/23/18 14:56 MCV 93.3 fl (80-96) 02/23/18 14:56 MCH 31.6 pg (25.7-33.7) 02/23/18 14:56 MCHC 33.9 g/dl (32.0-36.0) 02/23/18 14:56 RDW 13.6 % (11.6-15.6) 02/23/18 14:56 Plt Count 301 K/MM3 (134-434) D 02/23/18 14:56 MPV 7.1 fl (7.5-11.1) L 02/23/18 14:56 Neutrophils % 64.0 % (42.8-82.8) 02/23/18 14:56 Lymphocytes % 24.6 % (8-40) 02/23/18 14:56 Monocytes % 9.4 % (3.8-10.2) 02/23/18 14:56 Eosinophils % 0.9 % (0-4.5) 02/23/18 14:56 Basophils % 1.1 % (0-2.0) 02/23/18 14:56 Sodium 139 mmol/L (136-145) 02/23/18 14:56 Potassium 4.2 mmol/L (3.5-5.1) 02/23/18 14:56 Chloride 103 mmol/L (98-107) 02/23/18 14:56 Carbon Dioxide 23 mmol/L (21-32) 02/23/18 14:56 Anion Gap 13 (8-16) 02/23/18 14:56 BUN 27 mg/dL (7-18) H 02/23/18 14:56 Creatinine 1.3 mg/dL (0.55-1.02) H 02/23/18 14:56 Creat Clearance w eGFR 39.02 (>60) 02/23/18 14:56 Random Glucose 151 mg/dL (74-106) H 02/23/18 14:56 Calcium 9.1 mg/dL (8.5-10.1) 02/23/18 14:56 Total Bilirubin 0.4 mg/dL (0.2-1.0) 02/23/18 14:56 AST 18 U/L (15-37) 02/23/18 14:56 ALT 21 U/L (12-78) 02/23/18 14:56 Alkaline Phosphatase 143 U/L (45-117) H 02/23/18 14:56 Total Protein 7.5 g/dl (6.4-8.2) 02/23/18 14:56 Albumin 3.9 g/dl (3.4-5.0) 02/23/18 14:56 Current Medications Generic Name Dose Route Start Last Admin Trade Name Freq PRN Reason Stop Dose Admin Atorvastatin Calcium 10 mg 02/23/18 22:00 Lipitor - PO HS MCKAYLA Levothyroxine Sodium 25 mcg 02/24/18 07:00 Synthroid - PO DAILY@0700 MCKAYLA Metoprolol Tartrate 50 mg 02/23/18 22:00 Lopressor - PO BID MCKAYLA Constitutional: Yes: No Distress Eyes: Yes: Conjunctiva Clear HENT: Yes: Atraumatic Neck: Yes: Supple Cardiovascular: Yes: Regular Rate and Rhythm, Other (left PPM) Respiratory: Yes: CTA Bilaterally Gastrointestinal Inspection: Yes: Distention (soft) ...Auscultate: Yes: Normoactive Bowel Sounds ...Palpate: Yes: Soft, Other (nontender) ...Percussion: Yes: Tympanitic ...Rectal Exam: Yes: Guaiac Positive (dried blood obtained. no masses) Edema: No Peripheral Pulses WNL: Yes Neurological: Yes: Alert, Oriented Labs: CBC, BMP 02/23/18 14:56 02/23/18 14:56 INR, PTT INR 2.00 (0.82-1.09) H D 02/23/18 14:56 Laboratory Tests 02/23/18 02/23/18 02/23/18 14:56 14:56 14:56 Hgb 13.4 PT with INR 22.60 H INR 2.00 H D BUN 27 H Creatinine 1.3 H Alkaline Phosphatase 143 H Problem List - Problems (1) Rectal bleed Assessment/Plan: The pattern of bleeding is most suggestive of hemorrhoidal origin. Given that her last colonoscopy was remote a repeat has been advised to exclude bleeding from a neoplasm AVMs, stercoral ulcer, diverticuli. Ischemic colitis appears less likely given the lack of pain. I have discussed colonoscopy in detail with Reena including informng her of the potential risks of perforation and hemorrhage. She has granted an infromed consent. She last took coumadin on . Will prep for 02/25 colonoscopy. Code(s): K62.5 - HEMORRHAGE OF ANUS AND RECTUM (2) Hx of colonic polyp Code(s): Z86.010 - PERSONAL HISTORY OF COLONIC POLYPS (3) Diverticula of colon Code(s): K57.30 - DVRTCLOS OF LG INT W/O PERFORATION OR ABSCESS W/O BLEEDING Assessment/Plan Suspect hemorrhoidal bleeding Prep for colonoscopy in 02/25 Avoid coumadin
[2018-02-23 22:50] LABS: HEMOGLOBIN 12.1 GM/dL (10.7-15.3); MCH 32.2 pg (25.7-33.7); MCHC 34.5 g/dl (32.0-36.0); MEAN CELL VOLUME 93.4 fl (80-96); MEAN PLT VOLUME 7.3 fl (7.5-11.1); PLATELET COUNT 289 K/MM3 (134-434); RBC 3.74 M/mm3 (3.60-5.2); RDW 13.5 % (11.6-15.6)
[2018-02-23] MEDS: ATORVASTATIN CA 10 MG TABLET (FP) PO SCH (23:20)
[2018-02-23] MEDS: METOPROLOL TARTRATE 50 MG TABLET (FP) PO SCH (23:20)
[2018-02-24 00:15] VITALS: BMI 28.5
[2018-02-24] MEDS: LEVOTHYROXINE NA 25 MCG TABLET (FP) PO SCH (06:09)
[2018-02-24 08:07] LABS: HEMATOCRIT 39.2 % (32.4-45.2); HEMOGLOBIN 13.1 GM/dL (10.7-15.3); MCH 31.5 pg (25.7-33.7); MCHC 33.4 g/dl (32.0-36.0); MEAN CELL VOLUME 94.1 fl (80-96); MEAN PLT VOLUME 7.7 fl (7.5-11.1); PLATELET COUNT 316 K/MM3 (134-434); RBC 4.16 M/mm3 (3.60-5.2); RDW 13.5 % (11.6-15.6); WHITE BLOOD COUNT 7.6 K/mm3 (4.0-10.0)
--- NOTE | 2018-02-24 08:10 | HP ---
Admitting History and Physical - Admission History of Present Illness: 82F developed rectal bleeding after suffering a fall from a ladder onto her back last week. She became constipated following the fall and had to resort to Miralax. While straining to defecate she developed hematochezia. She had two spells of hematochezia over two weeks and oozing of blood after urinating. She is on coumadin for atrial fibrillation. 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 She required temporary dialysis and responded to pericardiocentesis. 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 History of Recent Travel: No Home Medications - Allergies Allergies/Adverse Reactions: Allergies Allergy/AdvReac Type Severity Reaction Status Date / Time No Known Allergies Allergy Verified 02/23/18 14:49 - Home Medications Home Medications: Ambulatory Orders Atorvastatin Ca [Lipitor] 10 mg PO HS 01/08/17 Levothyroxine [Synthroid -] 25 mcg PO HS 01/08/17 Propafenone HCl [Propafenone HCl ER] 425 mg PO BID 01/08/17 Ferrous Sulfate [Feosol] 325 mg PO BID #60 ud 01/18/17 Furosemide [Lasix -] 20 mg PO DAILY #30 tablet 01/18/17 Lactobacillus Acidophilus [Bacid -] 1 tab PO DAILY tab 01/18/17 Glucosa Zheng 2Kcl/Chondroitin Zheng [Glucosamine & Chondroitin Cap] 1 each PO DAILY 02/12/17 Polyethylene Glycol 3350 [Miralax 119 gm Btl -] 17 gm PO PRN 02/12/17 Warfarin Na [Coumadin -] 2 mg PO ASDIR 02/12/17 Warfarin Na [Coumadin -] 3 mg PO DAILY 02/12/17 Metoprolol Succinate [Toprol Xl] 50 mg PO DAILY 02/24/18 Family Disease History - Family Disease History Family Disease History: Heart Disease: Father ( [place] 77), Brother, Other: Mother ( 88 OMS) Review of Systems - Review of Systems Cardiovascular: denies: Chest Pain, Edema, Palpitations Respiratory: denies: SOB Gastrointestinal: reports: Constipation, Rectal Bleeding. denies: Abdominal Pain Musculoskeletal: reports: Back Pain Physical Examination Vital Signs: Vital Signs Temperature 98.4 F 02/24/18 06:00 Pulse Rate 67 02/24/18 06:00 Respiratory Rate 20 02/24/18 06:00 Blood Pressure 110/71 02/24/18 06:00 O2 Sat by Pulse Oximetry (%) 97 02/24/18 05:00 Cardiovascular: Yes: S1, S2 Respiratory: Yes: Regular, CTA Bilaterally Gastrointestinal: Yes: Normal Bowel Sounds, Soft. No: Tenderness Problem List - Problems (1) Rectal bleed Assessment/Plan: GI CONSULT NOTED FOLLOW LABS HOLD COUMADIN AND BRIDGE WITH HEPARIN Code(s): K62.5 - HEMORRHAGE OF ANUS AND RECTUM (2) Atrial fibrillation Assessment/Plan: HEPARIN UNTIL CLEARED BY GI HOLD 6 HRS PRIOR TO PROCEDURE Code(s): I48.91 - UNSPECIFIED ATRIAL FIBRILLATION Qualifiers: Atrial fibrillation type: paroxysmal Qualified Code(s): I48.0 - Paroxysmal atrial fibrillation (3) Hypertension Assessment/Plan: MONITOR ON CURRENT MEDS Code(s): I10 - ESSENTIAL (PRIMARY) HYPERTENSION Qualifiers: Hypertension type: essential hypertension Qualified Code(s): I10 - Essential (primary) hypertension (4) Back pain Assessment/Plan: TYLENOL REVIEW XRAYS Code(s): M54.9 - DORSALGIA, UNSPECIFIED
[2018-02-24 08:30] LABS: ALBUMIN 3.8 g/dl (3.4-5.0); ANION GAP 6 (8-16); BLOOD UREA NITROGEN 23 mg/dL (7-18); CALCIUM 8.5 mg/dL (8.5-10.1); CHLORIDE 107 mmol/L (98-107); CO2 25 mmol/L (21-32); GLUCOSE,RANDOM 97 mg/dL (74-106); POTASSIUM 4.3 mmol/L (3.5-5.1); SODIUM 138 mmol/L (136-145)
[2018-02-24 08:33] LABS: ALK PHOS 136 U/L (45-117); BILIRUBIN,TOTAL 0.5 mg/dL (0.2-1.0); CREATININE 1.1 mg/dL (0.55-1.02); SGOT/AST 14 U/L (15-37); SGPT/ALT 19 U/L (12-78); TOT PROT 7.4 g/dl (6.4-8.2)
[2018-02-24 08:35] LABS: INR 1.56 (0.82-1.09); PROTHROMBIN TIME (PATIENT) 17.6 SEC (9.98-11.88)
[2018-02-24 08:38] LABS: ACTIVATED PTT 33.7 SECONDS (26.9-34.4)
[2018-02-24] MEDS ORDERED: PEG 3350/NA SULF BICARB CL/KCL 4000 ML SOLN.RECON PO ONE (09:00)
[2018-02-24] MEDS: METOPROLOL TARTRATE 50 MG TABLET (FP) PO SCH ×2 (10:30→22:50)
[2018-02-24] MEDS ORDERED: HEPARIN NA (PORCINE) 5,000 UNITS/ML 1ML VIAL IVPUSH PRN ×2 (11:02)
[2018-02-24] MEDS: ACETAMINOPHEN 325 MG TABLET (FP) PO PRN (11:09)
[2018-02-24] MEDS ORDERED: HEPARIN SOD,PORK IN 0.45% NACL 25,000 UNIT/500 ML INFUS.BAG IVPB SCH (11:15)
--- NOTE | 2018-02-24 11:23 | CON.CARD ---
Consult Consult Specialty:: Cardiology Referred by:: Avani Salas MD Reason for Consultation:: Pre-procedure cardiovascular evaluation - History of Present Illness Chief Complaint: Rectal bleeding History of Present Illness: 82F h/o HTN, CVA without residual, PAF sss s/p PPM, viral pericarditis with pericardial effusion and tamponade post drain, hypothyroidism, hyperlipidemia developed rectal bleeding after suffering a fall from a ladder onto her back last week. She became constipated following the fall and had to resort to Miralax. While straining to defecate she developed hematochezia. She is on coumadin for atrial fibrillation. IN 01/15 she presented hypotensive with renal failure and acidotic due to a cardiac tamponade. She required temporary dialysis and responded to pericardiocentesis. She does have a PPM and a JOSIAH suggested a patent foramen ovale. Regarding CV symptoms, she denies dyspnea, chest pain, near or true syncope, palpitations orthopnea or PND, lower extremity edema or change in exercise capacity. 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 She required temporary dialysis and responded to pericardiocentesis. She does have a PPM and a JOSIAH suggested a patent foramen ovale.) Gastrointestinal: Yes: Diverticulosis, Other (rectal polyp excised 2008 ) Renal/: Yes: Renal Failure (transient in 01/15 with cardiax tamponade, required dialysis) - Past Surgical History Past Surgical History: Yes: Cataract Removal, Colonoscopy, Permanent Pacemaker Additional Surgical History: Forehead basal cell cancer excision - Alcohol/Substance Use Hx Alcohol Use: No History of Substance Use: reports: None - Smoking History Smoking history: Never smoked Have you smoked in the past 12 months: No - Social History Usual Living Arrangement: With Spouse ADL: Independent Occupation: retired retirement [employer] member History of Recent Travel: No Home Medications - Allergies Allergies/Adverse Reactions: Allergies Allergy/AdvReac Type Severity Reaction Status Date / Time No Known Allergies Allergy Verified 02/23/18 14:49 - Home Medications Home Medications: Ambulatory Orders Atorvastatin Ca [Lipitor] 10 mg PO HS 01/08/17 Levothyroxine [Synthroid -] 25 mcg PO HS 01/08/17 Propafenone HCl [Propafenone HCl ER] 425 mg PO BID 01/08/17 Ferrous Sulfate [Feosol] 325 mg PO BID #60 ud 01/18/17 Furosemide [Lasix -] 20 mg PO DAILY #30 tablet 01/18/17 Lactobacillus Acidophilus [Bacid -] 1 tab PO DAILY tab 01/18/17 Glucosa Zheng 2Kcl/Chondroitin Zheng [Glucosamine & Chondroitin Cap] 1 each PO DAILY 02/12/17 Polyethylene Glycol 3350 [Miralax 119 gm Btl -] 17 gm PO PRN 02/12/17 Warfarin Na [Coumadin -] 2 mg PO ASDIR 02/12/17 Warfarin Na [Coumadin -] 3 mg PO DAILY 02/12/17 Metoprolol Succinate [Toprol Xl] 50 mg PO DAILY 02/24/18 Family Disease History - Family Disease History Family Disease History: Heart Disease: Father ( [place] 77), Brother, Other: Mother ( 88 OMS) Review of Systems - Review of Systems Gastrointestinal: reports: Rectal Bleeding Vital Signs: Vital Signs Temperature 98.4 F 02/24/18 06:00 Pulse Rate 67 02/24/18 06:00 Respiratory Rate 20 02/24/18 06:00 Blood Pressure 110/71 02/24/18 06:00 O2 Sat by Pulse Oximetry (%) 97 02/24/18 05:00 Constitutional: Yes: No Distress, Calm Neck: Yes: Supple Respiratory: Yes: Regular, CTA Bilaterally Gastrointestinal: Yes: Normal Bowel Sounds, Soft Cardiovascular: Yes: Regular Rate and Rhythm JVD: No Carotid Bruit: No Heart Sounds: Yes: S1, S2 Edema: No - Other Data Labs, Other Data: CBC, BMP 02/24/18 06:00 02/24/18 06:00 INR, PTT INR 1.56 (0.82-1.09) H 02/24/18 06:00 A-paced @ 66 PRWP similar to previous 12/08/2017 Imaging - Results Chest X-ray: Report Reviewed (NAD) Problem List - Problems (1) Pre-procedural cardiovascular examination Code(s): Z01.810 - ENCOUNTER FOR PREPROCEDURAL CARDIOVASCULAR EXAMINATION (2) Hyperlipidemia Code(s): E78.5 - HYPERLIPIDEMIA, UNSPECIFIED Qualifiers: Hyperlipidemia type: pure hypercholesterolemia Qualified Code(s): E78.00 - Pure hypercholesterolemia, unspecified; E78.0 - Pure hypercholesterolemia (3) Hypothyroidism Code(s): E03.9 - HYPOTHYROIDISM, UNSPECIFIED Qualifiers: Hypothyroidism type: unspecified Qualified Code(s): E03.9 - Hypothyroidism , unspecified (4) Rectal bleed Code(s): K62.5 - HEMORRHAGE OF ANUS AND RECTUM (5) Atrial fibrillation Code(s): I48.91 - UNSPECIFIED ATRIAL FIBRILLATION Qualifiers: Atrial fibrillation type: paroxysmal Qualified Code(s): I48.0 - Paroxysmal atrial fibrillation (6) Coagulopathy Code(s): D68.9 - COAGULATION DEFECT, UNSPECIFIED (7) Hypertension Code(s): I10 - ESSENTIAL (PRIMARY) HYPERTENSION Qualifiers: Hypertension type: essential hypertension Qualified Code(s): I10 - Essential (primary) hypertension (8) Presence of permanent cardiac pacemaker Code(s): Z95.0 - PRESENCE OF CARDIAC PACEMAKER (9) Sick sinus syndrome Code(s): I49.5 - SICK SINUS SYNDROME (10) TIA (transient ischemic attack) Code(s): G45.9 - TRANSIENT CEREBRAL ISCHEMIC ATTACK, UNSPECIFIED Qualifiers: Transient cerebral ischemia type: unspecified Qualified Code(s): G45.9 - Transient cerebral ischemic attack, unspecified (11) Chronic anticoagulation Code(s): Z79.01 - 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 Rectal bleed most likely hemorrhoidal with need to exclude bleeding from a neoplasm AVMs, stercoral ulcer, diverticuli 2. Pre-procedural cardiovascular evaluation 3. Paroxysmal atrial fibrillation [id number] score of 6-7 on coumadin per INR 4. H/o hemopericardium post tamponade s/p pericardial drain likely viral pericarditis 5. Post acute renal failure with initial lactic acidosis HD one time - now improved creatinine 6. History of sick sinus syndrome S/P PPM 7. History of hypertension 8. History of TIA/stroke 9. Hypothyroidism PLAN: 1. Given absence of symptoms of acute coronary syndrome, decompensated CHF or malignant arrhythmia, may proceed with colonoscopy from CV-standpoint without further testing 2. Coumadin held pre-procedure and placed on heparin gtt, resume coumadin per INR once hemostasis achieved 3. Continue Metoprolol 100 mg BID, Propafanone 425 mg bid, Lotrel 10/20 qd. Lipitor 10 qd, hold Lasix for now while undergoing bowel prep 4. Thank you for consultative opportunity, will f/u colonoscopy results.
--- NOTE | 2018-02-24 11:39 | EKG ---
Test Reason : Blood Pressure : / mmHG Vent. Rate : 066 BPM Atrial Rate : 066 BPM P-R Int : 000 ms QRS Dur : 102 ms QT Int : 646 ms P-R-T Axes : 000 -65 -65 degrees QTc Int : 677 ms Atrial-paced rhythm with prolonged AV conduction LEFT ANTERIOR FASCICULAR BLOCK SEPTAL INFARCT , AGE UNDETERMINED PROLONGED QT ABNORMAL ECG WHEN COMPARED WITH ECG OF 15-FEB-2017 12:33, SIGNIFICANT CHANGES HAVE OCCURRED Confirmed by EMILY YOUNG MD ([id number]) on 02/24/2018 11:38:56 AM Referred By: LIZZIE HARRELL Confirmed By:EMILY YOUNG MD
--- NOTE | 2018-02-24 14:13 | EKG ---
Test Reason : Blood Pressure : / mmHG Vent. Rate : 065 BPM Atrial Rate : 065 BPM P-R Int : 328 ms QRS Dur : 106 ms QT Int : 418 ms P-R-T Axes : 000 -69 044 degrees QTc Int : 434 ms Atrial-paced rhythm with prolonged AV conduction INCOMPLETE RIGHT BUNDLE BRANCH BLOCK LEFT ANTERIOR FASCICULAR BLOCK SEPTAL INFARCT , AGE UNDETERMINED ABNORMAL ECG WHEN COMPARED WITH ECG OF 15-FEB-2017 12:33, ELECTRONIC ATRIAL PACEMAKER HAS REPLACED SINUS RHYTHM SEPTAL INFARCT IS NOW PRESENT NONSPECIFIC T WAVE ABNORMALITY NO LONGER EVIDENT IN INFERIOR LEADS T WAVE INVERSION NO LONGER EVIDENT IN ANTEROLATERAL LEADS Confirmed by EMILY YOUNG MD ([id number]) on 02/24/2018 2:12:44 PM Referred By: Confirmed By:EMILY YOUNG MD
[2018-02-24] MEDS ORDERED: BISACODYL 5 MG TABLET.DR (FP) PO ONE (18:00)
--- NOTE | 2018-02-24 21:38 | CONSULT ---
Consult - text type - Consultation Consultation Note: NEUROLOGY CONSULTATION is greatly appreciated: Events reviewed. Patient examined with her at the bedside. 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 S/P "stroke" in 2003 with isolated symptom of transient Right facial droop. AFib and PFO may have been discovered at that time. S/P PPM Known h/o diverticular disease. Yesterday was climbing on a step stool to get something off the top of her refrigerator when the door opened, swinging her away. Fortunately, she was deposited on her buttocks to the side of the refrigerator as it fell next to her. No head trauma. No LOC. Now c/o "a little aching" in her low back without radiation. No numbness, tingling or change in bladder function. Currently prepping for colonoscopy due to rectal bleeding after the fall. XRays of LS spine (reviewed): Moderate DJD without fracture or dislocation. Coumadin held. On heparin. INR 2.0 yesterday and 1.56 today. SAMANTHA: No head trauma. No LS palp. - SLR. S/P PPM NEURO: MS/speech: Normal CN II-XII: Normal without nystagmus or facial asymmetry. Motor: No drift or tremor. Normal strength, tone, bulk. Normal reflexes except reduced or absent AJ's. No cogwheeling. Toes downgoing. Coord: No FTN dystaxia Sensory: Normal. Romberg neg. Gait: Sl wide based. Sl shuffling. IMP: Essentially normal neurological exam. Uncomplicated Low back trauma. CVA by history. No residua. Suggest: Complete colonoscopy as planned. Then resume coumadin to INR 2-2.5 unless a contraindication is found. Thank you very much, Claudio Cueva MD
[2018-02-24] MEDS: ATORVASTATIN CA 10 MG TABLET (FP) PO SCH (22:50)
[2018-02-24] MEDS: PROPAFENONE 425 MG PO SCH (22:51)
[2018-02-25] MEDS: LEVOTHYROXINE NA 25 MCG TABLET (FP) PO SCH (06:02)
--- NOTE | 2018-02-25 10:41 | PN ---
Progress Note, Physician History of Present Illness: Awaiting colonoscopy, no further rectal bleeding. - Current Medication List Current Medications: Active Medications Acetaminophen (Tylenol -) 650 mg PO Q4H PRN PRN Reason: BACK PAIN Last Admin: 02/24/18 11:09 Dose: 650 mg Atorvastatin Calcium (Lipitor -) 10 mg PO HS [facility] Last Admin: 02/24/18 22:50 Dose: 10 mg Levothyroxine Sodium (Synthroid -) 25 mcg PO DAILY@0700 [facility] Last Admin: 02/25/18 06:02 Dose: 25 mcg Metoprolol Tartrate (Lopressor -) 50 mg PO BID [facility] Last Admin: 02/24/18 22:50 Dose: 50 mg Non-Formulary Med ( (Propafenone 425mg)) 1 each PO BID [facility] Last Admin: 02/24/18 22:51 Dose: 1 each - Objective Vital Signs: Vital Signs Temperature 99.2 F 02/25/18 06:00 Pulse Rate 71 02/25/18 06:00 Respiratory Rate 20 02/25/18 06:00 Blood Pressure 131/55 02/25/18 06:00 O2 Sat by Pulse Oximetry (%) 96 02/24/18 21:00 Constitutional: Yes: No Distress, Calm, Thin Neck: Yes: Supple Cardiovascular: Yes: Regular Rate and Rhythm Respiratory: Yes: Regular, CTA Bilaterally Gastrointestinal: Yes: Soft, Hypoactive Bowel Sounds Edema: No Labs: CBC, BMP 02/24/18 06:00 02/24/18 06:00 INR, PTT INR 1.56 (0.82-1.09) H 02/24/18 06:00 - ....Imaging EKG: Report Reviewed (A-paced @ 66) Problem List - Problems (1) Pre-procedural cardiovascular examination Code(s): Z01.810 - ENCOUNTER FOR PREPROCEDURAL CARDIOVASCULAR EXAMINATION (2) Hyperlipidemia Code(s): E78.5 - HYPERLIPIDEMIA, UNSPECIFIED Qualifiers: Hyperlipidemia type: pure hypercholesterolemia Qualified Code(s): E78.00 - Pure hypercholesterolemia, unspecified; E78.0 - Pure hypercholesterolemia (3) Hypothyroidism Code(s): E03.9 - HYPOTHYROIDISM, UNSPECIFIED Qualifiers: Hypothyroidism type: unspecified Qualified Code(s): E03.9 - Hypothyroidism , unspecified (4) Rectal bleed Code(s): K62.5 - HEMORRHAGE OF ANUS AND RECTUM (5) Atrial fibrillation Code(s): I48.91 - UNSPECIFIED ATRIAL FIBRILLATION Qualifiers: Atrial fibrillation type: paroxysmal Qualified Code(s): I48.0 - Paroxysmal atrial fibrillation (6) Coagulopathy Code(s): D68.9 - COAGULATION DEFECT, UNSPECIFIED (7) Hypertension Code(s): I10 - ESSENTIAL (PRIMARY) HYPERTENSION Qualifiers: Hypertension type: essential hypertension Qualified Code(s): I10 - Essential (primary) hypertension (8) Presence of permanent cardiac pacemaker Code(s): Z95.0 - PRESENCE OF CARDIAC PACEMAKER (9) Sick sinus syndrome Code(s): I49.5 - SICK SINUS SYNDROME (10) TIA (transient ischemic attack) Code(s): G45.9 - TRANSIENT CEREBRAL ISCHEMIC ATTACK, UNSPECIFIED Qualifiers: Transient cerebral ischemia type: unspecified Qualified Code(s): G45.9 - Transient cerebral ischemic attack, unspecified (11) Chronic anticoagulation Code(s): Z79.01 - MCFP (CURRENT) USE OF ANTICOAGULANTS (12) Diverticula of colon Code(s): K57.30 - DVRTCLOS OF LG INT W/O PERFORATION OR ABSCESS W/O BLEEDING (13) Hx of colonic polyp Code(s): Z86.010 - PERSONAL HISTORY OF COLONIC POLYPS Assessment/Plan 01/11/2017 Echocardiography revealed normal LV size and function mild MR, mild to moderate TR, mild to moderate degree of pulmonary HTN RVSP 40-50 mmHg, and decreased pericardial effusion post drainage 1. Rectal bleed most likely hemorrhoidal with need to exclude bleeding from a neoplasm AVMs, stercoral ulcer, diverticuli 2. Pre-procedural cardiovascular evaluation 3. Paroxysmal atrial fibrillation [id number] score of 6-7 on coumadin per INR 4. H/o hemopericardium post tamponade s/p pericardial drain likely viral pericarditis 5. H/o Acute on CKD requiring HD now improving 6. History of sick sinus syndrome S/P PPM 7. History of hypertension 8. History of TIA/stroke 9. Hypothyroidism PLAN: 1. Given absence of symptoms of acute coronary syndrome, decompensated CHF or malignant arrhythmia, may proceed with colonoscopy from CV-standpoint without further testing 2. Coumadin held pre-procedure and placed on heparin gtt, resume coumadin per INR once hemostasis achieved 3. Continue Metoprolol 50 mg BID, Propafanone 425 mg bid, Lotrel 10/20 qd and Lipitor 10 qd as hemodynamics tolerate and once renal fxn stabilized, hold Lasix for now while undergoing bowel prep 4. Will f/u colonoscopy results.
[2018-02-25] MEDS ORDERED: PROPOFOL 20 ML ONE ×3 (11:38)
--- NOTE | 2018-02-25 11:46 | PN ---
Progress Note, Physician Chief Complaint: Rectal bleeding History of Present Illness: NAD seen by GI, neurology and cardiology for colonoscopy today warfarin on hold pre-procedure, if colonoscopy okay, restart warfarin labs unremarkable - Current Medication List Current Medications: Active Medications Acetaminophen (Tylenol -) 650 mg PO Q4H PRN PRN Reason: BACK PAIN Last Admin: 02/24/18 11:09 Dose: 650 mg Atorvastatin Calcium (Lipitor -) 10 mg PO HS [facility] Last Admin: 02/24/18 22:50 Dose: 10 mg Levothyroxine Sodium (Synthroid -) 25 mcg PO DAILY@0700 [facility] Last Admin: 02/25/18 06:02 Dose: 25 mcg Metoprolol Tartrate (Lopressor -) 50 mg PO BID [facility] Last Admin: 02/24/18 22:50 Dose: 50 mg Non-Formulary Med ( (Propafenone 425mg)) 1 each PO BID [facility] Last Admin: 02/24/18 22:51 Dose: 1 each - Objective Vital Signs: Vital Signs Temperature 99.2 F 02/25/18 06:00 Pulse Rate 71 02/25/18 06:00 Respiratory Rate 20 02/25/18 06:00 Blood Pressure 131/55 02/25/18 06:00 O2 Sat by Pulse Oximetry (%) 96 02/24/18 21:00 Constitutional: Yes: Well Nourished, No Distress, Calm Cardiovascular: Yes: Regular Rate and Rhythm Respiratory: Yes: Regular Gastrointestinal: Yes: Soft, Hypoactive Bowel Sounds Musculoskeletal: Yes: WNL Extremities: Yes: WNL Edema: No Peripheral Pulses WNL: Yes Neurological: Yes: Alert, Oriented Psychiatric: Yes: Alert, Oriented Labs: CBC, BMP 02/24/18 06:00 02/24/18 06:00 INR, PTT INR 1.56 (0.82-1.09) H 02/24/18 06:00 Problem List - Problems (1) Back pain Assessment/Plan: L-Spine xray L1 compression -seen by neurology Code(s): M54.9 - DORSALGIA, UNSPECIFIED (2) Chronic anticoagulation Assessment/Plan: -restart warfarin once hemodynamically stable after colonoscopy -labs in AM Code(s): Z79.01 - CUSTODIAL (CURRENT) USE OF ANTICOAGULANTS (3) Rectal bleed Assessment/Plan: -seen by GI -H/H stable -Stool guaiac negative -going for colonoscopy Code(s): K62.5 - HEMORRHAGE OF ANUS AND RECTUM (4) CKD (chronic kidney disease) Assessment/Plan: -at baseline -check A1c Code(s): N18.9 - CHRONIC KIDNEY DISEASE, UNSPECIFIED Assessment/Plan see problem list
[2018-02-25 13:20] LABS: BASO % 0.9 % (0-2.0); EOS % 1.1 % (0-4.5); HEMATOCRIT 36.8 % (32.4-45.2); HEMOGLOBIN 12.3 GM/dL (10.7-15.3); LYMPH % 21.9 % (8-40); MCH 31.3 pg (25.7-33.7); MCHC 33.4 g/dl (32.0-36.0); MEAN PLT VOLUME 7.3 fl (7.5-11.1); NEUT % 67.1 % (42.8-82.8); PLATELET COUNT 278 K/MM3 (134-434); RBC 3.92 M/mm3 (3.60-5.2); RDW 13.4 % (11.6-15.6); WHITE BLOOD COUNT 7.2 K/mm3 (4.0-10.0)
[2018-02-25 13:40] LABS: ALBUMIN 3.5 g/dl (3.4-5.0); ALK PHOS 136 U/L (45-117); ANION GAP 13 (8-16); BILIRUBIN,TOTAL 0.5 mg/dL (0.2-1.0); BLOOD UREA NITROGEN 14 mg/dL (7-18); CALCIUM 8.5 mg/dL (8.5-10.1); CHLORIDE 106 mmol/L (98-107); CO2 24 mmol/L (21-32); CREATININE 0.9 mg/dL (0.55-1.02); GLUCOSE,RANDOM 83 mg/dL (74-106); POTASSIUM 3.7 mmol/L (3.5-5.1); SGOT/AST 21 U/L (15-37); SGPT/ALT 19 U/L (12-78); SODIUM 143 mmol/L (136-145); TOT PROT 6.9 g/dl (6.4-8.2)
[2018-02-25 13:43] LABS: INR 1.32 (0.82-1.09); PROTHROMBIN TIME (PATIENT) 14.9 SEC (9.98-11.88)
[2018-02-25] MEDS: ACETAMINOPHEN 325 MG TABLET (FP) PO PRN ×2 (14:07→23:19)
[2018-02-25] MEDS: METOPROLOL TARTRATE 50 MG TABLET (FP) PO SCH ×3 (14:08→21:25)
[2018-02-25] MEDS: PROPAFENONE 425 MG PO SCH ×3 (14:09→21:25)
[2018-02-25] MEDS ORDERED: HEPARIN NA (PORCINE) 5,000 UNITS/ML 1ML VIAL IVPUSH ONE (14:49)
[2018-02-25] MEDS ORDERED: HEPARIN NA (PORCINE) 5,000 UNITS/ML 1ML VIAL IVPUSH PRN ×2 (14:49)
[2018-02-25] MEDS ORDERED: HEPARIN INFUSION - 25,000 UNITS/500 ML INFUS.BAG IV SCH (15:00)
--- NOTE | 2018-02-25 15:47 | PN ---
Progress Note (short form) - Note Progress Note: GI Procedure NOte: Please see scanned colonoscopy report. The patient has an extremely tortuous sigmoid colon due to diverticular disease which could only be negotiated with a pediatric gastroscope which could only reach the hepatic flexure. No active bleeding was seen. Given the findings I believe that the bleeding was hemorrhoidal in origin and has resolved. Can advance diet, resume anticoagulation and discharge when medically feasible. A small rectal polyp was removed. Problem List - Problems (1) Rectal bleed Code(s): K62.5 - HEMORRHAGE OF ANUS AND RECTUM (2) Hx of colonic polyp Code(s): Z86.010 - PERSONAL HISTORY OF COLONIC POLYPS (3) Diverticula of colon Code(s): K57.30 - DVRTCLOS OF LG INT W/O PERFORATION OR ABSCESS W/O BLEEDING
[2018-02-25] MEDS ORDERED: WARFARIN NA 5 MG TABLET (UD) PO ONE (18:00)
[2018-02-25] MEDS: ATORVASTATIN CA 10 MG TABLET (FP) PO SCH (22:13)
[2018-02-26] MEDS: LEVOTHYROXINE NA 25 MCG TABLET (FP) PO SCH (06:03)
[2018-02-26 08:19] LABS: BASO % 0.8 % (0-2.0); EOS % 1.3 % (0-4.5); HEMATOCRIT 37.1 % (32.4-45.2); HEMOGLOBIN 12.6 GM/dL (10.7-15.3); LYMPH % 29.2 % (8-40); MCH 31.5 pg (25.7-33.7); MEAN CELL VOLUME 92.9 fl (80-96); MEAN PLT VOLUME 7.5 fl (7.5-11.1); MONO % 10.1 % (3.8-10.2); NEUT % 58.6 % (42.8-82.8); PLATELET COUNT 285 K/MM3 (134-434); RBC 3.99 M/mm3 (3.60-5.2); RDW 13.7 % (11.6-15.6)
[2018-02-26 08:34] LABS: INR 1.35 (0.82-1.09); PROTHROMBIN TIME (PATIENT) 15.3 SEC (9.98-11.88)
--- NOTE | 2018-02-26 09:22 | DS ---
Physical Examination Vital Signs: Vital Signs Temperature 98.3 F 02/26/18 06:00 Pulse Rate 84 02/26/18 06:00 Respiratory Rate 18 02/26/18 06:00 Blood Pressure 132/77 02/26/18 06:00 O2 Sat by Pulse Oximetry (%) 95 02/25/18 21:00 Labs: CBC, BMP 02/26/18 07:00 Discharge Summary Reason For Visit: RECTAL HEMORRHAGE Current Active Problems Back pain (Acute) CKD (chronic kidney disease) (Acute) Chronic anticoagulation (Acute) Diverticula of colon (Acute) Hx of colonic polyp (Acute) Hyperlipidemia (Acute) Hypothyroidism (Acute) Pre-procedural cardiovascular examination (Acute) Rectal bleed (Acute) Condition: Improved - Instructions Diet, Activity, Other Instructions: Inr on wednesday Referrals: Avani Salas MD [Primary Care Provider] - Disposition: HOME - Home Medications Comprehensive Discharge Medication List: Ambulatory Orders Atorvastatin Ca [Lipitor] 10 mg PO HS 01/08/17 Levothyroxine [Synthroid -] 25 mcg PO HS 01/08/17 Propafenone HCl [Propafenone HCl ER] 425 mg PO BID 01/08/17 Ferrous Sulfate [Feosol] 325 mg PO BID #60 ud 01/18/17 Furosemide [Lasix -] 20 mg PO DAILY #30 tablet 01/18/17 Lactobacillus Acidophilus [Bacid -] 1 tab PO DAILY tab 01/18/17 Glucosa Zheng 2Kcl/Chondroitin Zheng [Glucosamine & Chondroitin Cap] 1 each PO DAILY 02/12/17 Polyethylene Glycol 3350 [Miralax 119 gm Btl -] 17 gm PO PRN 02/12/17 Warfarin Na [Coumadin -] 2 mg PO ASDIR 02/12/17 Warfarin Na [Coumadin -] 3 mg PO DAILY 02/12/17 Metoprolol Succinate [Toprol Xl] 50 mg PO DAILY 02/24/18 Apixaban [Eliquis -] 5 mg PO BID #6 tablet 02/26/18
[2018-02-26 10:13] LABS: ALBUMIN 3.6 g/dl (3.4-5.0); ANION GAP 8 (8-16); BILIRUBIN,TOTAL 0.5 mg/dL (0.2-1.0); BLOOD UREA NITROGEN 17 mg/dL (7-18); CALCIUM 8.3 mg/dL (8.5-10.1); CHLORIDE 108 mmol/L (98-107); CO2 23 mmol/L (21-32); CREATININE 0.9 mg/dL (0.55-1.02); GLUCOSE,RANDOM 82 mg/dL (74-106); POTASSIUM 3.6 mmol/L (3.5-5.1); SGOT/AST 20 U/L (15-37); SGPT/ALT 24 U/L (12-78); SODIUM 139 mmol/L (136-145); TOT PROT 6.8 g/dl (6.4-8.2)
[2018-02-26 10:14] LABS: ALK PHOS 145 U/L (45-117)
[2018-02-26] MEDS ORDERED: PT OWN MED DRAWER 7, Y5N ONE (10:29)
[2018-02-26] MEDS: PROPAFENONE 425 MG PO SCH (10:31)
[2018-02-26] MEDS: METOPROLOL TARTRATE 50 MG TABLET (FP) PO SCH (10:31)
[2018-02-26 11:25] VITALS: BP 147/76; PULSE 83; TEMP 98.2
--- NOTE | 2018-02-26 12:39 | PN ---
Progress Note (short form) - Note Progress Note: Chief Complaint: Events noted, notes reviewed, in the process of being discharged anxious to go home and prefers outpatient bridging to Coumadin, denies any chest pain or dyspnea History of Present Illness: Seen and examined prior to D/C. Events noted, notes reviewed, in the process of being discharged anxious to go home and prefers outpatient bridging to Coumadin , denies any chest pain or dyspnea Will initiate Eliquis as a bridge to Coumadin, instructions given Medications: Acetaminophen (Tylenol -) 650 mg PO Q4H PRN PRN Reason: BACK PAIN Last Admin: 02/24/18 11:09 Dose: 650 mg Atorvastatin Calcium (Lipitor -) 10 mg PO HS [facility] Last Admin: 02/24/18 22:50 Dose: 10 mg Levothyroxine Sodium (Synthroid -) 25 mcg PO DAILY@0700 [facility] Last Admin: 02/25/18 06:02 Dose: 25 mcg Metoprolol Tartrate (Lopressor -) 50 mg PO BID [facility] Last Admin: 02/24/18 22:50 Dose: 50 mg Non-Formulary Med ( (Propafenone 425mg)) 1 each PO BID [facility] Last Admin: 02/24/18 22:51 Dose: 1 each Review of Systems - Review of Systems Constitutional: denies: Chills, Fever Cardiovascular: as noted above Respiratory: denies: Cough or Sputum Production Gastrointestinal: denies: Nausea, Vomiting, Diarrhea, Constipation or Abdominal Pain Neurological: No symptoms reported Vital Signs: Last Vital Signs Temp Pulse Resp BP Pulse Ox 98.2 F 83 18 147/76 95 02/26/18 10:00 02/26/18 10:00 02/26/18 09:00 02/26/18 10:00 02/26/18 09:00 Intake & Output 02/23/18 02/24/18 02/25/18 02/26/18 23:59 23:59 23:59 23:59 Intake Total 96 60 133 Balance 96 60 133 Weight 151 lb 4 oz Neck: Supple Negative JVD No Bruit Respiratory: Clear to A&P Cardiovascular: S1 S2 Regular Rate and Rhythm Gastrointestinal: Soft Benign Normal Bowel Sounds Ext: Negative Edema Labs: CBC, BMP 02/26/18 07:00 02/26/18 07:00 Assessment/Plan ASSESSMENT: 1. Rectal bleed most likely hemorrhoidal bleed post colonoscopy and polypectomy 2. Diastolic LV dysfunction with class 0 NYHA classification LV failure 3. Paroxysmal atrial fibrillation [id number] score of 6-7 on Coumadin as per INR 4. History of hemo-pericardium post tamponade post pericardial drain likely viral pericarditis 5. Sick sinus syndrome post PPM 6. History of hypertension 7. History of TIA/stroke 8. Hypothyroidism 9. CKD PLAN: 1. Initiate Eliquis as bridging to Coumadin, D/C Heparin 2. Continue Metoprolol 3. Continue Propafanone 4. Continue Lotrel 5. Continue Lipitor 6. Plan to D/C home today and advised to F/U in the office Wednesday for an INR measurement and Coumadin dose adjustment accordingly Edinson Duque MD
[2018-02-26] MEDS ORDERED: WARFARIN NA 3 MG TABLET PO SCH (18:00)
--- NOTE | 2018-02-28 11:36 | PATH ---
Surgical Pathology Report Patient Name: BRIA CARRILLO Med. Rec. #: [id number] /Age/Gender: 1935 (Age: 82) / F Account: [id number] Location: [facility] MED/SURG Taken: 02/25/2018 Received: 02/25/2018 Reported: 02/28/2018 Physicians: Lars Gracia M.D. Specimen(s) Received BX RECTAL POLYP Clinical History Rectal bleeding, rule out cancer Final Diagnosis COLON, RECTUM, BIOPSY: HYPERPLASTIC POLYP. Electronically Signed By Douglas Carnes M.D. Gross Description Received in formalin, labeled "BX rectal polyp" is a parekh, irregular portion of soft tissue measuring 0.3 cm. in greatest dimension. The specimen is submitted in toto in one cassette. JONATHAN/02/25/2018 inocencia/02/25/2018
== END 2018-02-26 12:15 | disposition home or self-care (01) | DRG 378 ==
LOC: JER 14:40 → JERBED 16:20 → J8W 21:30
PROVIDERS: ADMIT Family Medicine; ATTEND Family Medicine
PROC: 0DBP8ZX Excision of Rectum, Via Natural or Artificial Opening Endoscopic, Diagnostic (ICD-10-PCS; principal; 2018-02-23)
DX: K62.5 Hemorrhage of anus and rectum (principal); I13.0 Hypertensive heart and chronic kidney disease with heart failure and stage 1 through stage 4 chronic kidney disease, or unspecified chronic kidney disease; K64.4 Residual hemorrhoidal skin tags; I48.0 Paroxysmal atrial fibrillation; Z86.73 Personal history of transient ischemic attack (TIA), and cerebral infarction without residual deficits; Z79.01 Long term (current) use of anticoagulants; I50.9 Heart failure, unspecified; E07.9 Disorder of thyroid, unspecified; E78.00 Pure hypercholesterolemia, unspecified; Z95.0 Presence of cardiac pacemaker; K57.30 Diverticulosis of large intestine without perforation or abscess without bleeding; I34.0 Nonrheumatic mitral (valve) insufficiency; Z85.828 Personal history of other malignant neoplasm of skin; E03.9 Hypothyroidism, unspecified; S39.82XA Other specified injuries of lower back, initial encounter; W11.XXXA Fall on and from ladder, initial encounter; Y93.89 Activity, other specified; Y92.89 Other specified places as the place of occurrence of the external cause; Y99.8 Other external cause status; N18.9 Chronic kidney disease, unspecified; Z86.010 Personal history of colon polyps; K62.1 Rectal polyp; K64.8 Other hemorrhoids
CPT/HCPCS: 36415; 71045-TC-FY; 72100-TC-FY; 80053; 82272; 83036; 85025; 85027; 85610; 85730; 86850; 86900; 86901; 88305-TC; 93005; 93010; 97116-GP; 97161-GP; 99282-25; J1644

== ENCOUNTER 2019-12-06 09:38 | Emergency (ER) | payer OTHER, MEDICARE ==
[2019-12-06 09:43] VITALS: BP 129/65; PULSE 75; TEMP 98.5; BMI 25.4
--- NOTE | 2019-12-06 10:08 | PDOC ---
History of Present Illness - General Chief Complaint: Injury Stated Complaint: SWOLLEN RT FOOT Time Seen by Provider: 12/06/19 09:42 History Source: Patient Exam Limitations: No Limitations - History of Present Illness Initial Comments: 12/06/19 10:03 Patient is an 84-year-old female with history of A. fib, pacemaker, CVA and hypertension who presents to the ED after a left ankle injury that she sustained last evening. She states she went to get up and inverted her ankle. She states she has been having difficulty walking on her left ankle and states that she has been hobbling around. She denies any numbness or tingling. She denies any calf pain. Of note: She is on Eliquis but states she did not hit her head and has no other injury. She took Tylenol last night which did help her pain and she currently does not want anything for pain today. 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 NO RESIDUAL) COPD: No CHF: Yes DVT: No Dementia: No Diabetes: No GI Disorders: No Disorders: No HTN: Yes Hypercholesterolemia: Yes Liver Disease: No Seizures: No Thyroid Disease: Yes - Surgical History Abdominal Surgery: No Appendectomy: No Cardiac Surgery: Yes ([employer] PACEMAKER-DOUBLE CHAMBER) Cholecystectomy: No Lung Surgery: No Neurologic Surgery: No Orthopedic Surgery: No - Immunization History Immunization Up to Date: Yes - Psycho Social/Smoking Cessation Hx Smoking History: Never smoked Have you smoked in the past 12 months: No Information on smoking cessation initiated: No Hx Alcohol Use: No Drug/Substance Use Hx: No Substance Use Type: None Hx Substance Use Treatment: No Review of Systems - Review of Systems Comments:: 12/06/19 10:04 - Review of Systems Able to Perform ROS?: Yes Constitutional: No: Fever, Chills, Loss of Appetite, Night Sweats, Weakness HEENTM: No: Eye Pain, Vision changes Respiratory: No: Cough, Shortness of Breath Cardiac (ROS): No: Chest Pain, Chest Tightness, Palpitations, Irregular Heart Beat, Edema Musculoskeletal: No: Muscle Pain, Back Pain, Muscle Weakness, Neck Pain; Positive L ankle pain and swelling Integumentary: No: Lesions, Rash Neurological: No: Headache, Numbness, Tingling, Weakness, Speech Difficulties *Physical Exam - Vital Signs Last Vital Signs Temp Pulse Resp BP Pulse Ox 98.5 F 75 18 129/65 99 12/06/19 09:41 12/06/19 09:41 12/06/19 09:41 12/06/19 09:41 12/06/19 09:41 - Physical Exam 12/06/19 10:06 - Physical Exam General Appearance: Nourished, Appropriately Dressed, No Distress Neck: Supple, No Decreased range of motion Respiratory/Chest: No Respiratory Distress, No Accessory Muscle Use Cardiovascular: Regular Rate, S1, S2 Musculoskeletal: Significant left lateral ankle swelling to palpation with significant tenderness to palpation over the lateral malleolus. DP pulse palpable. Patient able to move all toes freely. Brisk capillary refill distally. Sensation intact distally. Extremity: Normal Capillary Refill Integumentary: Normal Color, Dry. No Rash Neurologic: gizzard puller II-XII NML intact, Fully Oriented, Alert, Normal Mood/Affect, Normal Response ED Treatment Course - RADIOLOGY Radiology Studies Ordered: Category Date Time Status ANKLE-LEFT [RAD] Stat Radiology 12/06/19 10:02 Ordered Medical Decision Making - Medical Decision Making 12/06/19 11:40 Patient's x-ray shows what appears to be a step-off at the L distal fibula. The mortise is maintained without any widening appreciated. I have placed the patient in a posterior splint and she should remain nonweightbearing until she follows up with Dr. Hernandez this afternoon. A paper prescription for a walker has been given to the patient today. She has an appointment scheduled with Dr. Hernandez , orthopedics, at 3:45 today that was made from the emergency department. 12/06/19 11:41 Posterior splint placed with 4" fiberglass, 2 rolls of 6" DANA bandage and 1 roll of 4" DANA bandage. Discharge - Discharge Information Problems reviewed: Yes Clinical Impression/Diagnosis: Fracture of distal fibula Qualifiers: Encounter type: initial encounter Fracture type: closed Fracture morphology: other fracture Laterality: left Qualified Code(s): S82.832A - Other fracture of upper and lower end of left fibula, initial encounter for closed fracture Condition: Stable Disposition: HOME - Follow up/Referral Referrals: Avani Salas MD [Primary Care Provider] - Claudio Hernandez MD [Staff Physician] - - Patient Discharge Instructions Patient Printed Discharge Instructions: DI for Ankle Fracture Additional Instructions: You have an appointment today with Dr. Hernandez at 3:45 PM. Be sure to stay off your foot until you follow-up with Dr. Hernandez for further evaluation and treatment. A prescription has been given to you today. - Post Discharge Activity
[2019-12-06] MEDS ORDERED: PRESCRIPTION PAD 1 EACH EACH NR ONE (11:52)
== END 2019-12-06 12:06 | disposition home or self-care (01) ==
LOC: JERFT 09:38 → SUPCPDRO 09:38 → JERFT 12:06
PROC: 2W3RX1Z Immobilization of Left Lower Leg using Splint (ICD-10-PCS; principal; 2019-12-06)
DX: S82.832A Other fracture of upper and lower end of left fibula, initial encounter for closed fracture (principal); X58.XXXA Exposure to other specified factors, initial encounter; Y93.89 Activity, other specified; Y92.89 Other specified places as the place of occurrence of the external cause; Z86.73 Personal history of transient ischemic attack (TIA), and cerebral infarction without residual deficits; I10 Essential (primary) hypertension; I48.91 Unspecified atrial fibrillation; Z95.0 Presence of cardiac pacemaker; E78.00 Pure hypercholesterolemia, unspecified
CPT/HCPCS: 73610-TC-LT-FY; 99282-25